=== PATIENT | male | born 1960 | race Caucasian/White ===

== ENCOUNTER → 2016-09-01 | Outpatient (REF) | payer MEDICARE, MEDICAID ==
[~2016-09-01] MED LIST: /DIVA50TA PO; /HALO5TAB OR; ALLE25CA OR; AMBIEN PO; ANAPROX PO; ASPI325T PO; BENZ1TA PO; BUSP10TA PO; CLON0.5T PO; COGE1INJ PO; COGENTIN PO; COLA100C2 OR; DEPA500T2 PO; DOCU100T PO; FLEEENE4 PR; FURO20TA2 PO; HALD100I2 IM; HALDOL PO; HALO10TA PO; IPRA2IN INH; KLON0.5T OR; KLON1TAB OR; LATU80TA PO; MOBI7.5T10 PO; PROP10TA56 PO; SAPHRIS PO; SAPHRIS SL; SENO8.6T9 OR; SERO400T3 PO; TRAZ100T OR; TRAZ150T OR; TRAZ300T2 OR; TRAZ50TA4 PO; TYLE325T5 PO; VENTOLIN NEB INH; VIST25CA PO; [UNRECOGNIZED DRUG - CODE] PO; saphris
[2016-09-01 13:20] LABS: ALBUMIN 3.6 GM/DL (3.2-5.2); ANION GAP 5 MEQ/L (8-16); BLOOD UREA NITROGEN 16 MG/DL (7-18); CALCIUM LEVEL 8.8 MG/DL (8.5-10.1); CARBON DIOXIDE LEVEL 29 MEQ/L (21-32); CHLORIDE LEVEL 99 MEQ/L (98-107); CREATININE FOR GFR 0.82 MG/DL (0.70-1.30); GLOMERULAR FILTRATION RATE > 60.0 (>56); GLUCOSE, FASTING 94 MG/DL (70-105); PHOSPHORUS LEVEL 2.5 MG/DL (2.5-4.9); POTASSIUM SERUM 4.4 MEQ/L (3.5-5.1); SODIUM LEVEL 133 MEQ/L (136-145)
== END ==
LOC: M LABDRAWC 11:44
PROVIDERS: ATTEND Internal Medicine Nephrology
DX: N18.2 Chronic kidney disease, stage 2 (mild) (principal)

== ENCOUNTER → 2016-09-01 | Outpatient (REF) | payer MEDICARE, MEDICAID ==
[2016-09-01 13:25] LABS: ALBUMIN 3.5 GM/DL (3.2-5.2); ALBUMIN/GLOBULIN RATIO 1.21 (1.00-1.93); ALKALINE PHOSPHATASE 66 U/L (45-117); ALT/SGPT 22 U/L (12-78); ANION GAP 5 MEQ/L (8-16); AST/SGOT 19 U/L (15-37); BILIRUBIN,TOTAL 0.3 MG/DL (0.2-1.0); BLOOD UREA NITROGEN 15 MG/DL (7-18); CALCIUM LEVEL 8.9 MG/DL (8.5-10.1); CARBON DIOXIDE LEVEL 30 MEQ/L (21-32); CHLORIDE LEVEL 101 MEQ/L (98-107); CREATININE FOR GFR 0.85 MG/DL (0.70-1.30); GLOMERULAR FILTRATION RATE > 60.0 (>56); GLUCOSE, FASTING 93 MG/DL (70-105); POTASSIUM SERUM 4.5 MEQ/L (3.5-5.1); SODIUM LEVEL 136 MEQ/L (136-145); TOTAL PROTEIN 6.4 GM/DL (6.4-8.2)
== END ==
LOC: M LABDRAWC 11:42
PROVIDERS: ATTEND Registered Nurse Community Health
DX: Z00.00 Encounter for general adult medical examination without abnormal findings (principal); F17.200 Nicotine dependence, unspecified, uncomplicated; I12.9 Hypertensive chronic kidney disease with stage 1 through stage 4 chronic kidney disease, or unspecified chronic kidney disease; N18.2 Chronic kidney disease, stage 2 (mild)

== ENCOUNTER → 2016-10-26 | Outpatient (REF) | payer MEDICARE, MEDICAID ==
[~2016-10-26] MED LIST changes: +MOBI4TAB PO; -MOBI7.5T10 PO; +TRAZ50TA11 PO; -TRAZ50TA4 PO
== END ==
LOC: M LABDRAWC 11:26
PROVIDERS: ATTEND Registered Nurse Community Health
DX: Z00.00 Encounter for general adult medical examination without abnormal findings (principal); E78.00 Pure hypercholesterolemia, unspecified; I12.9 Hypertensive chronic kidney disease with stage 1 through stage 4 chronic kidney disease, or unspecified chronic kidney disease; N18.2 Chronic kidney disease, stage 2 (mild); F20.5 Residual schizophrenia
CPT/HCPCS: 36415; 80061; 80069; 81001; 83735; 84550; 85025; G0103

== ENCOUNTER → 2016-10-26 | Outpatient (REF) | payer MEDICARE, MEDICAID ==
[2016-10-26 12:23] LABS: BASO % 0.7 % (0.0-1.0); EOS # 0.1 K/mm3 (0.0-0.50); EOS % 1.4 % (0.0-3.0); LARGE UNSTAINED CELL # 0.2 K/mm3 (0.0-0.4); LARGE UNSTAINED CELL % 2.7 % (0.0-4.0); LYMPH # 1.8 K/mm3 (1.5-4.5); LYMPH % 33.2 % (24.0-44.0); MEAN CORPUSCULAR HGB CONC 33.8 g/dl (32.0-36.5); MEAN CORPUSCULAR VOLUME 91.5 fl (80.0-96.0); MONO # 0.6 K/mm3 (0.0-0.8); MONO % 10.2 % (0.0-5.0); NEUTROPHILS # 2.8 K/mm3 (1.8-7.7); NEUTROPHILS % 51.7 % (36.0-66.0); PLATELET COUNT, AUTOMATED 316 k/mm3 (150-450); RED CELL DISTRIBUTION WIDTH 12.8 % (11.5-14.5); WHITE BLOOD COUNT 5.4 K/mm3 (4.0-10.0)
[2016-10-26 12:26] LABS: ALBUMIN 3.4 GM/DL (3.2-5.2); ANION GAP 8 MEQ/L (8-16); BLOOD UREA NITROGEN 12 MG/DL (7-18); CALCIUM LEVEL 8.8 MG/DL (8.5-10.1); CARBON DIOXIDE LEVEL 26 MEQ/L (21-32); CHLORIDE LEVEL 98 MEQ/L (98-107); CREATININE FOR GFR 0.82 MG/DL (0.70-1.30); GLOMERULAR FILTRATION RATE > 60.0 (>56); GLUCOSE, FASTING 91 MG/DL (70-105); MAGNESIUM LEVEL 2.1 MG/DL (1.8-2.4); PHOSPHORUS LEVEL 2.6 MG/DL (2.5-4.9); POTASSIUM SERUM 4.2 MEQ/L (3.5-5.1); SODIUM LEVEL 132 MEQ/L (136-145); URIC ACID 4.5 MG/DL (3.5-7.2)
== END ==
LOC: M LABDRAWC 11:25
PROVIDERS: ATTEND Internal Medicine Nephrology
DX: E78.00 Pure hypercholesterolemia, unspecified (principal); I12.9 Hypertensive chronic kidney disease with stage 1 through stage 4 chronic kidney disease, or unspecified chronic kidney disease; N18.2 Chronic kidney disease, stage 2 (mild); F20.5 Residual schizophrenia

== ENCOUNTER → 2016-11-17 | Outpatient (REF) | payer MEDICARE, MEDICAID ==
[2016-11-17 14:00] LABS: BASO % 0.9 % (0.0-1.0); EOS # 0.1 K/mm3 (0.0-0.50); EOS % 2.1 % (0.0-3.0); LARGE UNSTAINED CELL # 0.2 K/mm3 (0.0-0.4); LYMPH # 2.5 K/mm3 (1.5-4.5); LYMPH % 36.3 % (24.0-44.0); MEAN CORPUSCULAR HEMOGLOBIN 30.5 pg (27.0-33.0); MEAN CORPUSCULAR HGB CONC 33.7 g/dl (32.0-36.5); MEAN CORPUSCULAR VOLUME 90.5 fl (80.0-96.0); MONO # 0.7 K/mm3 (0.0-0.8); MONO % 10.5 % (0.0-5.0); NEUTROPHILS % 47.2 % (36.0-66.0); PLATELET COUNT, AUTOMATED 326 k/mm3 (150-450); RED CELL DISTRIBUTION WIDTH 13.5 % (11.5-14.5); WHITE BLOOD COUNT 6.3 K/mm3 (4.0-10.0)
[2016-11-17 14:22] LABS: ALBUMIN 3.8 GM/DL (3.2-5.2); ANION GAP 6 MEQ/L (8-16); BLOOD UREA NITROGEN 20 MG/DL (7-18); CALCIUM LEVEL 9.3 MG/DL (8.5-10.1); CARBON DIOXIDE LEVEL 30 MEQ/L (21-32); CHLORIDE LEVEL 99 MEQ/L (98-107); CREATININE FOR GFR 0.82 MG/DL (0.70-1.30); GLOMERULAR FILTRATION RATE > 60.0 (>56); GLUCOSE, FASTING 89 MG/DL (70-105); MAGNESIUM LEVEL 2.2 MG/DL (1.8-2.4); POTASSIUM SERUM 4.5 MEQ/L (3.5-5.1); SODIUM LEVEL 135 MEQ/L (136-145); URIC ACID 4.7 MG/DL (3.5-7.2)
== END ==
LOC: M LAB REF 07:11
PROVIDERS: ATTEND Internal Medicine Nephrology
DX: N18.2 Chronic kidney disease, stage 2 (mild) (principal)

== ENCOUNTER 2018-07-25 12:39 | Inpatient (IN) | payer MEDICARE, MEDICAID ==
[~2018-07-25] VITALS: Ht 172.7 cm; Wt 85.2 kg
[~2018-07-25 12:39] MED LIST changes: -/DIVA50TA PO; -/HALO5TAB OR; -BENZ1TA PO; +BENZ1TAB42 PO; +DEPA1TAB3 PO; -HALO10TA PO; +HALO1TAB21 OR; +HALO1TAB29 PO; -SERO400T3 PO; +SERO400T4 PO; +TRAZ-252 PO; -TRAZ50TA11 PO
[2018-07-25] MEDS ORDERED: DIAZ2TAB PO (14:02)
[2018-07-25] MEDS ORDERED: POTA10TA16 PO (14:02)
[2018-07-25] MEDS ORDERED: diazePAM 2 MG TAB PO ONE (14:15)
[2018-07-25 14:48] LABS: HEMATOCRIT 43.2 % (42.0-52.0); HEMOGLOBIN 14.3 g/dl (13.5-17.5); MEAN CORPUSCULAR HEMOGLOBIN 28.4 pg (27.0-33.0); MEAN CORPUSCULAR HGB CONC 33.1 g/dl (32.0-36.5); MEAN CORPUSCULAR VOLUME 85.7 fl (80.0-96.0); PLATELET COUNT, AUTOMATED 417 10^3/uL (150-450); RED BLOOD COUNT 5.04 10^6/uL (4.30-6.10); WHITE BLOOD COUNT 6.3 10^3/uL (4.0-10.0)
[2018-07-25 15:18] LABS: AMPHETAMINES LEVEL URINE NEGATIVE (NEGATIVE); BARBITURATES URINE NEGATIVE (NEGATIVE); BENZODIAZEPINES URINE POSITIVE (NEGATIVE); CANNABINOIDS URINE NEGATIVE (NEGATIVE); COCAINE METABOLITE URINE NEGATIVE (NEGATIVE); METHADONE URINE NEGATIVE (NEGATIVE); OPIATES URINE NEGATIVE (NEGATIVE); PHENCYCLIDINE URINE NEGATIVE (NEGATIVE)
[2018-07-25 15:18] LABS: ACETAMINOPHEN LEVEL < 2.0 UG/ML (10.0-30.0); ALBUMIN 3.9 GM/DL (3.2-5.2); ALT/SGPT 22 U/L (12-78); BILIRUBIN,DIRECT 0.1 MG/DL (0.0-0.2); BILIRUBIN,TOTAL 0.3 MG/DL (0.2-1.0); BLOOD UREA NITROGEN 19 MG/DL (7-18); CALCIUM LEVEL 8.7 MG/DL (8.5-10.1); CARBON DIOXIDE LEVEL 28 MEQ/L (21-32); CHLORIDE LEVEL 94 MEQ/L (98-107); CREATININE FOR GFR 0.76 MG/DL (0.70-1.30); ETHYL ALCOHOL (ETHANOL) < 0.003 % (0.000-0.010); GLOMERULAR FILTRATION RATE > 60.0 (>56); GLUCOSE, FASTING 104 MG/DL (70-100); SALICYLATE LEVEL < 1.7 MG/DL (5.0-30.0); SODIUM LEVEL 128 MEQ/L (136-145); TOTAL PROTEIN 7.3 GM/DL (6.4-8.2); VALPROIC ACID (DEPAKOTE) 57.8 UG/ML (50.0-100.0)
[2018-07-25] MEDS ORDERED: hydrOXYzine 25 MG TAB PO ONE (18:00)
[2018-07-25] MEDS ORDERED: BENZ-52 PO (19:05)
[2018-07-25] MEDS ORDERED: VENTAER INH (19:05)
[2018-07-25] MEDS ORDERED: AMBI10TA PO (19:05)
[2018-07-25] MEDS ORDERED: MELO15TA28 PO (19:05)
[2018-07-25] MEDS ORDERED: METO1TAB87 PO (19:05)
[2018-07-25] MEDS ORDERED: ACET-897 PO (19:05)
[2018-07-25] MEDS ORDERED: DOCU100C17 PO (19:05)
[2018-07-25] MEDS ORDERED: ASEN5TA SL (19:05)
[2018-07-25] MEDS ORDERED: ACETAMINOPHEN TAB 650MG DOSE (2X325MG) PO PRN (19:30)
[2018-07-25] MEDS ORDERED: MAALOX 30 ML SUSP *UDC PO PRN (19:30)
[2018-07-25] MEDS ORDERED: traZODone 50 MG TAB PO PRN (19:30)
[2018-07-25 20:57] VITALS: BP 137/78
[2018-07-25] MEDS ORDERED: POTASSIUM CHLORIDE 10 MEQ SR TABLET PO SCH (21:00)
[2018-07-25] MEDS: BENZTROPINE 1 MG TAB PO SCH (22:14)
[2018-07-25] MEDS: DIVALPROEX 500MG *ER* TAB PO SCH (22:14)
[2018-07-25] MEDS: METOPROLOL TART 25 MG TABLET PO SCH (22:14)
[2018-07-25] MEDS: DOCUSATE SODIUM 100 MG CAP PO SCH (22:15)
[2018-07-25] MEDS: QUEtiapine FUMARATE **XR** 200MG TABLET PO SCH (22:15)
[2018-07-25] MEDS: diazePAM 2 MG TAB PO SCH (22:15)
[2018-07-25] MEDS: ACETAMINOPHEN 500 MG TAB PO PRN (22:16)
[2018-07-25] MEDS: zolPIDEM TARTRATE 5 MG TAB PO PRN (22:18)
[2018-07-26] MEDS ORDERED: ASENAPINE 5 MG SUBLINGUAL TAB (SAPHRIS) SL SCH (06:00)
[2018-07-26 06:46] VITALS: BP 133/74
[2018-07-26 07:13] LABS: BLOOD UREA NITROGEN 16 MG/DL (7-18); CALCIUM LEVEL 9.3 MG/DL (8.5-10.1); CARBON DIOXIDE LEVEL 27 MEQ/L (21-32); CHLORIDE LEVEL 98 MEQ/L (98-107); CREATININE FOR GFR 0.67 MG/DL (0.70-1.30); GLOMERULAR FILTRATION RATE > 60.0 (>56); GLUCOSE, FASTING 95 MG/DL (70-100); POTASSIUM SERUM 4.7 MEQ/L (3.5-5.1); SODIUM LEVEL 129 MEQ/L (136-145)
[2018-07-26] MEDS: FUROSEMIDE 20 MG TAB PO SCH ×2 (07:55→17:49)
[2018-07-26] MEDS: diazePAM 2 MG TAB PO SCH ×3 (07:55→20:18)
[2018-07-26] MEDS: DOCUSATE SODIUM 100 MG CAP PO SCH ×2 (07:55→20:20)
[2018-07-26] MEDS: MELOXICAM (MOBIC) 7.5 MG TAB PO SCH (07:55)
[2018-07-26] MEDS: METOPROLOL TART 25 MG TABLET PO SCH ×2 (07:56→20:20)
[2018-07-26] MEDS ORDERED: NICOTINE 21MG/24HR 1 EA TRANSDERMAL TD SCH (09:00)
[2018-07-26] MEDS ORDERED: OLANZapine ORAL DISINTEGRATING TAB 5MG PO ONE (10:45)
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
[2018-07-26 12:20] LABS: ALBUMIN 3.2 GM/DL (3.2-5.2); ALT/SGPT 20 U/L (12-78); BILIRUBIN,TOTAL 0.4 MG/DL (0.2-1.0); URIC ACID 4.6 MG/DL (3.5-7.2)
--- NOTE | 2018-07-26 15:03 | HPE ---
DATE OF ADMISSION: 07/25/2018 HISTORY OF PRESENT ILLNESS: 57-year-old male with a history of schizoaffective disorder that resides at [facility] ([facility]). He was sent by the police department under 9.41 from [facility] due to threatening staff and residents, decompensated and showing manic behaviors. Hospitalist was consulted for medical management. PAST MEDICAL HISTORY: Significant for hypertension, hyperlipidemia, bilateral lower extremity peripheral vascular disease, paranoid schizophrenia. CURRENT MEDICATIONS: - Tylenol 1000 mg by mouth every 8 hours as needed for pain - albuterol HFA two puffs every 4 hours as needed for shortness of breath - Mylanta as needed for heartburn and indigestion - Cogentin 1 mg by mouth at night - Valium 2 mg by mouth three times a day - Depakote ER 1500 mg by mouth daily - Colace 200 mg by mouth twice a day - furosemide 20 mg by mouth twice a day - meloxicam 15 mg by mouth daily - metoprolol tartrate 25 mg by mouth twice a day - milk of magnesia 30 mL by mouth daily as needed for constipation - Zyprexa 5 mg by mouth every 6 hours as needed for anxiety - Zyprexa 5 mg by mouth twice a day - Seroquel XR 400 mg by mouth daily - Ambien 10 mg by mouth at night PAST SURGICAL HISTORY: Unknown, the patient is a poor historian. SOCIAL HISTORY: The patient smokes what he states is anywhere from one to three packs per day. He lives at [facility] ([facility]). His primary care provider is at [facility] in [place]. The patient is a poor historian and is quite agitated. REVIEW OF SYSTEMS: He does complain of left lower extremity swelling with knee pain. It appears that he has some form of a knee surgery on that left knee. He complains of bilateral hand and wrist pain with swelling. He denies chest pain, headache, blurred vision, dizziness or shortness of breath. He denies any excessive weight gain and is quite agitated that he has had to have blood work done. LABORATORIES: CBC, which proves no abnormalities or anemia. CMP was completed and does show a sodium level of 128 on admission, repeat is 129. Kidney function is stable. The rest of his electrolytes are uneventful. Toxicology was completed and he is positive for benzodiazepine, which is consistent with his medication history. PHYSICAL EXAMINATION: GENERWAL: The patient is mildly agitated. He is cooperative with the examination. HEENT: Oropharynx is pink and moist. Neck is supple without lymphadenopathy or jugular venous distention (JVD). CARDIOVASCULAR: Heart rate and rhythm are regular. PULMONARY: Lungs are clear to auscultation bilaterally. ABDOMEN: Soft and nontender. Positive bowel sounds in all four quadrants. EXTREMITIES: The patient's left lower extremity is swollen and edematous with erythema. It is mildly tender on palpation. He does have a good pedal pulse on bilateral lower extremities. NEUROLOGIC: The patient is alert and oriented times three. ASSESSMENT: 1. Schizoaffective disorder with agitation. 2. Hypertension. 3. Left lower extremity swelling. 4. Hyponatremia. 5. Hyperlipidemia. 6. Presumed asthma versus chronic obstructive pulmonary disease (COPD) given his use of inhalers as needed. 7. Peripheral vascular disease. PLAN: The patient will have a left lower extremity duplex to rule out a deep vein thrombosis (DVT). We will also get a left knee x-ray due to his left knee swelling with erythema. Uric acid was ordered, as well as a CBC and repeat CMP due to his hyponatremia. The patient's furosemide 20 mg by mouth twice a day should be continued. Meloxicam 15 mg by mouth daily should be continued, as well as his other routine home medications. Case was discussed with mental health nurse.
--- NOTE | 2018-07-26 15:31 | REP ---
Left lower extremity Duplex Doppler venous ultrasound: Real time compression and duplex Doppler interrogation of the left lower extremity deep venous system is performed. The left common femoral, superficial femoral and popliteal veins are fully compressible with transducer pressure and demonstrate normal spontaneous and phasic flow, without evidence of deep venous thrombosis. Impression: No evidence of deep venous thrombosis of the left lower extremity femoral popliteal venous system. Electronically Signed by Kt Mendoza MD 07/26/2018 03:22 P
--- NOTE | 2018-07-26 17:00 | REP ---
Left knee: Three views. History: Pain and swelling. Findings: There is advanced diffuse osteopenia. There is old post-traumatic deformity of the proximal fibula. An old patellar fracture is seen with patella melany consistent with old disruption of the patellar tendon mechanism. The position of the patella is unchanged from comparison study of October 22, 2013. No acute bony abnormality is seen. Impression: Old patellar tendon disruption patellar fracture and proximal fibular fracture. Patella melany. Unchanged from 2014 prior radiographs. No acute bony abnormality. Electronically Signed by Benigno Brown MD 07/26/2018 04:51 P
[2018-07-26] MEDS: QUEtiapine FUMARATE **XR** 200MG TABLET PO SCH (17:49)
[2018-07-26] MEDS: DIVALPROEX 500MG *ER* TAB PO SCH (17:49)
[2018-07-26] MEDS: OLANZapine ORAL DISINTEGRATING TAB 5MG PO PRN (17:51)
[2018-07-26 18:00] VITALS: BP 124/57
[2018-07-26] MEDS: zolPIDEM TARTRATE 5 MG TAB PO PRN (20:18)
[2018-07-26] MEDS: OLANZapine ORAL DISINTEGRATING TAB 5MG PO SCH (20:18)
[2018-07-26] MEDS: ACETAMINOPHEN 500 MG TAB PO PRN (20:19)
[2018-07-26] MEDS: BENZTROPINE 1 MG TAB PO SCH (20:20)
[2018-07-26] MEDS ORDERED: HALOPERIDOL 5 MG TAB PO SCH (21:00)
[2018-07-26] MEDS: LORazepam 2 MG TAB PO PRN (23:50)
[2018-07-27] MEDS: OLANZapine ORAL DISINTEGRATING TAB 5MG PO PRN (02:18)
[2018-07-27] MEDS: diazePAM 2 MG TAB PO SCH ×3 (06:00→19:09)
[2018-07-27 06:40] VITALS: BP 114/83
[2018-07-27] MEDS: METOPROLOL TART 25 MG TABLET PO SCH ×2 (08:28→20:03)
[2018-07-27] MEDS: MELOXICAM (MOBIC) 7.5 MG TAB PO SCH (08:28)
[2018-07-27] MEDS: FUROSEMIDE 20 MG TAB PO SCH ×2 (08:28→16:27)
[2018-07-27] MEDS: DOCUSATE SODIUM 100 MG CAP PO SCH ×2 (08:28→20:03)
[2018-07-27] MEDS: OLANZapine ORAL DISINTEGRATING TAB 5MG PO SCH ×2 (08:28→20:03)
[2018-07-27] MEDS: ALBUTEROL 90 MCG/ACT 8GM HFA INHALER INH PRN (08:31)
[2018-07-27 09:32] LABS: BASO # 0.1 10^3/uL (0.0-0.2); BASO % 1.4 % (0.0-1.0); EOS # 0.1 10^3/uL (0.0-0.50); HEMATOCRIT 41.7 % (42.0-52.0); HEMOGLOBIN 13.8 g/dl (13.5-17.5); LYMPH # 1.7 10^3/uL (1.5-4.5); LYMPH % 32.8 % (24.0-44.0); MEAN CORPUSCULAR HEMOGLOBIN 27.5 pg (27.0-33.0); MEAN CORPUSCULAR HGB CONC 33.1 g/dl (32.0-36.5); MEAN CORPUSCULAR VOLUME 83.2 fl (80.0-96.0); MONO # 0.7 10^3/uL (0.0-0.8); MONO % 13.6 % (0.0-5.0); NEUTROPHILS # 2.6 10^3/uL (1.8-7.7); NEUTROPHILS % 50.4 % (36.0-66.0); PLATELET COUNT, AUTOMATED 414 10^3/uL (150-450); RED BLOOD COUNT 5.01 10^6/uL (4.30-6.10); WHITE BLOOD COUNT 5.2 10^3/uL (4.0-10.0)
--- NOTE | 2018-07-27 09:34 | MHIPNPDOC ---
[facility] Progress Note Progress Note DATE OF SERVICE: 07/27/18 HISTORY: Patient is a 57 -year-old , male, with a history of schizoaffective d/o and residing at [facility] several years who was sent with PD under 9.41 from [facility] due to pt threatening staff and other residents, decompensating, manic, paranoid people talk about him, talking to self, AH (stated in ED "they're not too bad"), and agitation. Pt according to [facility] scaring the other residents there due to him threatening and cussing at them. Per ED, when pt asked why he was sent to the ED he stated "I was evicted from my house for arguing with 2 other people. Per ED, pt was manic and agitated. Pt is a poor historian due to current nelda/psychosis/agitation so history gathered from previous chart records. VITAL SIGNS: See below. NEW TEST RESULTS: See below. CURRENT MEDICATIONS: See below. MENTAL STATUS EXAMINATION: General Appearance: unkempt, ds/not appear stated age (older), hospital scrubs/clothing, walking in milieu with his cane Build: average Demeanor: cooperative Eye Contact: fair Activity: pleasant, less anxious Behavior: cooperative, restless Speech: less rapid/pressured, spontaneous, other (he sounds loud and cranky (best example is the voice of a high pitched angry cranky old man)) Mood: less anxious, elevated, hypomanic Mood "better" Affect: appropriate, less labile, congruent, anxious, less disorganized Thought Process: less tangential, loose, associative, flight of ideas, racing, derailment Thought Content (Delusions): less grandiose, paranoia, delusions, other ("I've been threatening people b/c I don't like them" Denies SI, HI intent) Thought Content (Other): less preoccupied, obsessional, guarded, ideas of reference, internal-stimuli, appears paranoid Thought Content (Aggressive): none reported Perception (Hallucinations): less auditory Perception (Other): none reported Cognition (Impairment of): improving attention/concentration, ability to abstract Cognition(Intelligence Est.): borderline Oriented: Awake, Alert, Oriented times three Insight: poor Judgment: Poor Psychosis: improving Associations, Abstract Thinking, Psychotic Perceptions DIAGNOSES: Schizoaffective d/o - bipolar type ASSESSMENT:Pt seen and states that he's feeling better and really likes the zyprexa zydis he started yesterday, is tolerating it well. He is much more pleasant and cooperative, no longer irritable and agitated. Wants to just socialize with me in the office as he appears to like talking to me. States he slept well last night. Feels he is tolerating his medications and they're beneficial. He is attending some groups and finding them helpful, behaving appropriately. He is appropriate with staff and peers. Psychosis, paranoia, hallucinations appear to be improving with the addition of zyprexa zydis. He denies SI/HI. Pt feels safe here. MANAGEMENT PLAN:continue plan medications: zyprexa zydis 5mg bid Cogentin 1 mg QHS Valium 2 mg TID@0600,1200,2000 Depakote Er 1,500 mg DAILY@1800 Ativan 2 mg Q6HP PRN PO ANXIETY/AGITATION ZyPREXA ZYDIS 5 mg Q6HP PRN PO ANXIETY/AGITATION SEROquel XR 400 mg DAILY@1800 Ambien 10 mg QHS PRN PO SLEEP TIME SPENT: 30 minutes. Vital Signs Vital Signs Date Time Temp Pulse Resp B/P (MAP) Pulse Ox O2 Delivery O2 Flow Rate FiO2 07/27/18 08:28 68 120/83 07/27/18 06:40 97.3 20 07/25/18 20:57 98 07/25/18 20:39 Room Air Current Medications Current Medications Acetaminophen (Tylenol Tab) 650 mg Q6HP PRN PO HEADACHE or DISCOMFORT; Start 07/25/18 at 19:30; Status Cancel Acetaminophen (Tylenol Tab) 1,000 mg Q8H PRN PO PAIN Last administered on 07/26/18at 20:19; Start 07/25/18 at 20:00 Al Hydrox/Mg Hydrox/Simethicone (Mylanta) 30 ml Q4HP PRN PO HEARTBURN/INDIGESTION; Start 07/25/18 at 19:30 Albuterol Sulfate (Proventil, Ventolin Hfa) 2 puff Q4H PRN INH SHORTNESS OF BREATH Last administered on 07/27/18at 08:31; Start 07/25/18 at 20:00 Asenapine (Saphris) 5 mg BID@0600,1500 SL Last administered on 07/26/18 05:16; Start 07/26/18 at 06:00; Stop 07/26/18 at 10:37; Status DC Benztropine Mesylate (Cogentin) 1 mg QHS PO Last administered on 07/26/18at 20:20; Start 07/25/18 at 21:00 Diazepam (Valium) 2 mg TID PO Last administered on 07/26/18 07:55; Start 07/25/18 at 21:00; Stop 07/26/18 at 11:05; Status DC Diazepam (Valium) 2 mg TID@0600,1200,2000 PO Last administered on 07/27/18 06:00; Start 07/26/18 at 12:00 Divalproex Sodium (Depakote Er) 1,500 mg DAILY@1800 PO Last administered on 07/26/18 17:49; Start 07/25/18 at 18:00 Docusate Sodium (Colace) 200 mg BID PO Last administered on 07/27/18 08:28; Start 07/25/18 at 21:00 Furosemide (Lasix) 20 mg BID@0900,1700 PO Last administered on 07/27/18 08:28; Start 07/26/18 at 09:00 Haloperidol (Haldol) 5 mg BID PO ; Start 07/26/18 at 21:00; Status Cancel Home Med (Med Rec Complete!) ASDIRECTED XX ; Start 07/25/18 at 19:15; Stop 07/25/18 at 19:15; Status DC Lorazepam (Ativan) 2 mg Q6HP PRN PO ANXIETY/AGITATION Last administered on 07/26/18at 23:50; Start 07/26/18 at 10:45 Magnesium Hydroxide (Milk Of Magnesia) 30 ml DAILYPRN PRN PO CONSTIPATION; Start 07/25/18 at 19:30 Meloxicam (Mobic) 15 mg DAILY PO Last administered on 07/27/18at 08:28; Start 07/26/18 at 09:00 Metoprolol Tartrate (Lopressor) 25 mg BID PO Last administered on 07/27/18at 08:28; Start 07/25/18 at 21:00 Nicotine (Nicoderm Cq 21mg) 1 patch DAILY TD ; Start 07/26/18 at 09:00; Stop 07/26/18 at 09:00; Status DC Olanzapine (ZyPREXA ZYDIS) 5 mg BID PO Last administered on 07/27/18at 08:28; Start 07/26/18 at 21:00 Olanzapine (ZyPREXA ZYDIS) 5 mg Q6HP PRN PO ANXIETY/AGITATION Last administered on 07/27/18at 02:18; Start 07/26/18 at 10:45 Potassium Chloride (Micro-K Extencaps) 10 meq BID PO ; Start 07/25/18 at 21:00; Status UNV Quetiapine Fumarate (SEROquel XR) 400 mg DAILY@1800 PO Last administered on 07/26/18at 17:49; Start 07/25/18 at 18:00 Trazodone HCl (Desyrel) 50 mg QHSP PRN PO INSOMNIA; Start 07/25/18 at 19:30; Status Cancel Zolpidem Tartrate (Ambien) 10 mg QHS PRN PO SLEEP Last administered on 07/26/18at 20:18; Start 07/25/18 at 20:00 Allergies Coded Allergies: No Known Allergies (Verified , 06/27/10) A-FIB/CHADSVASC A-FIB History Current/History of A-Fib/PAF?: No Current Oral Anticoagulant The: No Age/Risk Factor Scoring CHADSVASC: CHADSVASC Response (Comments) Value Hx of HTN Yes 1 Total 1 Treatment Treatment ordered: NONE Reason Anticoagulant not given: Not indicated/[id number] MARY ANDERSON DO July 27, 2018 9:34 am
[2018-07-27] MEDS: LORazepam 2 MG TAB PO PRN ×2 (14:26→20:38)
--- NOTE | 2018-07-27 16:20 | IPNPDOC ---
Date Seen The patient was seen on 07/27/18. Progress Note SUBJECTIVE: Patient wanted to know if he could go home today. Will defert to [facility] team. He still has some discomfort on his left knee and it is swollen. Imaging with xray showed old patella fracture unchanged. Continue pain treatment and have PCP and specialist follow up as outpatient. Continue to monitor clinically. OBJECTIVE PHYSICAL EXAMINATION: VITAL SIGNS: Please see below. GENERWAL: The patient is mildly agitated. He is cooperative with the examination. HEENT: Atraumatic, PERRLA, mucous is moist, trachea without any deviation CARDIOVASCULAR: Heart rate and rhythm are regular. PULMONARY: Lungs are clear to auscultation bilaterally. ABDOMEN: Soft and nontender. Positive bowel sounds in all four quadrants. EXTREMITIES: The patient's left lower extremity is swollen and edematous with erythema. It is mildly tender on palpation. He does have a good pedal pulse on bilateral lower extremities as per previously note. Patient didn't let me examination his knee today, will try to evaluate again tomorrow. NEUROLOGIC: The patient is alert and oriented times three. LABORATORY DATA, IMAGING STUDIES, MICROBIOLOGY: Please see below. ASSESSMENT AND PLAN: 57-year-old male with a history of schizoaffective disorder that resides at [facility] ([facility]). He was sent by the police department under 9.41 from [facility] due to threatening staff and residents, decompensated and showing manic behaviors. Hospitalist was consulted for medical management. Schizoaffective disorder with agitation. Left lower extremity swelling, Peripheral vascular disease, old patella fracture as mentioned below -Left knee xray:Old patellar tendon disruption patellar fracture and proximal fibular fracture. Patella melany. Unchanged from 2014 prior radiographs. No acute bony abnormality. -Left LE US: neg for DVT -Outpatient follow up with PCP, vascular surgery, and orthopedic services -Monitor first any signs of cellulitis -As needed pain management Hyponatremia, asymptomatic -Patient on furosemide -Patient on psychiatric medication -Continue to monitor clinically Hypertension. Resume home regimen furosemide and metoprolol plus potassium supplement Hyperlipidemia. Follow up with PCP as outpatient Asthma / chronic obstructive pulmonary disease (COPD) resume home respiratory therapy VS, I&O, 24H, Fishbone Vital Signs/I&O Vital Signs Date Time Temp Pulse Resp B/P (MAP) Pulse Ox O2 Delivery O2 Flow Rate FiO2 07/27/18 08:28 68 120/83 07/27/18 06:40 97.3 20 07/25/18 20:57 98 07/25/18 20:39 Room Air Laboratory Data 24H LABS Laboratory Tests 2 07/27/18 08:53: Immature Granulocyte % (Auto) 0.8, White Blood Count 5.2, Red Blood Count 5.01, Hemoglobin 13.8, Hematocrit 41.7L, Mean Corpuscular Volume 83.2, Mean Corpuscular Hemoglobin 27.5, Mean Corpuscular Hemoglobin Concent 33.1, Red Cell Distribution Width 14.4, Platelet Count 414, Neutrophils (%) (Auto) 50.4, Lymphocytes (%) (Auto) 32.8, Monocytes (%) (Auto) 13.6H, Eosinophils (%) (Auto) 1.0, Basophils (%) (Auto) 1.4H, Neutrophils # (Auto) 2.6, Lymphocytes # (Auto) 1.7, Monocytes # (Auto) 0.7, Eosinophils # (Auto) 0.1, Basophils # (Auto) 0.1, Nucleated Red Blood Cells % (auto) 0.0 CBC/BMP Laboratory Tests 07/27/18 08:53 Red Blood Count 5.01, Mean Corpuscular Volume 83.2, Mean Corpuscular Hemoglobin 27.5, Mean Corpuscular Hemoglobin Concent 33.1, Red Cell Distribution Width 14.4, Neutrophils (%) (Auto) 50.4, Lymphocytes (%) (Auto) 32.8, Monocytes (%) (Auto) 13.6 H, Eosinophils (%) (Auto) 1.0, Basophils (%) (Auto) 1.4 H, Neutrophils # (Auto) 2.6, Lymphocytes # (Auto) 1.7, Monocytes # (Auto) 0.7, Eos inophils # (Auto) 0.1, Basophils # (Auto) 0.1 ROMELIA LEIGH MD July 27, 2018 16:20
[2018-07-27] MEDS: QUEtiapine FUMARATE **XR** 200MG TABLET PO SCH (17:51)
[2018-07-27] MEDS: DIVALPROEX 500MG *ER* TAB PO SCH (17:52)
[2018-07-27 18:15] VITALS: BP 131/63
[2018-07-27] MEDS: BENZTROPINE 1 MG TAB PO SCH (20:03)
[2018-07-27] MEDS: zolPIDEM TARTRATE 5 MG TAB PO PRN (21:06)
[2018-07-28] MEDS: ACETAMINOPHEN 500 MG TAB PO PRN ×2 (00:37→19:45)
[2018-07-28] MEDS: OLANZapine ORAL DISINTEGRATING TAB 5MG PO PRN ×2 (00:51→23:57)
[2018-07-28 04:50] VITALS: BP 109/68
[2018-07-28] MEDS: diazePAM 2 MG TAB PO SCH ×3 (05:58→19:37)
[2018-07-28] MEDS ORDERED: OLANZapine ORAL DISINTEGRATING TAB 5MG PO ONE (06:00)
[2018-07-28 06:33] VITALS: BP 121/73
--- NOTE | 2018-07-28 08:55 | MHIPNPDOC ---
[facility] Progress Note Progress Note DATE OF SERVICE: 07/28/18 HISTORY: Patient is a 57 -year-old , male, with a history of schizoaffective d/o and residing at [facility] several years who was sent with PD under 9.41 from [facility] due to pt threatening staff and other residents, decompensating, manic, paranoid people talk about him, talking to s elf, AH (stated in ED "they're not too bad"), and agitation. Pt according to TLS scaring the other residents there due to him threatening and cussing at them. Per ED, when pt asked why he was sent to the ED he stated "I was evicted from my house for arguing with 2 other people. Per ED, pt was manic and agitated. Pt is a poor historian due to current nelda/psychosis/agitation so history gathered from previous chart records. VITAL SIGNS: See below. NEW TEST RESULTS: See below. CURRENT MEDICATIONS: See below. MENTAL STATUS EXAMINATION: Pt asleep and unable to assess. MSE per yesterday's note: "General Appearance: unkempt, ds/not appear stated age (older), hospital scrubs/clothing, walking in milieu with his cane Build: average Demeanor: cooperative Eye Contact: fair Activity: pleasant, less anxious Behavior: cooperative, restless Speech: less rapid/pressured, spontaneous, other (he sounds loud and cranky (best example is the voice of a high pitched angry cranky old man)) Mood: less anxious, elevated, hypomanic Mood "better" Affect: appropriate, less labile, congruent, anxious, less disorganized Thought Process: less tangential, loose, associative, flight of ideas, racing, derailment Thought Content (Delusions): less grandiose, paranoia, delusions, other ("I've been threatening people b/c I don't like them" Denies SI, HI intent) Thought Content (Other): less preoccupied, obsessional, guarded, ideas of reference, internal-stimuli, appears paranoid Thought Content (Aggressive): none reported Perception (Hallucinations): less auditory Perception (Other): none reported Cognition (Impairment of): improving attention/concentration, ability to abstract Cognition(Intelligence Est.): borderline Oriented: Awake, Alert, Oriented times three Insight: poor Judgment: Poor Psychosis: improving Associations, Abstract Thinking, Psychotic Perceptions" DIAGNOSES: Schizoaffective d/o - bipolar type ASSESSMENT:Pt sleeping currently after receiving zyprexa zydis 10mg once due to falling twice b/c he wasn't willing to remain sitting and walking all over unit, no injury per nursed, early this am. He is no on fall precautions. Unable to assess fully due to him being alseep. MANAGEMENT PLAN:continue plan medications: zyprexa zydis 5mg bid Cogentin 1 mg QHS Valium 2 mg TID@0600,1200,2000 Depakote Er 1,500 mg DAILY@1800 Ativan 2 mg Q6HP PRN PO ANXIETY/AGITATION ZyPREXA ZYDIS 5 mg Q6HP PRN PO ANXIETY/AGITATION SEROquel XR 400 mg DAILY@1800 Ambien 10 mg QHS PRN PO SLEEP TIME SPENT: 30 minutes. Vital Signs Vital Signs Date Time Temp Pulse Resp B/P (MAP) Pulse Ox O2 Delivery O2 Flow Rate FiO2 07/28/18 06:33 97.3 86 20 121/73 (89) 07/25/18 20:57 98 07/25/18 20:39 Room Air Laboratory Data 24H Labs Laboratory Tests 2 07/27/18 08:53: Immature Granulocyte % (Auto) 0.8, White Blood Count 5.2, Red Blood Count 5.01, Hemoglobin 13.8, Hematocrit 41.7L, Mean Corpuscular Volume 83.2, Mean Corpuscular Hemoglobin 27.5, Mean Corpuscular Hemoglobin Concent 33.1, Red Cell Distribution Width 14.4, Platelet Count 414, Neutrophils (%) (Auto) 50.4, Lymphocytes (%) (Auto) 32.8, Monocytes (%) (Auto) 13.6H, Eosinophils (%) (Auto) 1.0, Basophils (%) (Auto) 1.4H, Neutrophils # (Auto) 2.6, Lymphocytes # (Auto) 1.7, Monocytes # (Auto) 0.7, Eosinophils # (Auto) 0.1, Basophils # (Auto) 0.1, Nucleated Red Blood Cells % (auto) 0.0 CBC/BMP Laboratory Tests 07/27/18 08:53 Red Blood Count 5.01, Mean Corpuscular Volume 83.2, Mean Corpuscular Hemoglobin 27.5, Mean Corpuscular Hemoglobin Concent 33.1, Red Cell Distribution Width 14.4, Neutrophils (%) (Auto) 50.4, Lymphocytes (%) (Auto) 32.8, Monocytes (%) (Auto) 13.6 H, Eosinophils (%) (Auto) 1.0, Basophils (%) (Auto) 1.4 H, Neutrophils # (Auto) 2.6, Lymphocytes # (Auto) 1.7, Monocytes # (Auto) 0.7, Eosinophils # (Auto) 0.1, Basophils # (Auto) 0.1 Current Medications Current Medications Acetaminophen (Tylenol Tab) 650 mg Q6HP PRN PO HEADACHE or DISCOMFORT; Start at 19:30; Status Cancel Acetaminophen (Tylenol Tab) 1,000 mg Q8H PRN PO PAIN Last administered on 07/28/18at 00:37; Start 07/25/18 at 20:00 Al Hydrox/Mg Hydrox/Simethicone (Mylanta) 30 ml Q4HP PRN PO HEARTBURN/INDIGESTION; Start 07/25/18 at 19:30 Albuterol Sulfate (Proventil, Ventolin Hfa) 2 puff Q4H PRN INH SHORTNESS OF BREATH Last administered on 07/27/18at 08:31; Start 07/25/18 at 20:00 Asenapine (Saphris) 5 mg BID@0600,1500 SL Last administered on 07/26/18 05:16; Start 07/26/18 at 06:00; Stop 07/26/18 at 10:37; Status DC Benztropine Mesylate (Cogentin) 1 mg QHS PO Last administered on 07/27/18at 20:03; Start 07/25/18 at 21:00 Diazepam (Valium) 2 mg TID PO Last administered on 07/26/18 07:55; Start 07/25/18 at 21:00; Stop 07/26/18 at 11:05; Status DC Diazepam (Valium) 2 mg TID@0600,1200,2000 PO Last administered on 07/28/18at 05:58; Start 07/26/18 at 12:00 Divalproex Sodium (Depakote Er) 1,500 mg DAILY@1800 PO Last administered on 07/27/18at 17:52; Start 07/25/18 at 18:00 Docusate Sodium (Colace) 200 mg BID PO Last administered on 07/27/18 20:03; Start 07/25/18 at 21:00 Furosemide (Lasix) 20 mg BID@0900,1700 PO Last administered on 07/27/18at 16:27; Start 07/26/18 at 09:00 Haloperidol (Haldol) 5 mg BID PO ; Start 07/26/18 at 21:00; Status Cancel Home Med (Med Rec Complete!) ASDIRECTED XX ; Start 07/25/18 at 19:15; Stop 07/25/18 at 19:15; Status DC Lorazepam (Ativan) 2 mg Q6HP PRN PO ANXIETY/AGITATION Last administered on 07/27/18at 20:38; Start 07/26/18 at 10:45 Magnesium Hydroxide (Milk Of Magnesia) 30 ml DAILYPRN PRN PO CONSTIPATION; Start 07/25/18 at 19:30 Meloxicam (Mobic) 15 mg DAILY PO Last administered on 07/27/18at 08:28; Start 07/26/18 at 09:00 Metoprolol Tartrate (Lopressor) 25 mg BID PO Last administered on 07/27/18 20:03; Start 07/25/18 at 21:00 Nicotine (Nicoderm Cq 21mg) 1 patch DAILY TD ; Start 07/26/18 at 09:00; Stop 07/26/18 at 09:00; Status DC Olanzapine (ZyPREXA ZYDIS) 5 mg BID PO Last administered on 07/27/18 20:03; Start 07/26/18 at 21:00 Olanzapine (ZyPREXA ZYDIS) 5 mg Q6HP PRN PO ANXIETY/AGITATION Last administered on 07/28/18at 00:51; Start 07/26/18 at 10:45 Potassium Chloride (Micro-K Extencaps) 10 meq BID PO ; Start 07/25/18 at 21:00; Status UNV Quetiapine Fumarate (SEROquel XR) 400 mg DAILY@1800 PO Last administered on 07/27/18at 17:51; Start 07/25/18 at 18:00 Trazodone HCl (Desyrel) 50 mg QHSP PRN PO INSOMNIA; Start 07/25/18 at 19:30; Status Cancel Zolpidem Tartrate (Ambien) 10 mg QHS PRN PO SLEEP Last administered on 07/27/18at 21:06; Start 07/25/18 at 20:00 Allergies Coded Allergies: No Known Allergies (Verified , 06/27/10) A-FIB/CHADSVASC A-FIB History Current/History of A-Fib/PAF?: No Current Oral Anticoagulant The: No Age/Risk Factor Scoring CHADSVASC: CHADSVASC Response (Comments) Value Hx of HTN Yes 1 Total 1 Treatment Treatment ordered: NONE Reason Anticoagulant not given: Not indicated/[id number] MARY ANDERSON DO July 28, 2018 08:55
[2018-07-28] MEDS: OLANZapine ORAL DISINTEGRATING TAB 5MG PO SCH ×2 (09:21→20:09)
[2018-07-28] MEDS: DOCUSATE SODIUM 100 MG CAP PO SCH ×2 (09:21→20:09)
[2018-07-28] MEDS: MELOXICAM (MOBIC) 7.5 MG TAB PO SCH (09:21)
[2018-07-28] MEDS: FUROSEMIDE 20 MG TAB PO SCH ×2 (09:21→17:05)
[2018-07-28] MEDS: METOPROLOL TART 25 MG TABLET PO SCH ×2 (09:26→20:08)
--- NOTE | 2018-07-28 15:53 | IPNPDOC ---
Date Seen The patient was seen on 07/28/18. Progress Note SUBJECTIVE: Pt was lowered to the floor by staff when seen leaning last night. He received Zyprexa due to his psychiatric activity. Today his thoughts are tangential but no complain pain sitting on his bed. He did allow me to look at his left knee today. No signs of cellulitis but is swollen as per TAR PROCESSING TECHNICIAN's note. He has old patella fracture seen on xray. He can continue oral pain medication. Cranial nerve intact. He asks when he can return home. OBJECTIVE PHYSICAL EXAMINATION: VITAL SIGNS: Please see below. GENERWAL: The patient is mildly agitated. He is cooperative with the examination. HEENT: Atraumatic, PERRLA, mucous is moist, trachea without any deviation CARDIOVASCULAR: Heart rate and rhythm are regular. PULMONARY: Lungs are clear to auscultation bilaterally. ABDOMEN: Soft and nontender. Positive bowel sounds in all four quadrants. EXTREMITIES: The patient's left lower extremity is swollen but no sign's of cellulitis. Old surgical scar also present. Patient ambulates with cane. NEUROLOGIC: The patient is alert and oriented times three. LABORATORY DATA, IMAGING STUDIES, MICROBIOLOGY: Please see below. ASSESSMENT AND PLAN: 57-year-old male with a history of schizoaffective disorder that resides at [facility] ([facility]). He was sent by the police department under 9.41 from [facility] due to threatening staff and residents, decompensated and showing manic behaviors. Hospitalist was consulted for medical management. Schizoaffective disorder with agitation. Left lower extremity swelling, Peripheral vascular disease, old patella fracture as mentioned below -Left knee xray:Old patellar tendon disruption patellar fracture and proximal fibular fracture. Patella melany. Unchanged from 2014 prior radiographs. No acute bony abnormality. -Left LE US: neg for DVT -Outpatient follow up with PCP, vascular surgery, and orthopedic services -Monitor first any signs of cellulitis -As needed pain management Hyponatremia, asymptomatic -Patient on furosemide -Patient on psychiatric medication -Continue to monitor clinically Hypertension. Resume home regimen furosemide and metoprolol plus potassium supplement Hyperlipidemia. Follow up with PCP as outpatient Asthma / chronic obstructive pulmonary disease (COPD) resume home respiratory therapy Will sign off, please reconsult as needed VS, I&O, 24H, Fishbone Vital Signs/I&O Vital Signs Date Time Temp Pulse Resp B/P (MAP) Pulse Ox O2 Delivery O2 Flow Rate FiO2 07/28/18 09:26 66 127/60 07/28/18 06:33 97.3 20 07/25/18 20:57 98 07/25/18 20:39 Room Air ROMELIA LEIGH MD July 28, 2018 15:53
[2018-07-28] MEDS: ALBUTEROL 90 MCG/ACT 8GM HFA INHALER INH PRN ×2 (16:36→23:13)
[2018-07-28] MEDS: QUEtiapine FUMARATE **XR** 200MG TABLET PO SCH (17:05)
[2018-07-28] MEDS: DIVALPROEX 500MG *ER* TAB PO SCH (17:05)
[2018-07-28 17:30] VITALS: BP 128/73
[2018-07-28] MEDS: BENZTROPINE 1 MG TAB PO SCH (20:08)
[2018-07-28] MEDS: zolPIDEM TARTRATE 5 MG TAB PO PRN (20:19)
[2018-07-28] MEDS: LORazepam 2 MG TAB PO PRN (23:08)
[2018-07-29] MEDS: OLANZapine ORAL DISINTEGRATING TAB 5MG PO PRN ×2 (00:06→23:19)
[2018-07-29] MEDS ORDERED: OLANZapine INTRAMUSCULAR 10 MG VIAL (S0166) IM STA (03:39)
[2018-07-29] MEDS ORDERED: LORazepam 2 MG/ML VIAL (J2060) IM STA (03:39)
[2018-07-29] MEDS ORDERED: diphenhydrAMINE INJ 50MG/ML VIAL (J1200) IM STA (03:39)
[2018-07-29] MEDS ORDERED: LORazepam 2 MG/ML VIAL (J2060) As Ordered ONE (03:45)
[2018-07-29 04:02] VITALS: BP 135/86
[2018-07-29 04:15] VITALS: BP 131/82
[2018-07-29 06:23] VITALS: BP 134/89
[2018-07-29] MEDS: diazePAM 2 MG TAB PO SCH ×3 (06:34→20:27)
[2018-07-29] MEDS: DOCUSATE SODIUM 100 MG CAP PO SCH ×2 (08:06→20:27)
[2018-07-29] MEDS: MELOXICAM (MOBIC) 7.5 MG TAB PO SCH (08:06)
[2018-07-29] MEDS: METOPROLOL TART 25 MG TABLET PO SCH ×2 (08:06→20:28)
[2018-07-29] MEDS: FUROSEMIDE 20 MG TAB PO SCH ×2 (08:06→16:23)
[2018-07-29] MEDS: ACETAMINOPHEN 500 MG TAB PO PRN ×2 (08:12→20:32)
[2018-07-29] MEDS: OLANZapine ORAL DISINTEGRATING TAB 5MG PO SCH ×2 (09:00→20:28)
--- NOTE | 2018-07-29 10:53 | MHIPNPDOC ---
[facility] Progress Note Progress Note DATE OF SERVICE: 07/29/18 HISTORY: Patient is a 57 -year-old , male, with a history of schizoaffective d/o and residing at [facility] several years who was sent with PD under 9.41 from [facility] due to pt threatening staff and other residents, decompensating, manic, paranoid people talk about him, talking to self, AH (stated in ED "they're not too bad"), and agitation. Pt according to TLS scaring the other residents there due to him threatening and cussing at them. Per ED, when pt asked why he was sent to the ED he stated "I was evicted from my house for arguing with 2 other people. Per ED, pt was manic and agitated. Pt is a poor historian due to current nelda/psychosis/agitation so history gathered from previous chart records. VITAL SIGNS: See below. NEW TEST RESULTS: See below. CURRENT MEDICATIONS: See below. MENTAL STATUS EXAMINATION: Pt asleep and unable to assess. MSE per 07-27-18 n ote: "General Appearance: unkempt, ds/not appear stated age (older), hospital scrubs/clothing, walking in milieu with his cane Build: average Demeanor: cooperative Eye Contact: fair Activity: pleasant, less anxious Behavior: cooperative, restless Speech: less rapid/pressured, spontaneous, other (he sounds loud and cranky (best example is the voice of a high pitched angry cranky old man)) Mood: less anxious, elevated, hypomanic Mood "better" Affect: appropriate, less labile, congruent, anxious, less disorganized Thought Process: less tangential, loose, associative, flight of ideas, racing, derailment Thought Content (Delusions): less grandiose, paranoia, delusions, other ("I've been threatening people b/c I don't like them" Denies SI, HI intent) Thought Content (Other): less preoccupied, obsessional, guarded, ideas of reference, internal-stimuli, appears paranoid Thought Content (Aggressive): none reported Perception (Hallucinations): less auditory Perception (Other): none reported Cognition (Impairment of): improving attention/concentration, ability to abstract Cognition(Intelligence Est.): borderline Oriented: Awake, Alert, Oriented times three Insight: poor Judgment: Poor Psychosis: improving Associations, Abstract Thinking, Psychotic Perceptions" DIAGNOSES: Schizoaffective d/o - bipolar type ASSESSMENT:Pt sleeping currently after receiving zyprexa zydis 10mg im, ativan 2mg im, and benadryl 50mg im once due to screaming and yelling, refusing to cooperate with staff, refusing to sit down put him a risk of falling again and possible injuring himself or someone else. He was placed on a sitting for safety around 2-3am this morning. He is on fall precautions. Unable to assess fully due to him being alseep. MANAGEMENT PLAN:increase zyprexa zydis 10mg bid for psychosis/agitation medications: zyprexa zydis 10mg bid Cogentin 1 mg QHS Valium 2 mg TID@0600,1200,2000 Depakote Er 1,500 mg DAILY@1800 Ativan 2 mg Q6HP PRN PO ANXIETY/AGITATION ZyPREXA ZYDIS 5 mg Q6HP PRN PO ANXIETY/AGITATION SEROquel XR 400 mg DAILY@1800 Ambien 10 mg QHS PRN PO SLEEP TIME SPENT: 30 minutes. Vital Signs Vital Signs Date Time Temp Pulse Resp B/P (MAP) Pulse Ox O2 Delivery O2 Flow Rate FiO2 07/29/18 08:06 76 133/75 07/29/18 06:23 97.3 20 07/25/18 20:57 98 07/25/18 20:39 Room Air Current Medications Current Medications Acetaminophen (Tylenol Tab) 650 mg Q6HP PRN PO HEADACHE or DISCOMFORT; Start 07/25/18 at 19:30; Status Cancel Acetaminophen (Tylenol Tab) 1,000 mg Q8H PRN PO PAIN Last administered on 07/29/18at 08:12; Start 07/25/18 at 20:00 Al Hydrox/Mg Hydrox/Simethicone (Mylanta) 30 ml Q4HP PRN PO HEARTBURN/INDIGESTION; Start 07/25/18 at 19:30 Albuterol Sulfate (Proventil, Ventolin Hfa) 2 puff Q4H PRN INH SHORTNESS OF BREATH Last administered on 07/28/18at 23:13; Start 07/25/18 at 20:00 Asenapine (Saphris) 5 mg BID@0600,1500 SL Last administered on 07/26/18 05:16; Start 07/26/18 at 06:00; Stop 07/26/18 at 10:37; Status DC Benztropine Mesylate (Cogentin) 1 mg QHS PO Last administered on 07/28/18at 20:08; Start 07/25/18 at 21:00 Diazepam (Valium) 2 mg TID PO Last administered on 07/26/18at 07:55; Start 07/25/18 at 21:00; Stop 07/26/18 at 11:05; Status DC Diazepam (Valium) 2 mg TID@0600,1200,2000 PO Last administered on 07/29/18at 06:34; Start 07/26/18 at 12:00 Diphenhydramine HCl (Benadryl) 50 mg STAT STAT IM Last administered on 07/29/18 03:57; Start 07/29/18 at 03:39; Stop 07/29/18 at 03:45; Status DC Divalproex Sodium (Depakote Er) 1,500 mg DAILY@1800 PO Last administered on 07/28/18 17:05; Start 07/25/18 at 18:00 Docusate Sodium (Colace) 200 mg BID PO Last administered on 07/29/18 08:06; Start 07/25/18 at 21:00 Furosemide (Lasix) 20 mg BID@0900,1700 PO Last administered on 07/29/18 08:06; Start 07/26/18 at 09:00 Haloperidol (Haldol) 5 mg BID PO ; Start 07/26/18 at 21:00; Status Cancel Home Med (Med Rec Complete!) ASDIRECTED XX ; Start 07/25/18 at 19:15; Stop 07/25/18 at 19:15; Status DC Lorazepam (Ativan) 2 mg Q6HP PRN PO ANXIETY/AGITATION Last administered on 07/28/18 23:08; Start 07/26/18 at 10:45 Lorazepam (Ativan) 2 mg STAT STAT IM Last administered on 07/29/18 03:56; Start 07/29/18 at 03:39; Stop 07/29/18 at 03:45; Status DC Magnesium Hydroxide (Milk Of Magnesia) 30 ml DAILYPRN PRN PO CONSTIPATION; Start 07/25/18 at 19:30 Meloxicam (Mobic) 15 mg DAILY PO Last administered on 07/29/18at 08:06; Start 07/26/18 at 09:00 Metoprolol Tartrate (Lopressor) 25 mg BID PO Last administered on 07/29/18at 08:06; Start 07/25/18 at 21:00 Nicotine (Nicoderm Cq 21mg) 1 patch DAILY TD ; Start 07/26/18 at 09:00; Stop 07/26/18 at 09:00; Status DC Olanzapine (ZyPREXA ZYDIS) 5 mg BID PO Last administered on 07/28/18at 20:09; Start 07/26/18 at 21:00 Olanzapine (ZyPREXA ZYDIS) 5 mg Q6HP PRN PO ANXIETY/AGITATION Last administered on 07/28/18at 00:51; Start 07/26/18 at 10:45; Stop 07/28/18 at 12:00; Status DC Olanzapine (ZyPREXA ZYDIS) 10 mg Q4HP PRN PO ANXIETY/AGITATION Last administered on 07/29/18at 00:06; Start 07/28/18 at 12:00 Olanzapine (Zyprexa Intramuscular) 10 mg STAT STAT IM Last administered on 07/29/18at 03:56; Start 07/29/18 at 03:39; Stop 07/29/18 at 03:45; Status DC Potassium Chloride (Micro-K Extencaps) 10 meq BID PO ; Start 07/25/18 at 21:00; Status UNV Quetiapine Fumarate (SEROquel XR) 400 mg DAILY@1800 PO Last administered on 07/28/18at 17:05; Start 07/25/18 at 18:00 Trazodone HCl (Desyrel) 50 mg QHSP PRN PO INSOMNIA; Start 07/25/18 at 19:30; Status Cancel Zolpidem Tartrate (Ambien) 10 mg QHS PRN PO SLEEP Last administered on 07/28/18at 20:19; Start 07/25/18 at 20:00 Allergies Coded Allergies: No Known Allergies (Verified , 06/27/10) A-FIB/CHADSVASC A-FIB History Current/History of A-Fib/PAF?: No Current Oral Anticoagulant The: No Age/Risk Factor Scoring CHADSVASC: CHADSVASC Response (Comments) Value Hx of HTN Yes 1 Total 1 Treatment Treatment ordered: NONE Reason Anticoagulant not given: Not indicated/[id number] MARY ANDERSON DO July 29, 2018 10:53
--- NOTE | 2018-07-29 10:57 | MHIR ---
General Date: July 29, 2018 Time Initiated: 03:45 Restraint Documentation Order/Evaluation FACE TO FACE: no as not physically restrained PHYSICIAN ASSESSMENT:pt given chemical restraints only due to screaming in milieu in middle of night, refusing to cooperate with staff, refusing to sit down putting himself at risk of falling again and this time injuring himself or others REASON FOR RESTRAINT: Patient poses imminent danger of harming self or others: as described above DE-ESCALATION INTERVENTIONS ATTEMPTED BEFORE USE OF RESTRAINTS: redirection, staff support, prn medication [MECHANICAL AND/OR CHEMICAL] RESTRAINTS USED: chemical only. Zyprexa 10mg im, ativan 2mg im, and benadryl 50mg im x1 LENGTH OF TIME ORDERED IN RESTRAINTS: when no longer a danger to himself or othe rs WHEN TO DISCONTINUE RESTRAINTS: When the patient is no longer a threat to themselves or others. Post evaluation of restraint due in 24 hours. MARY ANDERSON DO July 29, 2018 10:57
--- NOTE | 2018-07-29 10:59 | MHPR ---
General Date: July 29, 2018 Time: 07:45 Post-Restraint Evaluation THE OUTCOME OF THE RESTRAINT:good EFFECTIVENESS OF THE RESTRAINT: chemical: Positive. ANY EVIDENCE THAT THE PATIENT WAS AFFECTED EMOTIONALLY: no ANY NEED FOR COUNSELING/ASSISTANCE: no CHANGES IN TREATMENT PLAN: continue current plan, increase zyprexa zydis to 10mg bid for psychosis/agitation RECOMMENDATIONS FOR FUTURE INCIDENTS: continue current plan MARY ANDERSON DO July 29, 2018 10:59
[2018-07-29] MEDS: LORazepam 2 MG TAB PO PRN ×2 (13:22→23:19)
[2018-07-29] MEDS: QUEtiapine FUMARATE **XR** 200MG TABLET PO SCH (17:12)
[2018-07-29] MEDS: DIVALPROEX 500MG *ER* TAB PO SCH (17:13)
[2018-07-29 18:00] VITALS: BP 133/72
[2018-07-29] MEDS: BENZTROPINE 1 MG TAB PO SCH (20:28)
[2018-07-29] MEDS: zolPIDEM TARTRATE 5 MG TAB PO PRN (23:20)
[2018-07-30] MEDS: diazePAM 2 MG TAB PO SCH ×3 (06:16→20:43)
[2018-07-30 06:38] VITALS: BP 144/86
[2018-07-30] MEDS: DOCUSATE SODIUM 100 MG CAP PO SCH ×2 (08:22→20:43)
[2018-07-30] MEDS: FUROSEMIDE 20 MG TAB PO SCH ×2 (08:22→16:20)
[2018-07-30] MEDS: MELOXICAM (MOBIC) 7.5 MG TAB PO SCH (08:22)
[2018-07-30] MEDS: METOPROLOL TART 25 MG TABLET PO SCH ×2 (08:23→20:42)
[2018-07-30] MEDS: LORazepam 2 MG TAB PO PRN ×2 (08:24→20:43)
[2018-07-30] MEDS: OLANZapine ORAL DISINTEGRATING TAB 5MG PO SCH ×3 (08:28→20:43)
--- NOTE | 2018-07-30 09:13 | MHIPNPDOC ---
[facility] Progress Note Progress Note DATE OF SERVICE: 07/30/18 HISTORY:Patient is a 57 -year-old , male, with a history of schizoaffective d/o and residing at [facility] several years who was sent with PD under 9.41 from [facility] due to pt threatening staff and other residents, decompensating, manic, paranoid people talk about him, talking to self, AH (stated in ED "they're not too bad"), and agitation. Pt according to TLS scaring the other residents there due to him threatening and cussing at them. Per ED, when pt asked why he was sent to the ED he stated "I was evicted from my house for arguing with 2 other people. Per ED, pt was manic and agitated. Pt is a poor historian due to current nelda/psychosis/agitation so history gathered from previous chart records. VITAL SIGNS: See below. NEW TEST RESULTS: See below. CURRENT MEDICATIONS: See below. MENTAL STATUS EXAMINATION: "General Appearance: unkempt, ds/not appear stated age (older), hospital scrubs/clothing, walking in milieu with his cane Build: average Demeanor: cooperative Eye Contact: fair Activity: agitated Behavior: uncooperative, restless Speech: rapid/pressured, spontaneous, other (he sounds loud and cranky (best example is the voice of a high pitched angry cranky old man)) Mood: agitated, elevated, hypomanic Mood "You're on her side!" Affect: inappropriate, labile, congruent, anxious, disorganized, agitated Thought Process: tangential, loose, associative, flight of ideas, racing, derailment Thought Content (Delusions): grandiose, paranoia, delusions, other ("I've been threatening people b/c I don't like them" Denies SI, HI intent) Thought Content (Other): preoccupied, obsessional, guarded, ideas of reference, internal-stimuli, appears paranoid Thought Content (Aggressive): none reported Perception (Hallucinations): auditory Perception (Other): none reported Cognition (Impairment of): attention/concentration, ability to abstract Cognition(Intelligence Est.): borderline Oriented: Awake, Alert, Oriented times three Insight: poor Judgment: Poor Psychosis: Associations, Abstract Thinking, Psychotic Perceptions" DIAGNOSES: Schizoaffective d/o - bipolar type ASSESSMENT:Pt agitated this am, yelling in halls, refusing to follow red irection, throwing coffee onto floor, at first refusing zyprexa zydis but finally took it. He is telling me that a female pt is scum and I'm siding with her. Reassured him that I'm on his side so he gets better and encouraged to calm down. Started falling asleep and calming down after zyprexa zydis given. Depakote level is low therapeutic so will increase by 250mg to see if that causes improvement in agitation and mood stabilization as level can go up. Will monitor depakote levels after started on increased dose. Will checked cmp as he has missed his KCL pill that he takes outpatient since admission. MANAGEMENT PLAN:increase depakote, check cmp medications: zyprexa zydis 10mg bid Cogentin 1 mg QHS Valium 2 mg TID@0600,1200,2000 Depakote Er 1,750 mg DAILY@1800 Ativan 2 mg Q6HP PRN PO ANXIETY/AGITATION ZyPREXA ZYDIS 5 mg Q6HP PRN PO ANXIETY/AGITATION SEROquel XR 400 mg DAILY@1800 Ambien 10 mg QHS PRN PO SLEEP TIME SPENT: 30 minutes. Vital Signs Vital Signs Date Time Temp Pulse Resp B/P (MAP) Pulse Ox O2 Delivery O2 Flow Rate FiO2 07/30/18 08:23 86 125/79 07/30/18 06:38 97.0 16 07/25/18 20:57 98 07/25/18 20:39 Room Air Current Medications Current Medications Acetaminophen (Tylenol Tab) 650 mg Q6HP PRN PO HEADACHE or DISCOMFORT; Start 07/25/18 at 19:30; Status Cancel Acetaminophen (Tylenol Tab) 1,000 mg Q8H PRN PO PAIN Last administered on 07/17 06/04at 20:32; Start 07/25/18 at 20:00 Al Hydrox/Mg Hydrox/Simethicone (Mylanta) 30 ml Q4HP PRN PO HEARTBURN/INDIGESTION; Start 07/25/18 at 19:30 Albuterol Sulfate (Proventil, Ventolin Hfa) 2 puff Q4H PRN INH SHORTNESS OF BREATH Last administered on 07/28/18at 23:13; Start 07/25/18 at 20:00 Asenapine (Saphris) 5 mg BID@0600,1500 SL Last administered on 07/26/18at 05:16; Start 07/26/18 at 06:00; Stop 07/26/18 at 10:37; Status DC Benztropine Mesylate (Cogentin) 1 mg QHS PO Last administered on 07/29/18at 20:28; Start 07/25/18 at 21:00 Diazepam (Valium) 2 mg TID PO Last administered on 07/26/18at 07:55; Start 07/25/18 at 21:00; Stop 07/26/18 at 11:05; Status DC Diazepam (Valium) 2 mg TID@0600,1200,2000 PO Last administered on 07/30/18at 06:16; Start 07/26/18 at 12:00 Diphenhydramine HCl (Benadryl) 50 mg STAT STAT IM Last administered on 07/29/18at 03:57; Start 07/29/18 at 03:39; Stop 07/29/18 at 03:45; Status DC Divalproex Sodium (Depakote Er) 1,500 mg DAILY@1800 PO Last administered on 07/29/18 17:13; Start 07/25/18 at 18:00 Docusate Sodium (Colace) 200 mg BID PO Last administered on 07/30/18at 08:22; Start 07/25/18 at 21:00 Furosemide (Lasix) 20 mg BID@0900,1700 PO Last administered on 07/30/18at 08:22; Start 07/26/18 at 09:00 Haloperidol (Haldol) 5 mg BID PO ; Start 07/26/18 at 21:00; Status Cancel Home Med (Med Rec Complete!) ASDIRECTED XX ; Start 07/25/18 at 19:15; Stop 07/25/18 at 19:15; Status DC Lorazepam (Ativan) 2 mg Q6HP PRN PO ANXIETY/AGITATION Last administered on 07/30/18at 08:24; Start 07/26/18 at 10:45 Lorazepam (Ativan) 2 mg STAT STAT IM Last administered on 07/29/18at 03:56; Start 07/29/18 at 03:39; Stop 07/29/18 at 03:45; Status DC Magnesium Hydroxide (Milk Of Magnesia) 30 ml DAILYPRN PRN PO CONSTIPATION; Start 07/25/18 at 19:30 Meloxicam (Mobic) 15 mg DAILY PO Last administered on 07/30/18at 08:22; Start 07/26/18 at 09:00 Metoprolol Tartrate (Lopressor) 25 mg BID PO Last administered on 07/30/18at 08:23; Start 07/25/18 at 21:00 Nicotine (Nicoderm Cq 21mg) 1 patch DAILY TD ; Start 07/26/18 at 09:00; Stop 07/26/18 at 09:00; Status DC Olanzapine (ZyPREXA ZYDIS) 5 mg BID PO Last administered on 07/28/18at 20:09; Start 07/26/18 at 21:00; Stop 07/29/18 at 10:50; Status DC Olanzapine (ZyPREXA ZYDIS) 5 mg Q6HP PRN PO ANXIETY/AGITATION Last adm inistered on 07/28/18at 00:51; Start 07/26/18 at 10:45; Stop 07/28/18 at 12:00; Status DC Olanzapine (ZyPREXA ZYDIS) 10 mg BID PO Last administered on 07/29/18at 20:28; Start 07/29/18 at 21:00 Olanzapine (ZyPREXA ZYDIS) 10 mg Q4HP PRN PO ANXIETY/AGITATION Last administered on 07/29/18at 23:19; Start 07/28/18 at 12:00 Olanzapine (Zyprexa Intramuscular) 10 mg STAT STAT IM Last administered on 07/29/18at 03:56; Start 07/29/18 at 03:39; Stop 07/29/18 at 03:45; Status DC Potassium Chloride (Micro-K Extencaps) 10 meq BID PO ; Start 07/30/18 at 21:00; Status UNV Potassium Chloride (Micro-K Extencaps) 10 meq BID PO ; Start 07/25/18 at 21:00; Status UNV Quetiapine Fumarate (SEROquel XR) 400 mg DAILY@1800 PO Last administered on 07/29/18at 17:12; Start 07/25/18 at 18:00 Trazodone HCl (Desyrel) 50 mg QHSP PRN PO INSOMNIA; Start 07/25/18 at 19:30; Status Cancel Zolpidem Tartrate (Ambien) 10 mg QHS PRN PO SLEEP Last administered on 07/29/18at 23:20; Start 07/25/18 at 20:00 Allergies Coded Allergies: No Known Allergies (Verified , 06/27/10) A-FIB/CHADSVASC A-FIB History Current/History of A-Fib/PAF?: No Current Oral Anticoagulant The: No Age/Risk Factor Scoring CHADSVASC: CHADSVASC Response (Comments) Value Hx of HTN Yes 1 Total 1 Treatment Treatment ordered: NONE Reason Anticoagulant not given: Not indicated/[id number] MARY ANDERSON DO July 30, 2018 9:13 am
[2018-07-30] MEDS: POTASSIUM CHLORIDE 10 MEQ SR TABLET PO SCH ×2 (09:16→20:43)
[2018-07-30] MEDS ORDERED: OLANZapine INTRAMUSCULAR 10 MG VIAL (S0166) IM ONE (10:00)
[2018-07-30 10:53] LABS: ALT/SGPT 17 U/L (12-78); BILIRUBIN,TOTAL 0.3 MG/DL (0.2-1.0); BLOOD UREA NITROGEN 24 MG/DL (7-18); CALCIUM LEVEL 8.6 MG/DL (8.5-10.1); CARBON DIOXIDE LEVEL 33 MEQ/L (21-32); CHLORIDE LEVEL 95 MEQ/L (98-107); CREATININE FOR GFR 0.86 MG/DL (0.70-1.30); GLOMERULAR FILTRATION RATE > 60.0 (>56); GLUCOSE, FASTING 123 MG/DL (70-100); POTASSIUM SERUM 4.4 MEQ/L (3.5-5.1); SODIUM LEVEL 131 MEQ/L (136-145); TOTAL PROTEIN 6.4 GM/DL (6.4-8.2)
[2018-07-30 13:20] VITALS: BP 154/94
--- NOTE | 2018-07-30 14:01 | REP ---
CT Head without contrast HISTORY: Fall COMPARISON: None There is no intraparenchymal hemorrhage, acute infarct, mass or midline shift. The ventricular system and cortical sulci are dilated consistent with minimal volume loss. There is no extra cerebral collection. There is no fracture. The visualized sinuses are clear. IMPRESSION: Minimal volume loss. Electronically Signed by Fab Dan MD 07/30/2018 01:53 P
[2018-07-30 14:21] LABS: BASO # 0.1 10^3/uL (0.0-0.2); BASO % 1.1 % (0.0-1.0); EOS # 0.1 10^3/uL (0.0-0.50); EOS % 1.1 % (0.0-3.0); HEMATOCRIT 42.7 % (42.0-52.0); HEMOGLOBIN 14.3 g/dl (13.5-17.5); LYMPH # 1.5 10^3/uL (1.5-4.5); LYMPH % 33.4 % (24.0-44.0); MEAN CORPUSCULAR HEMOGLOBIN 28.3 pg (27.0-33.0); MEAN CORPUSCULAR HGB CONC 33.5 g/dl (32.0-36.5); MEAN CORPUSCULAR VOLUME 84.6 fl (80.0-96.0); MONO # 0.6 10^3/uL (0.0-0.8); MONO % 14.4 % (0.0-5.0); NEUTROPHILS # 2.2 10^3/uL (1.8-7.7); NEUTROPHILS % 49.5 % (36.0-66.0); PLATELET COUNT, AUTOMATED 393 10^3/uL (150-450); RED BLOOD COUNT 5.05 10^6/uL (4.30-6.10); WHITE BLOOD COUNT 4.4 10^3/uL (4.0-10.0)
[2018-07-30 14:32] LABS: INR 0.95; PROTHROMBIN TIME 12.8 SECONDS (12.1-14.4)
[2018-07-30] MEDS ORDERED: ACETAMINOPHEN TAB 650MG DOSE (2X325MG) PO PRN (14:45)
[2018-07-30] MEDS: AUGMENTIN 875 MG TAB PO SCH ×2 (14:47→20:43)
[2018-07-30] MEDS: ACETAMINOPHEN 500 MG TAB PO PRN (14:54)
[2018-07-30] MEDS ORDERED: ACETAMINOPHEN 500 MG TAB PO ONE (15:00)
[2018-07-30] MEDS ORDERED: LIDOCAINE 1% MDV 20ML VIAL SC ONE (15:00)
[2018-07-30] MEDS ORDERED: TETANUS/DIPHTHERIA TOX ADSORB ADULT 0.5ML SYR/VIAL (90714) IM ONE (15:00)
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
[2018-07-30 15:21] LABS: ALBUMIN 3.9 GM/DL (3.2-5.2); ALT/SGPT 21 U/L (12-78); BILIRUBIN,TOTAL 0.4 MG/DL (0.2-1.0); BLOOD UREA NITROGEN 24 MG/DL (7-18); CALCIUM LEVEL 9.4 MG/DL (8.5-10.1); CARBON DIOXIDE LEVEL 31 MEQ/L (21-32); CHLORIDE LEVEL 95 MEQ/L (98-107); CPK CREATINE PHOSPHOKINASE 65 U/L (39-308); GLOMERULAR FILTRATION RATE > 60.0 (>56); GLUCOSE, FASTING 95 MG/DL (70-100); POTASSIUM SERUM 4.4 MEQ/L (3.5-5.1); SODIUM LEVEL 132 MEQ/L (136-145); TOTAL PROTEIN 7.1 GM/DL (6.4-8.2)
--- NOTE | 2018-07-30 15:55 | REP ---
LEFT KNEE, FIVE VIEWS: HISTORY: Fall. COMPARISON: 07/26/2018. There are old fractures of the patella and proximal fibula. A high riding patella is present. There is no acute fracture or dislocation. The knee joint space is normal in appearance. Impression: There is no acute fracture or dislocation. Electronically Signed by Fab Dan MD 07/30/2018 03:58 P
[2018-07-30] MEDS: DIVALPROEX 500MG *ER* TAB PO SCH (17:37)
[2018-07-30] MEDS: QUEtiapine FUMARATE **XR** 200MG TABLET PO SCH (17:37)
[2018-07-30 18:00] VITALS: BP 134/80
--- NOTE | 2018-07-30 20:00 | CR.PDOC ---
Plastic Surgery Consultation Date of Consultation 07/30/18 History and Physical CONSULT REPORT FOR: Dr Ibrahim REASON FOR CONSULTATION: Right upper brow laceration HISTORY OF PRESENT ILLNESS: 57 y/o male in mental health unit s/p unwittness fall today. Patient has full thickness laceration above right upper eyebrow. No active bleeding. No change in vision, no neurological deficit. Patient states he is not in pain. PAST MEDICAL HISTORY: 1. Schizophrenia. PAST SURGICAL HISTORY: INCLUDES: 1. unknown. PREVIOUS ANESTHESIA REACTIONS: unknown ALLERGIES: Please see below. FAMILY HISTORY: non contributory. HOME MEDICATIONS: Please see below. REVIEW OF SYSTEMS: GENERAL: Denies chills, reports weight gain, reports feeling febrile yesterday. HEENT: Denies blurred vision and double vision. Denies ear symptoms. Denies hoarseness. NECK: Denies any neck pain]. CARDIOVASCULAR: Denies chest pain and palpitations. MUSCULOSKELETAL: Denies arthralgias, back pain and thrombophlebitis. SKIN: Denies rash. NEUROLOGIC: Denies headache, stroke and transient ischemic attack. PSYCHIATRIC: Denies anxiety and depression. ENDOCRINE: Denies thyroid disease. HEMATOLOGY/ONCOLOGY: Denies bleeding or clotting disorder. HEART: Denies any chest pains, palpitations, paroxysmal dyspnea, orthopnea. PULMONARY: Denies chronic cough, dyspnea and wheezing. GASTROINTESTINAL: Denies rectal bleeding, family history of colon cancer, constipation, diarrhea, dysphagia, heartburn and jaundice. GENITOURINARY: Denies dysuria, frequency, hematuria and nocturia. ENDOCRINE: Denies polydipsia, polyphagia, polyuria, heat or cold intolerance. INFECTIOUS: Denies any recent upper respiratory tract infection, UTI, need for use of antibiotics. NUTRITION: Reports good appetite. PHYSICAL EXAMINATION: VITALS SIGNS: Please see below. GENERAL APPEARANCE:Patient seen, laying in bed, awake, alert, and oriented. Comfortable, in no acute distress. SKIN: Warm and moist. Full thickness laceration to the deep muscle layer horizontally oriented along the right upper brow edge. Middle of the laceration with avulsion part. Viable. No active bleeding. Full motion of the brow, no ptosis. Full motion of the upper eyelid. Laceration 4 cm length. HEENT: Normocephalic, atraumatic. [place] palpebral conjunctiva, anicteric sclerae. Lips and mucosa appear moist. NECK: Supple, no thyromegaly. No obvious jugular venous distention. LUNGS: Clear to auscultation bilaterally. No wheezing appreciated. LABORATORY DATA: Please see below. IMPRESSION AND PLAN: Complex laceration right upper brow. Antibiotics po Informed consent from 2 physicians obtained. Complex laceration repair done. (See report dictated) Tolerated well. Will f/up with patient before discharge. Vital Signs Vital Signs Date Time Temp Pulse Resp B/P (MAP) Pulse Ox O2 Delivery O2 Flow Rate FiO2 07/30/18 18:00 98.4 68 18 134/80 (98) 07/30/18 13:20 95 07/25/18 20:39 Room Air Laboratory Data Labs 24H Laboratory Tests 2 07/30/18 09:34: Anion Gap 3L, Glomerular Filtration Rate > 60.0, Blood Urea Nitrogen 24H, Creatinine 0.86, Sodium Level 131L, Potassium Level 4.4, Chloride Level 95L, Carbon Dioxide Level 33H, Calcium Level 8.6, Aspartate Amino Transf (AST/SGOT) 14, Alanine Aminotransferase (ALT/SGPT) 17, Alkaline Phosphatase 73, Total Bilirubin 0.3, Total Protein 6.4, Albumin 3.0L, Albumin/Globulin Ratio 0.88L 07/30/18 14:05: 07/30/18 14:08: Anion Gap 6L, Glomerular Filtration Rate > 60.0, Blood Urea Nitrogen 24H, Creatinine 1.10, Sodium Level 132L, Potassium Level 4.4, Chloride Level 95L, Carbon Dioxide Level 31, Calcium Level 9.4, Aspartate Amino Transf (AST/SGOT) 18, Alanine Aminotransferase (ALT/SGPT) 21, Alkaline Phosphatase 84, Total Bili meade 0.4, Total Protein 7.1, Albumin 3.9#, Albumin/Globulin Ratio 1.22, Immature Granulocyte % (Auto) 0.5, White Blood Count 4.4, Red Blood Count 5.05, Hemoglobin 14.3, Hematocrit 42.7, Mean Corpuscular Volume 84.6, Mean Corpuscular Hemoglobin 28.3, Mean Corpuscular Hemoglobin Concent 33.5, Red Cell Distribution Width 14.2, Platelet Count 393, Neutrophils (%) (Auto) 49.5, Lymphocytes (%) (Auto) 33.4, Monocytes (%) (Auto) 14.4H, Eosinophils (%) (Auto) 1.1, Basophils (%) (Auto) 1.1H, Neutrophils # (Auto) 2.2, Lymphocytes # (Auto) 1.5, Monocytes # (Auto) 0.6, Eosinophils # (Auto) 0.1, Basophils # (Auto) 0.1, Nucleated Red Blood Cells % (auto) 0.0, Prothrombin Time 12.8, Prothromb Time International Ratio 0.95, Total Creatine Kinase 65, Ammonia 18, Thyroid Stimulating Hormone (TSH) 1.870 CBC/BMP Laboratory Tests 07/30/18 09:34 Calcium Level 8.6, Aspartate Amino Transf (AST/SGOT) 14, Alanine Aminotransferase (ALT/SGPT) 17, Alkaline Phosphatase 73, Total Bilirubin 0.3, Total Protein 6.4, Albumin 3.0 L 07/30/18 14:08 Calcium Level 9.4, Aspartate Amino Transf (AST/SGOT) 18, Alanine Aminotransferase (ALT/SGPT) 21, Alkaline Phosphatase 84, Total Bilirubin 0.4, Total Protein 7.1, Albumin 3.9 #, Red Blood Count 5.05, Mean Corpuscular Volume 84.6, Mean Corpuscular Hemoglobin 28.3, Mean Corpuscular Hemoglobin Concent 33.5, Red Cell Distribution Width 14.2, Neutrophils (%) (Auto) 49.5, Lymphocytes (%) (Auto) 33.4, Monocytes (%) (Auto) 14.4 H, Eosinophils (%) (Auto) 1.1, Basophils (%) (Auto) 1.1 H, Neutrophils # (Auto) 2.2, Lymphocytes # (Auto) 1.5, Monocytes # (Auto) 0.6, Eosinophils # (Auto) 0.1, Basophils # (Auto) 0.1, Total Creatine Kinase 65 Home Medications Scheduled Asenapine (Saphris) 5 Mg Tab.subl, 5 MG SL BID, (Reported) AT 0600 AND 1500 Benztropine Mesylate (Benztropine Mesylate) 1 Mg Tablet, 1 MG PO QHS, (Reported) Diazepam (Diazepam) 2 Mg Tablet, 2 MG PO TID, (Reported) Divalproex Sodium (Depakote ER) 500 Mg Tab, 1,500 MG PO QPM, (Reported) WITH DINNER Docusate Sodium (Docusate Sodium) 100 Mg Capsule, 200 MG PO BID, (Reported) Furosemide (Furosemide) 20 Mg Tab, 20 MG PO BID, (Reported) Haloperidol Decanoate (Haldol Decanoate 100) 100 Mg/Ml Inj, 300 MG IM ASDIRECTED, (Reported) EVERY 28 DAYS Meloxicam (Meloxicam) 15 Mg Tablet, 15 MG PO DAILY, (Reported) Metoprolol Tartrate (Metoprolol Tartrate) 25 Mg Tablet, 25 MG PO BID, (Reported) Potassium Chloride (Potassium Chloride) 10 Meq Tab.er.prt, 10 MEQ PO BID, (Reported) Quetiapine Fumarate (Seroquel Xr) 400 Mg Tab, 400 MG PO QPM, (Reported) WITH DINNER Scheduled PRN Acetaminophen (Tylenol Extra Strength) 500 Mg Tablet, 1,000 MG PO Q8H PRN for PAIN, (Reported) Albuterol Sulfate (Ventolin Hfa) 18 Gm Hfa.aer.ad, 2 PUFF INH Q4H PRN for SHORTNESS OF BREATH, (Reported) Zolpidem Tartrate (Ambien) 10 Mg Tablet, 10 MG PO QHS PRN for SLEEP, (Reported) Allergies Coded Allergies: No Known Allergies (Verified , 06/27/10) LYLA ANTONIO DO July 30, 2018 20:00
[2018-07-30] MEDS: BENZTROPINE 1 MG TAB PO SCH (20:43)
[2018-07-30] MEDS: POLYSPORIN TOPICAL OINTMENT 15GM TOP SCH (21:28)
[2018-07-30] MEDS: zolPIDEM TARTRATE 5 MG TAB PO PRN (22:43)
[2018-07-31] MEDS: ACETAMINOPHEN 500 MG TAB PO PRN (01:57)
[2018-07-31] MEDS: diazePAM 2 MG TAB PO SCH ×3 (05:16→20:30)
[2018-07-31 07:09] VITALS: BP 148/80
--- NOTE | 2018-07-31 07:32 | RO ---
DATE OF PROCEDURE: 07/30/2018 PREOPERATIVE DIAGNOSIS: Full thickness complex laceration right upper eyebrow. POSTOPERATIVE DIAGNOSIS: Full thickness complex laceration right upper eyebrow. PROCEDURE: Complex repair of right upper brow laceration. ATTENDING SURGEON: Carol Carrasquillo DO ANESTHESIA: Local This is a patient who was status post unwitnessed fall today. He is an inpatient in the mental health unit. The patient needs to have this laceration repaired. It is 4 cm in length. Antibiotics were already given. DESCRIPTION OF PROCEDURE: Patient is not capable to sign full consent, however he understands, so the explanations were done with the patient as well as the attending surgeon and attending provider, so two physician consent was obtained. 1% lidocaine was used as a local. We used 4 mL total. The field block was obtained after the numbing effect of lidocaine was ensured. The wound is explored. It is full thickness to the deep muscle layer, however there is no active bleeding. The wound is completely clean with clean cut edges. The middle of the wound has a strip of avulsion which is viable, so I did a multilayer repair with absorbable sutures, Vicryl #4-0 on the deep layer, then #4-0 Monocryl on the superficial layer as well as the dermal sutures. The patient tolerated the procedure well. Steri-Strips were applied. He has good symmetry. Eyebrow is in symmetric position and has full motion of the eyebrow as well as the upper lid. MTDD
[2018-07-31] MEDS: FUROSEMIDE 20 MG TAB PO SCH ×2 (08:26→16:13)
[2018-07-31] MEDS: OLANZapine ORAL DISINTEGRATING TAB 5MG PO SCH ×2 (08:26→20:51)
[2018-07-31] MEDS: METOPROLOL TART 25 MG TABLET PO SCH ×2 (08:26→20:50)
[2018-07-31] MEDS: POTASSIUM CHLORIDE 10 MEQ SR TABLET PO SCH ×2 (08:26→20:50)
[2018-07-31] MEDS: AUGMENTIN 875 MG TAB PO SCH ×2 (08:26→20:19)
[2018-07-31] MEDS: DOCUSATE SODIUM 100 MG CAP PO SCH ×2 (08:26→20:20)
[2018-07-31] MEDS: MELOXICAM (MOBIC) 7.5 MG TAB PO SCH (08:27)
[2018-07-31] MEDS: POLYSPORIN TOPICAL OINTMENT 15GM TOP SCH ×2 (09:24→20:20)
--- NOTE | 2018-07-31 10:18 | MHIPNPDOC ---
[facility] Progress Note Progress Note DATE OF SERVICE: 07/31/18 HISTORY: Patient is a 57 -year-old , male, with a history of schizoaffective d/o and residing at [facility] several years who was sent with PD under 9.41 from [facility] due to pt threatening staff and other residents, decompensating, manic, paranoid people talk about him, talking to s elf, AH (stated in ED "they're not too bad"), and agitation. Pt according to TLS scaring the other residents there due to him threatening and cussing at them. Per ED, when pt asked why he was sent to the ED he stated "I was evicted from my house for arguing with 2 other people. Per ED, pt was manic and agitated. Pt is a poor historian due to current nelda/psychosis/agitation so history gathered from previous chart records. VITAL SIGNS: See below. NEW TEST RESULTS: See below. CURRENT MEDICATIONS: See below. MENTAL STATUS EXAMINATION: pt currently asleep and unable to assess. MSE per 07/30/18 "General Appearance: unkempt, ds/not appear stated age (older), hospital scrubs/clothing, walking in milieu with his cane Build: average Demeanor: cooperative Eye Contact: fair Activity: agitated Behavior: uncooperative, restless Speech: rapid/pressured, spontaneous, other (he sounds loud and cranky (best example is the voice of a high pitched angry cranky old man)) Mood: agitated, elevated, hypomanic Mood "You're on her side!" Affect: inappropriate, labile, congruent, anxious, disorganized, agitated Thought Process: tangential, loose, associative, flight of ideas, racing, derailment Thought Content (Delusions): grandiose, paranoia, delusions, other ("I've been threatening people b/c I don't like them" Denies SI, HI intent) Thought Content (Other): preoccupied, obsessional, guarded, ideas of reference, internal-stimuli, appears paranoid Thought Content (Aggressive): none reported Perception (Hallucinations): auditory Perception (Other): none reported Cognition (Impairment of): attention/concentration, ability to abstract Cognition(Intelligence Est.): borderline Oriented: Awake, Alert, Oriented times three Insight: poor Judgment: Poor Psychosis: Associations, Abstract Thinking, Psychotic Perceptions" DIAGNOSES: Schizoaffective d/o - bipolar type ASSESSMENT: Called by staff as pt feel and hit his head cutting it open. Seen by surgeon yesterday evening and sutures placed, must keep dry now. Surgeon ordered assisted ambulation so 1:1 sitter present to assist pt with ambulation and monitor his safety. Continues to be agitated and labile. Per staff is not sleeping at night and question whether ambien is making him worse possibly and very likely to cause delirium and agitation. Will adjust meds to more control pt's symptoms: depakote er increased yesterday, change valium to 1mg tid, and change seroquel xr to seroquel 600mg qhs, d/c ambien. Will monitor for improvement in sleep after changes made tonight. MANAGEMENT PLAN: see plan above medications: zyprexa zydis 10mg bid Cogentin 1 mg QHS Valium 1 mg TID Depakote Er 1,750 mg DAILY@2100 Ativan 2 mg Q6HP PRN PO ANXIETY/AGITATION ZyPREXA ZYDIS 10 mg Q6HP PRN PO ANXIETY/AGITATION SEROquel 600 mg DAILY@1800 TIME SPENT: 30 minutes. Vital Signs Vital Signs Date Time Temp Pulse Resp B/P (MAP) Pulse Ox O2 Delivery O2 Flow Rate FiO2 07/31/18 08:26 73 123/80 07/31/18 07:09 97.9 18 07/30/18 13:20 95 07/25/18 20:39 Room Air Laboratory Data 24H Labs Laboratory Tests 2 07/30/18 14:05: 07/30/18 14:08: Immature Granulocyte % (Auto) 0.5, White Blood Count 4.4, Red Blood Count 5.05, Hemoglobin 14.3, Hematocrit 42.7, Mean Corpuscular Volume 84.6, Mean Corpuscular Hemoglobin 28.3, Mean Corpuscular Hemoglobin Concent 33.5, Red Cell Distribution Width 14.2, Platelet Count 393, Neutrophils (%) (Auto) 49.5, Lymphocytes (%) (Auto) 33.4, Monocytes (%) (Auto) 14.4H, Eosinophils (%) (Auto) 1.1, Basophils (%) (Auto) 1.1H, Neutrophils # (Auto) 2.2, Lymphocytes # (Auto) 1.5, Monocytes # (Auto) 0.6, Eosinophils # (Auto) 0.1, Basophils # (Auto) 0.1, Nucleated Red Blood Cells % (auto) 0.0, Prothrombin Time 12.8, Prothromb Time International Ratio 0.95, Anion Gap 6L, Glomerular Filtration Rate > 60.0, Blood Urea Nitrogen 24H, Creatinine 1.10, Sodium Level 132L, Potassium Level 4.4, Chloride Level 95L, Carbon Dioxide Level 31, Calcium Level 9.4, Aspartate Amino Transf (AST/SGOT) 18, Alanine Aminotransferase (ALT/SGPT) 21, Total Creatine Kinase 65, Alkaline Phosphatase 84, Total Bilirubin 0.4, Total Protein 7.1, Albumin 3.9#, Ammonia 18, Albumin/Globulin Ratio 1.22, Thyroid Stimulating Hormone (TSH) 1.870 CBC/BMP Laboratory Tests 07/30/18 14:08 Red Blood Count 5.05, Mean Corpuscular Volume 84.6, Mean Corpuscular Hemoglobin 28.3, Mean Corpuscular Hemoglobin Concent 33.5, Red Cell Distribution Width 14.2, Neutrophils (%) (Auto) 49.5, Lymphocytes (%) (Auto) 33.4, Monocytes (%) (Auto) 14.4 H, Eosinophils (%) (Auto) 1.1, Basophils (%) (Auto) 1.1 H, Neutrophils # (Auto) 2.2, Lymphocytes # (Auto) 1.5, Monocytes # (Auto) 0.6, Eosinophils # (Auto) 0.1, Basophils # (Auto) 0.1, Calcium Level 9.4, Aspartate Amino Transf (AST/SGOT) 18, Alanine Aminotransferase (ALT/SGPT) 21, Total Crea vivian Kinase 65, Alkaline Phosphatase 84, Total Bilirubin 0.4, Total Protein 7.1, Albumin 3.9 # Current Medications Current Medications Acetaminophen (Tylenol Tab) 650 mg Q4HP PRN PO PAIN OR FEVER; Start 07/30/18 at 14:45; Stop 07/30/18 at 15:25; Status DC Acetaminophen (Tylenol Tab) 650 mg Q6HP PRN PO HEADACHE or DISCOMFORT; Start 07/25/18 at 19:30; Status Cancel Acetaminophen (Tylenol Tab) 1,000 mg Q8H PRN PO PAIN Last administered on 07/31/18at 01:57; Start 07/25/18 at 20:00 Al Hydrox/Mg Hydrox/Simethicone (Mylanta) 30 ml Q4HP PRN PO HEARTBURN/I NDIGESTION; Start 07/25/18 at 19:30 Albuterol Sulfate (Proventil, Ventolin Hfa) 2 puff Q4H PRN INH SHORTNESS OF BREATH Last administered on 07/28/18at 23:13; Start 07/25/18 at 20:00 Amoxicillin/ Clavulanate Potassium (Augmentin) 875 mg BID PO Last administered on 07/31/18 08:26; Start 07/30/18 at 14:15; Stop 08/05/18 at 21:01 Asenapine (Saphris) 5 mg BID@0600,1500 SL Last administered on 07/26/18at 05:16; Start 07/26/18 at 06:00; Stop 07/26/18 at 10:37; Status DC Bacitracin/ Polymyxin B Sulfate (Polysporin Top Oint) APPLY TO WOUND AREA BID TOP Last administered on 07/31/18at 09:24; Start 07/30/18 at 21:00; Stop 08/06/18 at 09:01 Benztropine Mesylate (Cogentin) 1 mg QHS PO Last administered on 07/30/18at 20:43; Start 07/25/18 at 21:00 Diazepam (Valium) 2 mg TID PO Last administered on 07/26/18at 07:55; Start 07/25/18 at 21:00; Stop 07/26/18 at 11:05; Status DC Diazepam (Valium) 2 mg TID@0600,1200,2000 PO Last administered on 07/31/18at 05:16; Start 07/26/18 at 12:00 Diphenhydramine HCl (Benadryl) 50 mg STAT STAT IM Last administered on 07/29/18at 03:57; Start 07/29/18 at 03:39; Stop 07/29/18 at 03:45; Status DC Divalproex Sodium (Depakote Er) 1,500 mg DAILY@1800 PO Last administered on 07/30/18at 17:37; Start 07/25/18 at 18:00 Docusate Sodium (Colace) 200 mg BID PO Last administered on 07/31/18 08:26; Start 07/25/18 at 21:00 Furosemide (Lasix) 20 mg BID@0900,1700 PO Last administered on 07/31/18at 08:26; Start 07/26/18 at 09:00 Haloperidol (Haldol) 5 mg BID PO ; Start 07/26/18 at 21:00; Status Cancel Home Med (Med Rec Complete!) ASDIRECTED XX ; Start 07/25/18 at 19:15; Stop 07/25/18 at 19:15; Status DC Lorazepam (Ativan) 2 mg Q6HP PRN PO ANXIETY/AGITATION Last administered on 07/30/18 20:43; Start 07/26/18 at 10:45 Lorazepam (Ativan) 2 mg STAT STAT IM Last administered on 07/29/18 03:56; Start 07/29/18 at 03:39; Stop 07/29/18 at 03:45; Status DC Magnesium Hydroxide (Milk Of Magnesia) 30 ml DAILYPRN PRN PO CONSTIPATION; Start 07/25/18 at 19:30 Meloxicam (Mobic) 15 mg DAILY PO Last administered on 07/31/18 08:27; Start 07/26/18 at 09:00 Metoprolol Tartrate (Lopressor) 25 mg BID PO Last administered on 07/31/18 08:26; Start 07/25/18 at 21:00 Nicotine (Nicoderm Cq 21mg) 1 patch DAILY TD ; Start 07/26/18 at 09:00; Stop 07/26/18 at 09:00; Status DC Olanzapine (ZyPREXA ZYDIS) 5 mg BID PO Last administered on 07/28/18at 20:09; Start 07/26/18 at 21:00; Stop 07/29/18 at 10:50; Status DC Olanzapine (ZyPREXA ZYDIS) 5 mg Q6HP PRN PO ANXIETY/AGITATION Last administered on 07/28/18at 00:51; Start 07/26/18 at 10:45; Stop 07/28/18 at 12:00; Status DC Olanzapine (ZyPREXA ZYDIS) 10 mg BID PO Last administered on 07/31/18at 08:26; Start 07/29/18 at 21:00 Olanzapine (ZyPREXA ZYDIS) 10 mg Q4HP PRN PO ANXIETY/AGITATION Last administered on 07/29/18at 23:19; Start 07/28/18 at 12:00 Olanzapine (Zyprexa Intramuscular) 10 mg STAT STAT IM Last administered on 07/29/18at 03:56; Start 07/29/18 at 03:39; Stop 07/29/18 at 03:45; Status DC Potassium Chloride (Micro-K Extencaps) 10 meq BID PO Last administered on 07/31/18at 08:26; Start 07/30/18 at 09:00 Potassium Chloride (Micro-K Extencaps) 10 meq BID PO ; Start 07/25/18 at 21:00; Status UNV Quetiapine Fumarate (SEROquel XR) 400 mg DAILY@1800 PO Last administered on 07/30/18at 17:37; Start 07/25/18 at 18:00 Trazodone HCl (Desyrel) 50 mg QHSP PRN PO INSOMNIA; Start 07/25/18 at 19:30; S tatus Cancel Zolpidem Tartrate (Ambien) 10 mg QHS PRN PO SLEEP Last administered on 07/30/18at 22:43; Start 07/25/18 at 20:00 Allergies Coded Allergies: No Known Allergies (Verified , 06/27/10) A-FIB/CHADSVASC A-FIB History Current/History of A-Fib/PAF?: No Current Oral Anticoagulant The: No Age/Risk Factor Scoring CHADSVASC: CHADSVASC Response (Comments) Value Hx of HTN Yes 1 Total 1 Treatment Treatment ordered: NONE Reason Anticoagulant not given: Not indicated/[id number] MARY ANDERSON DO July 31, 2018 9:34 am
[2018-07-31] MEDS: ALBUTEROL 90 MCG/ACT 8GM HFA INHALER INH PRN (11:48)
[2018-07-31] MEDS ORDERED: OLANZapine ORAL DISINTEGRATING TAB 5MG PO SCH (16:00)
[2018-07-31 18:00] VITALS: BP 138/92
[2018-07-31] MEDS: DIVALPROEX 250MG *ER* TAB PO SCH (20:18)
[2018-07-31] MEDS: DIVALPROEX 500MG *ER* TAB PO SCH (20:18)
[2018-07-31] MEDS: BENZTROPINE 1 MG TAB PO SCH (20:19)
--- NOTE | 2018-07-31 20:25 | IPNPDOC ---
Date Seen The patient was seen on 07/31/18. Progress Note SUBJECTIVE: s/p complex repair of right brow laceration s/p fall by plastic surgery on 07/30/18. pain managed by prn tylenol. no fever or chills. still achy per pt. no visual changes blurred vision, diplopia. PHYSICAL EXAMINATION: VITAL SIGNS: Please see below. HEENT: right eyebrow full thickness 4cm laceration with steristrips. some swelling and tenderness but no erythema. EOMI. RESPIRATORY: CTA b/l, no rales, wheezing, or rhonchi CARDIOVASCULAR: RRR, no murmur, normal S1 and S2 ABDOMEN: soft, bowel sound aus in all 4 quadrant, no guarding or distention EXTREMITIES: no cyanosis, clubbing or edema LABORATORY DATA, IMAGING STUDIES: Please see below. ASSESSMENT/PLAN: Mechanical fall with right full thickness laceration with avulsion on PO augmentin for 7 days. Polysporin topical ointment. Td s/p complex repair of right brow laceration s/p fall by plastic surgery on 07/30/18. pain managed by prn tylenol. no fever or chills. still achy per pt. no visual changes blurred vision, diplopia. Paranoid schizophrenia. Cont psych med Olanzapine, Ativan, Valium, Depakote, and Seroqul. Cont to monitor the pt. mgt PER Psychiatrist. HTN. Cont Lopressor and Lasix. A-FIB/CHADSVASC A-FIB History Current/History of A-Fib/PAF?: No Current Oral Anticoagulant The: No Age/Risk Factor Scoring CHADSVASC: CHADSVASC Response (Comments) Value Hx of HTN Yes 1 Total 1 VS, I&O, 24H, Fishbone Vital Signs/I&O Vital Signs Date Time Temp Pulse Resp B/P (MAP) Pulse Ox O2 Delivery O2 Flow Rate FiO2 07/31/18 18:00 98.0 73 18 138/92 (107) 07/30/18 13:20 95 07/25/18 20:39 Room Air RAMESH GREGORY MD July 31, 2018 20:25
[2018-07-31] MEDS: QUEtiapine FUMARATE 200 MG TAB PO SCH (20:30)
[2018-07-31] MEDS: LORazepam 2 MG TAB PO PRN (20:51)
[2018-08-01] MEDS: LORazepam 2 MG TAB PO PRN ×2 (03:12→20:21)
[2018-08-01 06:30] VITALS: BP 106/65
[2018-08-01] MEDS: POLYSPORIN TOPICAL OINTMENT 15GM TOP SCH ×2 (08:46→20:05)
[2018-08-01] MEDS: MELOXICAM (MOBIC) 7.5 MG TAB PO SCH (08:50)
[2018-08-01] MEDS: METOPROLOL TART 25 MG TABLET PO SCH ×2 (08:50→20:13)
[2018-08-01] MEDS: AUGMENTIN 875 MG TAB PO SCH ×2 (08:50→20:07)
[2018-08-01] MEDS: DOCUSATE SODIUM 100 MG CAP PO SCH ×2 (08:51→20:09)
[2018-08-01] MEDS: OLANZapine ORAL DISINTEGRATING TAB 5MG PO SCH ×2 (08:51→20:10)
[2018-08-01] MEDS: diazePAM 2 MG TAB PO SCH ×3 (08:51→20:15)
[2018-08-01] MEDS: FUROSEMIDE 20 MG TAB PO SCH ×2 (08:51→16:28)
[2018-08-01] MEDS: POTASSIUM CHLORIDE 10 MEQ SR TABLET PO SCH ×2 (08:51→20:14)
--- NOTE | 2018-08-01 11:42 | MHIPNPDOC ---
[facility] Progress Note Progress Note DATE OF SERVICE: 08/01/18 HISTORY: This 57-year-old male was brought in from his transitional living home to a history of violence and psychotic thought. VITAL SIGNS: See below. NEW TEST RESULTS: No new test results. CURRENT MEDICATIONS: See below. MENTAL STATUS EXAMINATION: Patient is a 57-year old male, who is admitted for psychotic thought, aggressiveness and violent behavior. Speech: Is, rapid. Language skills are intact. Thought content: Abstract reasoning, and computation poor. Description of associations: Loose. Description of abnormal or psychotic thoughts:, Rapid thoughts. Judgment:, Poor. Insight: Poor. Orientation:, Fully oriented. Recent and remote memory:, Intact. Attention span and concentration:, Poor. Language: Normal. Fund of knowledge: Normal. Mood: Elevated. Affect: Bright. DIAGNOSES: 1. Bipolar disorder, manic type ASSESSMENT: This 57-year-old male who was transferred from a transitional living home has been admitted for aggressive and behavior polar disorder, manic type. On my initial evaluation, the patient still seems to appear to be manic and it is my understanding after discussion with nursing staff and social work coordinator that the patient is also highly dependent on diazepam medications. MANAGEMENT PLAN: Plan to discuss with staff present medication regimen and have noted a past note that indicates patient was on Haldol Decanoate. Haldol Decanoate will have to be evaluated for follow-up injection and perhaps patient needs to be placed on oral Haldol. TIME SPENT: 60 minutes. Vital Signs Vital Signs Date Time Temp Pulse Resp B/P (MAP) Pulse Ox O2 Delivery O2 Flow Rate FiO2 08/01/18 08:50 81 118/74 08/01/18 06:30 97.3 16 07/30/18 13:20 95 Laboratory Data 24H Labs Item Value Date Time White Blood Count 4.4 10^3/uL 07/30/18 1408 Red Blood Count 5.05 10^6/uL 07/30/18 1408 Hemoglobin 14.3 g/dl 07/30/18 1408 Hematocrit 42.7 % 07/30/18 1408 Mean Corpuscular Volume 84.6 fl 07/30/18 1408 Mean Corpuscular Hemoglobin 28.3 pg 07/30/18 1408 Mean Corpuscular Hemoglobin Concent 33.5 g/dl 07/30/18 1408 Red Cell Distribution Width 14.2 % 07/30/18 1408 Platelet Count 393 10^3/uL 07/30/18 1408 Immature Granulocyte % (Auto) 0.5 % 07/30/18 1408 Neutrophils (%) (Auto) 49.5 % 07/30/18 1408 Lymphocytes (%) (Auto) 33.4 % 07/30/18 1408 Monocytes (%) (Auto) 14.4 % H 07/30/18 1408 Eosinophils (%) (Auto) 1.1 % 07/30/18 1408 Basophils (%) (Auto) 1.1 % H 07/30/18 1408 Neutrophils # (Auto) 2.2 10^3/uL 07/30/18 1408 Lymphocytes # (Auto) 1.5 10^3/uL 07/30/18 1408 Monocytes # (Auto) 0.6 10^3/uL 07/30/18 1408 Eosinophils # (Auto) 0.1 10^3/uL 07/30/18 1408 Basophils # (Auto) 0.1 10^3/uL 07/30/18 1408 Nucleated Red Blood Cells % (auto) 0.0 % 07/30/18 1408 Item Value Date Time Urine Opiates Screen NEGATIVE 07/25/18 1410 Urine Methadone Screen NEGATIVE 07/25/18 141 Urine Barbiturates Screen NEGATIVE 07/25/18 1410 Urine Phencyclidine Screen NEGATIVE 07/25/18 1410 Urine Amphetamines Screen NEGATIVE 07/25/18 1410 Urine Benzodiazepines Screen POSITIVE H 07/25/18 141 Urine Cocaine Metabolite Screen NEGATIVE 07/25/18 141 Urine Cannabinoids Screen NEGATIVE 07/25/18 141 Microbiology Routine culture results indicated no growth Current Medications Current Medications Acetaminophen (Tylenol Tab) 650 mg Q4HP PRN PO PAIN OR FEVER; Start 07/30/18 at 14:45; Stop 07/30/18 at 15:25; Status DC Acetaminophen (Tylenol Tab) 650 mg Q6HP PRN PO HEADACHE or DISCOMFORT; Start 07/25/18 at 19:30; Status Cancel Acetaminophen (Tylenol Tab) 1,000 mg Q8H PRN PO PAIN Last administered on 07/31/18at 01:57; Start 07/25/18 at 20:00 Al Hydrox/Mg Hydrox/Simethicone (Mylanta) 30 ml Q4HP PRN PO HEARTBURN/INDIGESTION; Start 07/25/18 at 19:30 Albuterol Sulfate (Proventil, Ventolin Hfa) 2 puff Q4H PRN INH SHORTNESS OF BREATH Last administered on 07/31/18at 11:48; Start 07/25/18 at 20:00 Amoxicillin/ Clavulanate Potassium (Augmentin) 875 mg BID PO Last administered on 08/01/18 08:50; Start 07/30/18 at 14:15; Stop 08/05/18 at 21:01 Asenapine (Saphris) 5 mg BID@0600,1500 SL Last administered on 07/26/18 05:16; Start 07/26/18 at 06:00; Stop 07/26/18 at 10:37; Status DC Bacitracin/ Polymyxin B Sulfate (Polysporin Top Oint) APPLY TO WOUND AREA BID TOP Last administered on 08/01/18 08:46; Start 07/30/18 at 21:00; Stop 08/06/18 at 09:01 Benztropine Mesylate (Cogentin) 1 mg QHS PO Last administered on 07/31/18 20:19; Start 07/25/18 at 21:00 Diazepam (Valium) 1 mg TID PO Last administered on 08/01/18at 08:51; Start 07/31/18 at 21:00 Diazepam (Valium) 2 mg TID PO Last administered on 07/26/18at 07:55; Start 07/25/18 at 21:00; Stop 07/26/18 at 11:05; Status DC Diazepam (Valium) 2 mg TID@0600,1200,2000 PO Last administered on 07/31/18at 11:45; Start 07/26/18 at 12:00; Stop 07/31/18 at 12:18; Status DC Diphenhydramine HCl (Benadryl) 50 mg STAT STAT IM Last administered on 07/29/18 03:57; Start 07/29/18 at 03:39; Stop 07/29/18 at 03:45; Status DC Divalproex Sodium (Depakote Er) 250 mg QHS PO Last administered on 07/31/18 20:18; Start 07/31/18 at 21:00 Divalproex Sodium (Depakote Er) 1,500 mg DAILY@1800 PO Last administered on 07/30/18at 17:37; Start 07/25/18 at 18:00; Stop 07/31/18 at 09:37; Status DC Divalproex Sodium (Depakote Er) 1,500 mg QHS PO Last administered on 07/31/18at 20:18; Start 07/31/18 at 21:00 Docusate Sodium (Colace) 200 mg BID PO Last administered on 08/01/18at 08:51; Start 07/25/18 at 21:00 Furosemide (Lasix) 20 mg BID@0900,1700 PO Last administered on 08/01/18at 08:51; Start 07/26/18 at 09:00 Haloperidol (Haldol) 5 mg BID PO ; Start 07/26/18 at 21:00; Status Cancel Home Med (Med Rec Complete!) ASDIRECTED XX ; Start 07/25/18 at 19:15; Stop 07/25/18 at 19:15; Status DC Lorazepam (Ativan) 2 mg Q6HP PRN PO ANXIETY/AGITATION Last administered on 08/01/18at 03:12; Start 07/26/18 at 10:45 Lorazepam (Ativan) 2 mg STAT STAT IM Last administered on 07/29/18at 03:56; Start 07/29/18 at 03:39; Stop 07/29/18 at 03:45; Status DC Magnesium Hydroxide (Milk Of Magnesia) 30 ml DAILYPRN PRN PO CONSTIPATION; Start 07/25/18 at 19:30 Meloxicam (Mobic) 15 mg DAILY PO Last administered on 08/01/18at 08:50; Start 07/26/18 at 09:00 Metoprolol Tartrate (Lopressor) 25 mg BID PO Last administered on 08/01/18at 08:50; Start 07/25/18 at 21:00 Miscellaneous (Unresolved Clarification Entry) SEE LABEL COMMENTS DAILY XX ; Start 08/01/18 at 09:00 Nicotine (Nicoderm Cq 21mg) 1 patch DAILY TD ; Start 07/26/18 at 09:00; Stop 07/26/18 at 09:00; Status DC Olanzapine (ZyPREXA ZYDIS) 5 mg BID PO Last administered on 07/28/18at 20:09; Start 07/26/18 at 21:00; Stop 07/29/18 at 10:50; Status DC Olanzapine (ZyPREXA ZYDIS) 5 mg Q6HP PRN PO ANXIETY/AGITATION Last administered on 07/28/18at 00:51; Start 07/26/18 at 10:45; Stop 07/28/18 at 12:00; Status DC Olanzapine (ZyPREXA ZYDIS) 10 mg BID PO Last administered on 07/31/18at 08:26; Start 07/29/18 at 21:00; Stop 07/31/18 at 09:40; Status DC Olanzapine (ZyPREXA ZYDIS) 10 mg BID PO Last administered on 08/01/18at 08:51; Start 07/31/18 at 21:00 Olanzapine (ZyPREXA ZYDIS) 10 mg Q4HP PRN PO ANXIETY/AGITATION Last administered on 07/29/18at 23:19; Start 07/28/18 at 12:00 Olanzapine (ZyPREXA ZYDIS) 10 mg TID PO ; Start 07/31/18 at 16:00; Status Cancel Olanzapine (Zyprexa Intramuscular) 10 mg STAT STAT IM Last administered on 07/29/18at 03:56; Start 07/29/18 at 03:39; Stop 07/29/18 at 03:45; Status DC Potassium Chloride (Micro-K Extencaps) 10 meq BID PO Last administered on 08/01/18at 08:51; Start 07/30/18 at 09:00 Potassium Chloride (Micro-K Extencaps) 10 meq BID PO ; Start 07/25/18 at 21:00; Status UNV Quetiapine Fumarate (SEROquel XR) 400 mg DAILY@1800 PO Last administered on 07/30/18at 17:37; Start 07/25/18 at 18:00; Stop 07/31/18 at 09:37; Status DC Quetiapine Fumarate (SEROquel) 600 mg QHS PO Last administered on 07/31/18at 20:30; Start 07/31/18 at 21:00 Trazodone HCl (Desyrel) 50 mg QHSP PRN PO INSOMNIA; Start 07/25/18 at 19:30; Status Cancel Zolpidem Tartrate (Ambien) 10 mg QHS PRN PO SLEEP Last administered on 07/30/18at 22:43; Start 07/25/18 at 20:00; Stop 07/31/18 at 09:37; Status DC Allergies Coded Allergies: No Known Allergies (Verified , 06/27/10) A-FIB/CHADSVASC A-FIB History Current/History of A-Fib/PAF?: No Current Oral Anticoagulant The: No Age/Risk Factor Scoring CHADSVASC: CHADSVASC Response (Comments) Value Hx of HTN Yes 1 Total 1 Treatment Treatment ordered: NONE JACKSON TIJERINA MD August 01, 2018 11:42
[2018-08-01] MEDS: ACETAMINOPHEN 500 MG TAB PO PRN (12:17)
--- NOTE | 2018-08-01 13:27 | IPNPDOC ---
Subjective Date Seen The patient was seen on 08/01/18. Subjective Chief Complaint/HPI Mr. Parham is examined at bedside. He reported that there's 8/10 "sore" at the site of the suturing on top of the right eye brow. He denies any pain around the orbits; denies any vision changes. During the conversation, pt brings up the topic that he has serrano in his room and is worried that people will try to steal his money. It is noted that patient's mental status have been slowly gradually improving General: Reports: Other Symptoms (ROS limited d/t patient's clinical condition) Eyes: Reports: Pain (at the site of the suturing on nevaeh of the right eye brow), Redness Objective Physical Examination General Exam: Positive: Alert, Cooperative, No Acute Distress (tangential thought process at times; poor insight, ) Eye Exam: Positive: Other Eye Symptoms (Mild erythema on right upper eyelid and in the superior orbital region. Right eyebrow suture covered with steri strips; dried blood noted but no signs of new drainage/bleeding. No pain moving eyes to either left or right direction); Negative: Conjunctiva & lids normal, Sclera icteric ENT Exam: Negative: Atraumatic Neck Exam: Positive: Supple Chest Exam: Positive: Normal air movement Heart Exam: Positive: Rate Normal, Regular Rhythm, Normal S1, Normal S2; Negative: Murmurs Abdomen Exam: Positive: Soft Extremity Exam: Positive: Edema (no to minimal edema in b/l lower extremities), Normal pulses Skin Exam: Positive: Nl turgor and temperature (except for right sided eye brow region and right orbital region) Neuro Exam: Negative: Normal Speech (slurred and rapid speech) Psych Exam: Positive: Other (poor insight and judgement; rapid thought process; occasional circumferential thought process noted); Negative: Mental status NL A-FIB/CHADSVASC A-FIB History Current/History of A-Fib/PAF?: No Age/Risk Factor Scoring CHADSVASC: CHADSVASC Response (Comments) Value Hx of HTN Yes 1 Total 1 Assessment /Plan Problems (1) Schizoaffective disorder, bipolar type Problem Text: Pt's mental status appeared to improve compare to prior. His slurred speech is also easier to understand. However, pt still has poor judgement/insight, and was worried that people will steal his serrano in the room. On Depakote, Valium, Seroquel, and Olanzapine (2) Laceration of eyebrow, complex Problem Text: On right eyebrow s/p complex repair of right upper brow laceration. No active bleeding/discharge noted on the site of laceration; steri strips in place. Patient's right sided orbital region appeared mildly erythematous without swelling. Pt denies vision changes or pain moving eyes. Cont PO augmentin and cont to monitor the pt (3) Hypertension Problem Text: Blood pressure roughly stable. Cont Lasix and Lopressor. Vital signs as scheduled; cont to monitor the pt Plan/VTE VTE Prophylaxis Ordered?: Yes (TEDS and SC heparin) VS, I&O, 24H, Fishbone Vital Signs/I&O Vital Signs Date Time Temp Pulse Resp B/P (MAP) Pulse Ox O2 Delivery O2 Flow Rate FiO2 08/01/18 08:50 81 118/74 08/01/18 06:30 97.3 16 07/30/18 13:20 95 GME ATTESTATION GME ATTESTATION My faculty preceptor for this patient encounter was physically present during the encounter and was fully available. All aspects of the patient interview, examination, medical decision making process, and medical care plan development were reviewed and approved by the faculty preceptor. The faculty preceptor is aware and concurs with the plan as stated in the body of this note and will attest to such by his/her cosignature. LILLIAN WARD DO August 01, 2018 13:27
[2018-08-01] MEDS: PILL CUTTER 1 EACH XX PRN (16:28)
[2018-08-01 18:00] VITALS: BP 132/65
[2018-08-01] MEDS: QUEtiapine FUMARATE 200 MG TAB PO SCH (20:06)
[2018-08-01] MEDS: DIVALPROEX 250MG *ER* TAB PO SCH (20:07)
[2018-08-01] MEDS: DIVALPROEX 500MG *ER* TAB PO SCH (20:08)
[2018-08-01] MEDS: BENZTROPINE 1 MG TAB PO SCH (20:13)
[2018-08-01] MEDS: HEPARIN SOD (PORCINE) 5000 UNITS/ML VIAL SQ SCH (21:19)
[2018-08-02] MEDS: LORazepam 2 MG TAB PO PRN ×3 (04:16→17:40)
[2018-08-02 07:00] VITALS: BP 127/84
[2018-08-02] MEDS: PILL CUTTER 1 EACH XX PRN ×2 (08:09→15:01)
[2018-08-02] MEDS: HEPARIN SOD (PORCINE) 5000 UNITS/ML VIAL SQ SCH ×2 (08:09→21:23)
[2018-08-02] MEDS: diazePAM 2 MG TAB PO SCH ×3 (08:09→21:24)
[2018-08-02] MEDS: MELOXICAM (MOBIC) 7.5 MG TAB PO SCH (08:11)
[2018-08-02] MEDS: OLANZapine ORAL DISINTEGRATING TAB 5MG PO SCH (08:12)
[2018-08-02] MEDS: POTASSIUM CHLORIDE 10 MEQ SR TABLET PO SCH ×2 (08:12→21:22)
[2018-08-02] MEDS: DOCUSATE SODIUM 100 MG CAP PO SCH ×2 (08:12→21:20)
[2018-08-02] MEDS: METOPROLOL TART 25 MG TABLET PO SCH ×2 (08:12→21:23)
[2018-08-02] MEDS: AUGMENTIN 875 MG TAB PO SCH ×2 (08:12→21:19)
[2018-08-02] MEDS: FUROSEMIDE 20 MG TAB PO SCH ×2 (08:14→16:26)
[2018-08-02] MEDS: POLYSPORIN TOPICAL OINTMENT 15GM TOP SCH ×2 (10:11→21:23)
--- NOTE | 2018-08-02 13:04 | MHIPNPDOC ---
[facility] Progress Note Progress Note DATE OF SERVICE: 08/02/18 HISTORY: 57-year-old male with a long history of psychosis, most recently aggressive at his residential home. VITAL SIGNS: See below. NEW TEST RESULTS: Depakote level ordered. CURRENT MEDICATIONS: See below. MENTAL STATUS EXAMINATION: Patient is a 57-year old male, who is, admitted for irritability and aggressiveness. Speech: Is. Rapid. Language skills are intact. Thought processes including:. Rapid speech, loose associations. Thought content:, Rapid loose and repetitive. Abstract reasoning, and computation: Minimal. Description of associations: Loose. Description of abnormal or psychotic thoughts:, Scattered loose and rapid speech. Judgment:, Poor. Insight: Poor. Orientation: Full. Recent and remote memory: Adequate. Attention span and concentration:. Poor. Language: Adequate. Fund of knowledge: Minimal. Mood: Irritable. Affect:, Anxious and labile. DIAGNOSES: 1. Bipolar Disorder Mixed ASSESSMENT: Present treatment seems not effective as patient considered still irritable and explosive MANAGEMENT PLAN:. Depakote level and change of neuroleptic medication. TIME SPENT:, 45 minutes. Vital Signs Vital Signs Date Time Temp Pulse Resp B/P (MAP) Pulse Ox O2 Delivery O2 Flow Rate FiO2 08/02/18 08:12 77 111/62 08/02/18 07:00 96.1 18 07/30/18 13:20 95 Current Medications Current Medications Acetaminophen (Tylenol Tab) 650 mg Q4HP PRN PO PAIN OR FEVER; Start 07/30/18 at 14:45; Stop 07/30/18 at 15:25; Status DC Acetaminophen (Tylenol Tab) 650 mg Q6HP PRN PO HEADACHE or DISCOMFORT; Start 07/25/18 at 19:30; Status Cancel Acetaminophen (Tylenol Tab) 1,000 mg Q8H PRN PO PAIN Last administered on 08/01/18at 12:17; Start 07/25/18 at 20:00 Al Hydrox/Mg Hydrox/Simethicone (Mylanta) 30 ml Q4HP PRN PO HEARTBURN/INDIGESTION; Start 07/25/18 at 19:30 Albuterol Sulfate (Proventil, Ventolin Hfa) 2 puff Q4H PRN INH SHORTNESS OF BREATH Last administered on 07/31/18at 11:48; Start 07/25/18 at 20:00 Amoxicillin/ Clavulanate Potassium (Augmentin) 875 mg BID PO Last administered on 08/02/18 08:12; Start 07/30/18 at 14:15; Stop 08/05/18 at 21:01 Asenapine (Saphris) 5 mg BID@0600,1500 SL Last administered on 07/26/18at 05:16; Start 07/26/18 at 06:00; Stop 07/26/18 at 10:37; Status DC Bacitracin/ Polymyxin B Sulfate (Polysporin Top Oint) APPLY TO WOUND AREA BID TOP Last administered on 08/02/18at 10:11; Start 07/30/18 at 21:00; Stop 08/06/18 at 09:01 Benztropine Mesylate (Cogentin) 1 mg QHS PO Last administered on 08/01/18at 20:13; Start 07/25/18 at 21:00 Diazepam (Valium) 1 mg TID PO Last administered on 08/02/18at 08:09; Start 07/31/18 at 21:00 Diazepam (Valium) 2 mg TID PO Last administered on 07/26/18at 07:55; Start 07/25/18 at 21:00; Stop 07/26/18 at 11:05; Status DC Diazepam (Valium) 2 mg TID@0600,1200,2000 PO Last administered on 07/31/18at 11:45; Start 07/26/18 at 12:00; Stop 07/31/18 at 12:18; Status DC Diphenhydramine HCl (Benadryl) 50 mg STAT STAT IM Last administered on 07/29/18at 03:57; Start 07/29/18 at 03:39; Stop 07/29/18 at 03:45; Status DC Divalproex Sodium (Depakote Er) 250 mg QHS PO Last administered on 08/01/18at 20:07; Start 07/31/18 at 21:00 Divalproex Sodium (Depakote Er) 1,500 mg DAILY@1800 PO Last administered on 07/30/18at 17:37; Start 07/25/18 at 18:00; Stop 07/31/18 at 09:37; Status DC Divalproex Sodium (Depakote Er) 1,500 mg QHS PO Last administered on 5/16/19at 20:08; Start 07/31/18 at 21:00 Docusate Sodium (Colace) 200 mg BID PO Last administered on 08/02/18at 08:12; Start 07/25/18 at 21:00 Furosemide (Lasix) 20 mg BID@0900,1700 PO Last administered on 08/02/18at 08:14; Start 07/26/18 at 09:00 Haloperidol (Haldol) 5 mg BID PO ; Start 07/26/18 at 21:00; Status Cancel Haloperidol (Haldol) 5 mg BID PO ; Start 08/02/18 at 21:00 Heparin Sodium (Porcine) (Heparin) 5,000 units Q12H SQ Last administered on 08/02/18at 08:09; Start 08/01/18 at 21:00 Home Med (Med Rec Complete!) ASDIRECTED XX ; Start 07/25/18 at 19:15; Stop 07/25/18 at 19:15; Status DC Lorazepam (Ativan) 2 mg Q6HP PRN PO ANXIETY/AGITATION Last administered on 08/02/18at 11:02; Start 07/26/18 at 10:45 Lorazepam (Ativan) 2 mg STAT STAT IM Last administered on 07/29/18at 03:56; Start 07/29/18 at 03:39; Stop 07/29/18 at 03:45; Status DC Magnesium Hydroxide (Milk Of Magnesia) 30 ml DAILYPRN PRN PO CONSTIPATION; Start 07/25/18 at 19:30 Meloxicam (Mobic) 15 mg DAILY PO Last administered on 08/02/18at 08:11; Start 07/26/18 at 09:00 Metoprolol Tartrate (Lopressor) 25 mg BID PO Last administered on 08/02/18at 08:12; Start 07/25/18 at 21:00 Miscellaneous (Unresolved Clarification Entry) SEE LABEL COMMENTS DAILY XX ; Start 08/01/18 at 09:00; Stop 08/02/18 at 07:18; Status DC Miscellaneous (Unresolved Clarification Entry) SEE LABEL COMMENTS DAILY XX ; Start 08/02/18 at 09:00; Stop 08/02/18 at 10:47; Status DC Nicotine (Nicoderm Cq 21mg) 1 patch DAILY TD ; Start 07/26/18 at 09:00; Stop 07/26/18 at 09:00; Status DC Olanzapine (ZyPREXA ZYDIS) 5 mg BID PO Last administered on 07/28/18at 20:09; Start 07/26/18 at 21:00; Stop 07/29/18 at 10:50; Status DC Olanzapine (ZyPREXA ZYDIS) 5 mg Q6HP PRN PO ANXIETY/AGITATION Last administered on 07/28/18at 00:51; Start 07/26/18 at 10:45; Stop 07/28/18 at 12:00; Status DC Olanzapine (ZyPREXA ZYDIS) 10 mg BID PO Last administered on 07/31/18at 08:26; Start 07/29/18 at 21:00; Stop 07/31/18 at 09:40; Status DC Olanzapine (ZyPREXA ZYDIS) 10 mg BID PO Last administered on 08/02/18at 08:12; Start 07/31/18 at 21:00; Stop 08/02/18 at 10:46; Status DC Olanzapine (ZyPREXA ZYDIS) 10 mg Q4HP PRN PO ANXIETY/AGITATION Last administered on 07/29/18at 23:19; Start 07/28/18 at 12:00 Olanzapine (ZyPREXA ZYDIS) 10 mg TID PO ; Start 07/31/18 at 16:00; Status Cancel Olanzapine (Zyprexa Intramuscular) 10 mg STAT STAT IM Last administered on 07/29/18at 03:56; Start 07/29/18 at 03:39; Stop 07/29/18 at 03:45; Status DC Potassium Chloride (Micro-K Extencaps) 10 meq BID PO Last administered on 08/02/18at 08:12; Start 07/30/18 at 09:00 Potassium Chloride (Micro-K Extencaps) 10 meq BID PO ; Start 07/25/18 at 21:00; Status UNV Quetiapine Fumarate (SEROquel XR) 400 mg DAILY@1800 PO Last administered on 07/30/18at 17:37; Start 07/25/18 at 18:00; Stop 07/31/18 at 09:37; Status DC Quetiapine Fumarate (SEROquel) 600 mg QHS PO Last administered on 08/01/18at 20:06; Start 07/31/18 at 21:00; Stop 08/02/18 at 10:46; Status DC Trazodone HCl (Desyrel) 50 mg QHSP PRN PO INSOMNIA; Start 07/25/18 at 19:30; Status Cancel Zolpidem Tartrate (Ambien) 10 mg QHS PRN PO SLEEP Last administered on 07/30/18at 22:43; Start 07/25/18 at 20:00; Stop 07/31/18 at 09:37; Status DC Allergies Coded Allergies: No Known Allergies (Verified , 06/27/10) A-FIB/CHADSVASC A-FIB History Current/History of A-Fib/PAF?: No Current Oral Anticoagulant The: No Age/Risk Factor Scoring CHADSVASC: CHADSVASC Response (Comments) Value Hx of HTN Yes 1 Total 1 Treatment Treatment ordered: NONE JACKSON TIJERINA MD August 02, 2018 13:04
[2018-08-02 18:44] VITALS: BP 136/78
[2018-08-02] MEDS: BENZTROPINE 1 MG TAB PO SCH (21:19)
[2018-08-02] MEDS: HALOPERIDOL 5 MG TAB PO SCH (21:20)
[2018-08-02] MEDS: DIVALPROEX 250MG *ER* TAB PO SCH (21:20)
[2018-08-02] MEDS: DIVALPROEX 500MG *ER* TAB PO SCH (21:21)
[2018-08-02] MEDS: ACETAMINOPHEN 500 MG TAB PO PRN (21:22)
[2018-08-03] MEDS: LORazepam 2 MG TAB PO PRN ×3 (04:16→18:45)
[2018-08-03] MEDS: OLANZapine ORAL DISINTEGRATING TAB 5MG PO PRN (04:16)
[2018-08-03 06:24] VITALS: BP 118/77
--- NOTE | 2018-08-03 08:49 | IPNPDOC ---
Date Seen The patient was seen on 08/03/18. Progress Note ADDENDUM TO CONSULTATION NOTE BY RESIDENT PHYSICIAN, DR. LILLIAN WARD: HOSPITALIST ATTENDING NOTE: I have independently interviewed and examined the patient at the bedside with my Resident Physician. I agree with the documented physical findings, and concur with the management plan as discussed with the patient, the patient's , and written by my Resident physician. All patient questions and concerns were satisfactorily answered. A-FIB/CHADSVASC A-FIB History Current/History of A-Fib/PAF?: No Current Oral Anticoagulant The: No Age/Risk Factor Scoring CHADSVASC: CHADSVASC Response (Comments) Value Hx of HTN Yes 1 Total 1 VS, I&O, 24H, Fishbone Vital Signs/I&O Vital Signs Date Time Temp Pulse Resp B/P (MAP) Pulse Ox O2 Delivery O2 Flow Rate FiO2 08/03/18 06:24 97.2 65 18 118/77 (91) 07/30/18 13:20 95 Laboratory Data 24H LABS Laboratory Tests 2 08/03/18 07:11: Valproic Acid (Depakene) Level 95.4 RAMESH GREGORY MD August 03, 2018 08:49
[2018-08-03] MEDS: AUGMENTIN 875 MG TAB PO SCH ×2 (08:50→20:25)
[2018-08-03] MEDS: DOCUSATE SODIUM 100 MG CAP PO SCH ×2 (08:50→20:26)
[2018-08-03] MEDS: FUROSEMIDE 20 MG TAB PO SCH ×2 (08:51→16:21)
[2018-08-03] MEDS: HALOPERIDOL 5 MG TAB PO SCH ×2 (08:51→20:25)
[2018-08-03] MEDS: diazePAM 2 MG TAB PO SCH ×3 (08:51→20:26)
[2018-08-03] MEDS: MELOXICAM (MOBIC) 7.5 MG TAB PO SCH (08:51)
[2018-08-03] MEDS: POTASSIUM CHLORIDE 10 MEQ SR TABLET PO SCH ×2 (08:51→20:26)
[2018-08-03] MEDS: POLYSPORIN TOPICAL OINTMENT 15GM TOP SCH ×2 (08:51→20:28)
[2018-08-03] MEDS: PILL CUTTER 1 EACH XX PRN (08:52)
[2018-08-03] MEDS: HEPARIN SOD (PORCINE) 5000 UNITS/ML VIAL SQ SCH ×2 (09:01→20:28)
[2018-08-03] MEDS: METOPROLOL TART 25 MG TABLET PO SCH ×2 (09:04→20:27)
--- NOTE | 2018-08-03 12:42 | MHIPNPDOC ---
[facility] Progress Note Progress Note DATE OF SERVICE: 08/03/18 HISTORY: 57-year-old male with recent worsening of psychotic condition.Improved today. Less irritable. Poor sleep last night following dc of Seroquel. Will re start seroquel at lower dose VITAL SIGNS: See below. NEW TEST RESULTS:. Awaiting Depakote level. CURRENT MEDICATIONS: See below. MENTAL STATUS EXAMINATION: Patient is a 57-year old male, who is admitted for worsening of psychotic condition. Speech: Is, less garbled. Language skills are, improving. Thought processes including:, Improving.But still rapid Thought content: Rapid speech. Abstract reasoning, and computation: Fair. Description of associations:. Some loose associations. Continue. Description of abnormal or psychotic thoughts: Less abnormal than usual. Judgment:, Fair. Insight: Poor. Orientation:full Recent and remote memory: Intact. Attention span and concentration:. Fair. Language: Garbled. Fund of knowledge:, Moderate. Mood: Euthymic. Affect:, Congruent. DIAGNOSES: 1. Bipolar disorder. 2. Living situation stress.. ASSESSMENT: Bipolar disorder, with attempt to simplify medications with improvement noted today MANAGEMENT PLAN:. Continue to assess medication. TIME SPENT: 30 minutes. Vital Signs Vital Signs Date Time Temp Pulse Resp B/P (MAP) Pulse Ox O2 Delivery O2 Flow Rate FiO2 08/03/18 09:04 62 140/78 08/03/18 06:24 97.2 18 07/30/18 13:20 95 Laboratory Data 24H Labs Laboratory Tests 2 08/03/18 07:11: Valproic Acid (Depakene) Level 95.4 Current Medications Current Medications Acetaminophen (Tylenol Tab) 650 mg Q4HP PRN PO PAIN OR FEVER; Start 07/30/18 at 14:45; Stop 07/30/18 at 15:25; Status DC Acetaminophen (Tylenol Tab) 650 mg Q6HP PRN PO HEADACHE or DISCOMFORT; Start 07/25/18 at 19:30; Status Cancel Acetaminophen (Tylenol Tab) 1,000 mg Q8H PRN PO PAIN Last administered on at 21:22; Start 07/25/18 at 20:00 Al Hydrox/Mg Hydrox/Simethicone (Mylanta) 30 ml Q4HP PRN PO HEARTBURN/INDIGESTION; Start 07/25/18 at 19:30 Albuterol Sulfate (Proventil, Ventolin Hfa) 2 puff Q4H PRN INH SHORTNESS OF BREATH Last administered on 07/31/18 11:48; Start 07/25/18 at 20:00 Amoxicillin/ Clavulanate Potassium (Augmentin) 875 mg BID PO Last administered on 08/03/18 08:50; Start 07/30/18 at 14:15; Stop 08/05/18 at 21:01 Asenapine (Saphris) 5 mg BID@0600,1500 SL Last administered on 07/26/18 05:16; Start 07/26/18 at 06:00; Stop 07/26/18 at 10:37; Status DC Bacitracin/ Polymyxin B Sulfate (Polysporin Top Oint) APPLY TO WOUND AREA BID TOP Last administered on 08/03/18 08:51; Start 07/30/18 at 21:00; Stop 08/06/18 at 09:01 Benztropine Mesylate (Cogentin) 1 mg QHS PO Last administered on 08/02/18 21:19; Start 07/25/18 at 21:00 Diazepam (Valium) 1 mg TID PO Last administered on 08/03/18 08:51; Start 07/31/18 at 21:00 Diazepam (Valium) 2 mg TID PO Last administered on 07/26/18 07:55; Start at 21:00; Stop 07/26/18 at 11:05; Status DC Diazepam (Valium) 2 mg TID@0600,1200,2000 PO Last administered on 07/31/18at 11:45; Start 07/26/18 at 12:00; Stop 07/31/18 at 12:18; Status DC Diphenhydramine HCl (Benadryl) 50 mg STAT STAT IM Last administered on 07/29/18 03:57; Start 07/29/18 at 03:39; Stop 07/29/18 at 03:45; Status DC Divalproex Sodium (Depakote Er) 250 mg QHS PO Last administered on 08/02/18 21:20; Start 07/31/18 at 21:00 Divalproex Sodium (Depakote Er) 1,500 mg DAILY@1800 PO Last administered on 07/30/18at 17:37; Start 07/25/18 at 18:00; Stop 07/31/18 at 09:37; Status DC Divalproex Sodium (Depakote Er) 1,500 mg QHS PO Last administered on 08/02/18at 21:21; Start 07/31/18 at 21:00 Docusate Sodium (Colace) 200 mg BID PO Last administered on 08/03/18at 08:50; Start 07/25/18 at 21:00 Furosemide (Lasix) 20 mg BID@0900,1700 PO Last administered on 08/03/18at 08:51; Start 07/26/18 at 09:00 Haloperidol (Haldol) 5 mg BID PO ; Start 07/26/18 at 21:00; Status Cancel Haloperidol (Haldol) 5 mg BID PO Last administered on 08/03/18at 08:51; Start 08/02/18 at 21:00 Heparin Sodium (Porcine) (Heparin) 5,000 units Q12H SQ Last administered on 08/03/18at 09:01; Start 08/01/18 at 21:00 Home Med (Med Rec Complete!) ASDIRECTED XX ; Start 07/25/18 at 19:15; Stop 07/25/18 at 19:15; Status DC Lorazepam (Ativan) 2 mg Q6HP PRN PO ANXIETY/AGITATION Last administered on 08/03/18at 12:08; Start 07/26/18 at 10:45 Lorazepam (Ativan) 2 mg STAT STAT IM Last administered on 07/29/18at 03:56; Start 07/29/18 at 03:39; Stop 07/29/18 at 03:45; Status DC Magnesium Hydroxide (Milk Of Magnesia) 30 ml DAILYPRN PRN PO CONSTIPATION; Start 07/25/18 at 19:30 Meloxicam (Mobic) 15 mg DAILY PO Last administered on 08/03/18at 08:51; Start 07/26/18 at 09:00 Metoprolol Tartrate (Lopressor) 25 mg BID PO Last administered on 08/03/18at 09:04; Start 07/25/18 at 21:00 Miscellaneous (Unresolved Clarification Entry) SEE LABEL COMMENTS DAILY XX ; Start 08/01/18 at 09:00; Stop 08/02/18 at 07:18; Status DC Miscellaneous (Unresolved Clarification Entry) SEE LABEL COMMENTS DAILY XX ; Start 08/02/18 at 09:00; Stop 08/02/18 at 10:47; Status DC Nicotine (Nicoderm Cq 21mg) 1 patch DAILY TD ; Start 07/26/18 at 09:00; Stop 07/26/18 at 09:00; Status DC Olanzapine (ZyPREXA ZYDIS) 5 mg BID PO Last administered on 07/28/18at 20:09; Start 07/26/18 at 21:00; Stop 07/29/18 at 10:50; Status DC Olanzapine (ZyPREXA ZYDIS) 5 mg Q6HP PRN PO ANXIETY/AGITATION Last administered on 07/28/18at 00:51; Start 07/26/18 at 10:45; Stop 07/28/18 at 12:00; Status DC Olanzapine (ZyPREXA ZYDIS) 10 mg BID PO Last administered on 07/31/18at 08:26; Start 07/29/18 at 21:00; Stop 07/31/18 at 09:40; Status DC Olanzapine (ZyPREXA ZYDIS) 10 mg BID PO Last administered on 08/02/18at 08:12; Start 07/31/18 at 21:00; Stop 08/02/18 at 10:46; Status DC Olanzapine (ZyPREXA ZYDIS) 10 mg Q4HP PRN PO ANXIETY/AGITATION Last administered on 08/03/18at 04:16; Start 07/28/18 at 12:00 Olanzapine (ZyPREXA ZYDIS) 10 mg TID PO ; Start 07/31/18 at 16:00; Status Cancel Olanzapine (Zyprexa Intramuscular) 10 mg STAT STAT IM Last administered on 07/29/18at 03:56; Start 07/29/18 at 03:39; Stop 07/29/18 at 03:45; Status DC Potassium Chloride (Micro-K Extencaps) 10 meq BID PO Last administered on 08/03/18at 08:51; Start 07/30/18 at 09:00 Potassium Chloride (Micro-K Extencaps) 10 meq BID PO ; Start 07/25/18 at 21:00; Status UNV Quetiapine Fumarate (SEROquel XR) 300 mg QHS PO ; Start 08/03/18 at 21:00 Quetiapine Fumarate (SEROquel XR) 400 mg DAILY@1800 PO Last administered on 07/30/18at 17:37; Start 07/25/18 at 18:00; Stop 07/31/18 at 09:37; Status DC Quetiapine Fumarate (SEROquel) 600 mg QHS PO Last administered on 08/01/18at 20:06; Start 07/31/18 at 21:00; Stop 08/02/18 at 10:46; Status DC Trazodone HCl (Desyrel) 50 mg QHSP PRN PO INSOMNIA; Start 07/25/18 at 19:30; Status Cancel Zolpidem Tartrate (Ambien) 10 mg QHS PRN PO SLEEP Last administered on at 22:43; Start 07/25/18 at 20:00; Stop 07/31/18 at 09:37; Status DC Allergies Coded Allergies: No Known Allergies (Verified , 06/27/10) A-FIB/CHADSVASC A-FIB History Current/History of A-Fib/PAF?: No Current Oral Anticoagulant The: No Age/Risk Factor Scoring CHADSVASC: CHADSVASC Response (Comments) Value Hx of HTN Yes 1 Total 1 Treatment Treatment ordered: NONE JACKSON TIJERINA MD August 03, 2018 12:42
--- NOTE | 2018-08-03 15:43 | IPNPDOC ---
Subjective Date Seen The patient was seen on 08/03/18. Subjective Chief Complaint/HPI Pt is examined at bedside and it was noted that his mental status had improved alot although he will still say random things at times. He reported that he has no eye pain or discharge/blood coming out from the suturing site. Pt stated that he is doing good without any eye pain. It was noted that patient did not sleep as well last night w/o Seroquel, and Seroquel was restarted. Limited info could be obtained d/t pt's mental status. It was noted that pt has edema in b/l lower lower extremities without possible etiologies from PMH, and it was reported that patient's lower extremity edema greatly improved after TEDS was started. General: Reports: Other Symptoms (ROS limited d/t patient's mental status) Eyes: Reports: Vision change (Denies discharge/bleeding from suturing site), Other; Denies: Pain (Denies left sided eye pain) Cardiovascular: Reports: Edema (improved) Objective Physical Examination General Exam: Positive: Alert, Cooperative, No Acute Distress, Other Eye Exam: Positive: Other Eye Symptoms (Right eyebrow suture with well healing wound; no signs of drainage/bleeding/infection.\); Negative: Conjunctiva & lids normal, Sclera icteric ENT Exam: Negative: Atraumatic Neck Exam: Positive: Supple Chest Exam: Positive: Clear to auscultation, Normal air movement; Negative: Rales, Rhonchi, Wheezing Heart Exam: Positive: Rate Normal, Regular Rhythm, Normal S1, Normal S2; Negative: Murmurs Abdomen Exam: Positive: Normal bowel sounds, Soft Extremity Exam: Positive: Edema (minimal to mild edema in b/l lower extremities), Normal pulses Skin Exam: Positive: Nl turgor and temperature (except for right sided eye brow region with suture and well healing wound) Neuro Exam: Negative: Normal Speech (slurred and rapid speech) Psych Exam: Positive: Other (poor insight and judgement; thought process no longer rapid improved from prior; occasional tangential thought process noted); Negative: Mental status NL A-FIB/CHADSVASC A-FIB History Current/History of A-Fib/PAF?: No Age/Risk Factor Scoring CHADSVASC: CHADSVASC Response (Comments) Value Hx of HTN Yes 1 Total 1 Assessment /Plan Problems (1) Schizoaffective disorder, bipolar type Status: Chronic Response to Treatment: Improving Problem Text: Pt's mental status continue to improve with greatly improved flight of thoughts/rapid speech. Slurred speech still present however it was noted that pt has slurred speech at baseline. Psych team is following. On Depakote, Valium, Seroquel, and Olanzapine. It was noted that patient is almost back to his baseline (2) Laceration of eyebrow, complex Response to Treatment: Controlled Problem Text: On right eyebrow s/p complex repair of right upper brow laceration. No active bleeding/discharge/signs of infection noted on the site of laceration. Procedure site clean and well healing. Pt denies eye pain. No fever or chills noted. Cont PO augmentin dose 11/30 (3) Hypertension Problem Text: Blood pressure continue to be roughly stable. Cont Lasix and Lopressor. Vital signs as scheduled (4) Bilateral lower extremity edema Response to Treatment: Improving Problem Text: Likely associated with atypical antipsychotic Seroquel and Olanzapine use however pt is doing well on current psych regimen with benefits outweighs adverse effect. No prior medical hx which may cause lower extremity edema. Improved with TEDS on. Consider echo outpt if edema worsens Plan/VTE VTE Prophylaxis Ordered?: Yes (TEDS and SC heparin) VS, I&O, 24H, Fishbone Vital Signs/I&O Vital Signs Date Time Temp Pulse Resp B/P (MAP) Pulse Ox O2 Delivery O2 Flow Rate FiO2 08/03/18 09:04 62 140/78 08/03/18 06:24 97.2 18 07/30/18 13:20 95 Laboratory Data 24H LABS Laboratory Tests 2 08/03/18 07:11: Valproic Acid (Depakene) Level 95.4 GME ATTESTATION GME ATTESTATION My faculty preceptor for this patient encounter was physically present during the encounter and was fully available. All aspects of the patient interview, examination, medical decision making process, and medical care plan development were reviewed and approved by the faculty preceptor. The faculty preceptor is aware and concurs with the plan as stated in the body of this note and will attest to such by his/her cosignature. LILLIAN WARD DO August 03, 2018 15:43
[2018-08-03] MEDS: ACETAMINOPHEN 500 MG TAB PO PRN (16:21)
[2018-08-03 18:33] VITALS: BP 127/79
[2018-08-03] MEDS: BENZTROPINE 1 MG TAB PO SCH (20:25)
[2018-08-03] MEDS: DIVALPROEX 250MG *ER* TAB PO SCH (20:25)
[2018-08-03] MEDS: DIVALPROEX 500MG *ER* TAB PO SCH (20:25)
[2018-08-03] MEDS ORDERED: QUEtiapine 300 MG XR TABLET(SEROQUEL XR) PO SCH (21:00)
[2018-08-04] MEDS: LORazepam 2 MG TAB PO PRN ×2 (01:53→14:31)
[2018-08-04] MEDS: OLANZapine ORAL DISINTEGRATING TAB 5MG PO PRN ×2 (01:54→11:07)
[2018-08-04] MEDS: ACETAMINOPHEN 500 MG TAB PO PRN (01:55)
[2018-08-04 06:49] VITALS: BP 116/75
[2018-08-04] MEDS: PILL CUTTER 1 EACH XX PRN ×2 (10:00→16:43)
[2018-08-04] MEDS: MELOXICAM (MOBIC) 7.5 MG TAB PO SCH (10:00)
[2018-08-04] MEDS: HEPARIN SOD (PORCINE) 5000 UNITS/ML VIAL SQ SCH (10:01)
[2018-08-04] MEDS: diazePAM 2 MG TAB PO SCH ×3 (10:02→20:50)
[2018-08-04] MEDS: METOPROLOL TART 25 MG TABLET PO SCH ×2 (10:02→20:53)
[2018-08-04] MEDS: FUROSEMIDE 20 MG TAB PO SCH ×2 (10:02→16:43)
[2018-08-04] MEDS: AUGMENTIN 875 MG TAB PO SCH ×2 (10:03→20:49)
[2018-08-04] MEDS: HALOPERIDOL 5 MG TAB PO SCH ×2 (10:03→20:50)
[2018-08-04] MEDS: DOCUSATE SODIUM 100 MG CAP PO SCH ×2 (10:03→20:54)
[2018-08-04] MEDS: POTASSIUM CHLORIDE 10 MEQ SR TABLET PO SCH ×2 (10:04→20:55)
[2018-08-04] MEDS: POLYSPORIN TOPICAL OINTMENT 15GM TOP SCH ×2 (10:04→20:49)
--- NOTE | 2018-08-04 10:36 | IPNPDOC ---
Date Seen The patient was seen on 08/04/18. Progress Note SUBJECTIVE: s/p complex repair of right brow laceration s/p fall by plastic surgery on 07/30/18. pain managed by prn tylenol. no fever or chills. still achy per pt. no visual changes blurred vision, diplopia. He is ambulating better, but still requiring a sitter. He walks holding his cane with his right hand, and no ataxia noted as he walked from his room to the exam room. PHYSICAL EXAMINATION: VITAL SIGNS: Please see below. HEENT: right 4cm sutured laceration without swelling, or erythema. echymoses in the lower lid improved. EOMI. RESPIRATORY: CTA b/l, no rales, wheezing, or rhonchi CARDIOVASCULAR: RRR, no murmur, normal S1 and S2 ABDOMEN: soft, bowel sound aus in all 4 quadrant, no guarding or distention EXTREMITIES: no cyanosis, clubbing or edema LABORATORY DATA, IMAGING STUDIES: Please see below. ASSESSMENT/PLAN: Mechanical fall with right full thickness laceration with avulsion on PO augmentin for 7 days. Polysporin topical ointment. Td s/p complex repair of right brow laceration s/p fall by plastic surgery on 07/30/18. pain managed by prn tylenol. no fever or chills. still achy per pt. no visual changes blurred vision, diplopia. Paranoid schizophrenia. Cont psych med Olanzapine, Ativan, Valium, Depakote, and Seroqul. Cont to monitor the pt. mgt PER Psychiatrist. HTN. Cont Lopressor and Lasix. A-FIB/CHADSVASC SCREEN A-FIB/CHADSVASC A-FIB History Current/History of A-Fib/PAF?: No Current Oral Anticoagulant The: No A-FIB/CHADSVASC A-FIB History Current/History of A-Fib/PAF?: No Current Oral Anticoagulant The: No Age/Risk Factor Scoring CHADSVASC: CHADSVASC Response (Comments) Value Hx of HTN Yes 1 Total 1 VS, I&O, 24H, Fishbone Vital Signs/I&O Vital Signs Date Time Temp Pulse Resp B/P (MAP) Pulse Ox O2 Delivery O2 Flow Rate FiO2 08/04/18 10:02 66 118/74 08/04/18 06:49 97.6 18 07/30/18 13:20 95 RAMESH GREGORY MD August 04, 2018 10:36
--- NOTE | 2018-08-04 14:35 | MHIPNPDOC ---
[facility] Progress Note Progress Note DATE OF SERVICE: 08/04/18 HISTORY: 57-year-old male with long history of psychotic disorder and associated nelda. VITAL SIGNS: See below. NEW TEST RESULTS:. Depakote level pending. CURRENT MEDICATIONS: See below. MENTAL STATUS EXAMINATION: Patient is a 57-year old male, who is, admitted for aggressive behavior associated with nelda. Speech: Is, rapid. Language skills are garbled. Thought processes including: Denies hallucinations, obsessions, compulsions and phobias. Thought content: Rapid thoughts. Abstract reasoning, and computation: Poor. Abstract thought. Description of associations: Was association. Description of abnormal or psychotic thoughts:, Rapid thought, with loose association. Judgment:. Poor. Insight: Word. Orientation: Full. Recent and remote memory: Poor. Attention span and concentration:, Poor. Language:, As above. Fund of knowledge:, Poor. Mood: Labile. Affect:, Irritable. DIAGNOSES: 1., Bipolar disorder. ASSESSMENT: Bipolar disorder with some improvement with increased Haldol dosage MANAGEMENT PLAN:, Continue to evaluate Haldol usage, perhaps decreased diazepam usage. Evaluate Depakote usage. TIME SPENT: 30 minutes. Vital Signs Vital Signs Date Time Temp Pulse Resp B/P (MAP) Pulse Ox O2 Delivery O2 Flow Rate FiO2 08/04/18 10:02 66 118/74 08/04/18 06:49 97.6 18 07/30/18 13:20 95 Current Medications Current Medications Acetaminophen (Tylenol Tab) 650 mg Q4HP PRN PO PAIN OR FEVER; Start 07/30/18 at 14:45; Stop 07/30/18 at 15:25; Status DC Acetaminophen (Tylenol Tab) 650 mg Q6HP PRN PO HEADACHE or DISCOMFORT; Start 07/25/18 at 19:30; Status Cancel Acetaminophen (Tylenol Tab) 1,000 mg Q8H PRN PO PAIN Last administered on 08/04/18at 01:55; Start 07/25/18 at 20:00 Al Hydrox/Mg Hydrox/Simethicone (Mylanta) 30 ml Q4HP PRN PO HEARTBURN/INDIGESTION; Start 07/25/18 at 19:30 Albuterol Sulfate (Proventil, Ventolin Hfa) 2 puff Q4H PRN INH SHORTNESS OF BREATH Last administered on 07/31/18at 11:48; Start 07/25/18 at 20:00 Amoxicillin/ Clavulanate Potassium (Augmentin) 875 mg BID PO Last administered on 08/04/18 10:03; Start 07/30/18 at 14:15; Stop 08/05/18 at 21:01 Asenapine (Saphris) 5 mg BID@0600,1500 SL Last administered on 07/26/18at 05:16; Start 07/26/18 at 06:00; Stop 07/26/18 at 10:37; Status DC Bacitracin/ Polymyxin B Sulfate (Polysporin Top Oint) APPLY TO WOUND AREA BID TOP Last administered on 08/04/18at 10:04; Start 07/30/18 at 21:00; Stop 08/06/18 at 09:01 Benztropine Mesylate (Cogentin) 1 mg QHS PO Last administered on 08/03/18at 2 0:25; Start 07/25/18 at 21:00 Diazepam (Valium) 1 mg TID PO Last administered on 08/04/18at 10:02; Start 07/31/18 at 21:00 Diazepam (Valium) 2 mg TID PO Last administered on 07/26/18at 07:55; Start 07/25/18 at 21:00; Stop 07/26/18 at 11:05; Status DC Diazepam (Valium) 2 mg TID@0600,1200,2000 PO Last administered on 07/31/18at 11:45; Start 07/26/18 at 12:00; Stop 07/31/18 at 12:18; Status DC Diphenhydramine HCl (Benadryl) 50 mg STAT STAT IM Last administered on 07/29/18at 03:57; Start 07/29/18 at 03:39; Stop 07/29/18 at 03:45; Status DC Divalproex Sodium (Depakote Er) 250 mg QHS PO Last administered on 08/03/18at 20:25; Start 07/31/18 at 21:00 Divalproex Sodium (Depakote Er) 1,500 mg DAILY@1800 PO Last administered on 07/30/18at 17:37; Start 07/25/18 at 18:00; Stop 07/31/18 at 09:37; Status DC Divalproex Sodium (Depakote Er) 1,500 mg QHS PO Last administered on 08/03/18 20:25; Start 07/31/18 at 21:00 Docusate Sodium (Colace) 200 mg BID PO Last administered on 08/04/18at 10:03; Start 07/25/18 at 21:00 Furosemide (Lasix) 20 mg BID@0900,1700 PO Last administered on 08/04/18at 10:02; Start 07/26/18 at 09:00 Haloperidol (Haldol) 5 mg BID PO ; Start 07/26/18 at 21:00; Status Cancel Haloperidol (Haldol) 5 mg BID PO Last administered on 08/04/18 10:03; Start 08/02/18 at 21:00; Stop 08/04/18 at 13:20; Status DC Haloperidol (Haldol) 7.5 mg BID PO ; Start 08/04/18 at 21:00 Heparin Sodium (Porcine) (Heparin) 5,000 units Q12H SQ Last administered on 08/04/18at 10:01; Start 08/01/18 at 21:00; Stop 08/04/18 at 10:37; Status DC Home Med (Med Rec Complete!) ASDIRECTED XX ; Start 07/25/18 at 19:15; Stop 07/25/18 at 19:15; Status DC Lorazepam (Ativan) 2 mg Q6HP PRN PO ANXIETY/AGITATION Last administered on 08/04/18at 01:53; Start 07/26/18 at 10:45 Lorazepam (Ativan) 2 mg STAT STAT IM Last administered on 07/29/18at 03:56; Start 07/29/18 at 03:39; Stop 07/29/18 at 03:45; Status DC Magnesium Hydroxide (Milk Of Magnesia) 30 ml DAILYPRN PRN PO CONSTIPATION; Start 07/25/18 at 19:30 Meloxicam (Mobic) 15 mg DAILY PO Last administered on 08/04/18at 10:00; Start 07/26/18 at 09:00 Metoprolol Tartrate (Lopressor) 25 mg BID PO Last administered on 08/04/18at 1 0:02; Start 07/25/18 at 21:00 Miscellaneous (Unresolved Clarification Entry) SEE LABEL COMMENTS DAILY XX ; Start 08/01/18 at 09:00; Stop 08/02/18 at 07:18; Status DC Miscellaneous (Unresolved Clarification Entry) SEE LABEL COMMENTS DAILY XX ; Start 08/02/18 at 09:00; Stop 08/02/18 at 10:47; Status DC Nicotine (Nicoderm Cq 21mg) 1 patch DAILY TD ; Start 07/26/18 at 09:00; Stop 07/26/18 at 09:00; Status DC Olanzapine (ZyPREXA ZYDIS) 5 mg BID PO Last administered on 07/28/18at 20:09; Start 07/26/18 at 21:00; Stop 07/29/18 at 10:50; Status DC Olanzapine (ZyPREXA ZYDIS) 5 mg Q6HP PRN PO ANXIETY/AGITATION Last administered on 07/28/18at 00:51; Start 07/26/18 at 10:45; Stop 07/28/18 at 12:00; Status DC Olanzapine (ZyPREXA ZYDIS) 10 mg BID PO Last administered on 07/31/18at 08:26; Start 07/29/18 at 21:00; Stop 07/31/18 at 09:40; Status DC Olanzapine (ZyPREXA ZYDIS) 10 mg BID PO Last administered on 08/02/18at 08:12; Start 07/31/18 at 21:00; Stop 08/02/18 at 10:46; Status DC Olanzapine (ZyPREXA ZYDIS) 10 mg Q4HP PRN PO ANXIETY/AGITATION Last administered on 08/04/18at 11:07; Start 07/28/18 at 12:00 Olanzapine (ZyPREXA ZYDIS) 10 mg TID PO ; Start 07/31/18 at 16:00; Status Cancel Olanzapine (Zyprexa Intramuscular) 10 mg STAT STAT IM Last administered on 07/29/18at 03:56; Start 07/29/18 at 03:39; Stop 07/29/18 at 03:45; Status DC Potassium Chloride (Micro-K Extencaps) 10 meq BID PO Last administered on 08/04/18at 10:04; Start 07/30/18 at 09:00 Potassium Chloride (Micro-K Extencaps) 10 meq BID PO ; Start 07/25/18 at 21:00; Status UNV Quetiapine Fumarate (SEROquel XR) 300 mg QHS PO Last administered on 08/03/18at 20:24; Start 08/03/18 at 21:00; Stop 08/04/18 at 13:20; Status DC Quetiapine Fumarate (SEROquel XR) 400 mg DAILY@1800 PO Last administered on 07/30/18at 17:37; Start 07/25/18 at 18:00; Stop 07/31/18 at 09:37; Status DC Quetiapine Fumarate (SEROquel XR) 400 mg QHS PO ; Start 08/04/18 at 21:00 Quetiapine Fumarate (SEROquel) 600 mg QHS PO Last administered on 08/01/18at 20:06; Start 07/31/18 at 21:00; Stop 08/02/18 at 10:46; Status DC Trazodone HCl (Desyrel) 50 mg QHSP PRN PO INSOMNIA; Start 07/25/18 at 19:30; Status Cancel Zolpidem Tartrate (Ambien) 10 mg QHS PRN PO SLEEP Last administered on 07/30/18at 22:43; Start 07/25/18 at 20:00; Stop 07/31/18 at 09:37; Status DC Allergies Coded Allergies: No Known Allergies (Verified , 06/27/10) A-FIB/CHADSVASC A-FIB History Current/History of A-Fib/PAF?: No Current Oral Anticoagulant The: No Age/Risk Factor Scoring CHADSVASC: CHADSVASC Response (Comments) Value Hx of HTN Yes 1 Total 1 Treatment Treatment ordered: NONE JACKSON TIJERINA MD August 04, 2018 14:35
[2018-08-04 18:00] VITALS: BP 110/68
[2018-08-04] MEDS: MOM 30ML SUSPENSION UDC PO PRN (18:54)
[2018-08-04] MEDS ORDERED: ENOXAPARIN 40 MG/0.4 ML SYRINGE (J1650) SC ONE (19:30)
[2018-08-04] MEDS: QUEtiapine FUMARATE **XR** 200MG TABLET PO SCH (20:50)
[2018-08-04] MEDS: DIVALPROEX 500MG *ER* TAB PO SCH (20:54)
[2018-08-04] MEDS: DIVALPROEX 250MG *ER* TAB PO SCH (20:54)
[2018-08-04] MEDS: BENZTROPINE 1 MG TAB PO SCH (21:17)
[2018-08-05] MEDS: LORazepam 2 MG TAB PO PRN ×2 (00:24→20:22)
[2018-08-05] MEDS: OLANZapine ORAL DISINTEGRATING TAB 5MG PO PRN (00:24)
[2018-08-05 06:49] VITALS: BP 123/69
--- NOTE | 2018-08-05 08:07 | MHIPNPDOC ---
[facility] Progress Note Progress Note DATE OF SERVICE: 08/05/18 HISTORY: 57-year-old male with a long history of bipolar disorder. VITAL SIGNS: See below. NEW TEST RESULTS:. Valproic acid level reported. CURRENT MEDICATIONS: See below. MENTAL STATUS EXAMINATION: Patient is a 57-year old male, who is admitted here for disruptive behavior and for treatment of bipolar disorder. Speech: Is, rapid and garbled. Language skills are garbled and repetitive. Thought processes including: Rapid with loose association. Thought content:, Focused on going home. Abstract reasoning, and computation:, Poor. Description of associations: Loose. Description of abnormal or psychotic thoughts: Abnormal rapid speech and ye lling. Talking on phone to no one. Judgment:, Poor. Insight:, Limited. Orientation: Full. Recent and remote memory: Unable to measure. Attention span and concentration: Poor. Language:, Loud erratic rapid. Fund of knowledge: Unable to measure. Mood: Irritable. Affect:, Congruent. DIAGNOSES: 1. Bipolar disorder. ASSESSMENT: MANAGEMENT PLAN: . TIME SPENT: minutes. Vital Signs Vital Signs Date Time Temp Pulse Resp B/P (MAP) Pulse Ox O2 Delivery O2 Flow Rate FiO2 08/05/18 06:49 98.3 80 16 123/69 (87) 07/30/18 13:20 95 Current Medications Current Medications Acetaminophen (Tylenol Tab) 650 mg Q4HP PRN PO PAIN OR FEVER; Start 07/30/18 at 14:45; Stop 07/30/18 at 15:25; Status DC Acetaminophen (Tylenol Tab) 650 mg Q6HP PRN PO HEADACHE or DISCOMFORT; Start 07/25/18 at 19:30; Status Cancel Acetaminophen (Tylenol Tab) 1,000 mg Q8H PRN PO PAIN Last administered on 08/04/18at 01:55; Start 07/25/18 at 20:00 Al Hydrox/Mg Hydrox/Simethicone (Mylanta) 30 ml Q4HP PRN PO HEARTBURN/INDIGESTION; Start 07/25/18 at 19:30 Albuterol Sulfate (Proventil, Ventolin Hfa) 2 puff Q4H PRN INH SHORTNESS OF BREATH Last administered on 07/31/18at 11:48; Start 07/25/18 at 20:00 Amoxicillin/ Clavulanate Potassium (Augmentin) 875 mg BID PO Last administered on 08/04/18 20:49; Start 07/30/18 at 14:15; Stop 08/05/18 at 21:01 Asenapine (Saphris) 5 mg BID@0600,1500 SL Last administered on 07/26/18at 05:16; Start 07/26/18 at 06:00; Stop 07/26/18 at 10:37; Status DC Bacitracin/ Polymyxin B Sulfate (Polysporin Top Oint) APPLY TO WOUND AREA BID TOP Last administered on 08/04/18 20:49; Start 07/30/18 at 21:00; Stop 08/06/18 at 09:01 Benztropine Mesylate (Cogentin) 1 mg QHS PO Last administered on 08/04/18 21:17; Start 07/25/18 at 21:00 Diazepam (Valium) 1 mg TID PO Last administered on 08/04/18at 20:50; Start 07/31/18 at 21:00 Diazepam (Valium) 2 mg TID PO Last administered on 07/26/18at 07:55; Start 07/25/18 at 21:00; Stop 07/26/18 at 11:05; Status DC Diazepam (Valium) 2 mg TID@0600,1200,2000 PO Last administered on 07/31/18at 11:45; Start 07/26/18 at 12:00; Stop 07/31/18 at 12:18; Status DC Diphenhydramine HCl (Benadryl) 50 mg STAT STAT IM Last administered on 07/29/18 03:57; Start 07/29/18 at 03:39; Stop 07/29/18 at 03:45; Status DC Divalproex Sodium (Depakote Er) 250 mg QHS PO Last administered on 08/04/18at 20:54; Start 07/31/18 at 21:00 Divalproex Sodium (Depakote Er) 1,500 mg DAILY@1800 PO Last administered on 07/30/18at 17:37; Start 07/25/18 at 18:00; Stop 07/31/18 at 09:37; Status DC Divalproex Sodium (Depakote Er) 1,500 mg QHS PO Last administered on 08/04/18at 20:54; Start 07/31/18 at 21:00 Docusate Sodium (Colace) 200 mg BID PO Last administered on 08/04/18at 20:54; Start 07/25/18 at 21:00 Enoxaparin Sodium (Lovenox) 40 mg DAILY SC ; Start 08/05/18 at 09:00 Furosemide (Lasix) 20 mg BID@0900,1700 PO Last administered on 08/04/18 16:43; Start 07/26/18 at 09:00 Haloperidol (Haldol) 5 mg BID PO ; Start 07/26/18 at 21:00; Status Cancel Haloperidol (Haldol) 5 mg BID PO Last administered on 08/04/18 10:03; Start 08/02/18 at 21:00; Stop 08/04/18 at 13:20; Status DC Haloperidol (Haldol) 7.5 mg BID PO Last administered on 08/04/18at 20:50; Start 08/04/18 at 21:00 Heparin Sodium (Porcine) (Heparin) 5,000 units Q12H SQ Last administered on 08/04/18 10:01; Start 08/01/18 at 21:00; Stop 08/04/18 at 10:37; Status DC Home Med (Med Rec Complete!) ASDIRECTED XX ; Start 07/25/18 at 19:15; Stop 07/25/18 at 19:15; Status DC Lorazepam (Ativan) 2 mg Q6HP PRN PO ANXIETY/AGITATION Last administered on 08/05/18at 00:24; Start 07/26/18 at 10:45 Lorazepam (Ativan) 2 mg STAT STAT IM Last administered on 07/29/18 03:56; Start 07/29/18 at 03:39; Stop 07/29/18 at 03:45; Status DC Magnesium Hydroxide (Milk Of Magnesia) 30 ml DAILYPRN PRN PO CONSTIPATION Last administered on 08/04/18 18:54; Start 07/25/18 at 19:30 Meloxicam (Mobic) 15 mg DAILY PO Last administered on 08/04/18 10:00; Start 07/26/18 at 09:00 Metoprolol Tartrate (Lopressor) 25 mg BID PO Last administered on 08/04/18at 20:53; Start 07/25/18 at 21:00 Miscellaneous (Unresolved Clarification Entry) SEE LABEL COMMENTS DAILY XX ; Start 08/01/18 at 09:00; Stop 08/02/18 at 07:18; Status DC Miscellaneous (Unresolved Clarification Entry) SEE LABEL COMMENTS DAILY XX ; Start 08/02/18 at 09:00; Stop 08/02/18 at 10:47; Status DC Nicotine (Nicoderm Cq 21mg) 1 patch DAILY TD ; Start 07/26/18 at 09:00; Stop 07/26/18 at 09:00; Status DC Olanzapine (ZyPREXA ZYDIS) 5 mg BID PO Last administered on 07/28/18at 20:09; Start 07/26/18 at 21:00; Stop 07/29/18 at 10:50; Status DC Olanzapine (ZyPREXA ZYDIS) 5 mg Q6HP PRN PO ANXIETY/AGITATION Last administered on 07/28/18at 00:51; Start 07/26/18 at 10:45; Stop 07/28/18 at 12:00; Status DC Olanzapine (ZyPREXA ZYDIS) 10 mg BID PO Last administered on 07/31/18at 08:26; Start 07/29/18 at 21:00; Stop 07/31/18 at 09:40; Status DC Olanzapine (ZyPREXA ZYDIS) 10 mg BID PO Last administered on 08/02/18at 08:12; Start 07/31/18 at 21:00; Stop 08/02/18 at 10:46; Status DC Olanzapine (ZyPREXA ZYDIS) 10 mg Q4HP PRN PO ANXIETY/AGITATION Last administered on 08/05/18at 00:24; Start 07/28/18 at 12:00 Olanzapine (ZyPREXA ZYDIS) 10 mg TID PO ; Start 07/31/18 at 16:00; Status Cancel Olanzapine (Zyprexa Intramuscular) 10 mg STAT STAT IM Last administered on 07/29/18at 03:56; Start 07/29/18 at 03:39; Stop 07/29/18 at 03:45; Status DC Potassium Chloride (Micro-K Extencaps) 10 meq BID PO Last administered on 08/04/18at 20:55; Start 07/30/18 at 09:00 Potassium Chloride (Micro-K Extencaps) 10 meq BID PO ; Start 07/25/18 at 21:00; Status UNV Quetiapine Fumarate (SEROquel XR) 300 mg QHS PO Last administered on 07/17 11/04at 20:24; Start 08/03/18 at 21:00; Stop 08/04/18 at 13:20; Status DC Quetiapine Fumarate (SEROquel XR) 400 mg DAILY@1800 PO Last administered on 07/30/18at 17:37; Start 07/25/18 at 18:00; Stop 07/31/18 at 09:37; Status DC Quetiapine Fumarate (SEROquel XR) 400 mg QHS PO Last administered on 08/04/18at 20:50; Start 08/04/18 at 21:00 Quetiapine Fumarate (SEROquel) 600 mg QHS PO Last administered on 08/01/18at 20:06; Start 07/31/18 at 21:00; Stop 08/02/18 at 10:46; Status DC Trazodone HCl (Desyrel) 50 mg QHSP PRN PO INSOMNIA; Start 07/25/18 at 19:30; Status Cancel Zolpidem Tartrate (Ambien) 10 mg QHS PRN PO SLEEP Last administered on 07/30/18at 22:43; Start 07/25/18 at 20:00; Stop 07/31/18 at 09:37; Status DC Allergies Coded Allergies: No Known Allergies (Verified , 06/27/10) A-FIB/CHADSVASC A-FIB History Current/History of A-Fib/PAF?: No Current Oral Anticoagulant The: No Age/Risk Factor Scoring CHADSVASC: CHADSVASC Response (Comments) Value Hx of HTN Yes 1 Total 1 Treatment Treatment ordered: NONE JACKSON TIJERINA MD August 05, 2018 08:07
[2018-08-05] MEDS: AUGMENTIN 875 MG TAB PO SCH ×2 (08:31→20:23)
[2018-08-05] MEDS: diazePAM 2 MG TAB PO SCH ×3 (08:32→21:07)
[2018-08-05] MEDS: DOCUSATE SODIUM 100 MG CAP PO SCH ×2 (08:33→20:24)
[2018-08-05] MEDS: METOPROLOL TART 25 MG TABLET PO SCH ×2 (08:34→20:23)
[2018-08-05] MEDS: MELOXICAM (MOBIC) 7.5 MG TAB PO SCH (08:34)
[2018-08-05] MEDS: HALOPERIDOL 5 MG TAB PO SCH ×2 (08:35→20:23)
[2018-08-05] MEDS: FUROSEMIDE 20 MG TAB PO SCH ×2 (08:35→16:29)
[2018-08-05] MEDS: PILL CUTTER 1 EACH XX PRN (08:35)
[2018-08-05] MEDS: POTASSIUM CHLORIDE 10 MEQ SR TABLET PO SCH ×2 (08:35→20:23)
[2018-08-05] MEDS: POLYSPORIN TOPICAL OINTMENT 15GM TOP SCH ×2 (08:36→20:25)
[2018-08-05] MEDS: ENOXAPARIN 40 MG/0.4 ML SYRINGE (J1650) SC SCH (08:39)
--- NOTE | 2018-08-05 11:26 | IPNPDOC ---
Date Seen The patient was seen on 08/05/18. Progress Note SUBJECTIVE: pt didn't like twice daily heparin injections. compression stockings are not permitted in [facility]. changed to lovenox once daily. s/p complex repair of right brow laceration s/p fall by plastic surgery on 07/30/18. pain managed by prn tylenol. no fever or chills. still achy per pt. no visual changes blurred vision, diplopia. He is ambulating better, but still requiring a sitter. He walks holding his cane with his right hand, and no ataxia noted as he walked from his room to the exam room. PHYSICAL EXAMINATION: VITAL SIGNS: Please see below. HEENT: right 4cm sutured laceration without swelling, or erythema. echymoses in the lower lid improved. EOMI. RESPIRATORY: CTA b/l, no rales, wheezing, or rhonchi CARDIOVASCULAR: RRR, no murmur, normal S1 and S2 ABDOMEN: soft, bowel sound aus in all 4 quadrant, no guarding or distention EXTREMITIES: no cyanosis, clubbing or edema LABORATORY DATA, IMAGING STUDIES: Please see below. ASSESSMENT/PLAN: Mechanical fall with right full thickness laceration with avulsion on PO augmentin for 7 days. Polysporin topical ointment. Td s/p complex repair of right brow laceration s/p fall by plastic surgery on 07/30/18. pain managed by prn tylenol. no fever or chills. still achy per pt. no visual changes blurred vision, diplopia. Paranoid schizophrenia. Cont psych med Olanzapine, Ativan, Valium, Depakote, and Seroqul. Cont to monitor the pt. mgt PER Psychiatrist. HTN. Cont Lopressor and Lasix. A-FIB/CHADSVASC SCREEN A-FIB/CHADSVASC A-FIB History Current/History of A-Fib/PAF?: No Current Oral Anticoagulant The: No A-FIB/CHADSVASC A-FIB History Current/History of A-Fib/PAF?: No Current Oral Anticoagulant The: No Age/Risk Factor Scoring CHADSVASC: CHADSVASC Response (Comments) Value Hx of HTN Yes 1 Total 1 VS, I&O, 24H, Fishbone Vital Signs/I&O Vital Signs Date Time Temp Pulse Resp B/P (MAP) Pulse Ox O2 Delivery O2 Flow Rate FiO2 08/05/18 08:34 80 123/69 08/05/18 06:49 98.3 16 07/30/18 13:20 95 RAMESH GREGORY MD August 05, 2018 11:26
--- NOTE | 2018-08-05 17:55 | IPNPDOC ---
Subjective Date Seen The patient was seen on 08/05/18. Subjective Chief Complaint/HPI Pt was examined bedside with sitter and nursing. Pt denies any drainage from suture site, vision changes, pain in eyes or moving eyes. No fever and chills were noted, and pt's mental status were noted to continue to improve. It is noted that pt walks by holding his cane and at time pt's cane will not touch the ground. He does not like 2 injections per day thus his heparin SC BID was changed to lovenox once daily. Pt is still noted to have b/l lower extremity swelling General: Reports: Other Symptoms (Difficult to obtain ROS due to pt's mental status and slurred speech; part of info obtained from nursing staff); Denies: Chills Constitutional: Denies: Chills, Fever Eyes: Denies: Pain, Vision change, Redness Neurological: Reports: Change in speech (slurred speech improving) Objective Physical Examination General Exam: Positive: Alert, Cooperative, No Acute Distress, Other Eye Exam: Positive: Other Eye Symptoms (Right eyebrow suture continue to heal well; no signs of drainage/bleeding/infection.); Negative: Conjunctiva & lids normal, Sclera icteric ENT Exam: Negative: Atraumatic Neck Exam: Positive: Supple Chest Exam: Positive: Clear to auscultation, Normal air movement; Negative: Rales, Rhonchi, Wheezing Heart Exam: Positive: Rate Normal, Regular Rhythm, Normal S1, Normal S2; Negative: Murmurs Abdomen Exam: Positive: Normal bowel sounds, Soft Extremity Exam: Positive: Edema (mild edema in b/l lower extremities), Normal pulses Skin Exam: Positive: Nl turgor and temperature (except for right sided eye brow region with suture and well healing wound) Neuro Exam: Negative: Normal Speech (slurred and rapid speech) Psych Exam: Positive: Other (improving insight and judgement); Negative: Mental status NL A-FIB/CHADSVASC A-FIB History Current/History of A-Fib/PAF?: No Age/Risk Factor Scoring CHADSVASC: CHADSVASC Response (Comments) Value Hx of HTN Yes 1 Total 1 Assessment /Plan Problems (1) Schizoaffective disorder, bipolar type Status: Chronic Response to Treatment: Improving Problem Text: Pt's mental status continue to improve; no rapid speech noted. Slurred speech still present however it was noted that pt has slurred speech at baseline. Psych team is following. Continue Depakote, Valium, Seroquel, and Olanzapine. (2) Laceration of eyebrow, complex Status: Acute Response to Treatment: Improving, Controlled Problem Text: On right eyebrow s/p complex repair of right upper brow laceration. No active bleeding/discharge/signs of infection noted on the site of laceration. Procedure site clean and well healing. Pt denies eye pain or pain moving eyes. No fever or chills noted. Cont PO augmentin dose (3) Hypertension Status: Chronic Response to Treatment: Stable, Controlled Problem Text: Blood pressure cont to be stable. Cont Lasix and Lopressor. Vital signs as scheduled (4) Bilateral lower extremity edema Response to Treatment: Improving Problem Text: Likely 2/2 atypical antipsychotic Seroquel and Olanzapine; pt doing well on current psych regimen with benefits outweighs adverse effect. No prior medical hx which may cause lower extremity edema. Improved with TEDS. Consider echo outpt if edema worsens Plan/VTE VTE Prophylaxis Ordered?: Yes (TEDS and lovenox) VS, I&O, 24H, Fishbone Vital Signs/I&O Vital Signs Date Time Temp Pulse Resp B/P (MAP) Pulse Ox O2 Delivery O2 Flow Rate FiO2 08/05/18 08:34 80 123/69 08/05/18 06:49 98.3 16 07/30/18 13:20 95 LILLIAN WARD DO August 05, 2018 17:55
[2018-08-05 18:00] VITALS: BP 138/73
[2018-08-05] MEDS: BENZTROPINE 1 MG TAB PO SCH (20:23)
[2018-08-05] MEDS: QUEtiapine FUMARATE **XR** 200MG TABLET PO SCH (20:23)
[2018-08-05] MEDS: DIVALPROEX 250MG *ER* TAB PO SCH (20:24)
[2018-08-05] MEDS: DIVALPROEX 500MG *ER* TAB PO SCH (20:24)
[2018-08-06] MEDS: LORazepam 2 MG TAB PO PRN ×2 (04:27→20:22)
[2018-08-06 06:39] VITALS: BP 111/58
[2018-08-06] MEDS: PILL CUTTER 1 EACH XX PRN (08:23)
[2018-08-06] MEDS: diazePAM 2 MG TAB PO SCH ×3 (08:23→20:21)
[2018-08-06] MEDS: DOCUSATE SODIUM 100 MG CAP PO SCH ×2 (08:24→20:23)
[2018-08-06] MEDS: FUROSEMIDE 20 MG TAB PO SCH ×2 (08:24→16:59)
[2018-08-06] MEDS: MELOXICAM (MOBIC) 7.5 MG TAB PO SCH (08:24)
[2018-08-06] MEDS: POTASSIUM CHLORIDE 10 MEQ SR TABLET PO SCH ×2 (08:25→20:21)
[2018-08-06] MEDS: HALOPERIDOL 5 MG TAB PO SCH (08:25)
[2018-08-06] MEDS: METOPROLOL TART 25 MG TABLET PO SCH ×2 (08:26→20:20)
[2018-08-06] MEDS: ENOXAPARIN 40 MG/0.4 ML SYRINGE (J1650) SC SCH (08:27)
[2018-08-06] MEDS: POLYSPORIN TOPICAL OINTMENT 15GM TOP SCH (08:27)
[2018-08-06] MEDS: OLANZapine ORAL DISINTEGRATING TAB 5MG PO PRN ×2 (12:10→23:23)
--- NOTE | 2018-08-06 14:15 | MHIPNPDOC ---
[facility] Progress Note Progress Note DATE OF SERVICE: 08/06/18 HISTORY: 57-year-old male who is in a transitional living for 7 years. Efforts to get him to live independently have not succeeded, discussion with staff at [facility] provided the following information: Generally, he is considered a happy go florecita fella who enjoys life.. He is considered a pleasure to be around and very intelligent. Does, however, seek diazepam medications generally over the years. This pattern has been that when he decompensates. It lasts a few months and he "pops out of it." Without any significant medical i ntervention. However, he has been decompensated now for the last 7-8 months. He has been short fused, screaming, calling people names, having outbursts and being banned from places of business. In addition, he has been not read directable. His working diagnosis at [facility], has been schizoaffective disorder. VITAL SIGNS: See below. NEW TEST RESULTS: Valproic acid within therapeutic range. CURRENT MEDICATIONS: See below. MENTAL STATUS EXAMINATION: Patient is a 57-year old male, who is suffering from a decompensation of his condition for the last 8 months. Speech: Is, garbled, rapid. Language skills are, poor. Thought processes including: Racing thoughts. Thought content: Suspicious and explosive. Abstract reasoning, and computation:. Unable to measure. Description of associations: Loose. Description of abnormal or psychotic thoughts: Rapid persecutory thoughts and explosive temper. Judgment:, Poor. Insight:, Poor. Orientation: Full. Recent and remote memory: Unable to measure. Attention span and concentration:, Poor. Language: As above. Fund of knowledge:. Unable to measure. Mood: Irritable. Affect:, Congruent. DIAGNOSES: 1. Bipolar disorder with psychotic features. 2.. Diazepam abuse. . ASSESSMENT: 57-year-old male living in transitional living who has decompensated and not improved as he usually does MANAGEMENT PLAN: Continue evaluating medication. TIME SPENT:, 45 minutes. Vital Signs Vital Signs Date Time Temp Pulse Resp B/P (MAP) Pulse Ox O2 Delivery O2 Flow Rate FiO2 08/06/18 08:26 66 116/60 08/06/18 06:39 98.5 16 Current Medications Current Medications Acetaminophen (Tylenol Tab) 650 mg Q4HP PRN PO PAIN OR FEVER; Start 07/30/18 at 14:45; Stop 07/30/18 at 15:25; Status DC Acetaminophen (Tylenol Tab) 650 mg Q6HP PRN PO HEADACHE or DISCOMFORT; Start 07/25/18 at 19:30; Status Cancel Acetaminophen (Tylenol Tab) 1,000 mg Q8H PRN PO PAIN Last administered on 08/04/18at 01:55; Start 07/25/18 at 20:00 Al Hydrox/Mg Hydrox/Simethicone (Mylanta) 30 ml Q4HP PRN PO HEARTBURN/INDIGESTION; Start 07/25/18 at 19:30 Albuterol Sulfate (Proventil, Ventolin Hfa) 2 puff Q4H PRN INH SHORTNESS OF BREATH Last administered on 07/31/18at 11:48; Start 07/25/18 at 20:00 Amoxicillin/ Clavulanate Potassium (Augmentin) 875 mg BID PO Last administered on 08/05/18at 20:23; Start 07/30/18 at 14:15; Stop 08/05/18 at 21:01; Status DC Asenapine (Saphris) 5 mg BID@0600,1500 SL Last administered on 07/26/18 05:16; Start 07/26/18 at 06:00; Stop 07/26/18 at 10:37; Status DC Bacitracin/ Polymyxin B Sulfate (Polysporin Top Oint) APPLY TO WOUND AREA BID TOP Last administered on 08/06/18at 08:27; Start 07/30/18 at 21:00; Stop 08/06/18 at 09:01; Status DC Benztropine Mesylate (Cogentin) 1 mg QHS PO Last administered on 08/05/18at 20:23; Start 07/25/18 at 21:00 Diazepam (Valium) 1 mg TID PO Last administered on 08/06/18 08:23; Start 07/31/18 at 21:00 Diazepam (Valium) 2 mg TID PO Last administered on 07/26/18at 07:55; Start 07/25/18 at 21:00; Stop 07/26/18 at 11:05; Status DC Diazepam (Valium) 2 mg TID@0600,1200,2000 PO Last administered on 07/31/18at 11:45; Start 07/26/18 at 12:00; Stop 07/31/18 at 12:18; Status DC Diphenhydramine HCl (Benadryl) 50 mg STAT STAT IM Last administered on 07/29/18 03:57; Start 07/29/18 at 03:39; Stop 07/29/18 at 03:45; Status DC Divalproex Sodium (Depakote Er) 250 mg QHS PO Last administered on 08/05/18 20:24; Start 07/31/18 at 21:00 Divalproex Sodium (Depakote Er) 1,500 mg DAILY@1800 PO Last administered on 17:37; Start 07/25/18 at 18:00; Stop 07/31/18 at 09:37; Status DC Divalproex Sodium (Depakote Er) 1,500 mg QHS PO Last administered on 08/05/18at 20:24; Start 07/31/18 at 21:00 Docusate Sodium (Colace) 200 mg BID PO Last administered on 08/06/18 08:24; Start 07/25/18 at 21:00 Enoxaparin Sodium (Lovenox) 40 mg DAILY SC Last administered on 08/06/18 08:27; Start 08/05/18 at 09:00 Furosemide (Lasix) 20 mg BID@0900,1700 PO Last administered on 08/06/18 08:24; Start 07/26/18 at 09:00 Haloperidol (Haldol) 5 mg BID PO ; Start 07/26/18 at 21:00; Status Cancel Haloperidol (Haldol) 5 mg BID PO Last administered on 08/04/18 10:03; Start 08/02/18 at 21:00; Stop 08/04/18 at 13:20; Status DC Haloperidol (Haldol) 7.5 mg BID PO Last administered on 08/06/18 08:25; Start 08/04/18 at 21:00 Heparin Sodium (Porcine) (Heparin) 5,000 units Q12H SQ Last administered on 08/04/18 10:01; Start 08/01/18 at 21:00; Stop 08/04/18 at 10:37; Status DC Home Med (Med Rec Complete!) ASDIRECTED XX ; Start 07/25/18 at 19:15; Stop 07/25/18 at 19:15; Status DC Lorazepam (Ativan) 2 mg Q6HP PRN PO ANXIETY/AGITATION Last administered on 08/06/18at 04:27; Start 07/26/18 at 10:45 Lorazepam (Ativan) 2 mg STAT STAT IM Last administered on 07/29/18at 03:56; Start 07/29/18 at 03:39; Stop 07/29/18 at 03:45; Status DC Magnesium Hydroxide (Milk Of Magnesia) 30 ml DAILYPRN PRN PO CONSTIPATION Last administered on 08/04/18at 18:54; Start 07/25/18 at 19:30 Meloxicam (Mobic) 15 mg DAILY PO Last administered on 08/06/18at 08:24; Start 07/26/18 at 09:00 Metoprolol Tartrate (Lopressor) 25 mg BID PO Last administered on 08/06/18at 08:26; Start 07/25/18 at 21:00 Miscellaneous (Unresolved Clarification Entry) SEE LABEL COMMENTS DAILY XX ; Start 08/01/18 at 09:00; Stop 08/02/18 at 07:18; Status DC Miscellaneous (Unresolved Clarification Entry) SEE LABEL COMMENTS DAILY XX ; Start 08/02/18 at 09:00; Stop 08/02/18 at 10:47; Status DC Nicotine (Nicoderm Cq 21mg) 1 patch DAILY TD ; Start 07/26/18 at 09:00; Stop 07/26/18 at 09:00; Status DC Olanzapine (ZyPREXA ZYDIS) 5 mg BID PO Last administered on 07/28/18at 20:09; Start 07/26/18 at 21:00; Stop 07/29/18 at 10:50; Status DC Olanzapine (ZyPREXA ZYDIS) 5 mg Q6HP PRN PO ANXIETY/AGITATION Last administered on 07/28/18at 00:51; Start 07/26/18 at 10:45; Stop 07/28/18 at 12:00; Status DC Olanzapine (ZyPREXA ZYDIS) 10 mg BID PO Last administered on 07/31/18at 08:26; Start 07/29/18 at 21:00; Stop 07/31/18 at 09:40; Status DC Olanzapine (ZyPREXA ZYDIS) 10 mg BID PO Last administered on 08/02/18at 08:12; Start 07/31/18 at 21:00; Stop 08/02/18 at 10:46; Status DC Olanzapine (ZyPREXA ZYDIS) 10 mg Q4HP PRN PO ANXIETY/AGITATION Last administered on 08/06/18at 12:10; Start 07/28/18 at 12:00 Olanzapine (ZyPREXA ZYDIS) 10 mg TID PO ; Start 07/31/18 at 16:00; Status Cancel Olanzapine (Zyprexa Intramuscular) 10 mg STAT STAT IM Last administered on 07/29/18at 03:56; Start 07/29/18 at 03:39; Stop 07/29/18 at 03:45; Status DC Potassium Chloride (Micro-K Extencaps) 10 meq BID PO Last administered on 08/06/18at 08:25; Start 07/30/18 at 09:00 Potassium Chloride (Micro-K Extencaps) 10 meq BID PO ; Start 07/25/18 at 21:00; Status UNV Quetiapine Fumarate (SEROquel XR) 300 mg QHS PO Last administered on 08/03/18at 20:24; Start 08/03/18 at 21:00; Stop 08/04/18 at 13:20; Status DC Quetiapine Fumarate (SEROquel XR) 400 mg DAILY@1800 PO Last administered on 07/30/18at 17:37; Start 07/25/18 at 18:00; Stop 07/31/18 at 09:37; Status DC Quetiapine Fumarate (SEROquel XR) 400 mg QHS PO Last administered on 08/05/18at 20:23; Start 08/04/18 at 21:00 Quetiapine Fumarate (SEROquel) 600 mg QHS PO Last administered on 08/01/18at 20:06; Start 07/31/18 at 21:00; Stop 08/02/18 at 10:46; Status DC Trazodone HCl (Desyrel) 50 mg QHSP PRN PO INSOMNIA; Start 07/25/18 at 19:30; Status Cancel Zolpidem Tartrate (Ambien) 10 mg QHS PRN PO SLEEP Last administered on 07/30/18at 22:43; Start 07/25/18 at 20:00; Stop 07/31/18 at 09:37; Status DC Allergies Coded Allergies: No Known Allergies (Verified , 06/27/10) A-FIB/CHADSVASC A-FIB History Current/History of A-Fib/PAF?: No Current Oral Anticoagulant The: No Age/Risk Factor Scoring CHADSVASC: CHADSVASC Response (Comments) Value Hx of HTN Yes 1 Total 1 Treatment Treatment ordered: NONE JACKSON TIJERINA MD August 06, 2018 14:15
[2018-08-06] MEDS: QUEtiapine FUMARATE **XR** 200MG TABLET PO SCH (20:22)
[2018-08-06] MEDS: DIVALPROEX 250MG *ER* TAB PO SCH (20:22)
[2018-08-06] MEDS: HALOPERIDOL 10 MG TAB PO SCH (20:22)
[2018-08-06] MEDS: DIVALPROEX 500MG *ER* TAB PO SCH (20:22)
[2018-08-06] MEDS: BENZTROPINE 1 MG TAB PO SCH (20:29)
[2018-08-07] MEDS: LORazepam 2 MG TAB PO PRN ×4 (04:25→23:00)
[2018-08-07 06:52] VITALS: BP 110/73
[2018-08-07] MEDS: diazePAM 2 MG TAB PO SCH ×3 (08:06→22:51)
[2018-08-07] MEDS: DOCUSATE SODIUM 100 MG CAP PO SCH ×2 (08:06→22:56)
[2018-08-07] MEDS: HALOPERIDOL 10 MG TAB PO SCH ×2 (08:07→22:53)
[2018-08-07] MEDS: FUROSEMIDE 20 MG TAB PO SCH ×2 (08:07→16:55)
[2018-08-07] MEDS: MELOXICAM (MOBIC) 7.5 MG TAB PO SCH (08:07)
[2018-08-07] MEDS: POTASSIUM CHLORIDE 10 MEQ SR TABLET PO SCH ×2 (08:07→22:55)
[2018-08-07] MEDS: ENOXAPARIN 40 MG/0.4 ML SYRINGE (J1650) SC SCH (08:12)
[2018-08-07] MEDS: METOPROLOL TART 25 MG TABLET PO SCH ×2 (09:00→22:57)
--- NOTE | 2018-08-07 14:48 | MHIPNPDOC ---
[facility] Progress Note Progress Note DATE OF SERVICE: 08/07/18 HISTORY: 57-year-old male with bipolar disorder that did not resolve, as it use to. This episode of nelda apparently has lasted over 8 months. VITAL SIGNS: See below. NEW TEST RESULTS: None. CURRENT MEDICATIONS: See below. MENTAL STATUS EXAMINATION: Patient is a 57-year old male, who is, improving with less yelling less outbursts and more understandable speech. Speech: Is improving. Language skills are proving. Thought processes including: Speech is less rapid. Thought content: Discussing placement. Abstract reasoning, and computation: Not measured. Description of associations: Loose association. Description of abnormal or psychotic thoughts:. Psychotic thoughts and rapid speech or decreasing. Judgment: Poor. Insight:. Fair. Orientation: Intact. Recent and remote memory: Intact. Attention span and concentration: Intact. Language: Intact. Fund of knowledge: Improved. Mood:, Euthymic. Affect:, Congruent. DIAGNOSES: 1. Bipolar disorder. . ASSESSMENT: 57-year-old male who has been living at transitional living and has had an eight-month episode of manic, disruptive behavior MANAGEMENT PLAN:, Continue on Haldol dosage and use of Depakote which seems to be causing improvement infection. TIME SPENT:, 30 minutes. Vital Signs Vital Signs Date Time Temp Pulse Resp B/P (MAP) Pulse Ox O2 Delivery O2 Flow Rate FiO2 08/07/18 09:00 68 99/66 08/07/18 06:52 97.5 22 Current Medications Current Medications Acetaminophen (Tylenol Tab) 650 mg Q4HP PRN PO PAIN OR FEVER; Start 07/30/18 at 14:45; Stop 07/30/18 at 15:25; Status DC Acetaminophen (Tylenol Tab) 650 mg Q6HP PRN PO HEADACHE or DISCOMFORT; Start 07/25/18 at 19:30; Status Cancel Acetaminophen (Tylenol Tab) 1,000 mg Q8H PRN PO PAIN Last administered on 08/04/18at 01:55; Start 07/25/18 at 20:00 Al Hydrox/Mg Hydrox/Simethicone (Mylanta) 30 ml Q4HP PRN PO HEARTBURN/INDIGE STION; Start 07/25/18 at 19:30 Albuterol Sulfate (Proventil, Ventolin Hfa) 2 puff Q4H PRN INH SHORTNESS OF BREATH Last administered on 07/31/18 11:48; Start 07/25/18 at 20:00 Amoxicillin/ Clavulanate Potassium (Augmentin) 875 mg BID PO Last administered on 08/05/18at 20:23; Start 07/30/18 at 14:15; Stop 08/05/18 at 21:01; Status DC Asenapine (Saphris) 5 mg BID@0600,1500 SL Last administered on 07/26/18at 05:16; Start 07/26/18 at 06:00; Stop 07/26/18 at 10:37; Status DC Bacitracin/ Polymyxin B Sulfate (Polysporin Top Oint) APPLY TO WOUND AREA BID TOP Last administered on 08/06/18at 08:27; Start 07/30/18 at 21:00; Stop 08/06/18 at 09:01; Status DC Benztropine Mesylate (Cogentin) 1 mg QHS PO Last administered on 08/06/18at 20:29; Start 07/25/18 at 21:00 Diazepam (Valium) 1 mg TID PO Last administered on 08/07/18at 08:06; Start 07/31/18 at 21:00 Diazepam (Valium) 2 mg TID PO Last administered on 07/26/18at 07:55; Start 07/25/18 at 21:00; Stop 07/26/18 at 11:05; Status DC Diazepam (Valium) 2 mg TID@0600,1200,2000 PO Last administered on 07/31/18at 11:45; Start 07/26/18 at 12:00; Stop 07/31/18 at 12:18; Status DC Diphenhydramine HCl (Benadryl) 50 mg STAT STAT IM Last administered on 07/29/18at 03:57; Start 07/29/18 at 03:39; Stop 07/29/18 at 03:45; Status DC Divalproex Sodium (Depakote Er) 250 mg QHS PO Last administered on 08/06/18at 20:22; Start 07/31/18 at 21:00 Divalproex Sodium (Depakote Er) 1,500 mg DAILY@1800 PO Last administered on 07/30/18at 17:37; Start 07/25/18 at 18:00; Stop 07/31/18 at 09:37; Status DC Divalproex Sodium (Depakote Er) 1,500 mg QHS PO Last administered on 08/06/18 20:22; Start 07/31/18 at 21:00 Docusate Sodium (Colace) 200 mg BID PO Last administered on 08/07/18 08:06; Start 07/25/18 at 21:00 Enoxaparin Sodium (Lovenox) 40 mg DAILY SC Last administered on 08/07/18 08:12; Start 08/05/18 at 09:00 Furosemide (Lasix) 20 mg BID@0900,1700 PO Last administered on 08/07/18 08:07; Start 07/26/18 at 09:00 Haloperidol (Haldol) 5 mg BID PO ; Start 07/26/18 at 21:00; Status Cancel Haloperidol (Haldol) 5 mg BID PO Last administered on 08/04/18 10:03; Start 08/02/18 at 21:00; Stop 08/04/18 at 13:20; Status DC Haloperidol (Haldol) 7.5 mg BID PO Last administered on 08/06/18 08:25; Start 08/04/18 at 21:00; Stop 08/06/18 at 14:18; Status DC Haloperidol (Haldol) 10 mg BID PO Last administered on 08/07/18 08:07; Start 08/06/18 at 21:00 Heparin Sodium (Porcine) (Heparin) 5,000 units Q12H SQ Last administered on 08/04/18 10:01; Start 08/01/18 at 21:00; Stop 08/04/18 at 10:37; Status DC Home Med (Med Rec Complete!) ASDIRECTED XX ; Start 07/25/18 at 19:15; Stop 07/25/18 at 19:15; Status DC Lorazepam (Ativan) 2 mg Q6HP PRN PO ANXIETY/AGITATION Last administered on 08/07/18 10:28; Start 07/26/18 at 10:45 Lorazepam (Ativan) 2 mg STAT STAT IM Last administered on 07/29/18 03:56; Start 07/29/18 at 03:39; Stop 07/29/18 at 03:45; Status DC Magnesium Hydroxide (Milk Of Magnesia) 30 ml DAILYPRN PRN PO CONSTIPATION Last administered on 08/04/18at 18:54; Start 07/25/18 at 19:30 Meloxicam (Mobic) 15 mg DAILY PO Last administered on 08/07/18at 08:07; Start 07/26/18 at 09:00 Metoprolol Tartrate (Lopressor) 25 mg BID PO Last administered on 08/06/18at 20:20; Start 07/25/18 at 21:00 Miscellaneous (Unresolved Clarification Entry) SEE LABEL COMMENTS DAILY XX ; Start 08/01/18 at 09:00; Stop 08/02/18 at 07:18; Status DC Miscellaneous (Unresolved Clarification Entry) SEE LABEL COMMENTS DAILY XX ; Start 08/02/18 at 09:00; Stop 08/02/18 at 10:47; Status DC Miscellaneous (Unresolved Clarification Entry) SEE LABEL COMMENTS DAILY XX ; Start 08/07/18 at 09:00 Nicotine (Nicoderm Cq 21mg) 1 patch DAILY TD ; Start 07/26/18 at 09:00; Stop 07/26/18 at 09:00; Status DC Olanzapine (ZyPREXA ZYDIS) 5 mg BID PO Last administered on 07/28/18at 20:09; Start 07/26/18 at 21:00; Stop 07/29/18 at 10:50; Status DC Olanzapine (ZyPREXA ZYDIS) 5 mg Q6HP PRN PO ANXIETY/AGITATION Last administered on 07/28/18at 00:51; Start 07/26/18 at 10:45; Stop 07/28/18 at 12:00; Status DC Olanzapine (ZyPREXA ZYDIS) 10 mg BID PO Last administered on 07/31/18at 08:26; Start 07/29/18 at 21:00; Stop 07/31/18 at 09:40; Status DC Olanzapine (ZyPREXA ZYDIS) 10 mg BID PO Last administered on 08/02/18at 08:12; Start 07/31/18 at 21:00; Stop 08/02/18 at 10:46; Status DC Olanzapine (ZyPREXA ZYDIS) 10 mg Q4HP PRN PO ANXIETY/AGITATION Last administered on 08/06/18at 23:23; Start 07/28/18 at 12:00 Olanzapine (ZyPREXA ZYDIS) 10 mg TID PO ; Start 07/31/18 at 16:00; Status Cancel Olanzapine (Zyprexa Intramuscular) 10 mg STAT STAT IM Last administered on 07/29/18at 03:56; Start 07/29/18 at 03:39; Stop 07/29/18 at 03:45; Status DC Potassium Chloride (Micro-K Extencaps) 10 meq BID PO Last administered on 08/07/18at 08:07; Start 07/30/18 at 09:00 Potassium Chloride (Micro-K Extencaps) 10 meq BID PO ; Start 07/25/18 at 21:00; Status UNV Quetiapine Fumarate (SEROquel XR) 300 mg QHS PO Last administered on 08/03/18at 20:24; Start 08/03/18 at 21:00; Stop 08/04/18 at 13:20; Status DC Quetiapine Fumarate (SEROquel XR) 400 mg DAILY@1800 PO Last administered on 07/30/18at 17:37; Start 07/25/18 at 18:00; Stop 07/31/18 at 09:37; Status DC Quetiapine Fumarate (SEROquel XR) 400 mg QHS PO Last administered on 08/06/18at 20:22; Start 08/04/18 at 21:00 Quetiapine Fumarate (SEROquel) 600 mg QHS PO Last administered on 08/01/18at 20:06; Start 07/31/18 at 21:00; Stop 08/02/18 at 10:46; Status DC Trazodone HCl (Desyrel) 50 mg QHSP PRN PO INSOMNIA; Start 07/25/18 at 19:30; Status Cancel Zolpidem Tartrate (Ambien) 10 mg QHS PRN PO SLEEP Last administered on 07/30/18at 22:43; Start 07/25/18 at 20:00; Stop 07/31/18 at 09:37; Status DC Allergies Coded Allergies: No Known Allergies (Verified , 06/27/10) A-FIB/CHADSVASC A-FIB History Current/History of A-Fib/PAF?: No Age/Risk Factor Scoring CHADSVASC: CHADSVASC Response (Comments) Value Hx of HTN Yes 1 Total 1 Treatment Treatment ordered: NONE JACKSON TIJERINA MD August 07, 2018 14:48
[2018-08-07 18:39] VITALS: BP 115/58
[2018-08-07] MEDS: QUEtiapine FUMARATE **XR** 200MG TABLET PO SCH (22:53)
[2018-08-07] MEDS: BENZTROPINE 1 MG TAB PO SCH (22:54)
[2018-08-07] MEDS: DIVALPROEX 250MG *ER* TAB PO SCH (22:54)
[2018-08-07] MEDS: DIVALPROEX 500MG *ER* TAB PO SCH (22:58)
[2018-08-08] MEDS: LORazepam 2 MG TAB PO PRN ×2 (05:28→12:16)
[2018-08-08 06:26] VITALS: BP 100/51
[2018-08-08] MEDS: METOPROLOL TART 25 MG TABLET PO SCH ×3 (09:00→20:00)
[2018-08-08] MEDS: DOCUSATE SODIUM 100 MG CAP PO SCH ×2 (09:22→20:00)
[2018-08-08] MEDS: MELOXICAM (MOBIC) 7.5 MG TAB PO SCH (09:23)
[2018-08-08] MEDS: diazePAM 2 MG TAB PO SCH ×3 (09:23→19:58)
[2018-08-08] MEDS: HALOPERIDOL 10 MG TAB PO SCH ×2 (09:23→19:59)
[2018-08-08] MEDS: POTASSIUM CHLORIDE 10 MEQ SR TABLET PO SCH ×2 (09:23→19:59)
[2018-08-08] MEDS: FUROSEMIDE 20 MG TAB PO SCH ×2 (09:23→16:04)
[2018-08-08] MEDS: ENOXAPARIN 40 MG/0.4 ML SYRINGE (J1650) SC SCH (09:25)
--- NOTE | 2018-08-08 15:06 | MHIPNPDOC ---
[facility] Progress Note Progress Note DATE OF SERVICE: 08/08/18 HISTORY: Patient with long history of psychiatric difficulties. This most recent one being characterized by manic episode of numerous months VITAL SIGNS: See below. NEW TEST RESULTS: None. CURRENT MEDICATIONS: See below. MENTAL STATUS EXAMINATION: Patient is a 57-year old male, who is improving significantly on present medications. Speech: Is. Quieter. Language skills are improving in content and started. Thought processes including: No apparent hallucinations or paranoia. Thought content: Focused on discharge. Abstract reasoning, and computation: Able to abstract. Description of associations:. Associations no loose. Description of abnormal or psychotic thoughts: Psychotic thought decreasing. Judgment: Poor. Insight:. Very limited. Orientation: Contact. Recent and remote memory: Hard to measure. Attention span and concentration: Hard to determine. Language: As above. Fund of knowledge:. Intact. Mood: Euthymic. Affect:, Congruent. DIAGNOSES: 1. Bipolar disorder. 2., Stressors of residence . ASSESSMENT: Bipolar disorder in this 57-year-old male improving MANAGEMENT PLAN:. Continue Depakote and Haldol. TIME SPENT: 30 minutes. Vital Signs Vital Signs Date Time Temp Pulse Resp B/P (MAP) Pulse Ox O2 Delivery O2 Flow Rate FiO2 08/08/18 09:00 58 105/61 08/08/18 06:26 97.9 18 Current Medications Current Medications Acetaminophen (Tylenol Tab) 650 mg Q4HP PRN PO PAIN OR FEVER; Start 07/30/18 at 14:45; Stop 07/30/18 at 15:25; Status DC Acetaminophen (Tylenol Tab) 650 mg Q6HP PRN PO HEADACHE or DISCOMFORT; Start 07/25/18 at 19:30; Status Cancel Acetaminophen (Tylenol Tab) 1,000 mg Q8H PRN PO PAIN Last administered on 08/04/18at 01:55; Start 07/25/18 at 20:00 Al Hydrox/Mg Hydrox/Simethicone (Mylanta) 30 ml Q4HP PRN PO HEARTBURN/INDIGESTION; Start 07/25/18 at 19:30 Albuterol Sulfate (Proventil, Ventolin Hfa) 2 puff Q4H PRN INH SHORTNESS OF BREATH Last administered on 07/31/18at 11:48; Start 07/25/18 at 20:00 Amoxicillin/ Clavulanate Potassium (Augmentin) 875 mg BID PO Last administered on 08/05/18 20:23; Start 07/30/18 at 14:15; Stop 08/05/18 at 21:01; Status DC Asenapine (Saphris) 5 mg BID@0600,1500 SL Last administered on 07/26/18at 05:16; Start 07/26/18 at 06:00; Stop 07/26/18 at 10:37; Status DC Bacitracin/ Polymyxin B Sulfate (Polysporin Top Oint) APPLY TO WOUND AREA BID TOP Last administered on 08/06/18at 08:27; Start 07/30/18 at 21:00; Stop 08/06/18 at 09:01; Status DC Benztropine Mesylate (Cogentin) 1 mg QHS PO Last administered on 08/07/18at 22:54; Start 07/25/18 at 21:00 Diazepam (Valium) 1 mg TID PO Last administered on 08/08/18 09:23; Start 07/31/18 at 21:00 Diazepam (Valium) 2 mg TID PO Last administered on 07/26/18at 07:55; Start 07/25/18 at 21:00; Stop 07/26/18 at 11:05; Status DC Diazepam (Valium) 2 mg TID@0600,1200,2000 PO Last administered on 07/31/18at 11:45; Start 07/26/18 at 12:00; Stop 07/31/18 at 12:18; Status DC Diphenhydramine HCl (Benadryl) 50 mg STAT STAT IM Last administered on 07/29/18at 03:57; Start 07/29/18 at 03:39; Stop 07/29/18 at 03:45; Status DC Divalproex Sodium (Depakote Er) 250 mg QHS PO Last administered on 08/07/18at 22:54; Start 07/31/18 at 21:00 Divalproex Sodium (Depakote Er) 1,500 mg DAILY@1800 PO Last administered on 07/30/18at 17:37; Start 07/25/18 at 18:00; Stop 07/31/18 at 09:37; Status DC Divalproex Sodium (Depakote Er) 1,500 mg QHS PO Last administered on 08/07/18 22:58; Start 07/31/18 at 21:00 Docusate Sodium (Colace) 200 mg BID PO Last administered on 08/08/18 09:22; Start 07/25/18 at 21:00 Enoxaparin Sodium (Lovenox) 40 mg DAILY SC Last administered on 08/08/18 09:25; Start 08/05/18 at 09:00 Furosemide (Lasix) 20 mg BID@0900,1700 PO Last administered on 08/08/18 09:23; Start 07/26/18 at 09:00 Haloperidol (Haldol) 5 mg BID PO ; Start 07/26/18 at 21:00; Status Cancel Haloperidol (Haldol) 5 mg BID PO Last administered on 08/04/18 10:03; Start 08/02/18 at 21:00; Stop 08/04/18 at 13:20; Status DC Haloperidol (Haldol) 7.5 mg BID PO Last administered on 08/06/18 08:25; Start 08/04/18 at 21:00; Stop 08/06/18 at 14:18; Status DC Haloperidol (Haldol) 10 mg BID PO Last administered on 08/08/18 09:23; Start 08/06/18 at 21:00 Heparin Sodium (Porcine) (Heparin) 5,000 units Q12H SQ Last administered on 08/04/18 10:01; Start 08/01/18 at 21:00; Stop 08/04/18 at 10:37; Status DC Home Med (Med Rec Complete!) ASDIRECTED XX ; Start 07/25/18 at 19:15; Stop 07/25/18 at 19:15; Status DC Lorazepam (Ativan) 2 mg Q6HP PRN PO ANXIETY/AGITATION Last administered on 08/08/18 12:16; Start 07/26/18 at 10:45 Lorazepam (Ativan) 2 mg STAT STAT IM Last administered on 07/29/18 03:56; Start 07/29/18 at 03:39; Stop 07/29/18 at 03:45; Status DC Magnesium Hydroxide (Milk Of Magnesia) 30 ml DAILYPRN PRN PO CONSTIPATION Last administered on 08/04/18 18:54; Start 07/25/18 at 19:30 Meloxicam (Mobic) 15 mg DAILY PO Last administered on 08/08/18at 09:23; Start 07/26/18 at 09:00 Metoprolol Tartrate (Lopressor) 25 mg BID PO Last administered on 08/07/18at 22:57; Start 07/25/18 at 21:00 Miscellaneous (Unresolved Clarification Entry) SEE LABEL COMMENTS DAILY XX ; Start 08/01/18 at 09:00; Stop 08/02/18 at 07:18; Status DC Miscellaneous (Unresolved Clarification Entry) SEE LABEL COMMENTS DAILY XX ; Start 08/02/18 at 09:00; Stop 08/02/18 at 10:47; Status DC Miscellaneous (Unresolved Clarification Entry) SEE LABEL COMMENTS DAILY XX ; Start 08/07/18 at 09:00; Stop 08/08/18 at 06:57; Status DC Miscellaneous (Unresolved Clarification Entry) SEE LABEL COMMENTS DAILY XX ; Start 08/08/18 at 09:00; Stop 08/08/18 at 11:41; Status DC Nicotine (Nicoderm Cq 21mg) 1 patch DAILY TD ; Start 07/26/18 at 09:00; Stop 07/26/18 at 09:00; Status DC Olanzapine (ZyPREXA ZYDIS) 5 mg BID PO Last administered on 07/28/18at 20:09; Start 07/26/18 at 21:00; Stop 07/29/18 at 10:50; Status DC Olanzapine (ZyPREXA ZYDIS) 5 mg Q6HP PRN PO ANXIETY/AGITATION Last administered on 07/28/18at 00:51; Start 07/26/18 at 10:45; Stop 07/28/18 at 12:00; Status DC Olanzapine (ZyPREXA ZYDIS) 10 mg BID PO Last administered on 07/31/18at 08:26; Start 07/29/18 at 21:00; Stop 07/31/18 at 09:40; Status DC Olanzapine (ZyPREXA ZYDIS) 10 mg BID PO Last administered on 08/02/18at 0 8:12; Start 07/31/18 at 21:00; Stop 08/02/18 at 10:46; Status DC Olanzapine (ZyPREXA ZYDIS) 10 mg Q4HP PRN PO ANXIETY/AGITATION Last administered on 08/06/18at 23:23; Start 07/28/18 at 12:00 Olanzapine (ZyPREXA ZYDIS) 10 mg TID PO ; Start 07/31/18 at 16:00; Status Cancel Olanzapine (Zyprexa Intramuscular) 10 mg STAT STAT IM Last administered on 07/29/18at 03:56; Start 07/29/18 at 03:39; Stop 07/29/18 at 03:45; Status DC Potassium Chloride (Micro-K Extencaps) 10 meq BID PO Last administered on at 09:23; Start 07/30/18 at 09:00 Potassium Chloride (Micro-K Extencaps) 10 meq BID PO ; Start 07/25/18 at 21:00; Status UNV Quetiapine Fumarate (SEROquel XR) 300 mg QHS PO Last administered on 08/03/18at 20:24; Start 08/03/18 at 21:00; Stop 08/04/18 at 13:20; Status DC Quetiapine Fumarate (SEROquel XR) 400 mg DAILY@1800 PO Last administered on 07/30/18at 17:37; Start 07/25/18 at 18:00; Stop 07/31/18 at 09:37; Status DC Quetiapine Fumarate (SEROquel XR) 400 mg QHS PO Last administered on 08/07/18at 22:53; Start 08/04/18 at 21:00 Quetiapine Fumarate (SEROquel) 600 mg QHS PO Last administered on 08/01/18at 20:06; Start 07/31/18 at 21:00; Stop 08/02/18 at 10:46; Status DC Trazodone HCl (Desyrel) 50 mg QHSP PRN PO INSOMNIA; Start 07/25/18 at 19:30; Status Cancel Zolpidem Tartrate (Ambien) 10 mg QHS PRN PO SLEEP Last administered on 07/30/18at 22:43; Start 07/25/18 at 20:00; Stop 07/31/18 at 09:37; Status DC Allergies Coded Allergies: No Known Allergies (Verified , 06/27/10) A-FIB/CHADSVASC A-FIB History Current/History of A-Fib/PAF?: No Current PO Anticoag Therapy: No Age/Risk Factor Scoring CHADSVASC: CHADSVASC Response (Comments) Value Hx of HTN Yes 1 Total 1 Treatment Treatment ordered: NONE Reason Anticoagulant not given: Other Other reason anticoagulant not: not required JACKSON TIJERINA MD August 08, 2018 15:06
[2018-08-08 18:10] VITALS: BP 123/70
[2018-08-08] MEDS: DIVALPROEX 250MG *ER* TAB PO SCH (20:00)
[2018-08-08] MEDS: BENZTROPINE 1 MG TAB PO SCH (20:00)
[2018-08-08] MEDS: QUEtiapine FUMARATE **XR** 200MG TABLET PO SCH (20:01)
[2018-08-08] MEDS: DIVALPROEX 500MG *ER* TAB PO SCH (20:01)
[2018-08-09] MEDS: LORazepam 2 MG TAB PO PRN ×3 (02:40→19:08)
[2018-08-09 06:47] VITALS: BP 107/53
[2018-08-09] MEDS: FUROSEMIDE 20 MG TAB PO SCH ×2 (08:32→16:07)
[2018-08-09] MEDS: HALOPERIDOL 10 MG TAB PO SCH ×3 (08:32→21:39)
[2018-08-09] MEDS: DOCUSATE SODIUM 100 MG CAP PO SCH ×2 (08:33→21:39)
[2018-08-09] MEDS: diazePAM 2 MG TAB PO SCH ×3 (08:34→21:33)
[2018-08-09] MEDS: ENOXAPARIN 40 MG/0.4 ML SYRINGE (J1650) SC SCH (08:34)
[2018-08-09] MEDS: POTASSIUM CHLORIDE 10 MEQ SR TABLET PO SCH ×2 (08:34→21:39)
[2018-08-09] MEDS: MELOXICAM (MOBIC) 7.5 MG TAB PO SCH (08:34)
[2018-08-09] MEDS: METOPROLOL TART 25 MG TABLET PO SCH ×2 (08:39→21:40)
[2018-08-09] MEDS: OLANZapine ORAL DISINTEGRATING TAB 5MG PO PRN ×2 (11:50→22:47)
[2018-08-09] MEDS: MOM 30ML SUSPENSION UDC PO PRN (13:05)
--- NOTE | 2018-08-09 13:05 | MHIPNPDOC ---
[facility] Progress Note Progress Note DATE OF SERVICE: 08/09/18 HISTORY: 57-year-old male with chronic bipolar disorder, recently having manic episode for over 8 months. VITAL SIGNS: See below. NEW TEST RESULTS: None. CURRENT MEDICATIONS: See below. MENTAL STATUS EXAMINATION: Patient is a 57-year old male, who is, still having occasional outbursts. Speech: Is garbled but improving. Language skills are more coherent. Thought processes including:, Able to make conversation but focused on going home. Thought content:. Focused on going home. Abstract reasoning, and computation:. Poor reasoning. Description of associations:, Some looseness of associations. Description of abnormal or psychotic thoughts:, Abnormal thoughts continue. Judgment: Poor. Insight:, Poor. Orientation: Intact 3. Recent and remote memory:. Difficult to measure. Attention span and concentration: Poor. Language: Intact, but repetitive. Fund of knowledge:. Low fund of information. Mood:, Labile. Affect:, Congruent. DIAGNOSES: 1. Bipolar disorder. ASSESSMENT: Bipolar disorder in this 57-year-old male whose mood swings usually resolves spontaneously, but who has been disordered and aggressive for over 8 months MANAGEMENT PLAN:. Continue on present, Haldol and Depakote dosage and have residential home staff assessment how close. Patient is to baseline. TIME SPENT:, 30 minutes. Vital Signs Vital Signs Date Time Temp Pulse Resp B/P (MAP) Pulse Ox O2 Delivery O2 Flow Rate FiO2 08/09/18 08:39 66 104/67 08/09/18 06:47 97.4 18 Current Medications Current Medications Acetaminophen (Tylenol Tab) 650 mg Q4HP PRN PO PAIN OR FEVER; Start 07/30/18 at 14:45; Stop 07/30/18 at 15:25; Status DC Acetaminophen (Tylenol Tab) 650 mg Q6HP PRN PO HEADACHE or DISCOMFORT; Start 07/25/18 at 19:30; Status Cancel Acetaminophen (Tylenol Tab) 1,000 mg Q8H PRN PO PAIN Last administered on 08/04/18at 01:55; Start 07/25/18 at 20:00 Al Hydrox/Mg Hydrox/Simethicone (Mylanta) 30 ml Q4HP PRN PO HEARTBURN/INDIGESTION; Start 07/25/18 at 19:30 Albuterol Sulfate (Proventil, Ventolin Hfa) 2 puff Q4H PRN INH SHORTNESS OF BREATH Last administered on 07/31/18 11:48; Start 07/25/18 at 20:00 Amoxicillin/ Clavulanate Potassium (Augmentin) 875 mg BID PO Last administered on 08/05/18 20:23; Start 07/30/18 at 14:15; Stop 08/05/18 at 21:01; Status DC Asenapine (Saphris) 5 mg BID@0600,1500 SL Last administered on 07/26/18 05:16; Start 07/26/18 at 06:00; Stop 07/26/18 at 10:37; Status DC Bacitracin/ Polymyxin B Sulfate (Polysporin Top Oint) APPLY TO WOUND AREA BID TOP Last administered on 08/06/18 08:27; Start 07/30/18 at 21:00; Stop 08/06/18 at 09:01; Status DC Benztropine Mesylate (Cogentin) 1 mg QHS PO Last administered on 08/08/18 20:00; Start 07/25/18 at 21:00 Diazepam (Valium) 1 mg TID PO Last administered on 08/09/18 08:34; Start 07/31/18 at 21:00 Diazepam (Valium) 2 mg TID PO Last administered on 07/26/18at 07:55; Start 07/25/18 at 21:00; Stop 07/26/18 at 11:05; Status DC Diazepam (Valium) 2 mg TID@0600,1200,2000 PO Last administered on 07/31/18 11:45; Start 07/26/18 at 12:00; Stop 07/31/18 at 12:18; Status DC Diphenhydramine HCl (Benadryl) 50 mg STAT STAT IM Last administered on 03:57; Start 07/29/18 at 03:39; Stop 07/29/18 at 03:45; Status DC Divalproex Sodium (Depakote Er) 250 mg QHS PO Last administered on 08/08/18 20:00; Start 07/31/18 at 21:00 Divalproex Sodium (Depakote Er) 1,500 mg DAILY@1800 PO Last administered on 07/30/18at 17:37; Start 07/25/18 at 18:00; Stop 07/31/18 at 09:37; Status DC Divalproex Sodium (Depakote Er) 1,500 mg QHS PO Last administered on 08/08/18 20:01; Start 07/31/18 at 21:00 Docusate Sodium (Colace) 200 mg BID PO Last administered on 08/09/18 08:33; Start 07/25/18 at 21:00 Enoxaparin Sodium (Lovenox) 40 mg DAILY SC Last administered on 08/09/18 08:34; Start 08/05/18 at 09:00 Furosemide (Lasix) 20 mg BID@0900,1700 PO Last administered on 08/09/18 08:32; Start 07/26/18 at 09:00 Haloperidol (Haldol) 5 mg BID PO ; Start 07/26/18 at 21:00; Status Cancel Haloperidol (Haldol) 5 mg BID PO Last administered on 08/04/18 10:03; Start 08/02/18 at 21:00; Stop 08/04/18 at 13:20; Status DC Haloperidol (Haldol) 7.5 mg BID PO Last administered on 08/06/18 08:25; Start 08/04/18 at 21:00; Stop 08/06/18 at 14:18; Status DC Haloperidol (Haldol) 10 mg BID PO Last administered on 08/09/18 08:32; Start 08/06/18 at 21:00 Heparin Sodium (Porcine) (Heparin) 5,000 units Q12H SQ Last administered on 08/04/18 10:01; Start 08/01/18 at 21:00; Stop 08/04/18 at 10:37; Status DC Home Med (Med Rec Complete!) ASDIRECTED XX ; Start 07/25/18 at 19:15; Stop 07/25/18 at 19:15; Status DC Lorazepam (Ativan) 2 mg Q6HP PRN PO ANXIETY/AGITATION Last administered on 08/09/18 09:39; Start 07/26/18 at 10:45 Lorazepam (Ativan) 2 mg STAT STAT IM Last administered on 07/29/18 03:56; Start 07/29/18 at 03:39; Stop 07/29/18 at 03:45; Status DC Magnesium Hydroxide (Milk Of Magnesia) 30 ml DAILYPRN PRN PO CONSTIPATION Last administered on 08/04/18at 18:54; Start 07/25/18 at 19:30 Meloxicam (Mobic) 15 mg DAILY PO Last administered on 08/09/18at 08:34; Start 07/26/18 at 09:00 Metoprolol Tartrate (Lopressor) 25 mg BID PO Last administered on 08/08/18at 20:00; Start 07/25/18 at 21:00 Miscellaneous (Unresolved Clarification Entry) SEE LABEL COMMENTS DAILY XX ; Start 08/01/18 at 09:00; Stop 08/02/18 at 07:18; Status DC Miscellaneous (Unresolved Clarification Entry) SEE LABEL COMMENTS DAILY XX ; Start 08/02/18 at 09:00; Stop 08/02/18 at 10:47; Status DC Miscellaneous (Unresolved Clarification Entry) SEE LABEL COMMENTS DAILY XX ; Start 08/07/18 at 09:00; Stop 08/08/18 at 06:57; Status DC Miscellaneous (Unresolved Clarification Entry) SEE LABEL COMMENTS DAILY XX ; Start 08/08/18 at 09:00; Stop 08/08/18 at 11:41; Status DC Nicotine (Nicoderm Cq 21mg) 1 patch DAILY TD ; Start 07/26/18 at 09:00; Stop 07/26/18 at 09:00; Status DC Olanzapine (ZyPREXA ZYDIS) 5 mg BID PO Last administered on 07/28/18at 20:09; Start 07/26/18 at 21:00; Stop 07/29/18 at 10:50; Status DC Olanzapine (ZyPREXA ZYDIS) 5 mg Q6HP PRN PO ANXIETY/AGITATION Last administered on 07/28/18at 00:51; Start 07/26/18 at 10:45; Stop 07/28/18 at 12:00; Status DC Olanzapine (ZyPREXA ZYDIS) 10 mg BID PO Last administered on 07/31/18at 08:26; Start 07/29/18 at 21:00; Stop 07/31/18 at 09:40; Status DC Olanzapine (ZyPREXA ZYDIS) 10 mg BID PO Last administered on 08/02/18at 08:12; Start 07/31/18 at 21:00; Stop 08/02/18 at 10:46; Status DC Olanzapine (ZyPREXA ZYDIS) 10 mg Q4HP PRN PO ANXIETY/AGITATION Last administered on 08/09/18at 11:50; Start 07/28/18 at 12:00 Olanzapine (ZyPREXA ZYDIS) 10 mg TID PO ; Start 07/31/18 at 16:00; Status Cancel Olanzapine (Zyprexa Intramuscular) 10 mg STAT STAT IM Last administered on 07/29/18at 03:56; Start 07/29/18 at 03:39; Stop 07/29/18 at 03:45; Status DC Potassium Chloride (Micro-K Extencaps) 10 meq BID PO Last administered on 08/09/18at 08:34; Start 07/30/18 at 09:00 Potassium Chloride (Micro-K Extencaps) 10 meq BID PO ; Start 07/25/18 at 21:00; Status UNV Quetiapine Fumarate (SEROquel XR) 300 mg QHS PO Last administered on 08/03/18at 20:24; Start 08/03/18 at 21:00; Stop 08/04/18 at 13:20; Status DC Quetiapine Fumarate (SEROquel XR) 400 mg DAILY@1800 PO Last administered on 07/30/18at 17:37; Start 07/25/18 at 18:00; Stop 07/31/18 at 09:37; Status DC Quetiapine Fumarate (SEROquel XR) 400 mg QHS PO Last administered on 08/08/18at 20:01; Start 08/04/18 at 21:00 Quetiapine Fumarate (SEROquel) 600 mg QHS PO Last administered on 08/01/18at 20:06; Start 07/31/18 at 21:00; Stop 08/02/18 at 10:46; Status DC Trazodone HCl (Desyrel) 50 mg QHSP PRN PO INSOMNIA; Start 07/25/18 at 19:30; Status Cancel Zolpidem Tartrate (Ambien) 10 mg QHS PRN PO SLEEP Last administered on 9at 22:43; Start 07/25/18 at 20:00; Stop 07/31/18 at 09:37; Status DC Allergies Coded Allergies: No Known Allergies (Verified , 06/27/10) JACKSON TIJERINA MD August 09, 2018 13:05
[2018-08-09 18:20] VITALS: BP 120/66
[2018-08-09] MEDS: QUEtiapine FUMARATE **XR** 200MG TABLET PO SCH (21:38)
[2018-08-09] MEDS: DIVALPROEX 250MG *ER* TAB PO SCH (21:39)
[2018-08-09] MEDS: DIVALPROEX 500MG *ER* TAB PO SCH (21:39)
[2018-08-09] MEDS: BENZTROPINE 1 MG TAB PO SCH (21:40)
[2018-08-10] MEDS: LORazepam 2 MG TAB PO PRN (03:59)
[2018-08-10 06:26] VITALS: BP 103/61
[2018-08-10] MEDS: PILL CUTTER 1 EACH XX PRN (08:27)
[2018-08-10] MEDS: diazePAM 2 MG TAB PO SCH ×3 (08:27→21:59)
[2018-08-10] MEDS: FUROSEMIDE 20 MG TAB PO SCH ×2 (08:28→17:03)
[2018-08-10] MEDS: HALOPERIDOL 10 MG TAB PO SCH ×2 (08:28→16:12)
[2018-08-10] MEDS: POTASSIUM CHLORIDE 10 MEQ SR TABLET PO SCH ×2 (08:28→21:53)
[2018-08-10] MEDS: DOCUSATE SODIUM 100 MG CAP PO SCH ×2 (08:28→21:51)
[2018-08-10] MEDS: MELOXICAM (MOBIC) 7.5 MG TAB PO SCH (08:28)
[2018-08-10] MEDS: ENOXAPARIN 40 MG/0.4 ML SYRINGE (J1650) SC SCH (08:29)
[2018-08-10] MEDS: METOPROLOL TART 25 MG TABLET PO SCH ×2 (09:00→21:52)
[2018-08-10] MEDS ORDERED: LORazepam 2 MG TAB PO SCH (09:00)
--- NOTE | 2018-08-10 09:57 | MHIPNPDOC ---
[facility] Progress Note Progress Note DATE OF SERVICE: 08/10/18 HISTORY: Severe bipolar disorder and diazepam abuse. VITAL SIGNS: See below. NEW TEST RESULTS: None. CURRENT MEDICATIONS: See below. MENTAL STATUS EXAMINATION: Patient is a 57-year old male, who is, erratically agitated. Speech: Is erratic and sometimes difficult to understand. Language skills are intact. Thought processes including: Preoccupation with discharge and diazepam. Thought content: As above. Abstract reasoning, and computation:, Poor. Description of associations: None. Description of abnormal or psychotic thoughts:. Rapid thinking and persecutory feelings. Judgment:, Poor. Insight:, Poor. Orientation: Intact 3. Recent and remote memory:. Difficult to measure. Attention span and concentration: Erratic. Language: As above. Fund of knowledge:. Intact Mood: Labile. Affect:, Congruent. DIAGNOSES: 1. Bipolar disorder. 2. Diazepam abuse. . ASSESSMENT: Seems to be improving with increased use of Haldol and generally staff sees improvement, but there are some erratic explosiveness episode. Still noticed MANAGEMENT PLAN: Have workers from transitional living. Evaluate patient in regards to his baseline. TIME SPENT: 30 minutes. Vital Signs Vital Signs Date Time Temp Pulse Resp B/P (MAP) Pulse Ox O2 Delivery O2 Flow Rate FiO2 08/10/18 06:26 97.2 59 14 103/61 (75) Laboratory Data 24H Labs Laboratory Tests 2 08/10/18 08:49: Valproic Acid (Depakene) Level 100.9H Current Medications Current Medications Acetaminophen (Tylenol Tab) 650 mg Q4HP PRN PO PAIN OR FEVER; Start 07/30/18 at 14:45; Stop 07/30/18 at 15:25; Status DC Acetaminophen (Tylenol Tab) 650 mg Q6HP PRN PO HEADACHE or DISCOMFORT; Start 07/25/18 at 19:30; Status Cancel Acetaminophen (Tylenol Tab) 1,000 mg Q8H PRN PO PAIN Last administered on 08/04/18at 01:55; Start 07/25/18 at 20:00 Al Hydrox/Mg Hydrox/Simethicone (Mylanta) 30 ml Q4HP PRN PO HEARTBURN/INDIGESTION; Start 07/25/18 at 19:30 Albuterol Sulfate (Proventil, Ventolin Hfa) 2 puff Q4H PRN INH SHORTNESS OF BREATH Last administered on 07/31/18 11:48; Start 07/25/18 at 20:00 Amoxicillin/ Clavulanate Potassium (Augmentin) 875 mg BID PO Last administered on 08/05/18at 20:23; Start 07/30/18 at 14:15; Stop 08/05/18 at 21:01; Status DC Asenapine (Saphris) 5 mg BID@0600,1500 SL Last administered on 07/26/18at 05:16; Start 07/26/18 at 06:00; Stop 07/26/18 at 10:37; Status DC Bacitracin/ Polymyxin B Sulfate (Polysporin Top Oint) APPLY TO WOUND AREA BID TOP Last administered on 08/06/18 08:27; Start 07/30/18 at 21:00; Stop 08/06/18 at 09:01; Status DC Benztropine Mesylate (Cogentin) 1 mg QHS PO Last administered on 08/09/18 21:40; Start 07/25/18 at 21:00 Diazepam (Valium) 1 mg TID PO Last administered on 08/10/18 08:27; Start at 21:00 Diazepam (Valium) 2 mg TID PO Last administered on 07/26/18at 07:55; Start 07/25/18 at 21:00; Stop 07/26/18 at 11:05; Status DC Diazepam (Valium) 2 mg TID@0600,1200,2000 PO Last administered on 07/31/18at 11:45; Start 07/26/18 at 12:00; Stop 07/31/18 at 12:18; Status DC Diphenhydramine HCl (Benadryl) 50 mg STAT STAT IM Last administered on 07/29/18 03:57; Start 07/29/18 at 03:39; Stop 07/29/18 at 03:45; Status DC Divalproex Sodium (Depakote Er) 250 mg QHS PO Last administered on 08/09/18at 21:39; Start 07/31/18 at 21:00 Divalproex Sodium (Depakote Er) 1,500 mg DAILY@1800 PO Last administered on 07/30/18 17:37; Start 07/25/18 at 18:00; Stop 07/31/18 at 09:37; Status DC Divalproex Sodium (Depakote Er) 1,500 mg QHS PO Last administered on 08/09/18 21:39; Start 07/31/18 at 21:00 Docusate Sodium (Colace) 200 mg BID PO Last administered on 08/10/18 08:28; Start 07/25/18 at 21:00 Enoxaparin Sodium (Lovenox) 40 mg DAILY SC Last administered on 08/10/18 08:29; Start 08/05/18 at 09:00 Furosemide (Lasix) 20 mg BID@0900,1700 PO Last administered on 08/10/18 08:28; Start 07/26/18 at 09:00 Haloperidol (Haldol) 5 mg BID PO ; Start 07/26/18 at 21:00; Status Cancel Haloperidol (Haldol) 5 mg BID PO Last administered on 08/04/18at 10:03; Start 08/02/18 at 21:00; Stop 08/04/18 at 13:20; Status DC Haloperidol (Haldol) 7.5 mg BID PO Last administered on 08/06/18 08:25; Start 08/04/18 at 21:00; Stop 08/06/18 at 14:18; Status DC Haloperidol (Haldol) 10 mg BID PO Last administered on 08/09/18 08:32; Start 08/06/18 at 21:00; Stop 08/09/18 at 13:09; Status DC Haloperidol (Haldol) 10 mg TID PO Last administered on 08/10/18 08:28; Start 08/09/18 at 16:00 Heparin Sodium (Porcine) (Heparin) 5,000 units Q12H SQ Last administered on 08/04/18 10:01; Start 08/01/18 at 21:00; Stop 08/04/18 at 10:37; Status DC Home Med (Med Rec Complete!) ASDIRECTED XX ; Start 07/25/18 at 19:15; Stop 07/25/18 at 19:15; Status DC Lorazepam (Ativan) 2 mg Q6HP PRN PO ANXIETY/AGITATION Last administered on 08/10/18 03:59; Start 07/26/18 at 10:45; Stop 08/10/18 at 06:55; Status DC Lorazepam (Ativan) 2 mg STAT STAT IM Last administered on 07/29/18at 03:56; Start 07/29/18 at 03:39; Stop 07/29/18 at 03:45; Status DC Lorazepam (Ativan) 2 mg TID PO ; Start 08/10/18 at 09:00 Magnesium Hydroxide (Milk Of Magnesia) 30 ml DAILYPRN PRN PO CONSTIPATION Last administered on 08/09/18at 13:05; Start 07/25/18 at 19:30 Meloxicam (Mobic) 15 mg DAILY PO Last administered on 08/10/18at 08:28; Start 07/26/18 at 09:00 Metoprolol Tartrate (Lopressor) 25 mg BID PO Last administered on 08/09/18at 21:40; Start 07/25/18 at 21:00 Miscellaneous (Unresolved Clarification Entry) SEE LABEL COMMENTS DAILY XX ; Start 08/01/18 at 09:00; Stop 08/02/18 at 07:18; Status DC Miscellaneous (Unresolved Clarification Entry) SEE LABEL COMMENTS DAILY XX ; Start 08/02/18 at 09:00; Stop 08/02/18 at 10:47; Status DC Miscellaneous (Unresolved Clarification Entry) SEE LABEL COMMENTS DAILY XX ; Start 08/07/18 at 09:00; Stop 08/08/18 at 06:57; Status DC Miscellaneous (Unresolved Clarification Entry) SEE LABEL COMMENTS DAILY XX ; Start 08/08/18 at 09:00; Stop 08/08/18 at 11:41; Status DC Nicotine (Nicoderm Cq 21mg) 1 patch DAILY TD ; Start 07/26/18 at 09:00; Stop 07/26/18 at 09:00; Status DC Olanzapine (ZyPREXA ZYDIS) 5 mg BID PO Last administered on 07/28/18at 20:09; Start 07/26/18 at 21:00; Stop 07/29/18 at 10:50; Status DC Olanzapine (ZyPREXA ZYDIS) 5 mg Q6HP PRN PO ANXIETY/AGITATION Last administered on 07/28/18at 00:51; Start 07/26/18 at 10:45; Stop 07/28/18 at 12: 00; Status DC Olanzapine (ZyPREXA ZYDIS) 10 mg BID PO Last administered on 07/31/18at 08:26; Start 07/29/18 at 21:00; Stop 07/31/18 at 09:40; Status DC Olanzapine (ZyPREXA ZYDIS) 10 mg BID PO Last administered on 08/02/18at 08:12; Start 07/31/18 at 21:00; Stop 08/02/18 at 10:46; Status DC Olanzapine (ZyPREXA ZYDIS) 10 mg Q4HP PRN PO ANXIETY/AGITATION Last administered on 08/09/18at 22:47; Start 07/28/18 at 12:00 Olanzapine (ZyPREXA ZYDIS) 10 mg TID PO ; Start 07/31/18 at 16:00; Status Cancel Olanzapine (Zyprexa Intramuscular) 10 mg STAT STAT IM Last administered on 07/29/18at 03:56; Start 07/29/18 at 03:39; Stop 07/29/18 at 03:45; Status DC Potassium Chloride (Micro-K Extencaps) 10 meq BID PO Last administered on 08/10/18at 08:28; Start 07/30/18 at 09:00 Potassium Chloride (Micro-K Extencaps) 10 meq BID PO ; Start 07/25/18 at 21:00; Status UNV Quetiapine Fumarate (SEROquel XR) 300 mg QHS PO Last administered on 08/03/18at 20:24; Start 08/03/18 at 21:00; Stop 08/04/18 at 13:20; Status DC Quetiapine Fumarate (SEROquel XR) 400 mg DAILY@1800 PO Last administered on 07/30/18at 17:37; Start 07/25/18 at 18:00; Stop 07/31/18 at 09:37; Status DC Quetiapine Fumarate (SEROquel XR) 400 mg QHS PO Last administered on 08/09/18at 21:38; Start 08/04/18 at 21:00 Quetiapine Fumarate (SEROquel) 600 mg QHS PO Last administered on 08/01/18at 20:06; Start 07/31/18 at 21:00; Stop 08/02/18 at 10:46; Status DC Trazodone HCl (Desyrel) 50 mg QHSP PRN PO INSOMNIA; Start 07/25/18 at 19:30; Status Cancel Zolpidem Tartrate (Ambien) 10 mg QHS PRN PO SLEEP Last administered on 07/30/18at 22:43; Start 07/25/18 at 20:00; Stop 07/31/18 at 09:37; Status DC Allergies Coded Allergies: No Known Allergies (Verified , 06/27/10) JACKSON TIJERINA MD August 10, 2018 09:57
[2018-08-10] MEDS: LORazepam 2 MG TAB PO SCH ×2 (11:31→17:21)
[2018-08-10 18:19] VITALS: BP 107/71
[2018-08-10] MEDS: QUEtiapine FUMARATE **XR** 200MG TABLET PO SCH (21:51)
[2018-08-10] MEDS: BENZTROPINE 1 MG TAB PO SCH (21:52)
[2018-08-10] MEDS: DIVALPROEX 250MG *ER* TAB PO SCH (21:52)
[2018-08-10] MEDS: DIVALPROEX 500MG *ER* TAB PO SCH (21:53)
[2018-08-11] MEDS: LORazepam 2 MG TAB PO SCH ×3 (05:51→18:05)
[2018-08-11 06:50] VITALS: BP 113/64
--- NOTE | 2018-08-11 06:50 | MHIPNPDOC ---
[facility] Progress Note Progress Note DATE OF SERVICE: 08/11/18 HISTORY: Bipolar disorder with reported eight-month decompensation. The patient has improved somewhat but continued observation is demonstrating outbursts as well as seeking his diazepam medications throughout the night. Decision yesterday was to change his Haldol oral medication to Prolixin to see if any improvement in superior to the use of Haldol and and time his diazepine medications to be given, the latest at 9:00 at night. VITAL SIGNS: See below. NEW TEST RESULTS: None. CURRENT MEDICATIONS: See below. MENTAL STATUS EXAMINATION: Patient is a 57-year old male, who is suffering from a decompensation in his bipolar illness which has made his residential placement required that he be hospitalized. Speech: Is garbled Language skills are unremarkable. Thought processes including: Characterized by rapid speech and frequent hostile outbursts. Thought content: . Abstract reasoning, and computation:, Not easily able to abstract. Description of associations:. No loose association. Description of abnormal or psychotic thoughts: Thinking is somewhat abnormal, resulting in outbursts and garbled speech. Judgment:, Poor. Insight: Poor. Orientation: Intact 3. Recent and remote memory: Essentially intact but hard to measure. Attention span and concentration: Poor. Language: As above. Fund of knowledge:. Intact. Mood: Irritable. Affect:, Congruent. DIAGNOSES: 1. Bipolar 1. ASSESSMENT: As above MANAGEMENT PLAN:, Trial of oral Prolixin rather than Haldol and changing of times of diazepam medications. TIME SPENT: 30 minutes. Vital Signs Vital Signs Date Time Temp Pulse Resp B/P (MAP) Pulse Ox O2 Delivery O2 Flow Rate FiO2 08/10/18 21:52 70 114/68 08/10/18 18:19 98.3 15 Laboratory Data 24H Labs Laboratory Tests 2 08/10/18 08:49: Valproic Acid (Depakene) Level 100.9H Current Medications Current Medications Acetaminophen (Tylenol Tab) 650 mg Q4HP PRN PO PAIN OR FEVER; Start 07/30/18 at 14:45; Stop 07/30/18 at 15:25; Status DC Acetaminophen (Tylenol Tab) 650 mg Q6HP PRN PO HEADACHE or DISCOMFORT; Start 07/25/18 at 19:30; Status Cancel Acetaminophen (Tylenol Tab) 1,000 mg Q8H PRN PO PAIN Last administered on 08/04/18 01:55; Start 07/25/18 at 20:00 Al Hydrox/Mg Hydrox/Simethicone (Mylanta) 30 ml Q4HP PRN PO HEARTBURN/INDIGESTION; Start 07/25/18 at 19:30 Albuterol Sulfate (Proventil, Ventolin Hfa) 2 puff Q4H PRN INH SHORTNESS OF BREATH Last administered on 07/31/18 11:48; Start 07/25/18 at 20:00 Amoxicillin/ Clavulanate Potassium (Augmentin) 875 mg BID PO Last administered on 08/05/18 20:23; Start 07/30/18 at 14:15; Stop 08/05/18 at 21:01; Status DC Asenapine (Saphris) 5 mg BID@0600,1500 SL Last administered on 07/26/18 05:16; Start 07/26/18 at 06:00; Stop 07/26/18 at 10:37; Status DC Bacitracin/ Polymyxin B Sulfate (Polysporin Top Oint) APPLY TO WOUND AREA BID TOP Last administered on 08/06/18 08:27; Start 07/30/18 at 21:00; Stop 08/06/18 at 09:01; Status DC Benztropine Mesylate (Cogentin) 1 mg QHS PO Last administered on 08/10/18 21:52; Start 07/25/18 at 21:00 Diazepam (Valium) 1 mg TID PO Last administered on 08/10/18 08:27; Start 07/31/18 at 21:00; Stop 08/10/18 at 10:05; Status DC Diazepam (Valium) 1 mg TID@0900,1500,2100 PO Last administered on 08/10/18 21:59; Start 08/10/18 at 15:00 Diazepam (Valium) 2 mg TID PO Last administered on 07/26/18 07:55; Start 07/25/18 at 21:00; Stop 07/26/18 at 11:05; Status DC Diazepam (Valium) 2 mg TID@0600,1200,2000 PO Last administered on 07/31/18 11:45; Start 07/26/18 at 12:00; Stop 07/31/18 at 12:18; Status DC Diphenhydramine HCl (Benadryl) 50 mg STAT STAT IM Last administered on 07/29/18 03:57; Start 07/29/18 at 03:39; Stop 07/29/18 at 03:45; Status DC Divalproex Sodium (Depakote Er) 250 mg QHS PO Last administered on 08/10/18 21:52; Start 07/31/18 at 21:00 Divalproex Sodium (Depakote Er) 1,500 mg DAILY@1800 PO Last administered on 07/30/18 17:37; Start 07/25/18 at 18:00; Stop 07/31/18 at 09:37; Status DC Divalproex Sodium (Depakote Er) 1,500 mg QHS PO Last administered on 08/10/18 21:53; Start 07/31/18 at 21:00 Docusate Sodium (Colace) 200 mg BID PO Last administered on 08/10/18 21:51; Start 07/25/18 at 21:00 Enoxaparin Sodium (Lovenox) 40 mg DAILY SC Last administered on 08/10/18 08:29; Start 08/05/18 at 09:00 Fluphenazine HCl (Prolixin) 10 mg TID PO Last administered on 08/10/18 21:52; Start 08/10/18 at 21:00 Furosemide (Lasix) 20 mg BID@0900,1700 PO Last administered on 08/10/18 17:03; Start 07/26/18 at 09:00 Haloperidol (Haldol) 5 mg BID PO ; Start 07/26/18 at 21:00; Status Cancel Haloperidol (Haldol) 5 mg BID PO Last administered on 08/04/18 10:03; Start 08/02/18 at 21:00; Stop 08/04/18 at 13:20; Status DC Haloperidol (Haldol) 7.5 mg BID PO Last administered on 08/06/18 08:25; Start 08/04/18 at 21:00; Stop 08/06/18 at 14:18; Status DC Haloperidol (Haldol) 10 mg BID PO Last administered on 08/09/18 08:32; Start 08/06/18 at 21:00; Stop 08/09/18 at 13:09; Status DC Haloperidol (Haldol) 10 mg TID PO Last administered on 08/10/18at 16:12; Start 08/09/18 at 16:00; Stop 08/10/18 at 18:06; Status DC Heparin Sodium (Porcine) (Heparin) 5,000 units Q12H SQ Last administered on 08/04/18at 10:01; Start 08/01/18 at 21:00; Stop 08/04/18 at 10:37; Status DC Home Med (Med Rec Complete!) ASDIRECTED XX ; Start 07/25/18 at 19:15; Stop 07/25/18 at 19:15; Status DC Lorazepam (Ativan) 2 mg Q6HP PRN PO ANXIETY/AGITATION Last administered on 08/10/18at 03:59; Start 07/26/18 at 10:45; Stop 08/10/18 at 06:55; Status DC Lorazepam (Ativan) 2 mg STAT STAT IM Last administered on 07/29/18at 03:56; Start 07/29/18 at 03:39; Stop 07/29/18 at 03:45; Status DC Lorazepam (Ativan) 2 mg TID PO ; Start 08/10/18 at 09:00; Stop 08/10/18 at 10:05; Status DC Lorazepam (Ativan) 2 mg TID@0600,1200,1800 PO Last administered on 08/11/18at 05:51; Start 08/10/18 at 12:00 Magnesium Hydroxide (Milk Of Magnesia) 30 ml DAILYPRN PRN PO CONSTIPATION Last administered on 08/09/18at 13:05; Start 07/25/18 at 19:30 Meloxicam (Mobic) 15 mg DAILY PO Last administered on 08/10/18at 08:28; Start 07/26/18 at 09:00 Metoprolol Tartrate (Lopressor) 25 mg BID PO Last administered on 08/10/18at 21:52; Start 07/25/18 at 21:00 Miscellaneous (Unresolved Clarification Entry) SEE LABEL COMMENTS DAILY XX ; Start 08/01/18 at 09:00; Stop 08/02/18 at 07:18; Status DC Miscellaneous (Unresolved Clarification Entry) SEE LABEL COMMENTS DAILY XX ; Start 08/02/18 at 09:00; Stop 08/02/18 at 10:47; Status DC Miscellaneous (Unresolved Clarification Entry) SEE LABEL COMMENTS DAILY XX ; Start 08/07/18 at 09:00; Stop 08/08/18 at 06:57; Status DC Miscellaneous (Unresolved Clarification Entry) SEE LABEL COMMENTS DAILY XX ; Start 08/08/18 at 09:00; Stop 08/08/18 at 11:41; Status DC Nicotine (Nicoderm Cq 21mg) 1 patch DAILY TD ; Start 07/26/18 at 09:00; Stop 07/26/18 at 09:00; Status DC Olanzapine (ZyPREXA ZYDIS) 5 mg BID PO Last administered on 07/28/18at 20:09; Start 07/26/18 at 21:00; Stop 07/29/18 at 10:50; Status DC Olanzapine (ZyPREXA ZYDIS) 5 mg Q6HP PRN PO ANXIETY/AGITATION Last administered on 07/28/18at 00:51; Start 07/26/18 at 10:45; Stop 07/28/18 at 12:00; Status DC Olanzapine (ZyPREXA ZYDIS) 10 mg BID PO Last administered on 07/31/18at 08:26; Start 07/29/18 at 21:00; Stop 07/31/18 at 09:40; Status DC Olanzapine (ZyPREXA ZYDIS) 10 mg BID PO Last administered on 08/02/18at 08:12; Start 07/31/18 at 21:00; Stop 08/02/18 at 10:46; Status DC Olanzapine (ZyPREXA ZYDIS) 10 mg Q4HP PRN PO ANXIETY/AGITATION Last administered on 08/09/18at 22:47; Start 07/28/18 at 12:00 Olanzapine (ZyPREXA ZYDIS) 10 mg TID PO ; Start 07/31/18 at 16:00; Status Cancel Olanzapine (Zyprexa Intramuscular) 10 mg STAT STAT IM Last administered on 07/29/18at 03:56; Start 07/29/18 at 03:39; Stop 07/29/18 at 03:45; Status DC Potassium Chloride (Micro-K Extencaps) 10 meq BID PO Last administered on 08/10/18at 21:53; Start 07/30/18 at 09:00 Potassium Chloride (Micro-K Extencaps) 10 meq BID PO ; Start 07/25/18 at 21:00; Status UNV Quetiapine Fumarate (SEROquel XR) 300 mg QHS PO Last administered on at 20:24; Start 08/03/18 at 21:00; Stop 08/04/18 at 13:20; Status DC Quetiapine Fumarate (SEROquel XR) 400 mg DAILY@1800 PO Last administered on 07/30/18at 17:37; Start 07/25/18 at 18:00; Stop 07/31/18 at 09:37; Status DC Quetiapine Fumarate (SEROquel XR) 400 mg QHS PO Last administered on 08/10/18at 21:51; Start 08/04/18 at 21:00 Quetiapine Fumarate (SEROquel) 600 mg QHS PO Last administered on 08/01/18at 20:06; Start 07/31/18 at 21:00; Stop 08/02/18 at 10:46; Status DC Trazodone HCl (Desyrel) 50 mg QHSP PRN PO INSOMNIA; Start 07/25/18 at 19:30; Status Cancel Zolpidem Tartrate (Ambien) 10 mg QHS PRN PO SLEEP Last administered on 07/30/18at 22:43; Start 07/25/18 at 20:00; Stop 07/31/18 at 09:37; Status DC Allergies Coded Allergies: No Known Allergies (Verified , 06/27/10) JACKSON TIJERINA MD August 11, 2018 06:50
[2018-08-11] MEDS: diazePAM 2 MG TAB PO SCH ×3 (08:47→20:09)
[2018-08-11] MEDS: PILL CUTTER 1 EACH XX PRN (08:48)
[2018-08-11] MEDS: MELOXICAM (MOBIC) 7.5 MG TAB PO SCH (08:48)
[2018-08-11] MEDS: DOCUSATE SODIUM 100 MG CAP PO SCH ×2 (08:48→20:11)
[2018-08-11] MEDS: POTASSIUM CHLORIDE 10 MEQ SR TABLET PO SCH ×2 (08:48→20:11)
[2018-08-11] MEDS: METOPROLOL TART 25 MG TABLET PO SCH ×2 (08:49→20:13)
[2018-08-11] MEDS: FUROSEMIDE 20 MG TAB PO SCH ×2 (08:49→16:50)
[2018-08-11] MEDS: ENOXAPARIN 40 MG/0.4 ML SYRINGE (J1650) SC SCH (08:50)
[2018-08-11 19:30] VITALS: BP 118/60
[2018-08-11] MEDS: DIVALPROEX 250MG *ER* TAB PO SCH (20:10)
[2018-08-11] MEDS: QUEtiapine FUMARATE **XR** 200MG TABLET PO SCH (20:10)
[2018-08-11] MEDS: DIVALPROEX 500MG *ER* TAB PO SCH (20:11)
[2018-08-11] MEDS: BENZTROPINE 1 MG TAB PO SCH (20:11)
[2018-08-11] MEDS: OLANZapine ORAL DISINTEGRATING TAB 5MG PO PRN (22:51)
[2018-08-12] MEDS: LORazepam 2 MG TAB PO SCH ×3 (05:54→18:23)
[2018-08-12 06:29] VITALS: BP 107/63
--- NOTE | 2018-08-12 08:45 | MHIPNPDOC ---
[facility] Progress Note Progress Note DATE OF SERVICE: 08/12/18 HISTORY: 57-year-old male with history of episodic outbursts at transitional living, which in the past of resolved on their own, but have not resolved in the last 8 months. Motivating the admission, his improvement on Haldol was minimal and changed to Prolixin. His last Depakote level was elevated and his Depakote dose was reduced today. VITAL SIGNS: See below. NEW TEST RESULTS:. Depakote level elevated. CURRENT MEDICATIONS: See below. MENTAL STATUS EXAMINATION: Patient is a 57-year old male, who is being treated for what has presented as bipolar disorder. Haldol treatment, as well as Depakote seemed ineffective. He was changed to Prolixin, and his Depakote level was elevated and dosage reduced. Speech: Is rapid stuttered. Language skills are intact. Thought processes including:. Explosive and persecuted. Thought content: As above. Abstract reasoning, and computation:. Poor abstract. Description of associations: No loose associations. Description of abnormal or psychotic thoughts:. Thoughts do appear to be abnorm al. Explosive and loud. Judgment:. Poor. Insight: Poor. Orientation: Intact 3. Recent and remote memory:. Not able to measure. Attention span and concentration: Poor. Language:. No obvious abnormality. Fund of knowledge:. Unable to measure. Mood: Irritable. Affect:, Congruent. DIAGNOSES: 1. Bipolar disorder with psychotic features. . ASSESSMENT: Minimal improvement in symptoms MANAGEMENT PLAN: Reduce Depakote dosage, which was elevated. Change to Prolixin antipsychotic medication. Times changed on benzodiazepine medication and dosages of that medication may need to be reevaluated as patient seems psychologically dependent TIME SPENT: 30 minutes. Vital Signs Vital Signs Date Time Temp Pulse Resp B/P (MAP) Pulse Ox O2 Delivery O2 Flow Rate FiO2 08/12/18 06:29 97.3 58 20 107/63 (78) Current Medications Current Medications Acetaminophen (Tylenol Tab) 650 mg Q4HP PRN PO PAIN OR FEVER; Start 07/30/18 at 14:45; Stop 07/30/18 at 15:25; Status DC Acetaminophen (Tylenol Tab) 650 mg Q6HP PRN PO HEADACHE or DISCOMFORT; Start 07/25/18 at 19:30; Status Cancel Acetaminophen (Tylenol Tab) 1,000 mg Q8H PRN PO PAIN Last administered on 08/04/18 01:55; Start 07/25/18 at 20:00 Al Hydrox/Mg Hydrox/Simethicone (Mylanta) 30 ml Q4HP PRN PO HEARTBURN/INDIGESTION; Start 07/25/18 at 19:30 Albuterol Sulfate (Proventil, Ventolin Hfa) 2 puff Q4H PRN INH SHORTNESS OF BREATH Last administered on 07/31/18at 11:48; Start 07/25/18 at 20:00 Amoxicillin/ Clavulanate Potassium (Augmentin) 875 mg BID PO Last administered on 08/05/18 20:23; Start 07/30/18 at 14:15; Stop 08/05/18 at 21:01; Status DC Asenapine (Saphris) 5 mg BID@0600,1500 SL Last administered on 07/26/18 05:16; Start 07/26/18 at 06:00; Stop 07/26/18 at 10:37; Status DC Bacitracin/ Polymyxin B Sulfate (Polysporin Top Oint) APPLY TO WOUND AREA BID TOP Last administered on 08/06/18 08:27; Start 07/30/18 at 21:00; Stop 08/06/18 at 09:01; Status DC Benztropine Mesylate (Cogentin) 1 mg QHS PO Last administered on 08/11/18at 20:11; Start 07/25/18 at 21:00 Diazepam (Valium) 1 mg TID PO Last administered on 08/10/18 08:27; Start at 21:00; Stop 08/10/18 at 10:05; Status DC Diazepam (Valium) 1 mg TID@0900,1500,2100 PO Last administered on 08/11/18 20:09; Start 08/10/18 at 15:00 Diazepam (Valium) 2 mg TID PO Last administered on 07/26/18 07:55; Start 07/25/18 at 21:00; Stop 07/26/18 at 11:05; Status DC Diazepam (Valium) 2 mg TID@0600,1200,2000 PO Last administered on 07/31/18 11:45; Start 07/26/18 at 12:00; Stop 07/31/18 at 12:18; Status DC Diphenhydramine HCl (Benadryl) 50 mg STAT STAT IM Last administered on 07/29/18 at 03:57; Start 07/29/18 at 03:39; Stop 07/29/18 at 03:45; Status DC Divalproex Sodium (Depakote Er) 250 mg QHS PO Last administered on 08/11/18at 20:10; Start 07/31/18 at 21:00; Stop 08/12/18 at 08:38; Status DC Divalproex Sodium (Depakote Er) 1,500 mg DAILY@1800 PO Last administered on 07/30/18at 17:37; Start 07/25/18 at 18:00; Stop 07/31/18 at 09:37; Status DC Divalproex Sodium (Depakote Er) 1,500 mg QHS PO Last administered on 08/11/18at 20:11; Start 07/31/18 at 21:00 Docusate Sodium (Colace) 200 mg BID PO Last administered on 08/11/18at 20:11; Start 07/25/18 at 21:00 Enoxaparin Sodium (Lovenox) 40 mg DAILY SC Last administered on 08/11/18at 08:50; Start 08/05/18 at 09:00 Fluphenazine HCl (Prolixin) 10 mg QID PO ; Start 08/12/18 at 09:00; Status UNV Fluphenazine HCl (Prolixin) 10 mg TID PO Last administered on 08/11/18at 20:11; Start 08/10/18 at 21:00; Stop 08/12/18 at 08:37; Status DC Furosemide (Lasix) 20 mg BID@0900,1700 PO Last administered on 08/11/18at 16:50; Start 07/26/18 at 09:00 Haloperidol (Haldol) 5 mg BID PO ; Start 07/26/18 at 21:00; Status Cancel Haloperidol (Haldol) 5 mg BID PO Last administered on 08/04/18at 10:03; Start 08/02/18 at 21:00; Stop 08/04/18 at 13:20; Status DC Haloperidol (Haldol) 7.5 mg BID PO Last administered on 08/06/18at 08:25; Start 08/04/18 at 21:00; Stop 08/06/18 at 14:18; Status DC Haloperidol (Haldol) 10 mg BID PO Last administered on 08/09/18at 08:32; Start 08/06/18 at 21:00; Stop 08/09/18 at 13:09; Status DC Haloperidol (Haldol) 10 mg TID PO Last administered on 08/10/18 16:12; Start 08/09/18 at 16:00; Stop 08/10/18 at 18:06; Status DC Heparin Sodium (Porcine) (Heparin) 5,000 units Q12H SQ Last administered on 08/04/18at 10:01; Start 08/01/18 at 21:00; Stop 08/04/18 at 10:37; Status DC Home Med (Med Rec Complete!) ASDIRECTED XX ; Start 07/25/18 at 19:15; Stop 07/25/18 at 19:15; Status DC Lorazepam (Ativan) 2 mg Q6HP PRN PO ANXIETY/AGITATION Last administered on 08/10/18at 03:59; Start 07/26/18 at 10:45; Stop 08/10/18 at 06:55; Status DC Lorazepam (Ativan) 2 mg STAT STAT IM Last administered on 07/29/18at 03:56; Start 07/29/18 at 03:39; Stop 07/29/18 at 03:45; Status DC Lorazepam (Ativan) 2 mg TID PO ; Start 08/10/18 at 09:00; Stop 08/10/18 at 10:05; Status DC Lorazepam (Ativan) 2 mg TID@0600,1200,1800 PO Last administered on 08/12/18at 05:54; Start 08/10/18 at 12:00 Magnesium Hydroxide (Milk Of Magnesia) 30 ml DAILYPRN PRN PO CONSTIPATION Last administered on 08/09/18 13:05; Start 07/25/18 at 19:30 Meloxicam (Mobic) 15 mg DAILY PO Last administered on 08/11/18at 08:48; Start 07/26/18 at 09:00 Metoprolol Tartrate (Lopressor) 25 mg BID PO Last administered on 08/11/18at 20:13; Start 07/25/18 at 21:00 Miscellaneous (Unresolved Clarification Entry) SEE LABEL COMMENTS DAILY XX ; Start 08/01/18 at 09:00; Stop 08/02/18 at 07:18; Status DC Miscellaneous (Unresolved Clarification Entry) SEE LABEL COMMENTS DAILY XX ; Start 08/02/18 at 09:00; Stop 08/02/18 at 10:47; Status DC Miscellaneous (Unresolved Clarification Entry) SEE LABEL COMMENTS DAILY XX ; Start 08/07/18 at 09:00; Stop 08/08/18 at 06:57; Status DC Miscellaneous (Unresolved Clarification Entry) SEE LABEL COMMENTS DAILY XX ; Start 08/08/18 at 09:00; Stop 08/08/18 at 11:41; Status DC Miscellaneous (Unresolved Clarification Entry) SEE LABEL COMMENTS DAILY XX ; Start 08/11/18 at 09:00; Stop 08/11/18 at 11:58; Status DC Nicotine (Nicoderm Cq 21mg) 1 patch DAILY TD ; Start 07/26/18 at 09:00; Stop 07/26/18 at 09:00; Status DC Olanzapine (ZyPREXA ZYDIS) 5 mg BID PO Last administered on 07/28/18at 20:09; Start 07/26/18 at 21:00; Stop 07/29/18 at 10:50; Status DC Olanzapine (ZyPREXA ZYDIS) 5 mg Q6HP PRN PO ANXIETY/AGITATION Last administered on 07/28/18at 00:51; Start 07/26/18 at 10:45; Stop 07/28/18 at 12:00; Status DC Olanzapine (ZyPREXA ZYDIS) 10 mg BID PO Last administered on 07/31/18at 08:26; Start 07/29/18 at 21:00; Stop 07/31/18 at 09:40; Status DC Olanzapine (ZyPREXA ZYDIS) 10 mg BID PO Last administered on 08/02/18at 08:12; Start 07/31/18 at 21:00; Stop 08/02/18 at 10:46; Status DC Olanzapine (ZyPREXA ZYDIS) 10 mg Q4HP PRN PO ANXIETY/AGITATION Last administered on 08/11/18at 22:51; Start 07/28/18 at 12:00 Olanzapine (ZyPREXA ZYDIS) 10 mg TID PO ; Start 07/31/18 at 16:00; Status Cancel Olanzapine (Zyprexa Intramuscular) 10 mg STAT STAT IM Last administered on 07/29/18 03:56; Start 07/29/18 at 03:39; Stop 07/29/18 at 03:45; Status DC Potassium Chloride (Micro-K Extencaps) 10 meq BID PO Last administered on 08/11/18at 20:11; Start 07/30/18 at 09:00 Potassium Chloride (Micro-K Extencaps) 10 meq BID PO ; Start 07/25/18 at 21:00; Status UNV Quetiapine Fumarate (SEROquel XR) 300 mg QHS PO Last administered on 08/03/18at 20:24; Start 08/03/18 at 21:00; Stop 08/04/18 at 13:20; Status DC Quetiapine Fumarate (SEROquel XR) 400 mg DAILY@1800 PO Last administered on 07/30/18at 17:37; Start 07/25/18 at 18:00; Stop 07/31/18 at 09:37; Status DC Quetiapine Fumarate (SEROquel XR) 400 mg QHS PO Last administered on 08/11/18at 20:10; Start 08/04/18 at 21:00 Quetiapine Fumarate (SEROquel) 600 mg QHS PO Last administered on 08/01/18at 20:06; Start 07/31/18 at 21:00; Stop 08/02/18 at 10:46; Status DC Trazodone HCl (Desyrel) 50 mg QHSP PRN PO INSOMNIA; Start 07/25/18 at 19:30; Status Cancel Zolpidem Tartrate (Ambien) 10 mg QHS PRN PO SLEEP Last administered on 07/30/18at 22:43; Start 07/25/18 at 20:00; Stop 07/31/18 at 09:37; Status DC Allergies Coded Allergies: No Known Allergies (Verified , 06/27/10) JACKSON TIJERINA MD August 12, 2018 08:45
[2018-08-12] MEDS: diazePAM 2 MG TAB PO SCH ×3 (08:52→20:37)
[2018-08-12] MEDS: MELOXICAM (MOBIC) 7.5 MG TAB PO SCH (08:53)
[2018-08-12] MEDS: FUROSEMIDE 20 MG TAB PO SCH ×2 (08:53→16:10)
[2018-08-12] MEDS: DOCUSATE SODIUM 100 MG CAP PO SCH ×2 (08:53→20:35)
[2018-08-12] MEDS: METOPROLOL TART 25 MG TABLET PO SCH ×2 (08:53→20:35)
[2018-08-12] MEDS: POTASSIUM CHLORIDE 10 MEQ SR TABLET PO SCH ×2 (08:53→20:33)
[2018-08-12] MEDS: ENOXAPARIN 40 MG/0.4 ML SYRINGE (J1650) SC SCH (08:54)
--- NOTE | 2018-08-12 12:02 | IPNPDOC ---
Subjective Date Seen The patient was seen on 08/12/18. Subjective Chief Complaint/HPI Patient is a 57 -year-old male, with a history of schizoaffective d/o and residing at [facility] several years admitted due to pt threatening staff and other residents, decompensating, manic, paranoid people talk about him, talking to self, AH (stated in ED "they're not too bad"), and agitation." Events since last encounter -currently sedated and speech unclear. recycling attendant at bedside Objective Physical Examination General Exam: Positive: Alert, Cooperative, No Acute Distress, Other Eye Exam: Positive: PERRLA, EOMI, Other Eye Symptoms (right eyebrow laceration almost completely healed); Negative: Conjunctiva & lids normal, Sclera icteric, Ptosis ENT Exam: Negative: Atraumatic Neck Exam: Positive: Supple Chest Exam: Positive: Clear to auscultation, Normal air movement; Negative: Rales, Rhonchi, Wheezing Heart Exam: Positive: Rate Normal, Regular Rhythm, Normal S1, Normal S2, Other (BLE 1+ edema, non pitting); Negative: Murmurs Telemetry: Positive: No significant arrhythmia, Sinus Abdomen Exam: Positive: Normal bowel sounds, Soft Extremity Exam: Positive: Edema (mild edema in b/l lower extremities), Normal pulses Skin Exam: Positive: Nl turgor and temperature (except for right sided eye brow region with suture and well healing wound) Neuro Exam: Negative: Normal Speech (slurred and rapid speech) Psych Exam: Positive: Other (improving insight and judgement); Negative: Mental status NL Assessment /Plan Problems (1) Laceration of eyebrow, complex Status: Acute Response to Treatment: Improving, Controlled Problem Text: -S/P complex repair of right upper brow laceration. -completed antibiotic therapy with augmentin (2) Hypertension Status: Chronic Response to Treatment: Stable, Controlled Problem Text: -controlled on current regimen -Cont Lasix and Lopressor (3) Bilateral lower extremity edema Response to Treatment: Improving Problem Text: -possibly due to sideeffects of atypical antipsychotics Seroquel and Olanzapine -no pain or discomfort reported -continue TEDs while ambulatory (4) Schizoaffective disorder, bipolar type Status: Chronic Response to Treatment: Improving Problem Text: -management by psych team. (5) DVT prophylaxis Problem Text: -continue lovenox 40 daily with TEDs Plan/VTE VTE Prophylaxis Ordered?: Yes (TEDS and lovenox) VS, I&O, 24H, Fishbone Vital Signs/I&O Vital Signs Date Time Temp Pulse Resp B/P (MAP) Pulse Ox O2 Delivery O2 Flow Rate FiO2 08/12/18 08:53 58 107/63 08/12/18 06:29 97.3 20 NORMA KENNEDY August 12, 2018 12:02
[2018-08-12 19:10] VITALS: BP 107/61
[2018-08-12] MEDS: BENZTROPINE 1 MG TAB PO SCH (20:33)
[2018-08-12] MEDS: QUEtiapine FUMARATE **XR** 200MG TABLET PO SCH (20:35)
[2018-08-12] MEDS: DIVALPROEX 500MG *ER* TAB PO SCH (20:36)
[2018-08-12] MEDS: ACETAMINOPHEN 500 MG TAB PO PRN (20:36)
[2018-08-12] MEDS ORDERED: LORazepam 2 MG TAB PO ONE (21:45)
[2018-08-13] MEDS: LORazepam 2 MG TAB PO SCH ×3 (06:07→17:44)
[2018-08-13 06:57] VITALS: BP 110/63
[2018-08-13] MEDS: METOPROLOL TART 25 MG TABLET PO SCH ×2 (09:00→20:38)
[2018-08-13] MEDS: diazePAM 2 MG TAB PO SCH ×3 (09:24→20:38)
[2018-08-13] MEDS: DOCUSATE SODIUM 100 MG CAP PO SCH ×2 (09:24→20:38)
[2018-08-13] MEDS: POTASSIUM CHLORIDE 10 MEQ SR TABLET PO SCH ×2 (09:24→20:39)
[2018-08-13] MEDS: MELOXICAM (MOBIC) 7.5 MG TAB PO SCH (09:24)
[2018-08-13] MEDS: FUROSEMIDE 20 MG TAB PO SCH ×2 (09:24→16:42)
[2018-08-13] MEDS: ENOXAPARIN 40 MG/0.4 ML SYRINGE (J1650) SC SCH (09:32)
--- NOTE | 2018-08-13 12:33 | MHIPNPDOC ---
[facility] Progress Note Progress Note DATE OF SERVICE: 08/13/18 HISTORY: Patient is a 57 -year-old , male, with a history of schizoaffective d/o and residing at [facility] several years who was sent with PD under 9.41 from [facility] due to pt threatening staff and other residents, decompensating, manic, paranoid people talk about him, talking to self, AH (stated in ED "they're not too bad"), and agitation. Pt according to TLS scaring the other residents there due to him threatening and cussing at them. Per ED, when pt asked why he was sent to the ED he stated "I was evicted from my house for arguing with 2 other people. Per ED, pt was manic and agitated. Pt is a poor historian due to current nelda/psychosis/agitation so history gathered from previous chart records. VITAL SIGNS: See below. NEW TEST RESULTS:. Depakote level elevated. CURRENT MEDICATIONS: See below. MENTAL STATUS EXAMINATION: Patient is a 57-year old male, who is being treated for what has presented as bipolar disorder. Haldol treatment, as well as Depakote seemed ineffective. He was changed to Prolixin, and his Depakote level was elevated and dosage reduced. Speech: Is rapid stuttered. Language skills are intact. Thought processes including:. Explosive and persecuted. Thought content: slightly more logical at times. Abstract reasoning, and computation:. Poor abstract. Description of associations: No loose associations. Description of abnormal or psychotic thoughts:. Thoughts do appear to be abnormal. Explosive and loud. Judgment:. Poor. Insight: Poor. Orientation: Intact 3. Recent and remote memory:. Not able to measure. Attention span and concentration: Poor. Language:. No obvious abnormality. Fund of knowledge:. Unable to measure. Mood: Irritable. Affect:, Congruent. DIAGNOSES: 1. Bipolar disorder with psychotic features. ASSESSMENT: Minimal improvement in symptom as still has episodes of yelling with agitation and spilling coffee in milieu. Still on 1:1 assist for ambulation and safety. Difficult to understand due to rapid mumbling although did state he feels better and likes the way the medication makes him feel. MANAGEMENT PLAN: Medications: Cogentin 1 mg QHS Valium 1 mg TID@0900,1500,2100 Depakote Er 1,500 mg QHS Docusate Sodium (Colace) 200 mg BID PO Last administered on 08/13/18at 09:24; Start 07/25/18 at 21:00 Prolixin 10 mg QID Ativan 2 mg TID@0600,1200,1800 ZyPREXA ZYDIS 10 mg Q4HP PRN PO ANXIETY/AGITATION SEROquel XR 400 mg QHS TIME SPENT: 30 minutes. Vital Signs Vital Signs Date Time Temp Pulse Resp B/P (MAP) Pulse Ox O2 Delivery O2 Flow Rate FiO2 08/13/18 09:00 53 106/61 08/13/18 06:57 97.5 16 Current Medications Current Medications Acetaminophen (Tylenol Tab) 650 mg Q4HP PRN PO PAIN OR FEVER; Start 07/30/18 at 14:45; Stop 07/30/18 at 15:25; Status DC Acetaminophen (Tylenol Tab) 650 mg Q6HP PRN PO HEADACHE or DISCOMFORT; Start 07/25/18 at 19:30; Status Cancel Acetaminophen (Tylenol Tab) 1,000 mg Q8H PRN PO PAIN Last administered on 08/12/18at 20:36; Start 07/25/18 at 20:00 Al Hydrox/Mg Hydrox/Simethicone (Mylanta) 30 ml Q4HP PRN PO HEARTBURN/INDIGESTION; Start 07/25/18 at 19:30 Albuterol Sulfate (Proventil, Ventolin Hfa) 2 puff Q4H PRN INH SHORTNESS OF BREATH Last administered on 07/31/18at 11:48; Start 07/25/18 at 20:00 Amoxicillin/ Clavulanate Potassium (Augmentin) 875 mg BID PO Last administered on 08/05/18at 20:23; Start 07/30/18 at 14:15; Stop 08/05/18 at 21:01; Status DC Asenapine (Saphris) 5 mg BID@0600,1500 SL Last administered on 07/26/18at 05:16; Start 07/26/18 at 06:00; Stop 07/26/18 at 10:37; Status DC Bacitracin/ Polymyxin B Sulfate (Polysporin Top Oint) APPLY TO WOUND AREA BID TOP Last administered on 08/06/18at 08:27; Start 07/30/18 at 21:00; Stop 08/06/18 at 09:01; Status DC Benztropine Mesylate (Cogentin) 1 mg QHS PO Last administered on 08/12/18 20:33; Start 07/25/18 at 21:00 Diazepam (Valium) 1 mg TID PO Last administered on 08/10/18 08:27; Start 07/31/18 at 21:00; Stop 08/10/18 at 10:05; Status DC Diazepam (Valium) 1 mg TID@0900,1500,2100 PO Last administered on 08/13/18 09:24; Start 08/10/18 at 15:00 Diazepam (Valium) 2 mg TID PO Last administered on 07/26/18 07:55; Start 07/25/18 at 21:00; Stop 07/26/18 at 11:05; Status DC Diazepam (Valium) 2 mg TID@0600,1200,2000 PO Last administered on 07/31/18 11:45; Start 07/26/18 at 12:00; Stop 07/31/18 at 12:18; Status DC Diphenhydramine HCl (Benadryl) 50 mg STAT STAT IM Last administered on 07/29/18 03:57; Start 07/29/18 at 03:39; Stop 07/29/18 at 03:45; Status DC Divalproex Sodium (Depakote Er) 250 mg QHS PO Last administered on 08/11/18 20:10; Start 07/31/18 at 21:00; Stop 08/12/18 at 08:38; Status DC Divalproex Sodium (Depakote Er) 1,500 mg DAILY@1800 PO Last administered on 07/30/18 17:37; Start 07/25/18 at 18:00; Stop 07/31/18 at 09:37; Status DC Divalproex Sodium (Depakote Er) 1,500 mg QHS PO Last administered on 08/12/18 20:36; Start 07/31/18 at 21:00 Docusate Sodium (Colace) 200 mg BID PO Last administered on 08/13/18 09:24; Start 07/25/18 at 21:00 Enoxaparin Sodium (Lovenox) 40 mg DAILY SC Last administered on 08/13/18 09:32; Start 08/05/18 at 09:00 Fluphenazine HCl (Prolixin) 10 mg QID PO Last administered on 08/13/18 09:24; Start 08/12/18 at 09:00 Fluphenazine HCl (Prolixin) 10 mg TID PO Last administered on 08/11/18 20:11; Start 08/10/18 at 21:00; Stop 08/12/18 at 08:37; Status DC Furosemide (Lasix) 20 mg BID@0900,1700 PO Last administered on 08/13/18 09:24; Start 07/26/18 at 09:00 Haloperidol (Haldol) 5 mg BID PO ; Start 07/26/18 at 21:00; Status Cancel Haloperidol (Haldol) 5 mg BID PO Last administered on 08/04/18 10:03; Start 08/02/18 at 21:00; Stop 08/04/18 at 13:20; Status DC Haloperidol (Haldol) 7.5 mg BID PO Last administered on 08/06/18 08:25; Start 08/04/18 at 21:00; Stop 08/06/18 at 14:18; Status DC Haloperidol (Haldol) 10 mg BID PO Last administered on 08/09/18 08:32; Start 08/06/18 at 21:00; Stop 08/09/18 at 13:09; Status DC Haloperidol (Haldol) 10 mg TID PO Last administered on 08/10/18 16:12; Start 08/09/18 at 16:00; Stop 08/10/18 at 18:06; Status DC Heparin Sodium (Porcine) (Heparin) 5,000 units Q12H SQ Last administered on 08/04/18 10:01; Start 08/01/18 at 21:00; Stop 08/04/18 at 10:37; Status DC Home Med (Med Rec Complete!) ASDIRECTED XX ; Start 07/25/18 at 19:15; Stop 07/25/18 at 19:15; Status DC Lorazepam (Ativan) 2 mg Q6HP PRN PO ANXIETY/AGITATION Last administered on 08/10/18 03:59; Start 07/26/18 at 10:45; Stop 08/10/18 at 06:55; Status DC Lorazepam (Ativan) 2 mg STAT STAT IM Last administered on 07/29/18at 03:56; Start 07/29/18 at 03:39; Stop 07/29/18 at 03:45; Status DC Lorazepam (Ativan) 2 mg TID PO ; Start 08/10/18 at 09:00; Stop 08/10/18 at 10:05; Status DC Lorazepam (Ativan) 2 mg TID@0600,1200,1800 PO Last administered on 08/13/18at 11:29; Start 08/10/18 at 12:00 Magnesium Hydroxide (Milk Of Magnesia) 30 ml DAILYPRN PRN PO CONSTIPATION Last administered on 08/09/18at 13:05; Start 07/25/18 at 19:30 Meloxicam (Mobic) 15 mg DAILY PO Last administered on 08/13/18at 09:24; Start 07/26/18 at 09:00 Metoprolol Tartrate (Lopressor) 25 mg BID PO Last administered on 08/12/18at 20:35; Start 07/25/18 at 21:00 Miscellaneous (Unresolved Clarification Entry) SEE LABEL COMMENTS DAILY XX ; Start 08/01/18 at 09:00; Stop 08/02/18 at 07:18; Status DC Miscellaneous (Unresolved Clarification Entry) SEE LABEL COMMENTS DAILY XX ; Start 08/02/18 at 09:00; Stop 08/02/18 at 10:47; Status DC Miscellaneous (Unresolved Clarification Entry) SEE LABEL COMMENTS DAILY XX ; Start 08/07/18 at 09:00; Stop 08/08/18 at 06:57; Status DC Miscellaneous (Unresolved Clarification Entry) SEE LABEL COMMENTS DAILY XX ; Start 08/08/18 at 09:00; Stop 08/08/18 at 11:41; Status DC Miscellaneous (Unresolved Clarification Entry) SEE LABEL COMMENTS DAILY XX ; Start 08/11/18 at 09:00; Stop 08/11/18 at 11:58; Status DC Nicotine (Nicoderm Cq 21mg) 1 patch DAILY TD ; Start 07/26/18 at 09:00; Stop 07/26/18 at 09:00; Status DC Olanzapine (ZyPREXA ZYDIS) 5 mg BID PO Last administered on 07/28/18at 20:09; Start 07/26/18 at 21:00; Stop 07/29/18 at 10:50; Status DC Olanzapine (ZyPREXA ZYDIS) 5 mg Q6HP PRN PO ANXIETY/AGITATION Last administered on 07/28/18at 00:51; Start 07/26/18 at 10:45; Stop 07/28/18 at 12:00; Status DC Olanzapine (ZyPREXA ZYDIS) 10 mg BID PO Last administered on 07/31/18at 08:26; Start 07/29/18 at 21:00; Stop 07/31/18 at 09:40; Status DC Olanzapine (ZyPREXA ZYDIS) 10 mg BID PO Last administered on 08/02/18at 08:12; Start 07/31/18 at 21:00; Stop 08/02/18 at 10:46; Status DC Olanzapine (ZyPREXA ZYDIS) 10 mg Q4HP PRN PO ANXIETY/AGITATION Last administered on 08/11/18at 22:51; Start 07/28/18 at 12:00 Olanzapine (ZyPREXA ZYDIS) 10 mg TID PO ; Start 07/31/18 at 16:00; Status Cancel Olanzapine (Zyprexa Intramuscular) 10 mg STAT STAT IM Last administered on 07/29/18at 03:56; Start 07/29/18 at 03:39; Stop 07/29/18 at 03:45; Status DC Potassium Chloride (Micro-K Extencaps) 10 meq BID PO Last administered on 08/13/18at 09:24; Start 07/30/18 at 09:00 Potassium Chloride (Micro-K Extencaps) 10 meq BID PO ; Start 07/25/18 at 21:00; Status UNV Quetiapine Fumarate (SEROquel XR) 300 mg QHS PO Last administered on 08/03/18at 20:24; Start 08/03/18 at 21:00; Stop 08/04/18 at 13:20; Status DC Quetiapine Fumarate (SEROquel XR) 400 mg DAILY@1800 PO Last administered on 07/30/18at 17:37; Start 07/25/18 at 18:00; Stop 07/31/18 at 09:37; Status DC Quetiapine Fumarate (SEROquel XR) 400 mg QHS PO Last administered on 08/12/18at 20:35; Start 08/04/18 at 21:00 Quetiapine Fumarate (SEROquel) 600 mg QHS PO Last administered on 08/01/18at 20:06; Start 07/31/18 at 21:00; Stop 08/02/18 at 10:46; Status DC Trazodone HCl (Desyrel) 50 mg QHSP PRN PO INSOMNIA; Start 07/25/18 at 19:30; Status Cancel Zolpidem Tartrate (Ambien) 10 mg QHS PRN PO SLEEP Last administered on 07/30/18at 22:43; Start 07/25/18 at 20:00; Stop 07/31/18 at 09:37; Status DC Allergies Coded Allergies: No Known Allergies (Verified , 06/27/10) MARY ANDERSON DO August 13, 2018 12:33 pm
[2018-08-13 18:06] VITALS: BP 109/62
[2018-08-13] MEDS: BENZTROPINE 1 MG TAB PO SCH (20:38)
[2018-08-13] MEDS: DIVALPROEX 500MG *ER* TAB PO SCH (20:38)
[2018-08-13] MEDS: QUEtiapine FUMARATE **XR** 200MG TABLET PO SCH (20:38)
[2018-08-13] MEDS: OLANZapine ORAL DISINTEGRATING TAB 5MG PO PRN (22:08)
[2018-08-14] MEDS: LORazepam 2 MG TAB PO SCH (05:40)
[2018-08-14 06:34] VITALS: BP 116/75
[2018-08-14] MEDS: diazePAM 2 MG TAB PO SCH ×3 (08:23→20:55)
[2018-08-14] MEDS: MELOXICAM (MOBIC) 7.5 MG TAB PO SCH (08:23)
[2018-08-14] MEDS: FUROSEMIDE 20 MG TAB PO SCH ×2 (08:25→16:12)
[2018-08-14] MEDS: DOCUSATE SODIUM 100 MG CAP PO SCH ×2 (08:26→20:53)
[2018-08-14] MEDS: POTASSIUM CHLORIDE 10 MEQ SR TABLET PO SCH ×2 (08:26→20:54)
[2018-08-14] MEDS: ENOXAPARIN 40 MG/0.4 ML SYRINGE (J1650) SC SCH (08:26)
[2018-08-14] MEDS: METOPROLOL TART 25 MG TABLET PO SCH ×2 (09:00→20:54)
[2018-08-14] MEDS ORDERED: **PENDING PPD ENTRY XX SCH (09:00)
[2018-08-14] MEDS ORDERED: TUBERCULIN PPD 5 UNITS/0.1 ML ID ONE ×2 (09:30→11:00)
--- NOTE | 2018-08-14 10:40 | MHIPNPDOC ---
[facility] Progress Note Progress Note DATE OF SERVICE: 08/14/18 HISTORY: Patient is a 57 -year-old , male, with a history of schizoaffective d/o and residing at [facility] several years who was sent with PD under 9.41 from [facility] due to pt threatening staff and other residents, decompensating, manic, paranoid people talk about him, talking to self, AH (stated in ED "they're not too bad"), and agitation. Pt according to TLS scaring the other residents there due to him threatening and cussing at them. Per ED, when pt asked why he was sent to the ED he stated "I was evicted from my house for arguing with 2 other people. Per ED, pt was manic and agitated. Pt is a poor historian due to current nelda/psychosis/agitation so history gathered from previous chart records. VITAL SIGNS: See below. NEW TEST RESULTS:. Depakote level elevated. CURRENT MEDICATIONS: See below. MENTAL STATUS EXAMINATION: Unable to assess as pt sleeping. Per yesterday's MSE: "Patient is a 57-year old male, who is being treated for what has presented as bipolar disorder. Haldol treatment, as well as Depakote seemed ineffective. He was changed to Prolixin, and his Depakote level was elevated and dosage reduced. Speech: Is rapid stuttered. Language skills are intact. Thought processes including:. Explosive and persecuted. Thought content: slightly more logical at times. Abstract reasoning, and computation:. Poor abstract. Description of associations: No loose associations. Description of abnormal or psychotic thoughts:. Thoughts do appear to be abnormal. Explosive and loud. Judgment:. Poor. Insight: Poor. Orientation: Intact 3. Recent and remote memory:. Not able to measure. Attention span and concentration: Poor. Language:. No obvious abnormality. Fund of knowledge:. Unable to measure. Mood: Irritable. Affect: Congruent." DIAGNOSES: 1. Bipolar disorder with psychotic features. ASSESSMENT: Unable to assess as pt sleeping. Per yesterday's note "Minimal improvement in symptom as still has episodes of yelling with agitation and spilling coffee in milieu. Still on 1:1 assist for ambulation and safety. Difficult to understand due to rapid mumbling although did state he feels better and likes the way the medication makes him feel." MANAGEMENT PLAN: titrate off valium and ativan by decreasing to valium to 0.5mg tid and ativan to 1.5mg tid today as making pt agitated and confused with unsteady gait after taking Medications: Cogentin 1 mg QHS Valium 0.5 mg TID@0900,1500,2100 Depakote Er 1,500 mg QHS Docusate Sodium (Colace) 200 mg BID PO Last administered on 08/13/18at 09:24; Start 07/25/18 at 21:00 Prolixin 10 mg QID Ativan 1.5 mg TID@0600,1200,1800 ZyPREXA ZYDIS 10 mg Q4HP PRN PO ANXIETY/AGITATION SEROquel XR 400 mg QHS TIME SPENT: 30 minutes. Vital Signs Vital Signs Date Time Temp Pulse Resp B/P (MAP) Pulse Ox O2 Delivery O2 Flow Rate FiO2 08/14/18 09:00 69 94/54 08/14/18 06:34 97.0 18 Laboratory Data 24H Labs Laboratory Tests 2 08/14/18 08:31: Valproic Acid (Depakene) Level 94.9 Current Medications Current Medications Acetaminophen (Tylenol Tab) 650 mg Q4HP PRN PO PAIN OR FEVER; Start 07/30/18 at 14:45; Stop 07/30/18 at 15:25; Status DC Acetaminophen (Tylenol Tab) 650 mg Q6HP PRN PO HEADACHE or DISCOMFORT; Start 07/25/18 at 19:30; Status Cancel Acetaminophen (Tylenol Tab) 1,000 mg Q8H PRN PO PAIN Last administered on 08/12/18at 20:36; Start 07/25/18 at 20:00 Al Hydrox/Mg Hydrox/Simethicone (Mylanta) 30 ml Q4HP PRN PO HEARTBURN/INDIGESTION; Start 07/25/18 at 19:30 Albuterol Sulfate (Proventil, Ventolin Hfa) 2 puff Q4H PRN INH SHORTNESS OF B REATH Last administered on 07/31/18at 11:48; Start 07/25/18 at 20:00 Amoxicillin/ Clavulanate Potassium (Augmentin) 875 mg BID PO Last administered on 08/05/18at 20:23; Start 07/30/18 at 14:15; Stop 08/05/18 at 21:01; Status DC Asenapine (Saphris) 5 mg BID@0600,1500 SL Last administered on 07/26/18at 05:16; Start 07/26/18 at 06:00; Stop 07/26/18 at 10:37; Status DC Bacitracin/ Polymyxin B Sulfate (Polysporin Top Oint) APPLY TO WOUND AREA BID TOP Last administered on 08/06/18 08:27; Start 07/30/18 at 21:00; Stop 08/06/18 at 09:01; Status DC Benztropine Mesylate (Cogentin) 1 mg QHS PO Last administered on 08/13/18 20:38; Start 07/25/18 at 21:00 Diazepam (Valium) 1 mg TID PO Last administered on 08/10/18 08:27; Start 07/31/18 at 21:00; Stop 08/10/18 at 10:05; Status DC Diazepam (Valium) 1 mg TID@0900,1500,2100 PO Last administered on 08/14/18at 08:23; Start 08/10/18 at 15:00 Diazepam (Valium) 2 mg TID PO Last administered on 07/26/18at 07:55; Start 07/25/18 at 21:00; Stop 07/26/18 at 11:05; Status DC Diazepam (Valium) 2 mg TID@0600,1200,2000 PO Last administered on 07/31/18at 11:45; Start 07/26/18 at 12:00; Stop 07/31/18 at 12:18; Status DC Diphenhydramine HCl (Benadryl) 50 mg STAT STAT IM Last administered on 07/29/18at 03:57; Start 07/29/18 at 03:39; Stop 07/29/18 at 03:45; Status DC Divalproex Sodium (Depakote Er) 250 mg QHS PO Last administered on 08/11/18at 20:10; Start 07/31/18 at 21:00; Stop 08/12/18 at 08:38; Status DC Divalproex Sodium (Depakote Er) 1,500 mg DAILY@1800 PO Last administered on 07/30/18at 17:37; Start 07/25/18 at 18:00; Stop 07/31/18 at 09:37; Status DC Divalproex Sodium (Depakote Er) 1,500 mg QHS PO Last administered on 08/13/18 20:38; Start 07/31/18 at 21:00 Docusate Sodium (Colace) 200 mg BID PO Last administered on 08/14/18 08:26; Start 07/25/18 at 21:00 Enoxaparin Sodium (Lovenox) 40 mg DAILY SC Last administered on 08/14/18 08:26; Start 08/05/18 at 09:00 Fluphenazine HCl (Prolixin) 10 mg QID PO Last administered on 08/14/18 08:23; Start 08/12/18 at 09:00 Fluphenazine HCl (Prolixin) 10 mg TID PO Last administered on 08/11/18 20:11; Start 08/10/18 at 21:00; Stop 08/12/18 at 08:37; Status DC Furosemide (Lasix) 20 mg BID@0900,1700 PO Last administered on 08/14/18 08:25; Start 07/26/18 at 09:00 Haloperidol (Haldol) 5 mg BID PO ; Start 07/26/18 at 21:00; Status Cancel Haloperidol (Haldol) 5 mg BID PO Last administered on 08/04/18 10:03; Start 08/02/18 at 21:00; Stop 08/04/18 at 13:20; Status DC Haloperidol (Haldol) 7.5 mg BID PO Last administered on 08/06/18 08:25; Start 08/04/18 at 21:00; Stop 08/06/18 at 14:18; Status DC Haloperidol (Haldol) 10 mg BID PO Last administered on 08/09/18 08:32; Start 08/06/18 at 21:00; Stop 08/09/18 at 13:09; Status DC Haloperidol (Haldol) 10 mg TID PO Last administered on 08/10/18 16:12; Start 08/09/18 at 16:00; Stop 08/10/18 at 18:06; Status DC Heparin Sodium (Porcine) (Heparin) 5,000 units Q12H SQ Last administered on 08/04/18 10:01; Start 08/01/18 at 21:00; Stop 08/04/18 at 10:37; Status DC Home Med (Med Rec Complete!) ASDIRECTED XX ; Start 07/25/18 at 19:15; Stop 07/25/18 at 19:15; Status DC Lorazepam (Ativan) 2 mg Q6HP PRN PO ANXIETY/AGITATION Last administered on 08/10/18at 03:59; Start 07/26/18 at 10:45; Stop 08/10/18 at 06:55; Status DC Lorazepam (Ativan) 2 mg STAT STAT IM Last administered on 07/29/18at 03:56; Start 07/29/18 at 03:39; Stop 07/29/18 at 03:45; Status DC Lorazepam (Ativan) 2 mg TID PO ; Start 08/10/18 at 09:00; Stop 08/10/18 at 10:05; Status DC Lorazepam (Ativan) 2 mg TID@0600,1200,1800 PO Last administered on 08/14/18at 05:40; Start 08/10/18 at 12:00 Magnesium Hydroxide (Milk Of Magnesia) 30 ml DAILYPRN PRN PO CONSTIPATION Last administered on 08/09/18at 13:05; Start 07/25/18 at 19:30 Meloxicam (Mobic) 15 mg DAILY PO Last administered on 08/14/18at 08:23; Start 07/26/18 at 09:00 Metoprolol Tartrate (Lopressor) 25 mg BID PO Last administered on 08/13/18at 20:38; Start 07/25/18 at 21:00 Miscellaneous (Unresolved Clarification Entry) SEE LABEL COMMENTS DAILY XX ; Start 08/01/18 at 09:00; Stop 08/02/18 at 07:18; Status DC Miscellaneous (Unresolved Clarification Entry) SEE LABEL COMMENTS DAILY XX ; Start 08/02/18 at 09:00; Stop 08/02/18 at 10:47; Status DC Miscellaneous (Unresolved Clarification Entry) SEE LABEL COMMENTS DAILY XX ; Start 08/07/18 at 09:00; Stop 08/08/18 at 06:57; Status DC Miscellaneous (Unresolved Clarification Entry) SEE LABEL COMMENTS DAILY XX ; Start 08/08/18 at 09:00; Stop 08/08/18 at 11:41; Status DC Miscellaneous (Unresolved Clarification Entry) SEE LABEL COMMENTS DAILY XX ; Start 08/11/18 at 09:00; Stop 08/11/18 at 11:58; Status DC Nicotine (Nicoderm Cq 21mg) 1 patch DAILY TD ; Start 07/26/18 at 09:00; Stop 07/26/18 at 09:00; Status DC Non-Formulary Medication ( See Comment Field Below ) SEE COMMENTS SECTION 1T@10 XX ; Start 08/16/18 at 10:00; Stop 08/16/18 at 10:00; Status DC Non-Formulary Medication ( See Comment Field Below ) SEE LABEL COMMENTS DAILY XX ; Start 08/14/18 at 09:00; Stop 08/14/18 at 10:35; Status DC Olanzapine (ZyPREXA ZYDIS) 5 mg BID PO Last administered on 07/28/18at 20:09; Start 07/26/18 at 21:00; Stop 07/29/18 at 10:50; Status DC Olanzapine (ZyPREXA ZYDIS) 5 mg Q6HP PRN PO ANXIETY/AGITATION Last administered on 07/28/18at 00:51; Start 07/26/18 at 10:45; Stop 07/28/18 at 12:00; Status DC Olanzapine (ZyPREXA ZYDIS) 10 mg BID PO Last administered on 07/31/18at 08:26; Start 07/29/18 at 21:00; Stop 07/31/18 at 09:40; Status DC Olanzapine (ZyPREXA ZYDIS) 10 mg BID PO Last administered on 08/02/18at 08:12; Start 07/31/18 at 21:00; Stop 08/02/18 at 10:46; Status DC Olanzapine (ZyPREXA ZYDIS) 10 mg Q4HP PRN PO ANXIETY/AGITATION Last administered on 08/13/18at 22:08; Start 07/28/18 at 12:00 Olanzapine (ZyPREXA ZYDIS) 10 mg TID PO ; Start 07/31/18 at 16:00; Status Cancel Olanzapine (Zyprexa Intramuscular) 10 mg STAT STAT IM Last administered on 07/29/18at 03:56; Start 07/29/18 at 03:39; Stop 07/29/18 at 03:45; Status DC Potassium Chloride (Micro-K Extencaps) 10 meq BID PO Last administered on 08/14/18at 08:26; Start 07/30/18 at 09:00 Potassium Chloride (Micro-K Extencaps) 10 meq BID PO ; Start 07/25/18 at 21:00; Status UNV Quetiapine Fumarate (SEROquel XR) 300 mg QHS PO Last administered on 08/03/18at 20:24; Start 08/03/18 at 21:00; Stop 08/04/18 at 13:20; Status DC Quetiapine Fumarate (SEROquel XR) 400 mg DAILY@1800 PO Last administered on 07/30/18at 17:37; Start 07/25/18 at 18:00; Stop 07/31/18 at 09:37; Status DC Quetiapine Fumarate (SEROquel XR) 400 mg QHS PO Last administered on 08/13/18at 20:38; Start 08/04/18 at 21:00 Quetiapine Fumarate (SEROquel) 600 mg QHS PO Last administered on 08/01/18at 20:06; Start 07/31/18 at 21:00; Stop 08/02/18 at 10:46; Status DC Trazodone HCl (Desyrel) 50 mg QHSP PRN PO INSOMNIA; Start 07/25/18 at 19:30; Status Cancel Zolpidem Tartrate (Ambien) 10 mg QHS PRN PO SLEEP Last administered on 07/30/18at 22:43; Start 07/25/18 at 20:00; Stop 07/31/18 at 09:37; Status DC Allergies Coded Allergies: No Known Allergies (Verified , 06/27/10) MARY ANDERSON DO August 14, 2018 10:40
[2018-08-14] MEDS: LORazepam 1 MG TAB PO SCH ×2 (16:11→20:55)
[2018-08-14 18:05] VITALS: BP 112/74
[2018-08-14] MEDS: DIVALPROEX 500MG *ER* TAB PO SCH (20:53)
[2018-08-14] MEDS: QUEtiapine FUMARATE **XR** 200MG TABLET PO SCH (20:53)
[2018-08-14] MEDS: BENZTROPINE 1 MG TAB PO SCH (20:54)
[2018-08-15] MEDS: OLANZapine ORAL DISINTEGRATING TAB 5MG PO PRN (02:13)
[2018-08-15 06:52] VITALS: BP 132/65
[2018-08-15] MEDS: LORazepam 1 MG TAB PO SCH ×3 (08:55→20:23)
[2018-08-15] MEDS: DOCUSATE SODIUM 100 MG CAP PO SCH ×2 (08:55→20:22)
[2018-08-15] MEDS: POTASSIUM CHLORIDE 10 MEQ SR TABLET PO SCH ×2 (08:56→20:21)
[2018-08-15] MEDS: FUROSEMIDE 20 MG TAB PO SCH ×2 (08:56→16:37)
[2018-08-15] MEDS: diazePAM 2 MG TAB PO SCH ×3 (08:56→20:24)
[2018-08-15] MEDS: MELOXICAM (MOBIC) 7.5 MG TAB PO SCH (08:56)
[2018-08-15] MEDS: METOPROLOL TART 25 MG TABLET PO SCH ×2 (08:57→20:22)
[2018-08-15] MEDS: ENOXAPARIN 40 MG/0.4 ML SYRINGE (J1650) SC SCH (09:00)
--- NOTE | 2018-08-15 11:43 | MHIPNPDOC ---
[facility] Progress Note Progress Note DATE OF SERVICE: 08/15/18 HISTORY: Patient is a 57 -year-old , male, with a history of schizoaffective d/o and residing at [facility] several years who was sent with PD under 9.41 from [facility] due to pt threatening staff and other residents, decompensating, manic, paranoid people talk about him, talking to self, AH (stated in ED "they're not too bad"), and agitation. Pt according to TLS scaring the other residents there due to him threatening and cussing at them. Per ED, when pt asked why he was sent to the ED he stated "I was evicted from my house for arguing with 2 other people. Per ED, pt was manic and agitated. Pt is a poor historian due to current nelda/psychosis/agitation so history gathered from previous chart records. VITAL SIGNS: See below. NEW TEST RESULTS:. Depakote level elevated. CURRENT MEDICATIONS: See below. MENTAL STATUS EXAMINATION: Patient is a 57-year old male, who is being treated for what has presented as bipolar disorder. Haldol treatment, as well as Depakote seemed ineffective. He was changed to Prolixin, and his Depakote level was elevated and dosage reduced. Speech: Is rapid stuttered. Language skills are intact. Thought processes including:. tangential, concrete, and persecuted. Thought content: rambling and at times confused (confused sitter later in day of stealing something from his). Abstract reasoning, and computation:. Poor abstract. Description of associations: loose associations. Description of abnormal or psychotic thoughts:. Thoughts do appear to be abnor mal. Explosive and loud. reactive Judgment:. Poor. Insight: Poor. Orientation: Intact 3. Recent and remote memory:. Not able to measure. Attention span and concentration: Poor. Language:. No obvious abnormality. Fund of knowledge:. Unable to measure. Mood: Irritable. Affect:, Congruent. Reactive DIAGNOSES: 1. Bipolar disorder with psychotic features. ASSESSMENT: Minimal improvement in symptom as still has episodes of yelling with agitation that occurred this am then subsided. Still on 1:1 assist for ambulation and safety. Difficult to understand due to rapid mumbling although did state he feels better and likes the way the medication (prolixin) makes him feel. States he's feeling better overall. Continue titration of of valium and ativan MANAGEMENT PLAN: Medications: Cogentin 1 mg QHS Valium 0.5 mg TID@0900,1500,2100 Depakote Er 1,500 mg QHS Colace 200 mg BID Prolixin 10 mg QID Ativan 1 mg TID@0600,1200,1800 ZyPREXA ZYDIS 10 mg Q4HP PRN PO ANXIETY/AGITATION SEROquel XR 400 mg QHS TIME SPENT: 30 minutes. Vital Signs Vital Signs Date Time Temp Pulse Resp B/P (MAP) Pulse Ox O2 Delivery O2 Flow Rate FiO2 08/14/18 06:34 97.0 56 18 116/75 (89) Laboratory Data 24H Labs Laboratory Tests 2 08/14/18 08:31: Valproic Acid (Depakene) Level 94.9 Current Medications Current Medications Acetaminophen (Tylenol Tab) 650 mg Q4HP PRN PO PAIN OR FEVER; Start 07/30/18 at 14:45; Stop 07/30/18 at 15:25; Status DC Acetaminophen (Tylenol Tab) 650 mg Q6HP PRN PO HEADACHE or DISCOMFORT; Start 07/25/18 at 19:30; Status Cancel Acetaminophen (Tylenol Tab) 1,000 mg Q8H PRN PO PAIN Last administered on 08/12/18at 20:36; Start 07/25/18 at 20:00 Al Hydrox/Mg Hydrox/Simethicone (Mylanta) 30 ml Q4HP PRN PO HEARTBURN/INDIGESTION; Start 07/25/18 at 19:30 Albuterol Sulfate (Proventil, Ventolin Hfa) 2 puff Q4H PRN INH SHORTNESS OF BREATH Last administered on 07/31/18at 11:48; Start 07/25/18 at 20:00 Amoxicillin/ Clavulanate Potassium (Augmentin) 875 mg BID PO Last administered on 08/05/18at 20:23; Start 07/30/18 at 14:15; Stop 08/05/18 at 21:01; Status DC Asenapine (Saphris) 5 mg BID@0600,1500 SL Last administered on 07/26/18at 05:16; Start 07/26/18 at 06:00; Stop 07/26/18 at 10:37; Status DC Bacitracin/ Polymyxin B Sulfate (Polysporin Top Oint) APPLY TO WOUND AREA BID TOP Last administered on 08/06/18 08:27; Start 07/30/18 at 21:00; Stop 08/06/18 at 09:01; Status DC Benztropine Mesylate (Cogentin) 1 mg QHS PO Last administered on 08/13/18 20:38; Start 07/25/18 at 21:00 Diazepam (Valium) 1 mg TID PO Last administered on 08/10/18 08:27; Start 07/31/18 at 21:00; Stop 08/10/18 at 10:05; Status DC Diazepam (Valium) 1 mg TID@0900,1500,2100 PO Last administered on 08/14/18 08:23; Start 08/10/18 at 15:00 Diazepam (Valium) 2 mg TID PO Last administered on 07/26/18 07:55; Start 07/25/18 at 21:00; Stop 07/26/18 at 11:05; Status DC Diazepam (Valium) 2 mg TID@0600,1200,2000 PO Last administered on 07/31/18 11:45; Start 07/26/18 at 12:00; Stop 07/31/18 at 12:18; Status DC Diphenhydramine HCl (Benadryl) 50 mg STAT STAT IM Last administered on 07/29/18 03:57; Start 07/29/18 at 03:39; Stop 07/29/18 at 03:45; Status DC Divalproex Sodium (Depakote Er) 250 mg QHS PO Last administered on 08/11/18 20:10; Start 07/31/18 at 21:00; Stop 08/12/18 at 08:38; Status DC Divalproex Sodium (Depakote Er) 1,500 mg DAILY@1800 PO Last administered on 07/30/18 17:37; Start 07/25/18 at 18:00; Stop 07/31/18 at 09:37; Status DC Divalproex Sodium (Depakote Er) 1,500 mg QHS PO Last administered on 08/13/18 20:38; Start 07/31/18 at 21:00 Docusate Sodium (Colace) 200 mg BID PO Last administered on 08/14/18 08:26; Start 07/25/18 at 21:00 Enoxaparin Sodium (Lovenox) 40 mg DAILY SC Last administered on 08/14/18 08:26; Start 08/05/18 at 09:00 Fluphenazine HCl (Prolixin) 10 mg QID PO Last administered on 08/14/18 08:23; Start 08/12/18 at 09:00 Fluphenazine HCl (Prolixin) 10 mg TID PO Last administered on 08/11/18 20:11; Start 08/10/18 at 21:00; Stop 08/12/18 at 08:37; Status DC Furosemide (Lasix) 20 mg BID@0900,1700 PO Last administered on 08/14/18 08:25; Start 07/26/18 at 09:00 Haloperidol (Haldol) 5 mg BID PO ; Start 07/26/18 at 21:00; Status Cancel Haloperidol (Haldol) 5 mg BID PO Last administered on 08/04/18 10:03; Start 08/02/18 at 21:00; Stop 08/04/18 at 13:20; Status DC Haloperidol (Haldol) 7.5 mg BID PO Last administered on 08/06/18 08:25; Start 08/04/18 at 21:00; Stop 08/06/18 at 14:18; Status DC Haloperidol (Haldol) 10 mg BID PO Last administered on 08/09/18 08:32; Start 08/06/18 at 21:00; Stop 08/09/18 at 13:09; Status DC Haloperidol (Haldol) 10 mg TID PO Last administered on 08/10/18 16:12; Start 08/09/18 at 16:00; Stop 08/10/18 at 18:06; Status DC Heparin Sodium (Porcine) (Heparin) 5,000 units Q12H SQ Last administered on 08/04/18 10:01; Start 08/01/18 at 21:00; Stop 08/04/18 at 10:37; Status DC Home Med (Med Rec Complete!) ASDIRECTED XX ; Start 07/25/18 at 19:15; Stop 07/25/18 at 19:15; Status DC Lorazepam (Ativan) 2 mg Q6HP PRN PO ANXIETY/AGITATION Last administered on 08/10/18at 03:59; Start 07/26/18 at 10:45; Stop 08/10/18 at 06:55; Status DC Lorazepam (Ativan) 2 mg STAT STAT IM Last administered on 07/29/18at 03:56; Start 07/29/18 at 03:39; Stop 07/29/18 at 03:45; Status DC Lorazepam (Ativan) 2 mg TID PO ; Start 08/10/18 at 09:00; Stop 08/10/18 at 10:05; Status DC Lorazepam (Ativan) 2 mg TID@0600,1200,1800 PO Last administered on 08/14/18at 05:40; Start 08/10/18 at 12:00 Magnesium Hydroxide (Milk Of Magnesia) 30 ml DAILYPRN PRN PO CONSTIPATION Last administered on 08/09/18at 13:05; Start 07/25/18 at 19:30 Meloxicam (Mobic) 15 mg DAILY PO Last administered on 08/14/18at 08:23; Start 07/26/18 at 09:00 Metoprolol Tartrate (Lopressor) 25 mg BID PO Last administered on 08/13/18at 20:38; Start 07/25/18 at 21:00 Miscellaneous (Unresolved Clarification Entry) SEE LABEL COMMENTS DAILY XX ; Start 08/01/18 at 09:00; Stop 08/02/18 at 07:18; Status DC Miscellaneous (Unresolved Clarification Entry) SEE LABEL COMMENTS DAILY XX ; Start 08/02/18 at 09:00; Stop 08/02/18 at 10:47; Status DC Miscellaneous (Unresolved Clarification Entry) SEE LABEL COMMENTS DAILY XX ; Start 08/07/18 at 09:00; Stop 08/08/18 at 06:57; Status DC Miscellaneous (Unresolved Clarification Entry) SEE LABEL COMMENTS DAILY XX ; Start 08/08/18 at 09:00; Stop 08/08/18 at 11:41; Status DC Miscellaneous (Unresolved Clarification Entry) SEE LABEL COMMENTS DAILY XX ; Start 08/11/18 at 09:00; Stop 08/11/18 at 11:58; Status DC Nicotine (Nicoderm Cq 21mg) 1 patch DAILY TD ; Start 07/26/18 at 09:00; Stop 07/26/18 at 09:00; Status DC Olanzapine (ZyPREXA ZYDIS) 5 mg BID PO Last administered on 07/28/18at 20:09; Start 07/26/18 at 21:00; Stop 07/29/18 at 10:50; Status DC Olanzapine (ZyPREXA ZYDIS) 5 mg Q6HP PRN PO ANXIETY/AGITATION Last administered on 07/28/18at 00:51; Start 07/26/18 at 10:45; Stop 07/28/18 at 12:00; Status DC Olanzapine (ZyPREXA ZYDIS) 10 mg BID PO Last administered on 07/31/18at 08:26; Start 07/29/18 at 21:00; Stop 07/31/18 at 09:40; Status DC Olanzapine (ZyPREXA ZYDIS) 10 mg BID PO Last administered on 08/02/18at 08:12; Start 07/31/18 at 21:00; Stop 08/02/18 at 10:46; Status DC Olanzapine (ZyPREXA ZYDIS) 10 mg Q4HP PRN PO ANXIETY/AGITATION Last admin istered on 08/13/18at 22:08; Start 07/28/18 at 12:00 Olanzapine (ZyPREXA ZYDIS) 10 mg TID PO ; Start 07/31/18 at 16:00; Status Cancel Olanzapine (Zyprexa Intramuscular) 10 mg STAT STAT IM Last administered on 07/29/18at 03:56; Start 07/29/18 at 03:39; Stop 07/29/18 at 03:45; Status DC Potassium Chloride (Micro-K Extencaps) 10 meq BID PO Last administered on 08/14/18at 08:26; Start 07/30/18 at 09:00 Potassium Chloride (Micro-K Extencaps) 10 meq BID PO ; Start 07/25/18 at 21:00; Status UNV Quetiapine Fumarate (SEROquel XR) 300 mg QHS PO Last administered on 08/03/18at 20:24; Start 08/03/18 at 21:00; Stop 08/04/18 at 13:20; Status DC Quetiapine Fumarate (SEROquel XR) 400 mg DAILY@1800 PO Last administered on 07/30/18at 17:37; Start 07/25/18 at 18:00; Stop 07/31/18 at 09:37; Status DC Quetiapine Fumarate (SEROquel XR) 400 mg QHS PO Last administered on 08/13/18at 20:38; Start 08/04/18 at 21:00 Quetiapine Fumarate (SEROquel) 600 mg QHS PO Last administered on 08/01/18at 20:06; Start 07/31/18 at 21:00; Stop 08/02/18 at 10:46; Status DC Trazodone HCl (Desyrel) 50 mg QHSP PRN PO INSOMNIA; Start 07/25/18 at 19:30; Status Cancel Zolpidem Tartrate (Ambien) 10 mg QHS PRN PO SLEEP Last administered on 07/30/18at 22:43; Start 07/25/18 at 20:00; Stop 07/31/18 at 09:37; Status DC Allergies Coded Allergies: No Known Allergies (Verified , 06/27/10) MARY ANDERSON DO August 14, 2018 09:21
[2018-08-15 18:09] VITALS: BP 115/59
[2018-08-15] MEDS: BENZTROPINE 1 MG TAB PO SCH (20:21)
[2018-08-15] MEDS: DIVALPROEX 500MG *ER* TAB PO SCH (20:23)
[2018-08-15] MEDS: QUEtiapine FUMARATE **XR** 200MG TABLET PO SCH (20:23)
[2018-08-15] MEDS ORDERED: MIRTAZAPINE 15 MG TAB PO ONE (23:30)
[2018-08-16] MEDS: OLANZapine ORAL DISINTEGRATING TAB 5MG PO PRN (03:59)
[2018-08-16 06:22] VITALS: BP 120/63
[2018-08-16] MEDS: MELOXICAM (MOBIC) 7.5 MG TAB PO SCH (08:51)
[2018-08-16] MEDS: ENOXAPARIN 40 MG/0.4 ML SYRINGE (J1650) SC SCH (08:51)
[2018-08-16] MEDS: FUROSEMIDE 20 MG TAB PO SCH ×2 (08:51→16:34)
[2018-08-16] MEDS: LORazepam 1 MG TAB PO SCH ×3 (08:51→20:04)
[2018-08-16] MEDS: POTASSIUM CHLORIDE 10 MEQ SR TABLET PO SCH ×2 (08:51→20:08)
[2018-08-16] MEDS: DOCUSATE SODIUM 100 MG CAP PO SCH ×2 (08:52→20:07)
[2018-08-16] MEDS: diazePAM 2 MG TAB PO SCH ×2 (08:52→21:00)
[2018-08-16] MEDS: METOPROLOL TART 25 MG TABLET PO SCH ×2 (09:00→20:06)
--- NOTE | 2018-08-16 09:42 | MHIPNPDOC ---
[facility] Progress Note Progress Note DATE OF SERVICE: 08/16/18 HISTORY: Patient is a 57 -year-old , male, with a history of schizoaffective d/o and residing at [facility] several years who was sent with PD under 9.41 from [facility] due to pt threatening staff and other residents, decompensating, manic, paranoid people talk about him, talking to self, AH (stated in ED "they're not too bad"), and agitation. Pt according to TLS scaring the other residents there due to him threatening and cussing at them. Per ED, when pt asked why he was sent to the ED he stated "I was evicted from my house for arguing with 2 other people. Per ED, pt was manic and agitated. Pt is a poor historian due to current nelda/psychosis/agitation so history gathered from previous chart records. VITAL SIGNS: See below. NEW TEST RESULTS:. Depakote level elevated. CURRENT MEDICATIONS: See below. MENTAL STATUS EXAMINATION: No change from yesterday. Patient is a 57-year old male, who is being treated for what has presented as bipolar disorder. Haldol treatment, as well as Depakote seemed ineffective. He was changed to Prolixin, and his Depakote level was elevated and dosage reduced. Speech: Is rapid stuttered. Language skills are intact. Thought processes including:. tangential, concrete, and persecuted. Thought content: rambling and at times confused (confused sitter later in day of stealing something from his). Abstract reasoning, and computation:. Poor abstract. Description of associations: loose associations. Description of abnormal or psychotic thoughts:. Thoughts do appear to be abnormal. Explosive and loud. reactive Judgment:. Poor. Insight: Poor. Orientation: Intact 3. Recent and remote memory:. Not able to measure. Attention span and concentration: Poor. Language:. No obvious abnormality. Fund of knowledge:. Unable to measure. Mood: Irritable. Affect:, Congruent. Reactive DIAGNOSES: 1. Bipolar disorder with psychotic features. ASSESSMENT: No change from yesterday. Minimal improvement in symptom as still has episodes of yelling with agitation that occurs randomly thru out the day e ach day. Still on 1:1 assist for ambulation and safety. Difficult to understand due to rapid mumbling although did state he feels better and likes the way the medication (prolixin) makes him feel. States he's feeling better overall. Continue titration of of valium and ativan MANAGEMENT PLAN: Continue titration of of valium and ativan Medications: Cogentin 1 mg QHS Valium 0.5 mg bid@0900, 2100 Depakote Er 1,500 mg QHS Colace 200 mg BID Prolixin 10 mg QID Ativan 1 mg TID@0600,1200,1800 ZyPREXA ZYDIS 10 mg Q4HP PRN PO ANXIETY/AGITATION SEROquel XR 400 mg QHS TIME SPENT: 30 minutes. Vital Signs Vital Signs Date Time Temp Pulse Resp B/P (MAP) Pulse Ox O2 Delivery O2 Flow Rate FiO2 08/16/18 06:22 97.0 62 18 120/63 (82) Current Medications Current Medications Acetaminophen (Tylenol Tab) 650 mg Q4HP PRN PO PAIN OR FEVER; Start 07/30/18 at 14:45; Stop 07/30/18 at 15:25; Status DC Acetaminophen (Tylenol Tab) 650 mg Q6HP PRN PO HEADACHE or DISCOMFORT; Start 07/25/18 at 19:30; Status Cancel Acetaminophen (Tylenol Tab) 1,000 mg Q8H PRN PO PAIN Last administered on 08/12/18at 20:36; Start 07/25/18 at 20:00 Al Hydrox/Mg Hydrox/Simethicone (Mylanta) 30 ml Q4HP PRN PO HEARTBURN/INDIGESTION; Start 07/25/18 at 19:30 Albuterol Sulfate (Proventil, Ventolin Hfa) 2 puff Q4H PRN INH SHORTNESS OF BREATH Last administered on 07/31/18at 11:48; Start 07/25/18 at 20:00 Amoxicillin/ Clavulanate Potassium (Augmentin) 875 mg BID PO Last administered on 08/05/18at 20:23; Start 07/30/18 at 14:15; Stop 08/05/18 at 21:01; Status DC Asenapine (Saphris) 5 mg BID@0600,1500 SL Last administered on 07/26/18at 05:16; Start 07/26/18 at 06:00; Stop 07/26/18 at 10:37; Status DC Bacitracin/ Polymyxin B Sulfate (Polysporin Top Oint) APPLY TO WOUND AREA BID TOP Last administered on 08/06/18 08:27; Start 07/30/18 at 21:00; Stop 08/06/18 at 09:01; Status DC Benztropine Mesylate (Cogentin) 1 mg QHS PO Last administered on 08/15/18 20:21; Start 07/25/18 at 21:00 Diazepam (Valium) 0.5 mg TID PO Last administered on 08/15/18 20:24; Start 08/14/18 at 16:00 Diazepam (Valium) 1 mg TID PO Last administered on 08/10/18 08:27; Start 07/31/18 at 21:00; Stop 08/10/18 at 10:05; Status DC Diazepam (Valium) 1 mg TID@0900,1500,2100 PO Last administered on 08/14/18at 08:23; Start 08/10/18 at 15:00; Stop 08/14/18 at 10:43; Status DC Diazepam (Valium) 2 mg TID PO Last administered on 07/26/18at 07:55; Start 07/25/18 at 21:00; Stop 07/26/18 at 11:05; Status DC Diazepam (Valium) 2 mg TID@0600,1200,2000 PO Last administered on 07/31/18at 11:45; Start 07/26/18 at 12:00; Stop 07/31/18 at 12:18; Status DC Diphenhydramine HCl (Benadryl) 50 mg STAT STAT IM Last administered on 07/29/18at 03:57; Start 07/29/18 at 03:39; Stop 07/29/18 at 03:45; Status DC Divalproex Sodium (Depakote Er) 250 mg QHS PO Last administered on 08/11/18at 20:10; Start 07/31/18 at 21:00; Stop 08/12/18 at 08:38; Status DC Divalproex Sodium (Depakote Er) 1,500 mg DAILY@1800 PO Last administered on 07/30/18at 17:37; Start 07/25/18 at 18:00; Stop 07/31/18 at 09:37; Status DC Divalproex Sodium (Depakote Er) 1,500 mg QHS PO Last administered on 08/15/18 20:23; Start 07/31/18 at 21:00 Docusate Sodium (Colace) 200 mg BID PO Last administered on 08/15/18 20:22; Start 07/25/18 at 21:00 Enoxaparin Sodium (Lovenox) 40 mg DAILY SC Last administered on 08/15/18 09:00; Start 08/05/18 at 09:00 Fluphenazine HCl (Prolixin) 10 mg QID PO Last administered on 08/15/18 20:21; Start 08/12/18 at 09:00 Fluphenazine HCl (Prolixin) 10 mg TID PO Last administered on 08/11/18 20:11; Start 08/10/18 at 21:00; Stop 08/12/18 at 08:37; Status DC Furosemide (Lasix) 20 mg BID@0900,1700 PO Last administered on 08/15/18 16:37; Start 07/26/18 at 09:00 Haloperidol (Haldol) 5 mg BID PO ; Start 07/26/18 at 21:00; Status Cancel Haloperidol (Haldol) 5 mg BID PO Last administered on 08/04/18 10:03; Start 08/02/18 at 21:00; Stop 08/04/18 at 13:20; Status DC Haloperidol (Haldol) 7.5 mg BID PO Last administered on 08/06/18 08:25; Start 08/04/18 at 21:00; Stop 08/06/18 at 14:18; Status DC Haloperidol (Haldol) 10 mg BID PO Last administered on 08/09/18 08:32; Start 08/06/18 at 21:00; Stop 08/09/18 at 13:09; Status DC Haloperidol (Haldol) 10 mg TID PO Last administered on 08/10/18 16:12; Start 08/09/18 at 16:00; Stop 08/10/18 at 18:06; Status DC Heparin Sodium (Porcine) (Heparin) 5,000 units Q12H SQ Last administered on 08/04/18 10:01; Start 08/01/18 at 21:00; Stop 08/04/18 at 10:37; Status DC Home Med (Med Rec Complete!) ASDIRECTED XX ; Start 07/25/18 at 19:15; Stop 07/25/18 at 19:15; Status DC Lorazepam (Ativan) 1 mg TID PO Last administered on 08/15/18at 20:23; Start 08/15/18 at 16:00 Lorazepam (Ativan) 1.5 mg TID PO Last administered on 08/15/18at 08:55; Start 08/14/18 at 16:00; Stop 08/15/18 at 11:42; Status DC Lorazepam (Ativan) 2 mg Q6HP PRN PO ANXIETY/AGITATION Last administered on 08/10/18at 03:59; Start 07/26/18 at 10:45; Stop 08/10/18 at 06:55; Status DC Lorazepam (Ativan) 2 mg STAT STAT IM Last administered on 07/29/18at 03:56; Start 07/29/18 at 03:39; Stop 07/29/18 at 03:45; Status DC Lorazepam (Ativan) 2 mg TID PO ; Start 08/10/18 at 09:00; Stop 08/10/18 at 10:05; Status DC Lorazepam (Ativan) 2 mg TID@0600,1200,1800 PO Last administered on 08/14/18at 05:40; Start 08/10/18 at 12:00; Stop 08/14/18 at 10:43; Status DC Magnesium Hydroxide (Milk Of Magnesia) 30 ml DAILYPRN PRN PO CONSTIPATION Last administered on 08/09/18at 13:05; Start 07/25/18 at 19:30 Meloxicam (Mobic) 15 mg DAILY PO Last administered on 08/15/18at 08:56; Start 07/26/18 at 09:00 Metoprolol Tartrate (Lopressor) 25 mg BID PO Last administered on 08/15/18at 20:22; Start 07/25/18 at 21:00 Miscellaneous (Unresolved Clarification Entry) SEE LABEL COMMENTS DAILY XX ; Start 08/01/18 at 09:00; Stop 08/02/18 at 07:18; Status DC Miscellaneous (Unresolved Clarification Entry) SEE LABEL COMMENTS DAILY XX ; Start 08/02/18 at 09:00; Stop 08/02/18 at 10:47; Status DC Miscellaneous (Unresolved Clarification Entry) SEE LABEL COMMENTS DAILY XX ; Start 08/07/18 at 09:00; Stop 08/08/18 at 06:57; Status DC Miscellaneous (Unresolved Clarification Entry) SEE LABEL COMMENTS DAILY XX ; Start 08/08/18 at 09:00; Stop 08/08/18 at 11:41; Status DC Miscellaneous (Unresolved Clarification Entry) SEE LABEL COMMENTS DAILY XX ; Start 08/11/18 at 09:00; Stop 08/11/18 at 11:58; Status DC Nicotine (Nicoderm Cq 21mg) 1 patch DAILY TD ; Start 07/26/18 at 09:00; Stop 07/26/18 at 09:00; Status DC Non-Formulary Medication ( See Comment Field Below ) SEE COMMENTS SECTION 1T@10 XX ; Start 08/16/18 at 10:00; Stop 08/16/18 at 10:00; Status DC Non-Formulary Medication ( See Comment Field Below ) SEE LABEL COMMENTS DAILY XX ; Start 08/14/18 at 09:00; Stop 08/14/18 at 10:35; Status DC Olanzapine (ZyPREXA ZYDIS) 5 mg BID PO Last administered on 07/28/18at 20:09; Start 07/26/18 at 21:00; Stop 07/29/18 at 10:50; Status DC Olanzapine (ZyPREXA ZYDIS) 5 mg Q6HP PRN PO ANXIETY/AGITATION Last administered on 07/28/18at 00:51; Start 07/26/18 at 10:45; Stop 07/28/18 at 12:00; Status DC Olanzapine (ZyPREXA ZYDIS) 10 mg BID PO Last administered on 07/31/18at 08:26; Start 07/29/18 at 21:00; Stop 07/31/18 at 09:40; Status DC Olanzapine (ZyPREXA ZYDIS) 10 mg BID PO Last administered on 08/02/18at 08:12; Start 07/31/18 at 21:00; Stop 08/02/18 at 10:46; Status DC Olanzapine (ZyPREXA ZYDIS) 10 mg Q4HP PRN PO ANXIETY/AGITATION Last a dministered on 08/16/18at 03:59; Start 07/28/18 at 12:00 Olanzapine (ZyPREXA ZYDIS) 10 mg TID PO ; Start 07/31/18 at 16:00; Status Cancel Olanzapine (Zyprexa Intramuscular) 10 mg STAT STAT IM Last administered on 07/29/18 03:56; Start 07/29/18 at 03:39; Stop 07/29/18 at 03:45; Status DC Potassium Chloride (Micro-K Extencaps) 10 meq BID PO Last administered on 08/15/18 20:21; Start 07/30/18 at 09:00 Potassium Chloride (Micro-K Extencaps) 10 meq BID PO ; Start 07/25/18 at 21:00; Status UNV Quetiapine Fumarate (SEROquel XR) 300 mg QHS PO Last administered on 08/03/18 20:24; Start 08/03/18 at 21:00; Stop 08/04/18 at 13:20; Status DC Quetiapine Fumarate (SEROquel XR) 400 mg DAILY@1800 PO Last administered on 07/30/18 17:37; Start 07/25/18 at 18:00; Stop 07/31/18 at 09:37; Status DC Quetiapine Fumarate (SEROquel XR) 400 mg QHS PO Last administered on 08/15/18 20:23; Start 08/04/18 at 21:00 Quetiapine Fumarate (SEROquel) 600 mg QHS PO Last administered on 08/01/18 20:06; Start 07/31/18 at 21:00; Stop 08/02/18 at 10:46; Status DC Trazodone HCl (Desyrel) 50 mg QHSP PRN PO INSOMNIA; Start 07/25/18 at 19:30; Status Cancel Zolpidem Tartrate (Ambien) 10 mg QHS PRN PO SLEEP Last administered on 07/30/18at 22:43; Start 07/25/18 at 20:00; Stop 07/31/18 at 09:37; Status DC Allergies Coded Allergies: No Known Allergies (Verified , 06/27/10) MARY ANDERSON DO August 16, 2018 09:08
[2018-08-16] MEDS ORDERED: PPD DOCUMENTATION ENTRY MISC XX SCH (10:00)
[2018-08-16] MEDS ORDERED: PPD DOCUMENTATION ENTRY MISC XX ONE (11:00)
[2018-08-16 18:01] VITALS: BP 129/83
[2018-08-16] MEDS: QUEtiapine FUMARATE **XR** 200MG TABLET PO SCH (20:06)
[2018-08-16] MEDS: DIVALPROEX 500MG *ER* TAB PO SCH (20:07)
[2018-08-16] MEDS: BENZTROPINE 1 MG TAB PO SCH (20:08)
[2018-08-16] MEDS ORDERED: diazePAM 2 MG TAB PO ONE (21:00)
[2018-08-17] MEDS: PILL CUTTER 1 EACH XX PRN (00:21)
[2018-08-17] MEDS: OLANZapine ORAL DISINTEGRATING TAB 5MG PO PRN ×2 (01:57→23:12)
[2018-08-17 07:01] VITALS: BP 118/72
[2018-08-17] MEDS: DOCUSATE SODIUM 100 MG CAP PO SCH ×2 (08:25→20:17)
[2018-08-17] MEDS: MELOXICAM (MOBIC) 7.5 MG TAB PO SCH (08:25)
[2018-08-17] MEDS: LORazepam 1 MG TAB PO SCH ×3 (08:25→20:17)
[2018-08-17] MEDS: FUROSEMIDE 20 MG TAB PO SCH ×2 (08:26→16:21)
[2018-08-17] MEDS: METOPROLOL TART 25 MG TABLET PO SCH ×2 (08:26→20:18)
[2018-08-17] MEDS: POTASSIUM CHLORIDE 10 MEQ SR TABLET PO SCH ×2 (08:27→20:17)
[2018-08-17] MEDS: ENOXAPARIN 40 MG/0.4 ML SYRINGE (J1650) SC SCH (10:03)
[2018-08-17] MEDS: diazePAM 2 MG TAB PO SCH ×2 (10:19→23:13)
[2018-08-17] MEDS: MOM 30ML SUSPENSION UDC PO PRN (13:47)
--- NOTE | 2018-08-17 16:23 | MHIPN ---
DATE: 08/17/2018 CHIEF COMPLAINT: Says feels better. SUBJECTIVE: Seen for followup in the presence of staff. Says feels better and that his sleep is improved. Says feels good, that he has been eating okay. He requests a pass for early next week. Says wishes to leave for a couple of days. MENTAL STATUS EXAMINATION: He is neat. He is cooperative. He uses a cane. No agitation. Speech is somewhat quick and rapid. Coherent for the most part, possibly tangential at times. Relatively restricted affect. Denies any suicidal thoughts or intents. No homicidal ideas or intents. I could not elicit any psychotic features at present. No fluctuation of consciousness. He is alert and oriented. Judgment and insight remain compromised. ASSESSMENT: Bipolar disorder with psychotic features. PLAN: Continue current care, observation, including one-one-one observation. Further recommendations will be made depending on the clinical picture. It should be noted, the benzodiazepines are being adjusted. He is on two of them. Not sure of the need for two. He is to continue with quetiapine, fluphenazine, and Depakote for now. VITAL SIGNS: Blood pressure 118/72, pulse 53, temperature 96.1.
[2018-08-17 18:24] VITALS: BP 143/67
[2018-08-17] MEDS: BENZTROPINE 1 MG TAB PO SCH (20:18)
[2018-08-17] MEDS: DIVALPROEX 500MG *ER* TAB PO SCH (20:18)
[2018-08-17] MEDS: QUEtiapine FUMARATE **XR** 200MG TABLET PO SCH (21:52)
[2018-08-18 06:46] VITALS: BP 110/58
[2018-08-18] MEDS: OLANZapine ORAL DISINTEGRATING TAB 5MG PO PRN ×3 (07:42→22:13)
[2018-08-18] MEDS: MELOXICAM (MOBIC) 7.5 MG TAB PO SCH (08:05)
[2018-08-18] MEDS: DOCUSATE SODIUM 100 MG CAP PO SCH ×2 (08:05→20:09)
[2018-08-18] MEDS: diazePAM 2 MG TAB PO SCH ×2 (08:06→20:08)
[2018-08-18] MEDS: LORazepam 1 MG TAB PO SCH ×3 (08:06→20:08)
[2018-08-18] MEDS: METOPROLOL TART 25 MG TABLET PO SCH ×2 (08:06→20:07)
[2018-08-18] MEDS: POTASSIUM CHLORIDE 10 MEQ SR TABLET PO SCH ×2 (08:06→20:09)
[2018-08-18] MEDS: FUROSEMIDE 20 MG TAB PO SCH ×2 (08:07→16:33)
[2018-08-18] MEDS: ENOXAPARIN 40 MG/0.4 ML SYRINGE (J1650) SC SCH (08:10)
[2018-08-18] MEDS ORDERED: OLANZapine ORAL DISINTEGRATING TAB 5MG PO STA (10:23)
[2018-08-18 18:11] VITALS: BP 112/63
[2018-08-18] MEDS: ACETAMINOPHEN 500 MG TAB PO PRN (20:08)
[2018-08-18] MEDS: BENZTROPINE 1 MG TAB PO SCH (20:09)
[2018-08-18] MEDS: DIVALPROEX 500MG *ER* TAB PO SCH (20:09)
[2018-08-18] MEDS: QUEtiapine FUMARATE **XR** 200MG TABLET PO SCH (20:10)
[2018-08-18] MEDS ORDERED: hydrOXYzine 50 MG TAB PO ONE (23:30)
[2018-08-19 07:00] VITALS: BP 118/71
[2018-08-19] MEDS: FUROSEMIDE 20 MG TAB PO SCH ×2 (08:10→16:10)
[2018-08-19] MEDS: ACETAMINOPHEN 500 MG TAB PO PRN (08:10)
[2018-08-19] MEDS: DOCUSATE SODIUM 100 MG CAP PO SCH ×2 (08:10→21:57)
[2018-08-19] MEDS: diazePAM 2 MG TAB PO SCH ×2 (08:11→21:58)
[2018-08-19] MEDS: LORazepam 1 MG TAB PO SCH (08:11)
[2018-08-19] MEDS: MELOXICAM (MOBIC) 7.5 MG TAB PO SCH (08:11)
[2018-08-19] MEDS: POTASSIUM CHLORIDE 10 MEQ SR TABLET PO SCH ×2 (08:11→21:57)
[2018-08-19] MEDS: METOPROLOL TART 25 MG TABLET PO SCH ×2 (08:11→21:58)
[2018-08-19] MEDS: ENOXAPARIN 40 MG/0.4 ML SYRINGE (J1650) SC SCH (08:23)
--- NOTE | 2018-08-19 09:48 | MHIPN ---
DATE OF SERVICE: 08/18/2018 CHIEF COMPLAINT: Feels irritated. SUBJECTIVE: Seen for followup in the presence of staff. Says feels good but displays irritability and gets angry easily and tends to have somewhat rapid speech. Says did not have a good night. Appetite has been fair. Says wishes to leave for a 2-day pass from Sunday at 9 o'clock in the morning to 2 p.m. on Sunday afternoon. Wants to go to his mother's place. MENTAL STATUS EXAMINATION: He is fairly neat. He is irritated. Displays verbal agitation. No psychomotor retardation. Walks slowly with a walker and then is sitting on the bed. Is easily angered. His speech becomes more rapid and then slower, when he is better understood and more coherent. Affect is labile. He is calmer towards the end of the visit and pleasant and has questions regarding medicines and the fluctuation of his moods. Currently denies suicidal thoughts or intents. No overt evidence of any thoughts of harming anyone else. He is alert. Oriented to place and person. Judgment and insight remain compromised. ASSESSMENT: Bipolar disorder with psychotic features. Moods tend to fluctuate. He is irritable, easily angered. PLAN: I would suggest continuing current care, including one-one-one observations. He is to continue his fluphenazine at the current dose for now, as well as quetiapine and Depakote. Adjustments may need to be made to the benzodiazepines. He is getting both lorazepam and diazepam, and synchronizing the benzodiazepine effect is preferable so that he is not reliant on both. He is to be encouraged to participate in his care. He is to see his treatment team tomorrow. VITAL SIGNS: Blood pressure 129/91, pulse 79, temperature 99.2. It should be noted he has required anti-agitation medications today earlier in the day. ANDREINA
--- NOTE | 2018-08-19 10:38 | MHIPNPDOC ---
[facility] Progress Note Progress Note DATE OF SERVICE: 08/19/18 HISTORY: Patient is a 57 -year-old , male, with a history of schizoaffective d/o and residing at [facility] several years who was sent with PD under 9.41 from [facility] due to pt threatening staff and other residents, decompensating, manic, paranoid people talk about him, talking to self, AH (stated in ED "they're not too bad"), and agitation. Pt according to TLS scaring the other residents there due to him threatening and cussing at them. Per ED, when pt asked why he was sent to the ED he stated "I was evicted from my house for arguing with 2 other people. Per ED, pt was manic and agitated. Pt is a poor historian due to current nelda/psychosis/agitation so history gathered from previous chart records. VITAL SIGNS: See below. NEW TEST RESULTS:. Depakote level in am CURRENT MEDICATIONS: See below. MENTAL STATUS EXAMINATION: Patient is a 57-year old male, who is being treated for what has presented as bipolar disorder. Haldol treatment, as well as Depakote seemed ineffective. He was changed to Prolixin, and his Depakote level was elevated and dosage reduced. Speech: Is rapid stuttered. Language skills are intact. Thought processes including:. tangential, concrete, and persecuted. Thought content: rambling and at times confused (confused sitter later in day of stealing something from his). Abstract reasoning, and computation:. Poor abstract. Description of associations: loose associations possibly improving but difficult to access due to muttered/rapid speech. Description of abnormal or psychotic thoughts:. Thoughts do appear to be abnormal. Explosive and loud. reactive. Appears mildly improved this morning Judgment:. Poor. Insight: Poor. Orientation: Intact 3. Recent and remote memory:. Not able to measure. Attention span and concentration: Poor. Language:. No obvious abnormality. Fund of knowledge:. Unable to measure. Mood: Irritable. Affect:, Congruent. Reactive DIAGNOSES: 1. Bipolar disorder with psychotic features. ASSESSMENT: Minimal improvement in symptoms as still has episodes of yelling with agitation that occurs randomly thru out the day each day although appear less this morning but usually increase in afternoon. Still on 1:1 assist for ambulation and safety. Difficult to understand due to rapid mumbling although did state he feels better and likes the way the medication (prolixin) makes him feel. States he's feeling better overall. Continue titration off of valium and ativan MANAGEMENT PLAN: Continue titration off of valium and ativan. Depakote level in am Medications: Cogentin 1 mg QHS Valium 0.5 mg qhs@ 2100 Depakote Er 1,500 mg QHS Colace 200 mg BID Prolixin 10 mg QID Ativan 0.5 mg TID@0600,1200,1800 ZyPREXA ZYDIS 10 mg Q4HP PRN PO ANXIETY/AGITATION SEROquel XR 400 mg QHS TIME SPENT: 30 minutes. Vital Signs Vital Signs Date Time Temp Pulse Resp B/P (MAP) Pulse Ox O2 Delivery O2 Flow Rate FiO2 08/19/18 08:11 69 114/72 08/19/18 07:00 97.6 14 Current Medications Current Medications Acetaminophen (Tylenol Tab) 650 mg Q4HP PRN PO PAIN OR FEVER; Start 07/30/18 at 14:45; Stop 07/30/18 at 15:25; Status DC Acetaminophen (Tylenol Tab) 650 mg Q6HP PRN PO HEADACHE or DISCOMFORT; Start 07/25/18 at 19:30; Status Cancel Acetaminophen (Tylenol Tab) 1,000 mg Q8H PRN PO PAIN Last administered on 08/19/18at 08:10; Start 07/25/18 at 20:00 Al Hydrox/Mg Hydrox/Simethicone (Mylanta) 30 ml Q4HP PRN PO HEARTBURN/INDIGESTION; Start 07/25/18 at 19:30 Albuterol Sulfate (Proventil, Ventolin Hfa) 2 puff Q4H PRN INH SHORTNESS OF BREATH Last administered on 07/31/18at 11:48; Start 07/25/18 at 20:00 Amoxicillin/ Clavulanate Potassium (Augmentin) 875 mg BID PO Last administered on 08/05/18at 20:23; Start 07/30/18 at 14:15; Stop 08/05/18 at 21:01; Status DC Asenapine (Saphris) 5 mg BID@0600,1500 SL Last administered on 07/26/18at 05:16; Start 07/26/18 at 06:00; Stop 07/26/18 at 10:37; Status DC Bacitracin/ Polymyxin B Sulfate (Polysporin Top Oint) APPLY TO WOUND AREA BID TOP Last administered on 08/06/18 08:27; Start 07/30/18 at 21:00; Stop 08/06/18 at 09:01; Status DC Benztropine Mesylate (Cogentin) 1 mg QHS PO Last administered on 08/18/18at 20:09; Start 07/25/18 at 21:00 Diazepam (Valium) 0.5 mg BID PO Last administered on 08/19/18 08:11; Start 08/16/18 at 21:00 Diazepam (Valium) 0.5 mg TID PO Last administered on 08/16/18at 08:52; Start 08/14/18 at 16:00; Stop 08/16/18 at 09:42; Status DC Diazepam (Valium) 1 mg TID PO Last administered on 08/10/18at 08:27; Start 07/31/18 at 21:00; Stop 08/10/18 at 10:05; Status DC Diazepam (Valium) 1 mg TID@0900,1500,2100 PO Last administered on 08/14/18at 08:23; Start 08/10/18 at 15:00; Stop 08/14/18 at 10:43; Status DC Diazepam (Valium) 2 mg TID PO Last administered on 07/26/18at 07:55; Start 07/25/18 at 21:00; Stop 07/26/18 at 11:05; Status DC Diazepam (Valium) 2 mg TID@0600,1200,2000 PO Last administered on 07/31/18at 11:45; Start 07/26/18 at 12:00; Stop 07/31/18 at 12:18; Status DC Diphenhydramine HCl (Benadryl) 50 mg STAT STAT IM Last administered on 07/29/18at 03:57; Start 07/29/18 at 03:39; Stop 07/29/18 at 03:45; Status DC Divalproex Sodium (Depakote Er) 250 mg QHS PO Last administered on 08/11/18at 20:10; Start 07/31/18 at 21:00; Stop 08/12/18 at 08:38; Status DC Divalproex Sodium (Depakote Er) 1,500 mg DAILY@1800 PO Last administered on 07/30/18 17:37; Start 07/25/18 at 18:00; Stop 07/31/18 at 09:37; Status DC Divalproex Sodium (Depakote Er) 1,500 mg QHS PO Last administered on 08/18/18 20:09; Start 07/31/18 at 21:00 Docusate Sodium (Colace) 200 mg BID PO Last administered on 08/19/18 08:10; Start 07/25/18 at 21:00 Enoxaparin Sodium (Lovenox) 40 mg DAILY SC Last administered on 08/19/18 08:23; Start 08/05/18 at 09:00 Fluphenazine HCl (Prolixin) 10 mg QID PO Last administered on 08/19/18 08:10; Start 08/12/18 at 09:00 Fluphenazine HCl (Prolixin) 10 mg TID PO Last administered on 08/11/18 20:11; Start 08/10/18 at 21:00; Stop 08/12/18 at 08:37; Status DC Furosemide (Lasix) 20 mg BID@0900,1700 PO Last administered on 08/19/18 08:10; Start 07/26/18 at 09:00 Haloperidol (Haldol) 5 mg BID PO ; Start 07/26/18 at 21:00; Status Cancel Haloperidol (Haldol) 5 mg BID PO Last administered on 08/04/18 10:03; Start 08/02/18 at 21:00; Stop 08/04/18 at 13:20; Status DC Haloperidol (Haldol) 7.5 mg BID PO Last administered on 08/06/18 08:25; Start 08/04/18 at 21:00; Stop 08/06/18 at 14:18; Status DC Haloperidol (Haldol) 10 mg BID PO Last administered on 08/09/18 08:32; Start 08/06/18 at 21:00; Stop 08/09/18 at 13:09; Status DC Haloperidol (Haldol) 10 mg TID PO Last administered on 08/10/18 16:12; Start 08/09/18 at 16:00; Stop 08/10/18 at 18:06; Status DC Heparin Sodium (Porcine) (Heparin) 5,000 units Q12H SQ Last administered on 08/04/18at 10:01; Start 08/01/18 at 21:00; Stop 08/04/18 at 10:37; Status DC Home Med (Med Rec Complete!) ASDIRECTED XX ; Start 07/25/18 at 19:15; Stop 07/25/18 at 19:15; Status DC Lorazepam (Ativan) 1 mg TID PO Last administered on 08/19/18at 08:11; Start 08/15/18 at 16:00 Lorazepam (Ativan) 1.5 mg TID PO Last administered on 08/15/18at 08:55; Start 08/14/18 at 16:00; Stop 08/15/18 at 11:42; Status DC Lorazepam (Ativan) 2 mg Q6HP PRN PO ANXIETY/AGITATION Last administered on 08/10/18at 03:59; Start 07/26/18 at 10:45; Stop 08/10/18 at 06:55; Status DC Lorazepam (Ativan) 2 mg STAT STAT IM Last administered on 07/29/18at 03:56; Start 07/29/18 at 03:39; Stop 07/29/18 at 03:45; Status DC Lorazepam (Ativan) 2 mg TID PO ; Start 08/10/18 at 09:00; Stop 08/10/18 at 10:05; Status DC Lorazepam (Ativan) 2 mg TID@0600,1200,1800 PO Last administered on 08/14/18at 05:40; Start 08/10/18 at 12:00; Stop 08/14/18 at 10:43; Status DC Magnesium Hydroxide (Milk Of Magnesia) 30 ml DAILYPRN PRN PO CONSTIPATION Last administered on 08/17/18at 13:47; Start 07/25/18 at 19:30 Meloxicam (Mobic) 15 mg DAILY PO Last administered on 08/19/18at 08:11; Start 07/26/18 at 09:00 Metoprolol Tartrate (Lopressor) 25 mg BID PO Last administered on 08/19/18 08:11; Start 07/25/18 at 21:00 Miscellaneous (Unresolved Clarification Entry) SEE LABEL COMMENTS DAILY XX ; Start 08/01/18 at 09:00; Stop 08/02/18 at 07:18; Status DC Miscellaneous (Unresolved Clarification Entry) SEE LABEL COMMENTS DAILY XX ; Start 08/02/18 at 09:00; Stop 08/02/18 at 10:47; Status DC Miscellaneous (Unresolved Clarification Entry) SEE LABEL COMMENTS DAILY XX ; Start 08/07/18 at 09:00; Stop 08/08/18 at 06:57; Status DC Miscellaneous (Unresolved Clarification Entry) SEE LABEL COMMENTS DAILY XX ; Start 08/08/18 at 09:00; Stop 08/08/18 at 11:41; Status DC Miscellaneous (Unresolved Clarification Entry) SEE LABEL COMMENTS DAILY XX ; Start 08/11/18 at 09:00; Stop 08/11/18 at 11:58; Status DC Miscellaneous (Unresolved Clarification Entry) SEE LABEL COMMENTS DAILY XX ; Start 08/17/18 at 09:00; Stop 08/17/18 at 14:47; Status DC Nicotine (Nicoderm Cq 21mg) 1 patch DAILY TD ; Start 07/26/18 at 09:00; Stop 07/26/18 at 09:00; Status DC Non-Formulary Medication ( See Comment Field Below ) SEE COMMENTS SECTION 1T@10 XX ; Start 08/16/18 at 10:00; Stop 08/16/18 at 10:00; Status DC Non-Formulary Medication ( See Comment Field Below ) SEE LABEL COMMENTS DAILY XX ; Start 08/14/18 at 09:00; Stop 08/14/18 at 10:35; Status DC Olanzapine (ZyPREXA ZYDIS) 5 mg BID PO Last administered on 07/28/18at 20:09; Start 07/26/18 at 21:00; Stop 07/29/18 at 10:50; Status DC Olanzapine (ZyPREXA ZYDIS) 5 mg Q6HP PRN PO ANXIETY/AGITATION Last administered on 07/28/18at 00:51; Start 07/26/18 at 10:45; Stop 07/28/18 at 12:00; Status DC Olanzapine (ZyPREXA ZYDIS) 5 mg STAT STAT PO Last administered on 08/18/18at 10:27; Start 08/18/18 at 10:23; Stop 08/18/18 at 10:24; Status DC Olanzapine (ZyPREXA ZYDIS) 10 mg BID PO Last administered on 07/31/18at 08:26; Start 07/29/18 at 21:00; Stop 07/31/18 at 09:40; Status DC Olanzapine (ZyPREXA ZYDIS) 10 mg BID PO Last administered on 08/02/18at 08:12; Start 07/31/18 at 21:00; Stop 08/02/18 at 10:46; Status DC Olanzapine (ZyPREXA ZYDIS) 10 mg Q4HP PRN PO ANXIETY/AGITATION Last administered on 08/18/18at 22:13; Start 07/28/18 at 12:00 Olanzapine (ZyPREXA ZYDIS) 10 mg TID PO ; Start 07/31/18 at 16:00; Status Cancel Olanzapine (Zyprexa Intramuscular) 10 mg STAT STAT IM Last administered on 07/29/18at 03:56; Start 07/29/18 at 03:39; Stop 07/29/18 at 03:45; Status DC Potassium Chloride (Micro-K Extencaps) 10 meq BID PO Last administered on 08/19/18at 08:11; Start 07/30/18 at 09:00 Potassium Chloride (Micro-K Extencaps) 10 meq BID PO ; Start 07/25/18 at 21:00; Status UNV Quetiapine Fumarate (SEROquel XR) 300 mg QHS PO Last administered on 08/03/18at 20:24; Start 08/03/18 at 21:00; Stop 08/04/18 at 13:20; Status DC Quetiapine Fumarate (SEROquel XR) 400 mg DAILY@1800 PO Last administered on 07/30/18at 17:37; Start 07/25/18 at 18:00; Stop 07/31/18 at 09:37; Status DC Quetiapine Fumarate (SEROquel XR) 400 mg QHS PO Last administered on 08/18/18at 20:10; Start 08/04/18 at 21:00 Quetiapine Fumarate (SEROquel) 600 mg QHS PO Last administered on 08/01/18at 20:06; Start 07/31/18 at 21:00; Stop 08/02/18 at 10:46; Status DC Trazodone HCl (Desyrel) 50 mg QHSP PRN PO INSOMNIA; Start 07/25/18 at 19:30; Status Cancel Zolpidem Tartrate (Ambien) 10 mg QHS PRN PO SLEEP Last administered on 07/30/18at 22:43; Start 07/25/18 at 20:00; Stop 07/31/18 at 09:37; Status DC Allergies Coded Allergies: No Known Allergies (Verified , 06/27/10) MARY ANDERSON DO Aug 19, 2018 10:38
[2018-08-19] MEDS: LORazepam 0.5 MG TAB PO SCH ×2 (16:09→21:56)
[2018-08-19 18:42] VITALS: BP 142/88
[2018-08-19] MEDS: DIVALPROEX 500MG *ER* TAB PO SCH (21:56)
[2018-08-19] MEDS: QUEtiapine FUMARATE **XR** 200MG TABLET PO SCH (21:56)
[2018-08-19] MEDS: BENZTROPINE 1 MG TAB PO SCH (21:57)
[2018-08-20 06:41] VITALS: BP 112/59
[2018-08-20] MEDS: MELOXICAM (MOBIC) 7.5 MG TAB PO SCH (08:06)
[2018-08-20] MEDS: METOPROLOL TART 25 MG TABLET PO SCH ×2 (08:07→20:00)
[2018-08-20] MEDS: FUROSEMIDE 20 MG TAB PO SCH ×2 (08:07→16:42)
[2018-08-20] MEDS: DOCUSATE SODIUM 100 MG CAP PO SCH ×2 (08:07→20:00)
[2018-08-20] MEDS: LORazepam 0.5 MG TAB PO SCH ×2 (08:07→19:59)
[2018-08-20] MEDS: POTASSIUM CHLORIDE 10 MEQ SR TABLET PO SCH ×2 (08:07→20:00)
[2018-08-20] MEDS: ENOXAPARIN 40 MG/0.4 ML SYRINGE (J1650) SC SCH (08:08)
--- NOTE | 2018-08-20 08:58 | MHIPNPDOC ---
[facility] Progress Note Progress Note DATE OF SERVICE: 08/20/18 HISTORY: Patient is a 57 -year-old , male, with a history of schizoaffective d/o and residing at [facility] several years who was sent with PD under 9.41 from [facility] due to pt threatening staff and other residents, decompensating, manic, paranoid people talk about him, talking to self, AH (stated in ED "they're not too bad"), and agitation. Pt according to TLS scaring the other residents there due to him threatening and cussing at them. Per ED, when pt asked why he was sent to the ED he stated "I was evicted from my house for arguing with 2 other people. Per ED, pt was manic and agitated. Pt is a poor historian due to current nelda/psychosis/agitation so history gathered from previous chart records. VITAL SIGNS: See below. NEW TEST RESULTS:. Depakote level 69.9 CURRENT MEDICATIONS: See below. MENTAL STATUS EXAMINATION: Patient is a 57-year old male, who is being treated for what has presented as bipolar disorder. Haldol treatment, as well as Depakote seemed ineffective. He was changed to Prolixin, and his Depakote level was elevated and dosage reduced. Speech: Is rapid stuttered. Language skills are intact. Thought processes including:. tangential, concrete, and persecuted. Thought content: rambling and at times confused (confused sitter later in day of stealing something from his). Abstract reasoning, and computation:. Poor abstract. Description of associations: loose associations possibly improving but difficult to access due to muttered/rapid speech. Description of abnormal or psychotic thoughts:. Thoughts do appear to be abnormal. Explosive and loud. reactive. Appears mildly improved this morning Judgment:. Poor. Insight: Poor. Orientation: Intact 3. Recent and remote memory:. Not able to measure. Attention span and concentration: Poor. Language:. No obvious abnormality. Fund of knowledge:. Unable to measure. Mood: Irritable. Affect:, Congruent. Reactive DIAGNOSES: 1. Bipolar disorder with psychotic features. ASSESSMENT: No change from yesterday. Minimal improvement in symptoms as still has episodes of yelling with agitation that occurs randomly thru out the day each day although appear less this morning but usually increase in afternoon. Mumbling and refusing to listen to 1:1 sitter to sit in room as can't walk in milieu at this time. I asked him to sit and continued to talk rapidly refuse too b/c "why... I don't want to." Still on 1:1 assist for ambulation and safety. Difficult to understand due to rapid mumbling although did state he feels better and likes the way the medication (prolixin) makes him feel. States he's feeling better overall. Continue titration off of valium and ativan MANAGEMENT PLAN: Continue titration off of valium and ativan. Medications: Cogentin 1 mg QHS Valium 0.5 mg qhs@ 2100 Depakote Er 1,500 mg QHS Colace 200 mg BID Prolixin 10 mg QID Ativan 0.5 mg TID@0600,1800 ZyPREXA ZYDIS 10 mg Q4HP PRN PO ANXIETY/AGITATION SEROquel XR 400 mg QHS TIME SPENT: 30 minutes. Vital Signs Vital Signs Date Time Temp Pulse Resp B/P (MAP) Pulse Ox O2 Delivery O2 Flow Rate FiO2 08/20/18 08:07 65 124/73 08/20/18 06:41 97.3 18 Laboratory Data 24H Labs Laboratory Tests 2 08/19/18 13:30: Valproic Acid (Depakene) Level 69.9 Current Medications Current Medications Acetaminophen (Tylenol Tab) 650 mg Q4HP PRN PO PAIN OR FEVER; Start 07/30/18 at 14:45; Stop 07/30/18 at 15:25; Status DC Acetaminophen (Tylenol Tab) 650 mg Q6HP PRN PO HEADACHE or DISCOMFORT; Start 07/25/18 at 19:30; Status Cancel Acetaminophen (Tylenol Tab) 1,000 mg Q8H PRN PO PAIN Last administered on 08/19/18at 08:10; Start 07/25/18 at 20:00 Al Hydrox/Mg Hydrox/Simethicone (Mylanta) 30 ml Q4HP PRN PO HEARTBURN/INDIGESTION; Start 07/25/18 at 19:30 Albuterol Sulfate (Proventil, Ventolin Hfa) 2 puff Q4H PRN INH SHORTNESS OF BREATH Last administered on 07/31/18at 11:48; Start 07/25/18 at 20:00 Amoxicillin/ Clavulanate Potassium (Augmentin) 875 mg BID PO Last administered on 08/05/18 20:23; Start 07/30/18 at 14:15; Stop 08/05/18 at 21:01; Status DC Asenapine (Saphris) 5 mg BID@0600,1500 SL Last administered on 07/26/18 05:16; Start 07/26/18 at 06:00; Stop 07/26/18 at 10:37; Status DC Bacitracin/ Polymyxin B Sulfate (Polysporin Top Oint) APPLY TO WOUND AREA BID TOP Last administered on 08/06/18at 08:27; Start 07/30/18 at 21:00; Stop 08/06/18 at 09:01; Status DC Benztropine Mesylate (Cogentin) 1 mg QHS PO Last administered on 08/19/18 21:57; Start 07/25/18 at 21:00 Diazepam (Valium) 0.5 mg BID PO Last administered on 08/19/18 08:11; Start 08/16/18 at 21:00; Stop 08/19/18 at 10:37; Status DC Diazepam (Valium) 0.5 mg QHS PO Last administered on 08/19/18 21:58; Start 08/19/18 at 21:00 Diazepam (Valium) 0.5 mg TID PO Last administered on 08/16/18 08:52; Start 08/14/18 at 16:00; Stop 08/16/18 at 09:42; Status DC Diazepam (Valium) 1 mg TID PO Last administered on 08/10/18 08:27; Start 07/31/18 at 21:00; Stop 08/10/18 at 10:05; Status DC Diazepam (Valium) 1 mg TID@0900,1500,2100 PO Last administered on 08/14/18 08:23; Start 08/10/18 at 15:00; Stop 08/14/18 at 10:43; Status DC Diazepam (Valium) 2 mg TID PO Last administered on 07/26/18at 07:55; Start 07/25/18 at 21:00; Stop 07/26/18 at 11:05; Status DC Diazepam (Valium) 2 mg TID@0600,1200,2000 PO Last administered on 07/31/18at 11:45; Start 07/26/18 at 12:00; Stop 07/31/18 at 12:18; Status DC Diphenhydramine HCl (Benadryl) 50 mg STAT STAT IM Last administered on 07/29/18 03:57; Start 07/29/18 at 03:39; Stop 07/29/18 at 03:45; Status DC Divalproex Sodium (Depakote Er) 250 mg QHS PO Last administered on 08/11/18 20:10; Start 07/31/18 at 21:00; Stop 08/12/18 at 08:38; Status DC Divalproex Sodium (Depakote Er) 1,500 mg DAILY@1800 PO Last administered on 07/30/18 17:37; Start 07/25/18 at 18:00; Stop 07/31/18 at 09:37; Status DC Divalproex Sodium (Depakote Er) 1,500 mg QHS PO Last administered on 08/19/18 21:56; Start 07/31/18 at 21:00 Docusate Sodium (Colace) 200 mg BID PO Last administered on 08/20/18 08:07; Start 07/25/18 at 21:00 Enoxaparin Sodium (Lovenox) 40 mg DAILY SC Last administered on 08/20/18 08:08; Start 08/05/18 at 09:00 Fluphenazine HCl (Prolixin) 10 mg QID PO Last administered on 08/20/18 08:07; Start 08/12/18 at 09:00 Fluphenazine HCl (Prolixin) 10 mg TID PO Last administered on 08/11/18 20:11; Start 08/10/18 at 21:00; Stop 08/12/18 at 08:37; Status DC Furosemide (Lasix) 20 mg BID@0900,1700 PO Last administered on 08/20/18 08:07; Start 07/26/18 at 09:00 Haloperidol (Haldol) 5 mg BID PO ; Start 07/26/18 at 21:00; Status Cancel Haloperidol (Haldol) 5 mg BID PO Last administered on 08/04/18 10:03; Start 08/02/18 at 21:00; Stop 08/04/18 at 13:20; Status DC Haloperidol (Haldol) 7.5 mg BID PO Last administered on 08/06/18 08:25; Start 08/04/18 at 21:00; Stop 08/06/18 at 14:18; Status DC Haloperidol (Haldol) 10 mg BID PO Last administered on 08/09/18at 08:32; Start 08/06/18 at 21:00; Stop 08/09/18 at 13:09; Status DC Haloperidol (Haldol) 10 mg TID PO Last administered on 08/10/18at 16:12; Start 08/09/18 at 16:00; Stop 08/10/18 at 18:06; Status DC Heparin Sodium (Porcine) (Heparin) 5,000 units Q12H SQ Last administered on 08/04/18 10:01; Start 08/01/18 at 21:00; Stop 08/04/18 at 10:37; Status DC Home Med (Med Rec Complete!) ASDIRECTED XX ; Start 07/25/18 at 19:15; Stop 07/25/18 at 19:15; Status DC Lorazepam (Ativan) 0.5 mg TID PO Last administered on 08/20/18 08:07; Start 08/19/18 at 16:00 Lorazepam (Ativan) 1 mg TID PO Last administered on 08/19/18 08:11; Start 08/15/18 at 16:00; Stop 08/19/18 at 10:37; Status DC Lorazepam (Ativan) 1.5 mg TID PO Last administered on 08/15/18 08:55; Start 08/14/18 at 16:00; Stop 08/15/18 at 11:42; Status DC Lorazepam (Ativan) 2 mg Q6HP PRN PO ANXIETY/AGITATION Last administered on 08/10/18at 03:59; Start 07/26/18 at 10:45; Stop 08/10/18 at 06:55; Status DC Lorazepam (Ativan) 2 mg STAT STAT IM Last administered on 07/29/18at 03:56; Start 07/29/18 at 03:39; Stop 07/29/18 at 03:45; Status DC Lorazepam (Ativan) 2 mg TID PO ; Start 08/10/18 at 09:00; Stop 08/10/18 at 10:05; Status DC Lorazepam (Ativan) 2 mg TID@0600,1200,1800 PO Last administered on 08/14/18at 05:40; Start 08/10/18 at 12:00; Stop 08/14/18 at 10:43; Status DC Magnesium Hydroxide (Milk Of Magnesia) 30 ml DAILYPRN PRN PO CONSTIPATION Last administered on 08/17/18at 13:47; Start 07/25/18 at 19:30 Meloxicam (Mobic) 15 mg DAILY PO Last administered on 08/20/18at 08:06; Start 07/26/18 at 09:00 Metoprolol Tartrate (Lopressor) 25 mg BID PO Last administered on 08/20/18at 08:07; Start 07/25/18 at 21:00 Miscellaneous (Unresolved Clarification Entry) SEE LABEL COMMENTS DAILY XX ; Start 08/01/18 at 09:00; Stop 08/02/18 at 07:18; Status DC Miscellaneous (Unresolved Clarification Entry) SEE LABEL COMMENTS DAILY XX ; St art 08/02/18 at 09:00; Stop 08/02/18 at 10:47; Status DC Miscellaneous (Unresolved Clarification Entry) SEE LABEL COMMENTS DAILY XX ; Start 08/07/18 at 09:00; Stop 08/08/18 at 06:57; Status DC Miscellaneous (Unresolved Clarification Entry) SEE LABEL COMMENTS DAILY XX ; Start 08/08/18 at 09:00; Stop 08/08/18 at 11:41; Status DC Miscellaneous (Unresolved Clarification Entry) SEE LABEL COMMENTS DAILY XX ; Start 08/11/18 at 09:00; Stop 08/11/18 at 11:58; Status DC Miscellaneous (Unresolved Clarification Entry) SEE LABEL COMMENTS DAILY XX ; Start 08/17/18 at 09:00; Stop 08/17/18 at 14:47; Status DC Nicotine (Nicoderm Cq 21mg) 1 patch DAILY TD ; Start 07/26/18 at 09:00; Stop 07/26/18 at 09:00; Status DC Non-Formulary Medication ( See Comment Field Below ) SEE COMMENTS SECTION 1T@10 XX ; Start 08/16/18 at 10:00; Stop 08/16/18 at 10:00; Status DC Non-Formulary Medication ( See Comment Field Below ) SEE LABEL COMMENTS DAILY XX ; Start 08/14/18 at 09:00; Stop 08/14/18 at 10:35; Status DC Olanzapine (ZyPREXA ZYDIS) 5 mg BID PO Last administered on 07/28/18at 20:09; Start 07/26/18 at 21:00; Stop 07/29/18 at 10:50; Status DC Olanzapine (ZyPREXA ZYDIS) 5 mg Q6HP PRN PO ANXIETY/AGITATION Last administered on 07/28/18at 00:51; Start 07/26/18 at 10:45; Stop 07/28/18 at 12:00; Status DC Olanzapine (ZyPREXA ZYDIS) 5 mg STAT STAT PO Last administered on 08/18/18at 10:27; Start 08/18/18 at 10:23; Stop 08/18/18 at 10:24; Status DC Olanzapine (ZyPREXA ZYDIS) 10 mg BID PO Last administered on 07/31/18at 0 8:26; Start 07/29/18 at 21:00; Stop 07/31/18 at 09:40; Status DC Olanzapine (ZyPREXA ZYDIS) 10 mg BID PO Last administered on 08/02/18at 08:12; Start 07/31/18 at 21:00; Stop 08/02/18 at 10:46; Status DC Olanzapine (ZyPREXA ZYDIS) 10 mg Q4HP PRN PO ANXIETY/AGITATION Last administered on 08/18/18at 22:13; Start 07/28/18 at 12:00 Olanzapine (ZyPREXA ZYDIS) 10 mg TID PO ; Start 07/31/18 at 16:00; Status Cancel Olanzapine (Zyprexa Intramuscular) 10 mg STAT STAT IM Last administered on 07/29/18at 03:56; Start 07/29/18 at 03:39; Stop 07/29/18 at 03:45; Status DC Potassium Chloride (Micro-K Extencaps) 10 meq BID PO Last administered on 08/20/18at 08:07; Start 07/30/18 at 09:00 Potassium Chloride (Micro-K Extencaps) 10 meq BID PO ; Start 07/25/18 at 21:00; Status UNV Quetiapine Fumarate (SEROquel XR) 300 mg QHS PO Last administered on 08/03/18at 20:24; Start 08/03/18 at 21:00; Stop 08/04/18 at 13:20; Status DC Quetiapine Fumarate (SEROquel XR) 400 mg DAILY@1800 PO Last administered on 07/30/18at 17:37; Start 07/25/18 at 18:00; Stop 07/31/18 at 09:37; Status DC Quetiapine Fumarate (SEROquel XR) 400 mg QHS PO Last administered on 08/19/18at 21:56; Start 08/04/18 at 21:00 Quetiapine Fumarate (SEROquel) 600 mg QHS PO Last administered on 08/01/18at 20:06; Start 07/31/18 at 21:00; Stop 08/02/18 at 10:46; Status DC Trazodone HCl (Desyrel) 50 mg QHSP PRN PO INSOMNIA; Start 07/25/18 at 19:30; Status Cancel Zolpidem Tartrate (Ambien) 10 mg QHS PRN PO SLEEP Last administered on 07/30/18at 22:43; Start 07/25/18 at 20:00; Stop 07/31/18 at 09:37; Status DC Allergies Coded Allergies: No Known Allergies (Verified , 06/27/10) MARY ANDERSON DO Aug 20, 2018 08:58
[2018-08-20 18:44] VITALS: BP 130/68
[2018-08-20] MEDS: QUEtiapine FUMARATE **XR** 200MG TABLET PO SCH (19:59)
[2018-08-20] MEDS: DIVALPROEX 500MG *ER* TAB PO SCH (20:00)
[2018-08-20] MEDS: BENZTROPINE 1 MG TAB PO SCH (20:00)
[2018-08-20] MEDS: diazePAM 2 MG TAB PO SCH (20:00)
[2018-08-20] MEDS: ACETAMINOPHEN 500 MG TAB PO PRN (20:02)
[2018-08-20] MEDS: OLANZapine ORAL DISINTEGRATING TAB 5MG PO PRN (22:17)
[2018-08-21 06:49] VITALS: BP 121/67
[2018-08-21] MEDS: OLANZapine ORAL DISINTEGRATING TAB 5MG PO PRN (07:58)
[2018-08-21] MEDS: METOPROLOL TART 25 MG TABLET PO SCH ×2 (09:01→20:30)
[2018-08-21] MEDS: FUROSEMIDE 20 MG TAB PO SCH ×2 (09:02→17:28)
[2018-08-21] MEDS: LORazepam 0.5 MG TAB PO SCH ×2 (09:02→20:32)
[2018-08-21] MEDS: POTASSIUM CHLORIDE 10 MEQ SR TABLET PO SCH ×2 (09:02→20:32)
[2018-08-21] MEDS: DOCUSATE SODIUM 100 MG CAP PO SCH ×2 (09:02→20:30)
[2018-08-21] MEDS: ENOXAPARIN 40 MG/0.4 ML SYRINGE (J1650) SC SCH (09:02)
[2018-08-21] MEDS: MELOXICAM (MOBIC) 7.5 MG TAB PO SCH (09:02)
--- NOTE | 2018-08-21 10:03 | MHIPNPDOC ---
[facility] Progress Note Progress Note DATE OF SERVICE: 08/21/18 HISTORY: Patient is a 57 -year-old , male, with a history of schizoaffective d/o and residing at [facility] several years who was sent with PD under 9.41 from [facility] due to pt threatening staff and other residents, decompensating, manic, paranoid people talk about him, talking to self, AH (stated in ED "they're not too bad"), and agitation. Pt according to TLS scaring the other residents there due to him threatening and cussing at them. Per ED, when pt asked why he was sent to the ED he stated "I was evicted from my house for arguing with 2 other people. Per ED, pt was manic and agitated. Pt is a poor historian due to current nelda/psychosis/agitation so history gathered from previous chart records. VITAL SIGNS: See below. NEW TEST RESULTS:. Depakote level 69.9 CURRENT MEDICATIONS: See below. MENTAL STATUS EXAMINATION: Patient is a 57-year old male, who is being treated for what has presented as bipolar disorder w/psychosis. Mildly improving as titrated off benzodiazepines Speech: Is rapid stuttered. Language skills are intact. Thought processes including:. tangential, concrete, and persecuted. Thought content: rambling and at times confused (confused sitter later in day of stealing something from his). Abstract reasoning, and computation:. Poor abstract. Description of associations: loose associations possibly improving but difficult to access due to muttered/rapid speech. Description of abnormal or psychotic thoughts:. Thoughts do appear to be abnormal. Explosive and loud. reactive. Appears mildly improved this morning Judgment:. Poor. Insight: Poor. Orientation: Intact 3. Recent and remote memory:. Not able to measure. Attention span and concentration: Poor. Language:. No obvious abnormality. Fund of knowledge:. Unable to measure. Mood: Irritable. Affect:, Congruent. Reactive DIAGNOSES: 1. Bipolar disorder with psychotic features. ASSESSMENT: No change from yesterday. Minimal improvement in symptoms as still has episodes of yelling with agitation that occurs randomly thru out the day each day although appear less this morning but usually increase in afternoon. Per staff did have a good visit with his mother who believes pt is almost at his baseline. More cooperative w/sitter today. States he feels "ok." Still on 1:1 assist for ambulation and safety. Difficult to understand due to rapid mumbling although did state he feels better and likes the way the medication (prolixin) makes him feel. States he's feeling better overall. Continue titration off of valium and ativan MANAGEMENT PLAN: Continue titration off of ativan. d/c valium Medications: Cogentin 1 mg QHS Depakote Er 1,500 mg QHS Colace 200 mg BID Prolixin 10 mg QID Ativan 0.5 mg TID@0600,1800 ZyPREXA ZYDIS 10 mg Q4HP PRN PO ANXIETY/AGITATION SEROquel XR 400 mg QHS TIME SPENT: 30 minutes. Vital Signs Vital Signs Date Time Temp Pulse Resp B/P (MAP) Pulse Ox O2 Delivery O2 Flow Rate FiO2 08/21/18 09:01 78 148/88 08/21/18 06:49 97.3 16 Current Medications Current Medications Acetaminophen (Tylenol Tab) 650 mg Q4HP PRN PO PAIN OR FEVER; Start 07/30/18 at 14:45; Stop 07/30/18 at 15:25; Status DC Acetaminophen (Tylenol Tab) 650 mg Q6HP PRN PO HEADACHE or DISCOMFORT; Start 07/25/18 at 19:30; Status Cancel Acetaminophen (Tylenol Tab) 1,000 mg Q8H PRN PO PAIN Last administered on 08/20/18at 20:02; Start 07/25/18 at 20:00 Al Hydrox/Mg Hydrox/Simethicone (Mylanta) 30 ml Q4HP PRN PO HEART BURN/INDIGESTION; Start 07/25/18 at 19:30 Albuterol Sulfate (Proventil, Ventolin Hfa) 2 puff Q4H PRN INH SHORTNESS OF BREATH Last administered on 07/31/18at 11:48; Start 07/25/18 at 20:00 Amoxicillin/ Clavulanate Potassium (Augmentin) 875 mg BID PO Last administered on 08/05/18at 20:23; Start 07/30/18 at 14:15; Stop 08/05/18 at 21:01; Status DC Asenapine (Saphris) 5 mg BID@0600,1500 SL Last administered on 07/26/18at 05:16; Start 07/26/18 at 06:00; Stop 07/26/18 at 10:37; Status DC Bacitracin/ Polymyxin B Sulfate (Polysporin Top Oint) APPLY TO WOUND AREA BID TOP Last administered on 08/06/18 08:27; Start 07/30/18 at 21:00; Stop at 09:01; Status DC Benztropine Mesylate (Cogentin) 1 mg QHS PO Last administered on 08/20/18 20:00; Start 07/25/18 at 21:00 Diazepam (Valium) 0.5 mg BID PO Last administered on 08/19/18 08:11; Start 08/16/18 at 21:00; Stop 08/19/18 at 10:37; Status DC Diazepam (Valium) 0.5 mg QHS PO Last administered on 08/20/18 20:00; Start 08/19/18 at 21:00 Diazepam (Valium) 0.5 mg TID PO Last administered on 08/16/18 08:52; Start 08/14/18 at 16:00; Stop 08/16/18 at 09:42; Status DC Diazepam (Valium) 1 mg TID PO Last administered on 08/10/18 08:27; Start 07/31/18 at 21:00; Stop 08/10/18 at 10:05; Status DC Diazepam (Valium) 1 mg TID@0900,1500,2100 PO Last administered on 08/14/18 08:23; Start 08/10/18 at 15:00; Stop 08/14/18 at 10:43; Status DC Diazepam (Valium) 2 mg TID PO Last administered on 07/26/18at 07:55; Start 07/25/18 at 21:00; Stop 07/26/18 at 11:05; Status DC Diazepam (Valium) 2 mg TID@0600,1200,2000 PO Last administered on 07/31/18at 11:45; Start 07/26/18 at 12:00; Stop 07/31/18 at 12:18; Status DC Diphenhydramine HCl (Benadryl) 50 mg STAT STAT IM Last administered on 07/29/18 03:57; Start 07/29/18 at 03:39; Stop 07/29/18 at 03:45; Status DC Divalproex Sodium (Depakote Er) 250 mg QHS PO Last administered on 08/11/18 20:10; Start 07/31/18 at 21:00; Stop 08/12/18 at 08:38; Status DC Divalproex Sodium (Depakote Er) 1,500 mg DAILY@1800 PO Last administered on 07/30/18 17:37; Start 07/25/18 at 18:00; Stop 07/31/18 at 09:37; Status DC Divalproex Sodium (Depakote Er) 1,500 mg QHS PO Last administered on 08/20/18 20:00; Start 07/31/18 at 21:00 Docusate Sodium (Colace) 200 mg BID PO Last administered on 08/21/18 09:02; Start 07/25/18 at 21:00 Enoxaparin Sodium (Lovenox) 40 mg DAILY SC Last administered on 08/21/18 09:02; Start 08/05/18 at 09:00 Fluphenazine HCl (Prolixin) 10 mg QID PO Last administered on 08/21/18 09:01; Start 08/12/18 at 09:00 Fluphenazine HCl (Prolixin) 10 mg TID PO Last administered on 08/11/18 20:11; Start 08/10/18 at 21:00; Stop 08/12/18 at 08:37; Status DC Furosemide (Lasix) 20 mg BID@0900,1700 PO Last administered on 08/21/18 09:02; Start 07/26/18 at 09:00 Haloperidol (Haldol) 5 mg BID PO ; Start 07/26/18 at 21:00; Status Cancel Haloperidol (Haldol) 5 mg BID PO Last administered on 08/04/18 10:03; Start 08/02/18 at 21:00; Stop 08/04/18 at 13:20; Status DC Haloperidol (Haldol) 7.5 mg BID PO Last administered on 08/06/18 08:25; Start 08/04/18 at 21:00; Stop 08/06/18 at 14:18; Status DC Haloperidol (Haldol) 10 mg BID PO Last administered on 08/09/18at 08:32; Start 08/06/18 at 21:00; Stop 08/09/18 at 13:09; Status DC Haloperidol (Haldol) 10 mg TID PO Last administered on 08/10/18 16:12; Start 08/09/18 at 16:00; Stop 08/10/18 at 18:06; Status DC Heparin Sodium (Porcine) (Heparin) 5,000 units Q12H SQ Last administered on 08/04/18 10:01; Start 08/01/18 at 21:00; Stop 08/04/18 at 10:37; Status DC Home Med (Med Rec Complete!) ASDIRECTED XX ; Start 07/25/18 at 19:15; Stop 07/25/18 at 19:15; Status DC Lorazepam (Ativan) 0.5 mg BID PO Last administered on 08/21/18 09:02; Start 08/20/18 at 21:00 Lorazepam (Ativan) 0.5 mg TID PO Last administered on 08/20/18 08:07; Start 08/19/18 at 16:00; Stop 08/20/18 at 08:58; Status DC Lorazepam (Ativan) 1 mg TID PO Last administered on 08/19/18 08:11; Start 08/15/18 at 16:00; Stop 08/19/18 at 10:37; Status DC Lorazepam (Ativan) 1.5 mg TID PO Last administered on 08/15/18 08:55; Start 08/14/18 at 16:00; Stop 08/15/18 at 11:42; Status DC Lorazepam (Ativan) 2 mg Q6HP PRN PO ANXIETY/AGITATION Last administered on 08/10/18at 03:59; Start 07/26/18 at 10:45; Stop 08/10/18 at 06:55; Status DC Lorazepam (Ativan) 2 mg STAT STAT IM Last administered on 07/29/18 03:56; Start 07/29/18 at 03:39; Stop 07/29/18 at 03:45; Status DC Lorazepam (Ativan) 2 mg TID PO ; Start 08/10/18 at 09:00; Stop 08/10/18 at 10:05; Status DC Lorazepam (Ativan) 2 mg TID@0600,1200,1800 PO Last administered on 08/14/18at 05:40; Start 08/10/18 at 12:00; Stop 08/14/18 at 10:43; Status DC Magnesium Hydroxide (Milk Of Magnesia) 30 ml DAILYPRN PRN PO CONSTIPATION Last administered on 08/17/18at 13:47; Start 07/25/18 at 19:30 Meloxicam (Mobic) 15 mg DAILY PO Last administered on 08/21/18at 09:02; Start 07/26/18 at 09:00 Metoprolol Tartrate (Lopressor) 25 mg BID PO Last administered on 08/21/18at 09:01; Start 07/25/18 at 21:00 Miscellaneous (Unresolved Clarification Entry) SEE LABEL COMMENTS DAILY XX ; Start 08/01/18 at 09:00; Stop 08/02/18 at 07:18; Status DC Miscellaneous (Unresolved Clarification Entry) SEE LABEL COMMENTS DAILY XX ; Start 08/02/18 at 09:00; Stop 08/02/18 at 10:47; Status DC Miscellaneous (Unresolved Clarification Entry) SEE LABEL COMMENTS DAILY XX ; Start 08/07/18 at 09:00; Stop 08/08/18 at 06:57; Status DC Miscellaneous (Unresolved Clarification Entry) SEE LABEL COMMENTS DAILY XX ; Start 08/08/18 at 09:00; Stop 08/08/18 at 11:41; Status DC Miscellaneous (Unresolved Clarification Entry) SEE LABEL COMMENTS DAILY XX ; Start 08/11/18 at 09:00; Stop 08/11/18 at 11:58; Status DC Miscellaneous (Unresolved Clarification Entry) SEE LABEL COMMENTS DAILY XX ; Start 08/17/18 at 09:00; Stop 08/17/18 at 14:47; Status DC Nicotine (Nicoderm Cq 21mg) 1 patch DAILY TD ; Start 07/26/18 at 09:00; Stop 07/26/18 at 09:00; Status DC Non-Formulary Medication ( See Comment Field Below ) SEE COMMENTS SECTION 1T@10 XX ; Start 08/16/18 at 10:00; Stop 08/16/18 at 10:00; Status DC Non-Formulary Medication ( See Comment Field Below ) SEE LABEL COMMENTS DAILY XX ; Start 08/14/18 at 09:00; Stop 08/14/18 at 10:35; Status DC Olanzapine (ZyPREXA ZYDIS) 5 mg BID PO Last administered on 07/28/18at 20:09; Start 07/26/18 at 21:00; Stop 07/29/18 at 10:50; Status DC Olanzapine (ZyPREXA ZYDIS) 5 mg Q6HP PRN PO ANXIETY/AGITATION Last administered on 07/28/18at 00:51; Start 07/26/18 at 10:45; Stop 07/28/18 at 12:00; Status DC Olanzapine (ZyPREXA ZYDIS) 5 mg STAT STAT PO Last administered on 08/18/18at 10:27; Start 08/18/18 at 10:23; Stop 08/18/18 at 10:24; Status DC Olanzapine (ZyPREXA ZYDIS) 10 mg BID PO Last administered on 07/31/18at 08:26; Start 07/29/18 at 21:00; Stop 07/31/18 at 09:40; Status DC Olanzapine (ZyPREXA ZYDIS) 10 mg BID PO Last administered on 08/02/18at 08:12; Start 07/31/18 at 21:00; Stop 08/02/18 at 10:46; Status DC Olanzapine (ZyPREXA ZYDIS) 10 mg Q4HP PRN PO ANXIETY/AGITATION Last administered on 08/21/18at 07:58; Start 07/28/18 at 12:00 Olanzapine (ZyPREXA ZYDIS) 10 mg TID PO ; Start 07/31/18 at 16:00; Status Cancel Olanzapine (Zyprexa Intramuscular) 10 mg STAT STAT IM Last administered on 07/29/18at 03:56; Start 07/29/18 at 03:39; Stop 07/29/18 at 03:45; Status DC Potassium Chloride (Micro-K Extencaps) 10 meq BID PO Last administered on 08/21/18at 09:02; Start 07/30/18 at 09:00 Potassium Chloride (Micro-K Extencaps) 10 meq BID PO ; Start 07/25/18 at 21:00; Status UNV Quetiapine Fumarate (SEROquel XR) 300 mg QHS PO Last administered on 08/03/18at 20:24; Start 08/03/18 at 21:00; Stop 08/04/18 at 13:20; Status DC Quetiapine Fumarate (SEROquel XR) 400 mg DAILY@1800 PO Last administered on 07/30/18at 17:37; Start 07/25/18 at 18:00; Stop 07/31/18 at 09:37; Status DC Quetiapine Fumarate (SEROquel XR) 400 mg QHS PO Last administered on 08/20/18at 19:59; Start 08/04/18 at 21:00 Quetiapine Fumarate (SEROquel) 600 mg QHS PO Last administered on 08/01/18at 20:06; Start 07/31/18 at 21:00; Stop 08/02/18 at 10:46; Status DC Trazodone HCl (Desyrel) 50 mg QHSP PRN PO INSOMNIA; Start 07/25/18 at 19:30; Status Cancel Zolpidem Tartrate (Ambien) 10 mg QHS PRN PO SLEEP Last administered on 07/30/18at 22:43; Start 07/25/18 at 20:00; Stop 07/31/18 at 09:37; Status DC Allergies Coded Allergies: No Known Allergies (Verified , 06/27/10) MARY ANDERSON DO Aug 21, 2018 09:06
[2018-08-21 18:00] VITALS: BP 125/75
[2018-08-21] MEDS: DIVALPROEX 500MG *ER* TAB PO SCH (20:30)
[2018-08-21] MEDS: QUEtiapine FUMARATE **XR** 200MG TABLET PO SCH (20:31)
[2018-08-21] MEDS: ACETAMINOPHEN 500 MG TAB PO PRN (20:31)
[2018-08-21] MEDS: BENZTROPINE 1 MG TAB PO SCH (20:32)
[2018-08-22] MEDS: OLANZapine ORAL DISINTEGRATING TAB 5MG PO PRN (00:40)
[2018-08-22 06:52] VITALS: BP 122/81
[2018-08-22] MEDS: ENOXAPARIN 40 MG/0.4 ML SYRINGE (J1650) SC SCH (08:28)
[2018-08-22] MEDS: LORazepam 0.5 MG TAB PO SCH ×2 (08:28→20:04)
[2018-08-22] MEDS: DOCUSATE SODIUM 100 MG CAP PO SCH ×2 (08:28→20:04)
[2018-08-22] MEDS: METOPROLOL TART 25 MG TABLET PO SCH ×2 (08:30→20:04)
[2018-08-22] MEDS: FUROSEMIDE 20 MG TAB PO SCH ×2 (08:31→17:18)
[2018-08-22] MEDS: MELOXICAM (MOBIC) 7.5 MG TAB PO SCH (08:31)
[2018-08-22] MEDS: POTASSIUM CHLORIDE 10 MEQ SR TABLET PO SCH ×2 (08:31→20:04)
[2018-08-22 10:00] VITALS: BP 94/53
--- NOTE | 2018-08-22 10:01 | MHIPNPDOC ---
[facility] Progress Note Progress Note DATE OF SERVICE: 08/22/18 HISTORY: Patient is a 57 -year-old , male, with a history of schizoaffective d/o and residing at [facility] several years who was sent with PD under 9.41 from [facility] due to pt threatening staff and other residents, decompensating, manic, paranoid people talk about him, talking to self, AH (stated in ED "they're not too bad"), and agitation. Pt according to TLS scaring the other residents there due to him threatening and cussing at them. Per ED, when pt asked why he was sent to the ED he stated "I was evicted from my house for arguing with 2 other people. Per ED, pt was manic and agitated. Pt is a poor historian due to current nelda/psychosis/agitation so history gathered from previous chart records. VITAL SIGNS: See below. NEW TEST RESULTS:. Depakote level 69.9 CURRENT MEDICATIONS: See below. MENTAL STATUS EXAMINATION: Per yesterday MSE as unable to assess pt currently b/c he's asleep Patient is a 57-year old male, who is being treated for what has presented as bi polar disorder w/psychosis. Mildly improving as titrated off benzodiazepines Speech: Is rapid stuttered. Language skills are intact. Thought processes including:. tangential, concrete, and persecuted. Thought content: rambling and at times confused (confused sitter later in day of stealing something from his). Abstract reasoning, and computation:. Poor abstract. Description of associations: loose associations possibly improving but difficult to access due to muttered/rapid speech. Description of abnormal or psychotic thoughts:. Thoughts do appear to be abnormal. Explosive and loud. reactive. Appears mildly improved this morning Judgment:. Poor. Insight: Poor. Orientation: Intact 3. Recent and remote memory:. Not able to measure. Attention span and concentration: Poor. Language:. No obvious abnormality. Fund of knowledge:. Unable to measure. Mood: Irritable. Affect:, Congruent. Reactive DIAGNOSES: 1. Bipolar disorder with psychotic features. ASSESSMENT: No change from yesterday and unable to assess fully as currently asleep. some improvement in symptoms with less frequent episodes of yelling with agitation that occurs randomly thru out the day each day although appear less this morning but usually increase in afternoon since titration off benzodiazepines nearly complete. Still on 1:1 assist for ambulation and safety. Difficult to understand due to rapid mumbling although did state he feels better and likes the way the medication (prolixin) makes him feel. States he's feeling better overall. Continue titration off of valium and ativan MANAGEMENT PLAN: Continue titration off of ativan. Medications: Cogentin 1 mg QHS Depakote Er 1,500 mg QHS Colace 200 mg BID Prolixin 10 mg QID Ativan 0.5 mg q1800 ZyPREXA ZYDIS 10 mg Q4HP PRN PO ANXIETY/AGITATION SEROquel XR 400 mg QHS TIME SPENT: 30 minutes. Vital Signs Vital Signs Date Time Temp Pulse Resp B/P (MAP) Pulse Ox O2 Delivery O2 Flow Rate FiO2 08/22/18 08:30 69 94/53 08/22/18 06:52 98.3 16 Current Medications Current Medications Acetaminophen (Tylenol Tab) 650 mg Q4HP PRN PO PAIN OR FEVER; Start 07/30/18 at 14:45; Stop 07/30/18 at 15:25; Status DC Acetaminophen (Tylenol Tab) 650 mg Q6HP PRN PO HEADACHE or DISCOMFORT; Start 07/25/18 at 19:30; Status Cancel Acetaminophen (Tylenol Tab) 1,000 mg Q8H PRN PO PAIN Last administered on 08/21/18at 20:31; Start 07/25/18 at 20:00 Al Hydrox/Mg Hydrox/Simethicone (Mylanta) 30 ml Q4HP PRN PO HEARTB URN/INDIGESTION; Start 07/25/18 at 19:30 Albuterol Sulfate (Proventil, Ventolin Hfa) 2 puff Q4H PRN INH SHORTNESS OF BREATH Last administered on 07/31/18at 11:48; Start 07/25/18 at 20:00 Amoxicillin/ Clavulanate Potassium (Augmentin) 875 mg BID PO Last administered on 08/05/18at 20:23; Start 07/30/18 at 14:15; Stop 08/05/18 at 21:01; Status DC Asenapine (Saphris) 5 mg BID@0600,1500 SL Last administered on 07/26/18at 05:16; Start 07/26/18 at 06:00; Stop 07/26/18 at 10:37; Status DC Bacitracin/ Polymyxin B Sulfate (Polysporin Top Oint) APPLY TO WOUND AREA BID TOP Last administered on 08/06/18 08:27; Start 07/30/18 at 21:00; Stop at 09:01; Status DC Benztropine Mesylate (Cogentin) 1 mg QHS PO Last administered on 08/21/18 20:32; Start 07/25/18 at 21:00 Diazepam (Valium) 0.5 mg BID PO Last administered on 08/19/18 08:11; Start 08/16/18 at 21:00; Stop 08/19/18 at 10:37; Status DC Diazepam (Valium) 0.5 mg QHS PO Last administered on 08/20/18 20:00; Start 08/19/18 at 21:00; Stop 08/21/18 at 10:04; Status DC Diazepam (Valium) 0.5 mg TID PO Last administered on 08/16/18at 08:52; Start 08/14/18 at 16:00; Stop 08/16/18 at 09:42; Status DC Diazepam (Valium) 1 mg TID PO Last administered on 08/10/18at 08:27; Start 07/31/18 at 21:00; Stop 08/10/18 at 10:05; Status DC Diazepam (Valium) 1 mg TID@0900,1500,2100 PO Last administered on 08/14/18 08:23; Start 08/10/18 at 15:00; Stop 08/14/18 at 10:43; Status DC Diazepam (Valium) 2 mg TID PO Last administered on 07/26/18at 07:55; Start 07/25/18 at 21:00; Stop 07/26/18 at 11:05; Status DC Diazepam (Valium) 2 mg TID@0600,1200,2000 PO Last administered on 07/31/18at 11:45; Start 07/26/18 at 12:00; Stop 07/31/18 at 12:18; Status DC Diphenhydramine HCl (Benadryl) 50 mg STAT STAT IM Last administered on 07/29/18at 03:57; Start 07/29/18 at 03:39; Stop 07/29/18 at 03:45; Status DC Divalproex Sodium (Depakote Er) 250 mg QHS PO Last administered on 08/11/18 20:10; Start 07/31/18 at 21:00; Stop 08/12/18 at 08:38; Status DC Divalproex Sodium (Depakote Er) 1,500 mg DAILY@1800 PO Last administered on 07/30/18 17:37; Start 07/25/18 at 18:00; Stop 07/31/18 at 09:37; Status DC Divalproex Sodium (Depakote Er) 1,500 mg QHS PO Last administered on 08/21/18 20:30; Start 07/31/18 at 21:00 Docusate Sodium (Colace) 200 mg BID PO Last administered on 08/22/18 08:28; Start 07/25/18 at 21:00 Enoxaparin Sodium (Lovenox) 40 mg DAILY SC Last administered on 08/22/18 08:28; Start 08/05/18 at 09:00 Fluphenazine HCl (Prolixin) 10 mg QID PO Last administered on 08/22/18 08:31; Start 08/12/18 at 09:00 Fluphenazine HCl (Prolixin) 10 mg TID PO Last administered on 08/11/18 20:11; Start 08/10/18 at 21:00; Stop 08/12/18 at 08:37; Status DC Furosemide (Lasix) 20 mg BID@0900,1700 PO Last administered on 08/22/18 08:31; Start 07/26/18 at 09:00 Haloperidol (Haldol) 5 mg BID PO ; Start 07/26/18 at 21:00; Status Cancel Haloperidol (Haldol) 5 mg BID PO Last administered on 08/04/18 10:03; Start 08/02/18 at 21:00; Stop 08/04/18 at 13:20; Status DC Haloperidol (Haldol) 7.5 mg BID PO Last administered on 08/06/18 08:25; Start 08/04/18 at 21:00; Stop 08/06/18 at 14:18; Status DC Haloperidol (Haldol) 10 mg BID PO Last administered on 08/09/18 08:32; Start 08/06/18 at 21:00; Stop 08/09/18 at 13:09; Status DC Haloperidol (Haldol) 10 mg TID PO Last administered on 08/10/18at 16:12; Start 08/09/18 at 16:00; Stop 08/10/18 at 18:06; Status DC Heparin Sodium (Porcine) (Heparin) 5,000 units Q12H SQ Last administered on 08/04/18at 10:01; Start 08/01/18 at 21:00; Stop 08/04/18 at 10:37; Status DC Home Med (Med Rec Complete!) ASDIRECTED XX ; Start 07/25/18 at 19:15; Stop 07/25/18 at 19:15; Status DC Lorazepam (Ativan) 0.5 mg BID PO Last administered on 08/22/18at 08:28; Start 08/20/18 at 21:00 Lorazepam (Ativan) 0.5 mg TID PO Last administered on 08/20/18at 08:07; Start 08/19/18 at 16:00; Stop 08/20/18 at 08:58; Status DC Lorazepam (Ativan) 1 mg TID PO Last administered on 08/19/18at 08:11; Start 08/15/18 at 16:00; Stop 08/19/18 at 10:37; Status DC Lorazepam (Ativan) 1.5 mg TID PO Last administered on 08/15/18at 08:55; Start 08/14/18 at 16:00; Stop 08/15/18 at 11:42; Status DC Lorazepam (Ativan) 2 mg Q6HP PRN PO ANXIETY/AGITATION Last administered on 08/10/18at 03:59; Start 07/26/18 at 10:45; Stop 08/10/18 at 06:55; Status DC Lorazepam (Ativan) 2 mg STAT STAT IM Last administered on 07/29/18at 03:56; Start 07/29/18 at 03:39; Stop 07/29/18 at 03:45; Status DC Lorazepam (Ativan) 2 mg TID PO ; Start 08/10/18 at 09:00; Stop 08/10/18 at 10:05; Status DC Lorazepam (Ativan) 2 mg TID@0600,1200,1800 PO Last administered on 08/14/18at 05:40; Start 08/10/18 at 12:00; Stop 08/14/18 at 10:43; Status DC Magnesium Hydroxide (Milk Of Magnesia) 30 ml DAILYPRN PRN PO CONSTIPATION Last administered on 08/17/18at 13:47; Start 07/25/18 at 19:30 Meloxicam (Mobic) 15 mg DAILY PO Last administered on 08/22/18at 08:31; Start 07/26/18 at 09:00 Metoprolol Tartrate (Lopressor) 25 mg BID PO Last administered on 08/21/18at 20:30; Start 07/25/18 at 21:00 Miscellaneous (Unresolved Clarification Entry) SEE LABEL COMMENTS DAILY XX ; Start 08/01/18 at 09:00; Stop 08/02/18 at 07:18; Status DC Miscellaneous (Unresolved Clarification Entry) SEE LABEL COMMENTS DAILY XX ; Start 08/02/18 at 09:00; Stop 08/02/18 at 10:47; Status DC Miscellaneous (Unresolved Clarification Entry) SEE LABEL COMMENTS DAILY XX ; Start 08/07/18 at 09:00; Stop 08/08/18 at 06:57; Status DC Miscellaneous (Unresolved Clarification Entry) SEE LABEL COMMENTS DAILY XX ; Start 08/08/18 at 09:00; Stop 08/08/18 at 11:41; Status DC Miscellaneous (Unresolved Clarification Entry) SEE LABEL COMMENTS DAILY XX ; Start 08/11/18 at 09:00; Stop 08/11/18 at 11:58; Status DC Miscellaneous (Unresolved Clarification Entry) SEE LABEL COMMENTS DAILY XX ; Start 08/17/18 at 09:00; Stop 08/17/18 at 14:47; Status DC Nicotine (Nicoderm Cq 21mg) 1 patch DAILY TD ; Start 07/26/18 at 09:00; Stop 07/26/18 at 09:00; Status DC Non-Formulary Medication ( See Comment Field Below ) SEE COMMENTS SECTION 1T@10 XX ; Start 08/16/18 at 10:00; Stop 08/16/18 at 10:00; Status DC Non-Formulary Medication ( See Comment Field Below ) SEE LABEL COMMENTS DAILY XX ; Start 08/14/18 at 09:00; Stop 08/14/18 at 10:35; Status DC Olanzapine (ZyPREXA ZYDIS) 5 mg BID PO Last administered on 07/28/18at 20:09; Start 07/26/18 at 21:00; Stop 07/29/18 at 10:50; Status DC Olanzapine (ZyPREXA ZYDIS) 5 mg Q6HP PRN PO ANXIETY/AGITATION Last administered on 07/28/18at 00:51; Start 07/26/18 at 10:45; Stop 07/28/18 at 12:00; Status DC Olanzapine (ZyPREXA ZYDIS) 5 mg STAT STAT PO Last administered on 08/18/18at 10:27; Start 08/18/18 at 10:23; Stop 08/18/18 at 10:24; Status DC Olanzapine (ZyPREXA ZYDIS) 10 mg BID PO Last administered on 07/31/18at 08:26; Start 07/29/18 at 21:00; Stop 07/31/18 at 09:40; Status DC Olanzapine (ZyPREXA ZYDIS) 10 mg BID PO Last administered on 08/02/18at 08:12; Start 07/31/18 at 21:00; Stop 08/02/18 at 10:46; Status DC Olanzapine (ZyPREXA ZYDIS) 10 mg Q4HP PRN PO ANXIETY/AGITATION Last administered on 08/22/18at 00:40; Start 07/28/18 at 12:00 Olanzapine (ZyPREXA ZYDIS) 10 mg TID PO ; Start 07/31/18 at 16:00; Status Cancel Olanzapine (Zyprexa Intramuscular) 10 mg STAT STAT IM Last administered on 07/29/18at 03:56; Start 07/29/18 at 03:39; Stop 07/29/18 at 03:45; Status DC Potassium Chloride (Micro-K Extencaps) 10 meq BID PO Last administered on 08/22/18at 08:31; Start 07/30/18 at 09:00 Potassium Chloride (Micro-K Extencaps) 10 meq BID PO ; Start 07/25/18 at 21:00; Status UNV Quetiapine Fumarate (SEROquel XR) 300 mg QHS PO Last administered on 08/03/18at 20:24; Start 08/03/18 at 21:00; Stop 08/04/18 at 13:20; Status DC Quetiapine Fumarate (SEROquel XR) 400 mg DAILY@1800 PO Last administered on 07/30/18at 17:37; Start 07/25/18 at 18:00; Stop 07/31/18 at 09:37; Status DC Quetiapine Fumarate (SEROquel XR) 400 mg QHS PO Last administered on 08/21/18at 20:31; Start 08/04/18 at 21:00 Quetiapine Fumarate (SEROquel) 600 mg QHS PO Last administered on 08/01/18at 2 0:06; Start 07/31/18 at 21:00; Stop 08/02/18 at 10:46; Status DC Trazodone HCl (Desyrel) 50 mg QHSP PRN PO INSOMNIA; Start 07/25/18 at 19:30; Status Cancel Zolpidem Tartrate (Ambien) 10 mg QHS PRN PO SLEEP Last administered on 07/30/18at 22:43; Start 07/25/18 at 20:00; Stop 07/31/18 at 09:37; Status DC Allergies Coded Allergies: No Known Allergies (Verified , 06/27/10) MARY ANDERSON DO Aug 22, 2018 10:01
[2018-08-22 18:00] VITALS: BP 125/71
[2018-08-22] MEDS: DIVALPROEX 500MG *ER* TAB PO SCH (20:04)
[2018-08-22] MEDS: BENZTROPINE 1 MG TAB PO SCH (20:05)
[2018-08-22] MEDS: QUEtiapine FUMARATE **XR** 200MG TABLET PO SCH (20:05)
[2018-08-22] MEDS: ACETAMINOPHEN 500 MG TAB PO PRN (20:06)
[2018-08-23 06:41] VITALS: BP 101/57
[2018-08-23] MEDS: POTASSIUM CHLORIDE 10 MEQ SR TABLET PO SCH ×2 (08:12→20:02)
[2018-08-23] MEDS: LORazepam 0.5 MG TAB PO SCH (08:12)
[2018-08-23] MEDS: DOCUSATE SODIUM 100 MG CAP PO SCH ×2 (08:13→20:02)
[2018-08-23] MEDS: MELOXICAM (MOBIC) 7.5 MG TAB PO SCH (08:13)
[2018-08-23] MEDS: FUROSEMIDE 20 MG TAB PO SCH ×2 (08:13→16:20)
[2018-08-23] MEDS: ENOXAPARIN 40 MG/0.4 ML SYRINGE (J1650) SC SCH (08:15)
[2018-08-23] MEDS: METOPROLOL TART 25 MG TABLET PO SCH ×2 (08:16→20:02)
--- NOTE | 2018-08-23 08:43 | MHIPNPDOC ---
[facility] Progress Note Progress Note DATE OF SERVICE: 08/23/18 HISTORY: Patient is a 57 -year-old , male, with a history of schizoaffective d/o and residing at [facility] several years who was sent with PD under 9.41 from [facility] due to pt threatening staff and other residents, decompensating, manic, paranoid people talk about him, talking to self, AH (stated in ED "they're not too bad"), and agitation. Pt according to [facility] scaring the other residents there due to him threatening and cussing at them. Per ED, when pt asked why he was sent to the ED he stated "I was evicted from my house for arguing with 2 other people. Per ED, pt was manic and agitated. Pt is a poor historian due to current nelda/psychosis/agitation so history gathered from previous chart records. VITAL SIGNS: See below. NEW TEST RESULTS:. Depakote level 69.9 CURRENT MEDICATIONS: See below. MENTAL STATUS EXAMINATION: Per yesterday MSE as unable to assess pt currently b/c he's asleep Patient is a 57-year old male, who is being treated for what has presented as b ipolar disorder w/psychosis. Moderately improved as titrated off benzodiazepines Speech: Is rapid stuttered. Language skills are intact. Thought processes including: concrete, more linear and logical Thought content: less rambling Abstract reasoning, and computation:improved ability to abstract. Description of associations: improved loose associations Description of abnormal or psychotic thoughts:. Thoughts do appear to be more normal. Less explosive and loud. reactive. Appears moderately improved Judgment: Poor-fair Insight: Poor-fair Orientation: Intact 3. Recent and remote memory:. Not able to measure. Attention span and concentration: Poor. Language:. No obvious abnormality. Fund of knowledge:. Unable to measure. Mood: Irritable. Affect:, Congruent. Reactive DIAGNOSES: 1. Bipolar disorder with psychotic features. ASSESSMENT: Unable to assess fully as currently asleep. Moderate improvement in symptoms with less frequent episodes of yelling with agitation that occurs randomly thru out the day each day although appear less this morning but usually increase in afternoon since titration off benzodiazepines nearly complete. Still on 1:1 assist for ambulation and safety. Difficult to understand due to rapid mumbling although did state he feels better and likes the way the medication (prolixin) makes him feel. States he's feeling better overall. Had administrative meeting yesterday and pt appeared to be thinking in linear, logical manner with improved speech and good behavior. Decision made that pt does not need shelter treatment and can be d/c back to [facility] next week most likely. MANAGEMENT PLAN: d/c ativan. Medications: Cogentin 1 mg QHS Depakote Er 1,500 mg QHS Colace 200 mg BID Prolixin 10 mg QID ZyPREXA ZYDIS 10 mg Q4HP PRN PO ANXIETY/AGITATION SEROquel XR 400 mg QHS TIME SPENT: 30 minutes. Vital Signs Vital Signs Date Time Temp Pulse Resp B/P (MAP) Pulse Ox O2 Delivery O2 Flow Rate FiO2 08/23/18 08:16 71 107/69 08/23/18 06:41 97.1 16 08/22/18 10:00 95 Current Medications Current Medications Acetaminophen (Tylenol Tab) 650 mg Q4HP PRN PO PAIN OR FEVER; Start 07/30/18 at 14:45; Stop 07/30/18 at 15:25; Status DC Acetaminophen (Tylenol Tab) 650 mg Q6HP PRN PO HEADACHE or DISCOMFORT; Start 07/25/18 at 19:30; Status Cancel Acetaminophen (Tylenol Tab) 1,000 mg Q8H PRN PO PAIN Last administered on 08/22/18at 20:06; Start 07/25/18 at 20:00 Al Hydrox/Mg Hydrox/Simethicone (Mylanta) 30 ml Q4HP PRN PO HEARTBURN/INDIGESTION; Start 07/25/18 at 19:30 Albuterol Sulfate (Proventil, Ventolin Hfa) 2 puff Q4H PRN INH SHORTNESS OF BREATH Last administered on 07/31/18at 11:48; Start 07/25/18 at 20:00 Amoxicillin/ Clavulanate Potassium (Augmentin) 875 mg BID PO Last administered on 08/05/18at 20:23; Start 07/30/18 at 14:15; Stop 08/05/18 at 21:01; Status DC Asenapine (Saphris) 5 mg BID@0600,1500 SL Last administered on 07/26/18at 05:16; Start 07/26/18 at 06:00; Stop 07/26/18 at 10:37; Status DC Bacitracin/ Polymyxin B Sulfate (Polysporin Top Oint) APPLY TO WOUND AREA BID TOP Last administered on 08/06/18 08:27; Start 07/30/18 at 21:00; Stop 08/06/18 at 09:01; Status DC Benztropine Mesylate (Cogentin) 1 mg QHS PO Last administered on 08/22/18 20:05; Start 07/25/18 at 21:00 Diazepam (Valium) 0.5 mg BID PO Last administered on 08/19/18 08:11; Start 08/16/18 at 21:00; Stop 08/19/18 at 10:37; Status DC Diazepam (Valium) 0.5 mg QHS PO Last administered on 08/20/18 20:00; Start 08/19/18 at 21:00; Stop 08/21/18 at 10:04; Status DC Diazepam (Valium) 0.5 mg TID PO Last administered on 08/16/18at 08:52; Start 08/14/18 at 16:00; Stop 08/16/18 at 09:42; Status DC Diazepam (Valium) 1 mg TID PO Last administered on 08/10/18 08:27; Start 07/31/18 at 21:00; Stop 08/10/18 at 10:05; Status DC Diazepam (Valium) 1 mg TID@0900,1500,2100 PO Last administered on 08/14/18 08:23; Start 08/10/18 at 15:00; Stop 08/14/18 at 10:43; Status DC Diazepam (Valium) 2 mg TID PO Last administered on 07/26/18at 07:55; Start 07/25/18 at 21:00; Stop 07/26/18 at 11:05; Status DC Diazepam (Valium) 2 mg TID@0600,1200,2000 PO Last administered on 07/31/18at 11:45; Start 07/26/18 at 12:00; Stop 07/31/18 at 12:18; Status DC Diphenhydramine HCl (Benadryl) 50 mg STAT STAT IM Last administered on 07/29/18 03:57; Start 07/29/18 at 03:39; Stop 07/29/18 at 03:45; Status DC Divalproex Sodium (Depakote Er) 250 mg QHS PO Last administered on 08/11/18 20:10; Start 07/31/18 at 21:00; Stop 08/12/18 at 08:38; Status DC Divalproex Sodium (Depakote Er) 1,500 mg DAILY@1800 PO Last administered on 07/30/18 17:37; Start 07/25/18 at 18:00; Stop 07/31/18 at 09:37; Status DC Divalproex Sodium (Depakote Er) 1,500 mg QHS PO Last administered on 08/22/18 20:04; Start 07/31/18 at 21:00 Docusate Sodium (Colace) 200 mg BID PO Last administered on 08/23/18 08:13; Start 07/25/18 at 21:00 Enoxaparin Sodium (Lovenox) 40 mg DAILY SC Last administered on 08/23/18 08:15; Start 08/05/18 at 09:00 Fluphenazine HCl (Prolixin) 10 mg QID PO Last administered on 08/23/18 08:13; Start 08/12/18 at 09:00 Fluphenazine HCl (Prolixin) 10 mg TID PO Last administered on 08/11/18 20:11; Start 08/10/18 at 21:00; Stop 08/12/18 at 08:37; Status DC Furosemide (Lasix) 20 mg BID@0900,1700 PO Last administered on 08/23/18 08:13; Start 07/26/18 at 09:00 Haloperidol (Haldol) 5 mg BID PO ; Start 07/26/18 at 21:00; Status Cancel Haloperidol (Haldol) 5 mg BID PO Last administered on 08/04/18 10:03; Start 08/02/18 at 21:00; Stop 08/04/18 at 13:20; Status DC Haloperidol (Haldol) 7.5 mg BID PO Last administered on 08/06/18 08:25; Start 08/04/18 at 21:00; Stop 08/06/18 at 14:18; Status DC Haloperidol (Haldol) 10 mg BID PO Last administered on 08/09/18 08:32; Start 08/06/18 at 21:00; Stop 08/09/18 at 13:09; Status DC Haloperidol (Haldol) 10 mg TID PO Last administered on 08/10/18 16:12; Start 08/09/18 at 16:00; Stop 08/10/18 at 18:06; Status DC Heparin Sodium (Porcine) (Heparin) 5,000 units Q12H SQ Last administered on 08/04/18 10:01; Start 08/01/18 at 21:00; Stop 08/04/18 at 10:37; Status DC Home Med (Med Rec Complete!) ASDIRECTED XX ; Start 07/25/18 at 19:15; Stop 07/25/18 at 19:15; Status DC Lorazepam (Ativan) 0.5 mg BID PO Last administered on 08/23/18 08:12; Start 08/20/18 at 21:00 Lorazepam (Ativan) 0.5 mg TID PO Last administered on 08/20/18 08:07; Start 08/19/18 at 16:00; Stop 08/20/18 at 08:58; Status DC Lorazepam (Ativan) 1 mg TID PO Last administered on 08/19/18at 08:11; Start 08/15/18 at 16:00; Stop 08/19/18 at 10:37; Status DC Lorazepam (Ativan) 1.5 mg TID PO Last administered on 08/15/18at 08:55; Start 08/14/18 at 16:00; Stop 08/15/18 at 11:42; Status DC Lorazepam (Ativan) 2 mg Q6HP PRN PO ANXIETY/AGITATION Last administered on 08/10/18at 03:59; Start 07/26/18 at 10:45; Stop 08/10/18 at 06:55; Status DC Lorazepam (Ativan) 2 mg STAT STAT IM Last administered on 07/29/18at 03:56; Start 07/29/18 at 03:39; Stop 07/29/18 at 03:45; Status DC Lorazepam (Ativan) 2 mg TID PO ; Start 08/10/18 at 09:00; Stop 08/10/18 at 10:05; Status DC Lorazepam (Ativan) 2 mg TID@0600,1200,1800 PO Last administered on 5/29/19at 05:40; Start 08/10/18 at 12:00; Stop 08/14/18 at 10:43; Status DC Magnesium Hydroxide (Milk Of Magnesia) 30 ml DAILYPRN PRN PO CONSTIPATION Last administered on 08/17/18at 13:47; Start 07/25/18 at 19:30 Meloxicam (Mobic) 15 mg DAILY PO Last administered on 08/23/18at 08:13; Start 07/26/18 at 09:00 Metoprolol Tartrate (Lopressor) 25 mg BID PO Last administered on 08/22/18at 20:04; Start 07/25/18 at 21:00 Miscellaneous (Unresolved Clarification Entry) SEE LABEL COMMENTS DAILY XX ; Start 08/01/18 at 09:00; Stop 08/02/18 at 07:18; Status DC Miscellaneous (Unresolved Clarification Entry) SEE LABEL COMMENTS DAILY XX ; Start 08/02/18 at 09:00; Stop 08/02/18 at 10:47; Status DC Miscellaneous (Unresolved Clarification Entry) SEE LABEL COMMENTS DAILY XX ; Start 08/07/18 at 09:00; Stop 08/08/18 at 06:57; Status DC Miscellaneous (Unresolved Clarification Entry) SEE LABEL COMMENTS DAILY XX ; Start 08/08/18 at 09:00; Stop 08/08/18 at 11:41; Status DC Miscellaneous (Unresolved Clarification Entry) SEE LABEL COMMENTS DAILY XX ; Start 08/11/18 at 09:00; Stop 08/11/18 at 11:58; Status DC Miscellaneous (Unresolved Clarification Entry) SEE LABEL COMMENTS DAILY XX ; Start 08/17/18 at 09:00; Stop 08/17/18 at 14:47; Status DC Nicotine (Nicoderm Cq 21mg) 1 patch DAILY TD ; Start 07/26/18 at 09:00; Stop 07/26/18 at 09:00; Status DC Non-Formulary Medication ( See Comment Field Below ) SEE COMMENTS SECTION 1T@10 XX ; Start 08/16/18 at 10:00; Stop 08/16/18 at 10:00; Status DC Non-Formulary Medication ( See Comment Field Below ) SEE LABEL COMMENTS DAILY XX ; Start 08/14/18 at 09:00; Stop 08/14/18 at 10:35; Status DC Olanzapine (ZyPREXA ZYDIS) 5 mg BID PO Last administered on 07/28/18at 20:09; Start 07/26/18 at 21:00; Stop 07/29/18 at 10:50; Status DC Olanzapine (ZyPREXA ZYDIS) 5 mg Q6HP PRN PO ANXIETY/AGITATION Last administered on 07/28/18at 00:51; Start 07/26/18 at 10:45; Stop 07/28/18 at 12:00; Status DC Olanzapine (ZyPREXA ZYDIS) 5 mg STAT STAT PO Last administered on 08/18/18at 10:27; Start 08/18/18 at 10:23; Stop 08/18/18 at 10:24; Status DC Olanzapine (ZyPREXA ZYDIS) 10 mg BID PO Last administered on 07/31/18at 08:26; Start 07/29/18 at 21:00; Stop 07/31/18 at 09:40; Status DC Olanzapine (ZyPREXA ZYDIS) 10 mg BID PO Last administered on 08/02/18at 08:12; Start 07/31/18 at 21:00; Stop 08/02/18 at 10:46; Status DC Olanzapine (ZyPREXA ZYDIS) 10 mg Q4HP PRN PO ANXIETY/AGITATION Last administered on 08/22/18at 00:40; Start 07/28/18 at 12:00 Olanzapine (ZyPREXA ZYDIS) 10 mg TID PO ; Start 07/31/18 at 16:00; Status Cancel Olanzapine (Zyprexa Intramuscular) 10 mg STAT STAT IM Last administered on 07/29/18at 03:56; Start 07/29/18 at 03:39; Stop 07/29/18 at 03:45; Status DC Potassium Chloride (Micro-K Extencaps) 10 meq BID PO Last administered on 08/23/18at 08:12; Start 07/30/18 at 09:00 Potassium Chloride (Micro-K Extencaps) 10 meq BID PO ; Start 07/25/18 at 21:00; Status UNV Quetiapine Fumarate (SEROquel XR) 300 mg QHS PO Last administered on 08/03/18at 20:24; Start 08/03/18 at 21:00; Stop 08/04/18 at 13:20; Status DC Quetiapine Fumarate (SEROquel XR) 400 mg DAILY@1800 PO Last administered on 07/30/18at 17:37; Start 07/25/18 at 18:00; Stop 07/31/18 at 09:37; Status DC Quetiapine Fumarate (SEROquel XR) 400 mg QHS PO Last administered on 08/22/18at 20:05; Start 08/04/18 at 21:00 Quetiapine Fumarate (SEROquel) 600 mg QHS PO Last administered on 08/01/18at 20:06; Start 07/31/18 at 21:00; Stop 08/02/18 at 10:46; Status DC Trazodone HCl (Desyrel) 50 mg QHSP PRN PO INSOMNIA; Start 07/25/18 at 19:30; Status Cancel Zolpidem Tartrate (Ambien) 10 mg QHS PRN PO SLEEP Last administered on 07/30/18at 22:43; Start 07/25/18 at 20:00; Stop 07/31/18 at 09:37; Status DC Allergies Coded Allergies: No Known Allergies (Verified , 06/27/10) MARY ANDERSON DO Aug 23, 2018 08:43
[2018-08-23 18:07] VITALS: BP 132/68
[2018-08-23] MEDS: DIVALPROEX 500MG *ER* TAB PO SCH (20:02)
[2018-08-23] MEDS: QUEtiapine FUMARATE **XR** 200MG TABLET PO SCH (20:03)
[2018-08-23] MEDS: BENZTROPINE 1 MG TAB PO SCH (20:03)
[2018-08-23] MEDS: ACETAMINOPHEN 500 MG TAB PO PRN (20:03)
[2018-08-23] MEDS: OLANZapine ORAL DISINTEGRATING TAB 5MG PO PRN (20:25)
[2018-08-23] MEDS ORDERED: MIRTAZAPINE 15 MG TAB PO ONE (21:30)
[2018-08-24] MEDS: OLANZapine ORAL DISINTEGRATING TAB 5MG PO PRN ×2 (03:17→20:07)
[2018-08-24 06:33] VITALS: BP 145/87
[2018-08-24] MEDS: MELOXICAM (MOBIC) 7.5 MG TAB PO SCH (08:01)
[2018-08-24] MEDS: DOCUSATE SODIUM 100 MG CAP PO SCH ×2 (08:02→20:07)
[2018-08-24] MEDS: METOPROLOL TART 25 MG TABLET PO SCH ×2 (08:02→20:10)
[2018-08-24] MEDS: FUROSEMIDE 20 MG TAB PO SCH ×2 (08:02→16:59)
[2018-08-24] MEDS: ENOXAPARIN 40 MG/0.4 ML SYRINGE (J1650) SC SCH (08:02)
[2018-08-24] MEDS: POTASSIUM CHLORIDE 10 MEQ SR TABLET PO SCH ×2 (08:02→20:07)
[2018-08-24 18:09] VITALS: BP 117/80
[2018-08-24] MEDS: DIVALPROEX 500MG *ER* TAB PO SCH (20:06)
[2018-08-24] MEDS: QUEtiapine FUMARATE **XR** 200MG TABLET PO SCH (20:06)
[2018-08-24] MEDS: BENZTROPINE 1 MG TAB PO SCH (20:07)
[2018-08-24] MEDS ORDERED: hydrOXYzine 50 MG TAB PO ONE (21:45)
[2018-08-24] MEDS ORDERED: hydrOXYzine 50 MG TAB PO PRN (21:45)
[2018-08-24] MEDS ORDERED: traZODone 50 MG TAB PO ONE (21:45)
[2018-08-25 06:22] VITALS: BP 134/88
[2018-08-25] MEDS: FUROSEMIDE 20 MG TAB PO SCH ×2 (08:05→17:02)
[2018-08-25] MEDS: ENOXAPARIN 40 MG/0.4 ML SYRINGE (J1650) SC SCH (08:05)
[2018-08-25] MEDS: METOPROLOL TART 25 MG TABLET PO SCH ×2 (08:05→20:48)
[2018-08-25] MEDS: POTASSIUM CHLORIDE 10 MEQ SR TABLET PO SCH ×2 (08:05→20:48)
[2018-08-25] MEDS: MELOXICAM (MOBIC) 7.5 MG TAB PO SCH (08:05)
[2018-08-25] MEDS: DOCUSATE SODIUM 100 MG CAP PO SCH ×2 (08:06→20:48)
[2018-08-25 18:11] VITALS: BP 117/69
[2018-08-25] MEDS: QUEtiapine FUMARATE **XR** 200MG TABLET PO SCH (20:48)
[2018-08-25] MEDS: DIVALPROEX 500MG *ER* TAB PO SCH (20:48)
[2018-08-25] MEDS: BENZTROPINE 1 MG TAB PO SCH (20:48)
[2018-08-26 06:35] VITALS: BP 138/92
[2018-08-26] MEDS: METOPROLOL TART 25 MG TABLET PO SCH ×2 (08:29→20:03)
[2018-08-26] MEDS: MELOXICAM (MOBIC) 7.5 MG TAB PO SCH (08:29)
[2018-08-26] MEDS: DOCUSATE SODIUM 100 MG CAP PO SCH ×2 (08:29→20:04)
[2018-08-26] MEDS: POTASSIUM CHLORIDE 10 MEQ SR TABLET PO SCH ×2 (08:29→20:04)
[2018-08-26] MEDS: ENOXAPARIN 40 MG/0.4 ML SYRINGE (J1650) SC SCH (08:31)
[2018-08-26] MEDS: FUROSEMIDE 20 MG TAB PO SCH ×2 (08:31→16:14)
--- NOTE | 2018-08-26 10:05 | MHIPNPDOC ---
[facility] Progress Note Progress Note DATE OF SERVICE: 08/26/18 HISTORY: Patient is a 57 -year-old , male, with a history of schizoaffective d/o and residing at [facility] several years who was sent with PD under 9.41 from [facility] due to pt threatening staff and other residents, decompensating, manic, paranoid people talk about him, talking to self, AH (stated in ED "they're not too bad"), and agitation. Pt according to [facility] scaring the other residents there due to him threatening and cussing at them. Per ED, when pt asked why he was sent to the ED he stated "I was evicted from my house for arguing with 2 other people. Per ED, pt was manic and agitated. Pt is a poor historian due to current nelda/psychosis/agitation so history gathered from previous chart records. VITAL SIGNS: See below. NEW TEST RESULTS:. Depakote level 69.9 CURRENT MEDICATIONS: See below. MENTAL STATUS EXAMINATION: Per yesterday MSE as unable to assess pt currently b/c he's asleep Patient is a 57-year old male, who is being treated for what has presented as b ipolar disorder w/psychosis. Moderately improved as titrated off benzodiazepines Speech: Is more regular yet still mumbles Language skills are intact. Thought processes including: concrete, more linear and logical Thought content: less rambling Abstract reasoning, and computation:improved ability to abstract. Description of associations: improved loose associations Description of abnormal or psychotic thoughts:. Thoughts do appear to be more normal. No longer explosive and loud. reactive. Appears moderately improved Judgment: Poor-fair Insight: Poor-fair Orientation: Intact 3. Recent and remote memory:. fair Attention span and concentration: fair Language:. No obvious abnormality. Fund of knowledge:. Unable to measure. Mood: euthymic. Affect:, Congruent. pleasant DIAGNOSES: 1. Bipolar disorder with psychotic features. ASSESSMENT: Pt states he feels good today and is looking forward to returning to [facility] this week. Per staff seems to be improved, less agitated, sleeping well at night, more steady gait now that he is off all benzodiazepines. Moderate improvement in symptoms with less frequent episodes of yelling with agitation that occurs randomly thru out the day each day although appear less this morning but usually increase in afternoon since titration off benzodiazepines nearly complete. Still on 1:1 assist for ambulation and safety. Difficult to understand due to rapid mumbling although did state he feels better and likes the way the medication (prolixin) makes him feel. States he's feeling better overall. Had administrative meeting yesterday and pt appeared to be thinking in linear, logical manner with improved speech and good behavior. Decision made that pt does not need fdc treatment and can be d/c back to [facility] next week most likely. MANAGEMENT PLAN: d/c ativan. Medications: Cogentin 1 mg QHS Depakote Er 1,500 mg QHS Colace 200 mg BID Prolixin 10 mg QID ZyPREXA ZYDIS 10 mg Q4HP PRN PO ANXIETY/AGITATION SEROquel XR 400 mg QHS TIME SPENT: 30 minutes. Vital Signs Vital Signs Date Time Temp Pulse Resp B/P (MAP) Pulse Ox O2 Delivery O2 Flow Rate FiO2 08/26/18 08:29 94 101/50 08/26/18 06:35 97.3 20 08/22/18 10:00 Current Medications Current Medications Acetaminophen (Tylenol Tab) 650 mg Q4HP PRN PO PAIN OR FEVER; Start 07/30/18 at 14:45; Stop 07/30/18 at 15:25; Status DC Acetaminophen (Tylenol Tab) 650 mg Q6HP PRN PO HEADACHE or DISCOMFORT; Start 07/25/18 at 19:30; Status Cancel Acetaminophen (Tylenol Tab) 1,000 mg Q8H PRN PO PAIN Last administered on 08/23/18at 20:03; Start 07/25/18 at 20:00 Al Hydrox/Mg Hydrox/Simethicone (Mylanta) 30 ml Q4HP PRN PO HEARTBURN/INDIGESTION; Start 07/25/18 at 19:30 Albuterol Sulfate (Proventil, Ventolin Hfa) 2 puff Q4H PRN INH SHORTNESS OF BREATH Last administered on 07/31/18at 11:48; Start 07/25/18 at 20:00 Amoxicillin/ Clavulanate Potassium (Augmentin) 875 mg BID PO Last administered on 08/05/18at 20:23; Start 07/30/18 at 14:15; Stop 08/05/18 at 21:01; Status DC Asenapine (Saphris) 5 mg BID@0600,1500 SL Last administered on 07/26/18 05:16; Start 07/26/18 at 06:00; Stop 07/26/18 at 10:37; Status DC Bacitracin/ Polymyxin B Sulfate (Polysporin Top Oint) APPLY TO WOUND AREA BID TOP Last administered on 08/06/18at 08:27; Start 07/30/18 at 21:00; Stop 08/06/18 at 09:01; Status DC Benztropine Mesylate (Cogentin) 1 mg QHS PO Last administered on 08/25/18at 20:48; Start 07/25/18 at 21:00 Diazepam (Valium) 0.5 mg BID PO Last administered on 08/19/18 08:11; Start 08/16/18 at 21:00; Stop 08/19/18 at 10:37; Status DC Diazepam (Valium) 0.5 mg QHS PO Last administered on 08/20/18at 20:00; Start 08/19/18 at 21:00; Stop 08/21/18 at 10:04; Status DC Diazepam (Valium) 0.5 mg TID PO Last administered on 08/16/18at 08:52; Start 08/14/18 at 16:00; Stop 08/16/18 at 09:42; Status DC Diazepam (Valium) 1 mg TID PO Last administered on 08/10/18 08:27; Start 07/31/18 at 21:00; Stop 08/10/18 at 10:05; Status DC Diazepam (Valium) 1 mg TID@0900,1500,2100 PO Last administered on 08/14/18at 08:23; Start 08/10/18 at 15:00; Stop 08/14/18 at 10:43; Status DC Diazepam (Valium) 2 mg TID PO Last administered on 07/26/18at 07:55; Start 07/25/18 at 21:00; Stop 07/26/18 at 11:05; Status DC Diazepam (Valium) 2 mg TID@0600,1200,2000 PO Last administered on 07/31/18at 11:45; Start 07/26/18 at 12:00; Stop 07/31/18 at 12:18; Status DC Diphenhydramine HCl (Benadryl) 50 mg STAT STAT IM Last administered on 07/29/18 03:57; Start 07/29/18 at 03:39; Stop 07/29/18 at 03:45; Status DC Divalproex Sodium (Depakote Er) 250 mg QHS PO Last administered on 08/11/18 20:10; Start 07/31/18 at 21:00; Stop 08/12/18 at 08:38; Status DC Divalproex Sodium (Depakote Er) 1,500 mg DAILY@1800 PO Last administered on 07/30/18 17:37; Start 07/25/18 at 18:00; Stop 07/31/18 at 09:37; Status DC Divalproex Sodium (Depakote Er) 1,500 mg QHS PO Last administered on 08/25/18 20:48; Start 07/31/18 at 21:00 Docusate Sodium (Colace) 200 mg BID PO Last administered on 08/26/18 08:29; Start 07/25/18 at 21:00 Enoxaparin Sodium (Lovenox) 40 mg DAILY SC Last administered on 08/26/18 08:31; Start 08/05/18 at 09:00 Fluphenazine HCl (Prolixin) 10 mg QID PO Last administered on 08/26/18 08:29; Start 08/12/18 at 09:00 Fluphenazine HCl (Prolixin) 10 mg TID PO Last administered on 08/11/18 20:11; Start 08/10/18 at 21:00; Stop 08/12/18 at 08:37; Status DC Furosemide (Lasix) 20 mg BID@0900,1700 PO Last administered on 08/26/18 08:31; Start 07/26/18 at 09:00 Haloperidol (Haldol) 5 mg BID PO ; Start 07/26/18 at 21:00; Status Cancel Haloperidol (Haldol) 5 mg BID PO Last administered on 08/04/18 10:03; Start 08/02/18 at 21:00; Stop 08/04/18 at 13:20; Status DC Haloperidol (Haldol) 7.5 mg BID PO Last administered on 08/06/18 08:25; Start 08/04/18 at 21:00; Stop 08/06/18 at 14:18; Status DC Haloperidol (Haldol) 10 mg BID PO Last administered on 08/09/18 08:32; Start 08/06/18 at 21:00; Stop 08/09/18 at 13:09; Status DC Haloperidol (Haldol) 10 mg TID PO Last administered on 08/10/18 16:12; Start 08/09/18 at 16:00; Stop 08/10/18 at 18:06; Status DC Heparin Sodium (Porcine) (Heparin) 5,000 units Q12H SQ Last administered on at 10:01; Start 08/01/18 at 21:00; Stop 08/04/18 at 10:37; Status DC Home Med (Med Rec Complete!) ASDIRECTED XX ; Start 07/25/18 at 19:15; Stop 07/25/18 at 19:15; Status DC Hydroxyzine HCl (Atarax) 50 mg Q6HP PRN PO anxiety/agitation Last administered on 08/25/18 02:05; Start 08/24/18 at 21:45 Lorazepam (Ativan) 0.5 mg BID PO Last administered on 08/23/18 08:12; Start 08/20/18 at 21:00; Stop 08/23/18 at 08:44; Status DC Lorazepam (Ativan) 0.5 mg TID PO Last administered on 08/20/18 08:07; Start 08/19/18 at 16:00; Stop 08/20/18 at 08:58; Status DC Lorazepam (Ativan) 1 mg TID PO Last administered on 08/19/18 08:11; Start 08/15/18 at 16:00; Stop 08/19/18 at 10:37; Status DC Lorazepam (Ativan) 1.5 mg TID PO Last administered on 08/15/18 08:55; Start 08/14/18 at 16:00; Stop 08/15/18 at 11:42; Status DC Lorazepam (Ativan) 2 mg Q6HP PRN PO ANXIETY/AGITATION Last administered on 03:59; Start 07/26/18 at 10:45; Stop 08/10/18 at 06:55; Status DC Lorazepam (Ativan) 2 mg STAT STAT IM Last administered on 5/13/19at 03:56; Start 07/29/18 at 03:39; Stop 07/29/18 at 03:45; Status DC Lorazepam (Ativan) 2 mg TID PO ; Start 08/10/18 at 09:00; Stop 08/10/18 at 10:05; Status DC Lorazepam (Ativan) 2 mg TID@0600,1200,1800 PO Last administered on 08/14/18at 05:40; Start 08/10/18 at 12:00; Stop 08/14/18 at 10:43; Status DC Magnesium Hydroxide (Milk Of Magnesia) 30 ml DAILYPRN PRN PO CONSTIPATION Last administered on 08/17/18at 13:47; Start 07/25/18 at 19:30 Meloxicam (Mobic) 15 mg DAILY PO Last administered on 08/26/18at 08:29; Start 07/26/18 at 09:00 Metoprolol Tartrate (Lopressor) 25 mg BID PO Last administered on 08/25/18at 20:48; Start 07/25/18 at 21:00 Miscellaneous (Unresolved Clarification Entry) SEE LABEL COMMENTS DAILY XX ; Start 08/01/18 at 09:00; Stop 08/02/18 at 07:18; Status DC Miscellaneous (Unresolved Clarification Entry) SEE LABEL COMMENTS DAILY XX ; Start 08/02/18 at 09:00; Stop 08/02/18 at 10:47; Status DC Miscellaneous (Unresolved Clarification Entry) SEE LABEL COMMENTS DAILY XX ; Start 08/07/18 at 09:00; Stop 08/08/18 at 06:57; Status DC Miscellaneous (Unresolved Clarification Entry) SEE LABEL COMMENTS DAILY XX ; Start 08/08/18 at 09:00; Stop 08/08/18 at 11:41; Status DC Miscellaneous (Unresolved Clarification Entry) SEE LABEL COMMENTS DAILY XX ; Start 08/11/18 at 09:00; Stop 08/11/18 at 11:58; Status DC Miscellaneous (Unresolved Clarification Entry) SEE LABEL COMMENTS DAILY XX ; Start 08/17/18 at 09:00; Stop 08/17/18 at 14:47; Status DC Miscellaneous (Unresolved Clarification Entry) SEE LABEL COMMENTS DAILY XX ; Start 08/23/18 at 09:00; Stop 08/24/18 at 08:46; Status DC Miscellaneous (Unresolved Clarification Entry) SEE LABEL COMMENTS DAILY XX ; Start 08/24/18 at 09:00; Stop 08/24/18 at 11:54; Status DC Nicotine (Nicoderm Cq 21mg) 1 patch DAILY TD ; Start 07/26/18 at 09:00; Stop 07/26/18 at 09:00; Status DC Non-Formulary Medication ( See Comment Field Below ) SEE COMMENTS SECTION 1T@10 XX ; Start 08/16/18 at 10:00; Stop 08/16/18 at 10:00; Status DC Non-Formulary Medication ( See Comment Field Below ) SEE LABEL COMMENTS DAILY XX ; Start 08/14/18 at 09:00; Stop 08/14/18 at 10:35; Status DC Olanzapine (ZyPREXA ZYDIS) 5 mg BID PO Last administered on 07/28/18at 20:09; Start 07/26/18 at 21:00; Stop 07/29/18 at 10:50; Status DC Olanzapine (ZyPREXA ZYDIS) 5 mg Q6HP PRN PO ANXIETY/AGITATION Last administered on 07/28/18at 00:51; Start 07/26/18 at 10:45; Stop 07/28/18 at 12:00; Status DC Olanzapine (ZyPREXA ZYDIS) 5 mg STAT STAT PO Last administered on 08/18/18at 10:27; Start 08/18/18 at 10:23; Stop 08/18/18 at 10:24; Status DC Olanzapine (ZyPREXA ZYDIS) 10 mg BID PO Last administered on 07/31/18at 08:26; Start 07/29/18 at 21:00; Stop 07/31/18 at 09:40; Status DC Olanzapine (ZyPREXA ZYDIS) 10 mg BID PO Last administered on 08/02/18at 08:12; Start 07/31/18 at 21:00; Stop 08/02/18 at 10:46; Status DC Olanzapine (ZyPREXA ZYDIS) 10 mg Q4HP PRN PO ANXIETY/AGITATION Last administered on 08/24/18at 20:07; Start 07/28/18 at 12:00 Olanzapine (ZyPREXA ZYDIS) 10 mg TID PO ; Start 07/31/18 at 16:00; Status Cancel Olanzapine (Zyprexa Intramuscular) 10 mg STAT STAT IM Last administered on 07/29/18at 03:56; Start 07/29/18 at 03:39; Stop 07/29/18 at 03:45; Status DC Potassium Chloride (Micro-K Extencaps) 10 meq BID PO Last administered on 08/26/18at 08:29; Start 07/30/18 at 09:00 Potassium Chloride (Micro-K Extencaps) 10 meq BID PO ; Start 07/25/18 at 21:00; Status UNV Quetiapine Fumarate (SEROquel XR) 300 mg QHS PO Last administered on 08/03/18at 20:24; Start 08/03/18 at 21:00; Stop 08/04/18 at 13:20; Status DC Quetiapine Fumarate (SEROquel XR) 400 mg DAILY@1800 PO Last administered on 07/30/18at 17:37; Start 07/25/18 at 18:00; Stop 07/31/18 at 09:37; Status DC Quetiapine Fumarate (SEROquel XR) 400 mg QHS PO Last administered on 08/25/18at 20:48; Start 08/04/18 at 21:00 Quetiapine Fumarate (SEROquel) 600 mg QHS PO Last administered on 08/01/18at 2 0:06; Start 07/31/18 at 21:00; Stop 08/02/18 at 10:46; Status DC Trazodone HCl (Desyrel) 50 mg QHSP PRN PO INSOMNIA; Start 07/25/18 at 19:30; Status Cancel Zolpidem Tartrate (Ambien) 10 mg QHS PRN PO SLEEP Last administered on 07/30/18at 22:43; Start 07/25/18 at 20:00; Stop 07/31/18 at 09:37; Status DC Allergies Coded Allergies: No Known Allergies (Verified , 06/27/10) MARY ANDERSON DO Aug 26, 2018 09:28
[2018-08-26 18:00] VITALS: BP 111/56
[2018-08-26] MEDS: BENZTROPINE 1 MG TAB PO SCH (20:03)
[2018-08-26] MEDS: DIVALPROEX 500MG *ER* TAB PO SCH (20:04)
[2018-08-26] MEDS: QUEtiapine FUMARATE **XR** 200MG TABLET PO SCH (20:04)
[2018-08-27 06:38] VITALS: BP 116/63
[2018-08-27] MEDS: MELOXICAM (MOBIC) 7.5 MG TAB PO SCH (08:11)
[2018-08-27] MEDS: POTASSIUM CHLORIDE 10 MEQ SR TABLET PO SCH ×2 (08:11→20:02)
[2018-08-27] MEDS: FUROSEMIDE 20 MG TAB PO SCH ×2 (08:11→16:27)
[2018-08-27] MEDS: ENOXAPARIN 40 MG/0.4 ML SYRINGE (J1650) SC SCH (08:11)
[2018-08-27] MEDS: DOCUSATE SODIUM 100 MG CAP PO SCH ×2 (08:11→20:02)
[2018-08-27] MEDS: METOPROLOL TART 25 MG TABLET PO SCH ×2 (08:12→20:02)
--- NOTE | 2018-08-27 10:19 | MHIPNPDOC ---
[facility] Progress Note Progress Note DATE OF SERVICE: 08/27/18 HISTORY: Patient is a 57 -year-old , male, with a history of schizoaffective d/o and residing at [facility] several years who was sent with PD under 9.41 from [facility] due to pt threatening staff and other residents, decompensating, manic, paranoid people talk about him, talking to self, AH (stated in ED "they're not too bad"), and agitation. Pt according to [facility] scaring the other residents there due to him threatening and cussing at them. Per ED, when pt asked why he was sent to the ED he stated "I was evicted from my house for arguing with 2 other people. Per ED, pt was manic and agitated. Pt is a poor historian due to current nelda/psychosis/agitation so history gathered from previous chart records. VITAL SIGNS: See below. NEW TEST RESULTS:. Depakote level 69.9 CURRENT MEDICATIONS: See below. MENTAL STATUS EXAMINATION: Per yesterday MSE as unable to assess pt currently b/c he's asleep Patient is a 57-year old male, who is being treated for what has presented as b ipolar disorder w/psychosis. Moderately improved as titrated off benzodiazepines Speech: Is more regular yet still mumbles Language skills are intact. Thought processes including: concrete, more linear and logical Thought content: less rambling Abstract reasoning, and computation:improved ability to abstract. Description of associations: improved loose associations Description of abnormal or psychotic thoughts:. Thoughts do appear to be more normal. No longer explosive and loud. reactive. Appears moderately improved Judgment: Poor-fair Insight: Poor-fair Orientation: Intact 3. Recent and remote memory:. fair Attention span and concentration: fair Language:. No obvious abnormality. Fund of knowledge:. Unable to measure. Mood: euthymic. Affect:, Congruent. pleasant DIAGNOSES: 1. Bipolar d/o with psychosis ASSESSMENT: No change since yesterday. Doing very well and hopeful to return to [facility] tomorrow. See see [facility] staff today. Pt states he feels good today and is looking forward to returning to [facility] this week. Per staff seems to be improved, less agitated, sleeping well at night, more steady gait now that he is off all benzodiazepines. Moderate improvement in symptoms with less frequent episodes of yelling with agitation that occurs randomly thru out the day each day although appear less this morning but usually increase in afternoon since titration off benzodiazepines nearly complete. Still on 1:1 assist for ambulation and safety. Difficult to understand due to rapid mumbling although did state he feels better and likes the way the medication (prolixin) makes him feel. States he's feeling better overall. Had administrative meeting yesterday and pt appeared to be thinking in linear, logical manner with improved speech and good behavior. Decision made that pt does not need senior living treatment and can be d/c back to [facility] Sunday. MANAGEMENT PLAN: d/c ativan. Medications: Cogentin 1 mg QHS Depakote Er 1,500 mg QHS Colace 200 mg BID Prolixin 10 mg QID ZyPREXA ZYDIS 10 mg Q4HP PRN PO ANXIETY/AGITATION SEROquel XR 400 mg QHS TIME SPENT: 30 minutes. Vital Signs Vital Signs Date Time Temp Pulse Resp B/P (MAP) Pulse Ox O2 Delivery O2 Flow Rate FiO2 08/27/18 08:12 90 106/60 08/27/18 06:38 98.1 12 08/22/18 10:00 Current Medications Current Medications Acetaminophen (Tylenol Tab) 650 mg Q4HP PRN PO PAIN OR FEVER; Start 07/30/18 at 14:45; Stop 07/30/18 at 15:25; Status DC Acetaminophen (Tylenol Tab) 650 mg Q6HP PRN PO HEADACHE or DISCOMFORT; Start 07/25/18 at 19:30; Status Cancel Acetaminophen (Tylenol Tab) 1,000 mg Q8H PRN PO PAIN Last administered on 08/23/18at 20:03; Start 07/25/18 at 20:00 Al Hydrox/Mg Hydrox/Simethicone (Mylanta) 30 ml Q4HP PRN PO HEARTBURN/INDIGESTION; Start 07/25/18 at 19:30 Albuterol Sulfate (Proventil, Ventolin Hfa) 2 puff Q4H PRN INH SHORTNESS OF BREATH Last administered on 07/31/18at 11:48; Start 07/25/18 at 20:00 Amoxicillin/ Clavulanate Potassium (Augmentin) 875 mg BID PO Last administered on 08/05/18at 20:23; Start 07/30/18 at 14:15; Stop 08/05/18 at 21:01; Status DC Asenapine (Saphris) 5 mg BID@0600,1500 SL Last administered on 07/26/18at 05:16; Start 07/26/18 at 06:00; Stop 07/26/18 at 10:37; Status DC Bacitracin/ Polymyxin B Sulfate (Polysporin Top Oint) APPLY TO WOUND AREA BID TOP Last administered on 08/06/18at 08:27; Start 07/30/18 at 21:00; Stop 08/06/18 at 09:01; Status DC Benztropine Mesylate (Cogentin) 1 mg QHS PO Last administered on 08/26/18 20:03; Start 07/25/18 at 21:00 Diazepam (Valium) 0.5 mg BID PO Last administered on 08/19/18 08:11; Start 08/16/18 at 21:00; Stop 08/19/18 at 10:37; Status DC Diazepam (Valium) 0.5 mg QHS PO Last administered on 08/20/18at 20:00; Start 08/19/18 at 21:00; Stop 08/21/18 at 10:04; Status DC Diazepam (Valium) 0.5 mg TID PO Last administered on 08/16/18at 08:52; Start 08/14/18 at 16:00; Stop 08/16/18 at 09:42; Status DC Diazepam (Valium) 1 mg TID PO Last administered on 08/10/18at 08:27; Start 07/31/18 at 21:00; Stop 08/10/18 at 10:05; Status DC Diazepam (Valium) 1 mg TID@0900,1500,2100 PO Last administered on 08/14/18at 08:23; Start 08/10/18 at 15:00; Stop 08/14/18 at 10:43; Status DC Diazepam (Valium) 2 mg TID PO Last administered on 07/26/18at 07:55; Start 07/25/18 at 21:00; Stop 07/26/18 at 11:05; Status DC Diazepam (Valium) 2 mg TID@0600,1200,2000 PO Last administered on 07/31/18at 11:45; Start 07/26/18 at 12:00; Stop 07/31/18 at 12:18; Status DC Diphenhydramine HCl (Benadryl) 50 mg STAT STAT IM Last administered on 07/29/18at 03:57; Start 07/29/18 at 03:39; Stop 07/29/18 at 03:45; Status DC Divalproex Sodium (Depakote Er) 250 mg QHS PO Last administered on 08/11/18at 20:10; Start 07/31/18 at 21:00; Stop 08/12/18 at 08:38; Status DC Divalproex Sodium (Depakote Er) 1,500 mg DAILY@1800 PO Last administered on 07/30/18at 17:37; Start 07/25/18 at 18:00; Stop 07/31/18 at 09:37; Status DC Divalproex Sodium (Depakote Er) 1,500 mg QHS PO Last administered on 08/26/18at 20:04; Start 07/31/18 at 21:00 Docusate Sodium (Colace) 200 mg BID PO Last administered on 08/27/18at 08:11; Start 07/25/18 at 21:00 Enoxaparin Sodium (Lovenox) 40 mg DAILY SC Last administered on 08/27/18 08:11; Start 08/05/18 at 09:00 Fluphenazine HCl (Prolixin) 10 mg QID PO Last administered on 08/27/18 08:11; Start 08/12/18 at 09:00 Fluphenazine HCl (Prolixin) 10 mg TID PO Last administered on 08/11/18at 20:11; Start 08/10/18 at 21:00; Stop 08/12/18 at 08:37; Status DC Furosemide (Lasix) 20 mg BID@0900,1700 PO Last administered on 08/27/18 08:11; Start 07/26/18 at 09:00 Haloperidol (Haldol) 5 mg BID PO ; Start 07/26/18 at 21:00; Status Cancel Haloperidol (Haldol) 5 mg BID PO Last administered on 08/04/18at 10:03; Start 08/02/18 at 21:00; Stop 08/04/18 at 13:20; Status DC Haloperidol (Haldol) 7.5 mg BID PO Last administered on 08/06/18 08:25; Start 08/04/18 at 21:00; Stop 08/06/18 at 14:18; Status DC Haloperidol (Haldol) 10 mg BID PO Last administered on 08/09/18 08:32; Start 08/06/18 at 21:00; Stop 08/09/18 at 13:09; Status DC Haloperidol (Haldol) 10 mg TID PO Last administered on 08/10/18 16:12; Start 08/09/18 at 16:00; Stop 08/10/18 at 18:06; Status DC Heparin Sodium (Porcine) (Heparin) 5,000 units Q12H SQ Last administered on 08/04/18 10:01; Start 08/01/18 at 21:00; Stop 08/04/18 at 10:37; Status DC Home Med (Med Rec Complete!) ASDIRECTED XX ; Start 07/25/18 at 19:15; Stop 07/25/18 at 19:15; Status DC Hydroxyzine HCl (Atarax) 50 mg Q6HP PRN PO anxiety/agitation Last administered on 08/25/18 02:05; Start 08/24/18 at 21:45 Lorazepam (Ativan) 0.5 mg BID PO Last administered on 08/23/18 08:12; Start 08/20/18 at 21:00; Stop 08/23/18 at 08:44; Status DC Lorazepam (Ativan) 0.5 mg TID PO Last administered on 08/20/18 08:07; Start 08/19/18 at 16:00; Stop 08/20/18 at 08:58; Status DC Lorazepam (Ativan) 1 mg TID PO Last administered on 08/19/18 08:11; Start 08/15/18 at 16:00; Stop 08/19/18 at 10:37; Status DC Lorazepam (Ativan) 1.5 mg TID PO Last administered on 08/15/18 08:55; Start 08/14/18 at 16:00; Stop 08/15/18 at 11:42; Status DC Lorazepam (Ativan) 2 mg Q6HP PRN PO ANXIETY/AGITATION Last administered on 08/10/18 03:59; Start 07/26/18 at 10:45; Stop 08/10/18 at 06:55; Status DC Lorazepam (Ativan) 2 mg STAT STAT IM Last administered on 07/29/18at 03:56; Start 07/29/18 at 03:39; Stop 07/29/18 at 03:45; Status DC Lorazepam (Ativan) 2 mg TID PO ; Start 08/10/18 at 09:00; Stop 08/10/18 at 10:05; Status DC Lorazepam (Ativan) 2 mg TID@0600,1200,1800 PO Last administered on 08/14/18at 05:40; Start 08/10/18 at 12:00; Stop 08/14/18 at 10:43; Status DC Magnesium Hydroxide (Milk Of Magnesia) 30 ml DAILYPRN PRN PO CONSTIPATION Last administered on 08/17/18at 13:47; Start 07/25/18 at 19:30 Meloxicam (Mobic) 15 mg DAILY PO Last administered on 08/27/18at 08:11; Start 07/26/18 at 09:00 Metoprolol Tartrate (Lopressor) 25 mg BID PO Last administered on 08/26/18at 20:03; Start 07/25/18 at 21:00 Miscellaneous (Unresolved Clarification Entry) SEE LABEL COMMENTS DAILY XX ; Start 08/01/18 at 09:00; Stop 08/02/18 at 07:18; Status DC Miscellaneous (Unresolved Clarification Entry) SEE LABEL COMMENTS DAILY XX ; Start 08/02/18 at 09:00; Stop 08/02/18 at 10:47; Status DC Miscellaneous (Unresolved Clarification Entry) SEE LABEL COMMENTS DAILY XX ; Start 08/07/18 at 09:00; Stop 08/08/18 at 06:57; Status DC Miscellaneous (Unresolved Clarification Entry) SEE LABEL COMMENTS DAILY XX ; Start 08/08/18 at 09:00; Stop 08/08/18 at 11:41; Status DC Miscellaneous (Unresolved Clarification Entry) SEE LABEL COMMENTS DAILY XX ; Start 08/11/18 at 09:00; Stop 08/11/18 at 11:58; Status DC Miscellaneous (Unresolved Clarification Entry) SEE LABEL COMMENTS DAILY XX ; Start 08/17/18 at 09:00; Stop 08/17/18 at 14:47; Status DC Miscellaneous (Unresolved Clarification Entry) SEE LABEL COMMENTS DAILY XX ; Start 08/26/18 at 09:00; Stop 08/27/18 at 09:30; Status DC Miscellaneous (Unresolved Clarification Entry) SEE LABEL COMMENTS DAILY XX ; Start 08/23/18 at 09:00; Stop 08/24/18 at 08:46; Status DC Miscellaneous (Unresolved Clarification Entry) SEE LABEL COMMENTS DAILY XX ; Start 08/24/18 at 09:00; Stop 08/24/18 at 11:54; Status DC Nicotine (Nicoderm Cq 21mg) 1 patch DAILY TD ; Start 07/26/18 at 09:00; Stop 07/26/18 at 09:00; Status DC Non-Formulary Medication ( See Comment Field Below ) SEE COMMENTS SECTION 1T@10 XX ; Start 08/16/18 at 10:00; Stop 08/16/18 at 10:00; Status DC Non-Formulary Medication ( See Comment Field Below ) SEE LABEL COMMENTS DAILY XX ; Start 08/14/18 at 09:00; Stop 08/14/18 at 10:35; Status DC Olanzapine (ZyPREXA ZYDIS) 5 mg BID PO Last administered on 07/28/18at 20:09; Start 07/26/18 at 21:00; Stop 07/29/18 at 10:50; Status DC Olanzapine (ZyPREXA ZYDIS) 5 mg Q6HP PRN PO ANXIETY/AGITATION Last administered on 07/28/18at 00:51; Start 07/26/18 at 10:45; Stop 07/28/18 at 12:00; Status DC Olanzapine (ZyPREXA ZYDIS) 5 mg STAT STAT PO Last administered on 08/18/18at 10:27; Start 08/18/18 at 10:23; Stop 08/18/18 at 10:24; Status DC Olanzapine (ZyPREXA ZYDIS) 10 mg BID PO Last administered on 07/31/18at 08:26; Start 07/29/18 at 21:00; Stop 07/31/18 at 09:40; Status DC Olanzapine (ZyPREXA ZYDIS) 10 mg BID PO Last administered on 08/02/18at 08:12; Start 07/31/18 at 21:00; Stop 08/02/18 at 10:46; Status DC Olanzapine (ZyPREXA ZYDIS) 10 mg Q4HP PRN PO ANXIETY/AGITATION Last administered on 08/24/18at 20:07; Start 07/28/18 at 12:00 Olanzapine (ZyPREXA ZYDIS) 10 mg TID PO ; Start 07/31/18 at 16:00; Status Cancel Olanzapine (Zyprexa Intramuscular) 10 mg STAT STAT IM Last administered on 07/29/18at 03:56; Start 07/29/18 at 03:39; Stop 07/29/18 at 03:45; Status DC Potassium Chloride (Micro-K Extencaps) 10 meq BID PO Last administered on 08/27/18at 08:11; Start 07/30/18 at 09:00 Potassium Chloride (Micro-K Extencaps) 10 meq BID PO ; Start 07/25/18 at 21:00; Status UNV Quetiapine Fumarate (SEROquel XR) 300 mg QHS PO Last administered on 08/03/18at 20:24; Start 08/03/18 at 21:00; Stop 08/04/18 at 13:20; Status DC Quetiapine Fumarate (SEROquel XR) 400 mg DAILY@1800 PO Last administered on 07/30/18at 17:37; Start 07/25/18 at 18:00; Stop 07/31/18 at 09:37; Status DC Quetiapine Fumarate (SEROquel XR) 400 mg QHS PO Last administered on 08/26/18at 20:04; Start 08/04/18 at 21:00 Quetiapine Fumarate (SEROquel) 600 mg QHS PO Last administered on 08/01/18at 20:06; Start 07/31/18 at 21:00; Stop 08/02/18 at 10:46; Status DC Trazodone HCl (Desyrel) 50 mg QHSP PRN PO INSOMNIA; Start 07/25/18 at 19:30; Status Cancel Zolpidem Tartrate (Ambien) 10 mg QHS PRN PO SLEEP Last administered on 07/30/18at 22:43; Start 07/25/18 at 20:00; Stop 07/31/18 at 09:37; Status DC Allergies Coded Allergies: No Known Allergies (Verified , 06/27/10) MARY ANDERSON DO Aug 27, 2018 10:19
[2018-08-27 18:00] VITALS: BP 110/58
[2018-08-27] MEDS: BENZTROPINE 1 MG TAB PO SCH (20:02)
[2018-08-27] MEDS: QUEtiapine FUMARATE **XR** 200MG TABLET PO SCH (20:02)
[2018-08-27] MEDS: DIVALPROEX 500MG *ER* TAB PO SCH (20:02)
[2018-08-28 06:45] VITALS: BP 104/60
[2018-08-28 08:12] VITALS: BP 100/60
[2018-08-28] MEDS: METOPROLOL TART 25 MG TABLET PO SCH (08:12)
[2018-08-28] MEDS: FUROSEMIDE 20 MG TAB PO SCH (08:12)
[2018-08-28] MEDS: POTASSIUM CHLORIDE 10 MEQ SR TABLET PO SCH (08:12)
[2018-08-28] MEDS: ENOXAPARIN 40 MG/0.4 ML SYRINGE (J1650) SC SCH (08:12)
[2018-08-28] MEDS: MELOXICAM (MOBIC) 7.5 MG TAB PO SCH (08:12)
[2018-08-28] MEDS: DOCUSATE SODIUM 100 MG CAP PO SCH (08:12)
[2018-08-28] MEDS ORDERED: HALD100I2 IM (09:18)
[2018-08-28] MEDS ORDERED: FLUP5TA PO (09:18)
[2018-08-28] MEDS ORDERED: QUET200T54 PO (09:18)
[2018-08-28] MEDS ORDERED: DEPA500T2 PO (09:18)
[2018-08-28] MEDS ORDERED: BENZ-52 PO (09:18)
--- NOTE | 2018-08-28 09:18 | MHDSPDOC ---
[facility] Discharge Summary Discharge Summary DATE OF ADMISSION: July 25, 2018 at 19:23 DATE OF DISCHARGE: Aug 28, 2018 DISCHARGE DIAGNOSES: 1. Bipolar d/o with psychosis REASON FOR ADMISSION: Patient is a 57 -year-old , male, with a history of schizoaffective d/o and residing at [facility] several years who was sent with PD under 9.41 from [facility] due to pt threatening staff and other residents, decompensating, manic, paranoid people talk about him, talking to self, AH (stated in ED "they're not too bad"), and agitation. Pt according to [facility] scaring the other residents there due to him threatening and cussing at them. Per ED, when pt asked why he was sent to the ED he stated "I was evicted from my house for arguing with 2 other people. Per ED, pt was manic and agitated. Pt is a poor historian due to current nelda/psychosis/agitation so history gathered from previous chart records. CONSULTANTS INVOLVED: medicine regarding medical comorbidities Plastic Surgery: Pt had a fall on the unit during his admission in which he cut the right side of his forehead just above his eyebrow in which plastic surgery was called a stitches where applied that healed well during his stay to minor scar at day of discharge. No other falls after and pt on 1:1 sitter for assistance with ambulating until his gait was stead and no longer needed assistance. NEW TEST RESULTS: Depakote level 69.9 TREATMENT AND PROGRESS ON THE UNIT : Pt was admitted to [facility], seen for psychiatric assessment and started on his outpatient medications haldol, valium, depakote er, seroquel er, and ambien. His outpatient saphris was discontinued. Due to poor response with these medications they were changed during his stay from haldol to prolixin 10mg qid that pt found very beneficial and stated he liked, seroquel er to seroquel for improved sleep at night, ambien to trazodone to prevent delirium secondary to ambien at night. He was titrated off all benzodiazepines (valium and ativan; ativan was given prn then tid during his stay) slowly to insure tolerability to no withdrawal that caused a great improvement in pt's gait, agitation, sleep, mood, psychosis, thought process during his stay to being stable and at his baseline when completed. His mother visited him and was glad to see how well he was doing off all benzodiazepines. [facility] followed up with pt progress weekly during his stay. His depakote er was not changed as appeared effective and tolerated with his last level drawn being 69.9 which was therapeutic. He was provided zyprexa zydis 10mg q4hr prn anxiety/ agitations. Pt found his medications beneficial and tolerated them well. He attended groups daily during his stay. His symptoms improved with treatment. On day of discharge he denied depression, anxiety, insomnia, SI/HI, hallucinations, delusions. He appeared cooperative, pleasant, had linear/logical thought process, no psychotic or manic, and at his baseline. He was discharged home with [facility] with follow-up there.. He felt safe for discharge. DISCHARGE ASSESSMENT: Doing very well today and states he feels good. States he's looking forward to returning home to [facility] today. He appears cooperative, pleasant, had linear/logical thought process, no psychotic or manic, and at his baseline Great improvement in symptoms with no agitation during the day and not psychotic with treatment. He states his tolerating his medication well and feels they're beneficial. States he likes them. His gait is stead with use of a cane (baseline). He is sleeping thru the night. He denies depression, anxiety, insomnia, SI/HI, hallucinations, delusions. Feels safe to return home to [facility] with [employer] staff today. MENTAL STATUS EXAMINATION ON DISCHARGE: Patient is a 57-year old male, who is being treated for what has presented as bipolar disorder w/psychosis that is improved to baseline status currently Speech: Is more regular yet still mumbles at times. It is intelligible and logical Language skills are intact. Thought processes including: concrete, more linear and logical Thought content: denies SI/HI, hallucinations, delusions Abstract reasoning, and computation:improved ability to abstract. Description of associations: no loose associations Description of abnormal or psychotic thoughts:. denies hallucinations or delusions, paranoia and appears to not be psychotic or manic Judgment: Poor-fair Insight: Poor-fair Orientation: Intact 3. Recent and remote memory:fair Attention span and concentration: good Language:. No obvious abnormality. Fund of knowledge:. Unable to measure. Mood: euthymic. Affect: Congruent. pleasant MEDICATIONS ON DISCHARGE: Cogentin 1 mg QHS Depakote Er 1,500 mg QHS Colace 200 mg BID Prolixin 10 mg QID SEROquel XR 400 mg QHS PLAN/FOLLOWUP ARRANGEMENTS: D/c home with [facility] with follow-up there. The amount of time spent in the coordination of care for this patient was approximately 30 minutes. Vital Signs/I&Os Vital Signs Date Time Temp Pulse Resp B/P (MAP) Pulse Ox O2 Delivery O2 Flow Rate FiO2 08/28/18 08:12 92 100/60 08/28/18 06:45 97.9 16 08/22/18 10:00 Medications Scheduled Benztropine Mesylate (Benztropine Mesylate) 1 Mg Tablet, 1 MG PO QHS for eps, #10 Divalproex Sodium (Depakote ER) 500 Mg Tab, 1,500 MG PO QPM for bipolar d/o, #30 WITH DINNER Docusate Sodium (Docusate Sodium) 100 Mg Capsule, 200 MG PO BID, (Reported) Fluphenazine HCl (Fluphenazine HCl) 5 Mg Tablet, 10 MG PO QID for schizophrenia, #40 Furosemide (Furosemide) 20 Mg Tab, 20 MG PO BID, (Reported) Meloxicam (Meloxicam) 15 Mg Tablet, 15 MG PO DAILY, (Reported) Metoprolol Tartrate (Metoprolol Tartrate) 25 Mg Tablet, 25 MG PO BID, (Reported) Potassium Chloride (Potassium Chloride) 10 Meq Tab.er.prt, 10 MEQ PO BID, (Reported) Quetiapine Fumarate (Quetiapine Fumarate ER) 200 Mg Tab.er.24h, 400 MG PO QHS for bipolar d/o with psychosis, #10 Scheduled PRN Acetaminophen (Tylenol Extra Strength) 500 Mg Tablet, 1,000 MG PO Q8H PRN for PAIN, (Reported) Albuterol Sulfate (Ventolin Hfa) 18 Gm Hfa.aer.ad, 2 PUFF INH Q4H PRN for KASIE RTNESS OF BREATH, (Reported) Allergies Coded Allergies: No Known Allergies (Verified , 06/27/10) MARY ANDERSON DO Aug 28, 2018 09:04
== END 2018-08-28 11:30 | disposition home or self-care (01) | DRG 885 ==
LOC: M ED 12:39 → EDBEDREQSVC 18:20 → M ED INP 19:23 → M PSY 20:47
PROVIDERS: ADMIT Psychiatry & Neurology Psychiatry; ATTEND Psychiatry & Neurology Child & Adolescent Psychiatry
PROC: 08Q Eye, Repair (ICD-10-PCS; principal; 2018-07-30)
DX: F31.2 Bipolar disorder, current episode manic severe with psychotic features (principal); E87.1 Hypo-osmolality and hyponatremia; Z79.899 Other long term (current) drug therapy; I10 Essential (primary) hypertension; J45.909 Unspecified asthma, uncomplicated; E78.5 Hyperlipidemia, unspecified; S01.111A Laceration without foreign body of right eyelid and periocular area, initial encounter; W18.30XA Fall on same level, unspecified, initial encounter; Y92.238 Other place in hospital as the place of occurrence of the external cause

== ENCOUNTER 2019-12-01 21:40 | Inpatient (IN) | payer MEDICARE, MEDICAID ==
[~2019-12-01] VITALS: Ht 180.3 cm; Wt 86.4 kg
[~2019-12-01 21:40] MED LIST changes: +ACET-897 PO; +AMBI10TA PO; +ASEN5TA SL; +BENZ-52 PO; +DIAZ2TAB PO; +DOCU100C17 PO; +FLUP5TA PO; +MELO15TA28 PO; +METO1TAB87 PO; +POTA10TA16 PO; +QUET200T54 PO; +VENTAER INH
[2019-12-01] MEDS ORDERED: NALOXONE 2MG/2ML SYRINGE (J2310 PER 1MG) As Ordered ONE (21:46)
[2019-12-01] MEDS ORDERED: NALOXONE 2MG/2ML SYRINGE (J2310 PER 1MG) IV STA (21:46)
--- NOTE | 2019-12-01 22:14 | REPVR ---
PROCEDURE INFORMATION: Exam: XR Chest, 1 View Exam date and time: 12/01/2019 9:46 PM Age: 59 years old Clinical indication: Other: AMS; Additional info: Altered mental status TECHNIQUE: Imaging protocol: XR of the chest Views: 1 view. COMPARISON: No relevant prior studies available. FINDINGS: Lungs: Suboptimal inspiratory effort. Increased markings demonstrated in the right perihilar region may represent an infiltrate, acute or chronic. Possible calcified left hilar lymph nodes. Pleural space: Unremarkable. No pleural effusion. No pneumothorax. Heart/Mediastinum: Unremarkable. No cardiomegaly. Bones/joints: Osteoporosis. ORIF right humerus. IMPRESSION: Increased markings demonstrated in the right perihilar region may represent an infiltrate, acute or chronic. Electronically signed by: Grant Li On 12/01/2019 22:14:04 PM
[2019-12-01 22:39] LABS: BASO # 0.1 10^3/uL (0.0-0.2); BASO % 0.9 % (0.0-1.0); EOS # 0.1 10^3/uL (0.0-0.5); EOS % 2.6 % (0.0-3.0); HEMATOCRIT 33.2 % (42.0-52.0); HEMOGLOBIN 11.3 g/dl (13.5-17.5); LYMPH # 1.7 10^3/uL (1.5-5.0); LYMPH % 31.5 % (24.0-44.0); MEAN CORPUSCULAR HEMOGLOBIN 30.7 pg (27.0-33.0); MEAN CORPUSCULAR VOLUME 90.2 fl (80.0-96.0); MONO # 0.7 10^3/uL (0.0-0.8); MONO % 13.8 % (0.0-5.0); NEUTROPHILS # 2.7 10^3/uL (1.5-8.5); NEUTROPHILS % 50.6 % (36.0-66.0); PLATELET COUNT, AUTOMATED 245 10^3/uL (150-450); RED BLOOD COUNT 3.68 10^6/uL (4.30-6.10); WHITE BLOOD COUNT 5.4 10^3/uL (4.0-10.0)
--- NOTE | 2019-12-01 22:45 | REPVR ---
PROCEDURE INFORMATION: Exam: CT Head Without Contrast Exam date and time: 12/01/2019 10:32 PM Age: 59 years old Clinical indication: Altered mental status/memory loss TECHNIQUE: Imaging protocol: Computed tomography of the head without contrast. Radiation optimization: All CT scans at this facility use at least one of these dose optimization techniques: automated exposure control; mA and/or kV adjustment per patient size (includes targeted exams where dose is matched to clinical indication); or iterative reconstruction. COMPARISON: CT Head without contrast 07/30/2018 1:42 PM FINDINGS: Brain: Mild parenchymal atrophy, stable. Mild cerebellar atrophy, stable. Ventricles: No ventriculomegaly. Bones/joints: Unremarkable. No acute fracture. Paranasal sinuses: Visualized sinuses are unremarkable. No fluid levels. Mastoid air cells: Visualized mastoid air cells are well aerated. Soft tissues: Unremarkable. IMPRESSION: 1. Mild parenchymal atrophy, stable. 2. Mild cerebellar atrophy, stable. 3. No acute intracranial findings. Electronically signed by: Grant Li On 12/01/2019 22:45:24 PM
[2019-12-01 23:00] LABS: AMPHETAMINES LEVEL URINE NEGATIVE (NEGATIVE); BARBITURATES URINE NEGATIVE (NEGATIVE); BENZODIAZEPINES URINE NEGATIVE (NEGATIVE); CANNABINOIDS URINE NEGATIVE (NEGATIVE); COCAINE METABOLITE URINE NEGATIVE (NEGATIVE); METHADONE URINE NEGATIVE (NEGATIVE); OPIATES URINE NEGATIVE (NEGATIVE); PHENCYCLIDINE URINE NEGATIVE (NEGATIVE)
[2019-12-01 23:10] LABS: ACETAMINOPHEN LEVEL 4.8 UG/ML (10.0-30.0); ALBUMIN 2.9 GM/DL (3.2-5.2); ALT/SGPT 14 U/L (12-78); BILIRUBIN,DIRECT 0.1 MG/DL (0.0-0.2); BILIRUBIN,TOTAL 0.3 MG/DL (0.2-1.0); BLOOD UREA NITROGEN 26 MG/DL (7-18); CALCIUM LEVEL 8.7 MG/DL (8.8-10.2); CARBON DIOXIDE LEVEL 33 MEQ/L (21-32); CHLORIDE LEVEL 97 MEQ/L (98-107); CK-MB VALUE MASS 1.6 NG/ML (<3.6); CPK CREATINE PHOSPHOKINASE 68 U/L (39-308); CREATININE FOR GFR 0.99 MG/DL (0.70-1.30); ETHYL ALCOHOL (ETHANOL) < 0.003 % (0.000-0.010); GLOMERULAR FILTRATION RATE > 60.0 (>49); GLUCOSE, FASTING 96 MG/DL (70-100); MB/CK RELATIVE INDEX 2.35 (< OR =4); SALICYLATE LEVEL < 1.7 MG/DL (5.0-30.0); SODIUM LEVEL 135 MEQ/L (136-145); TOTAL PROTEIN 6.2 GM/DL (6.4-8.2); TROPONIN I < 0.02 NG/ML (< 0.10)
[2019-12-01] MEDS ORDERED: AZITHROMYCIN INJ 500 MG, VIAL MATE ADAPTER 1 EACH in D5W 250 ML IV ONE (23:30)
[2019-12-01] MEDS ORDERED: cefTRIAXone SOD 1 GM in D5W MINI-BAG PLUS 50 ML IV ONE (23:30)
--- NOTE | 2019-12-01 23:34 | HPEPDOC ---
[facility] Medical History & Physical Date of Admission Dec 02, 2019 Date of Service: Dec 02, 2019 Attending Physician: Sherrell Mascorro MD History and Physical CHIEF COMPLAINT: altered mental status HISTORY OF PRESENT ILLNESS: Patient is a 59 y/o M with PMH of paranoid schizophrenia, HTN, HLD, b/l lower ext edema, PVD who presented from [facility] facility for increased lethargy, somnolence and altered mental status (AMS) beginning after dinner tonight. According to the transitional living center, patient had prepared his own dinner, ate. Shortly after dinner he was noted to be very lethargic to the point where he was very hard to arouse. Patient had received all his medications today with no new increases in medications for the past 4 days. Patient is on high dose seroquel (200 QAM and 400 mg QPM) BID, haldol 10 mg PO BID (increased from 5 mg PO BID 5 days ago), zolpidem 10 mg HS, benztropine 1 mg HS-all of which can cause increased somnolence. Other psych meds include valproic acid, fluphenazine QID. Patient had not previously complained of shortness of breath, n/v/d, fevers, chills, chest pain, dysuria, cough, had recent illness in the time prior to his AMS occurring. No documented LOC, tremoring, facial drooping, drooling, loss of bowel or bladder, tongue biting. There was no witnessing of patient ingesting anything more than his regularly given meds. EMS was called, patient was found somnolent but hemodynamically stable, able to protect airway. He was given 4mg narcan without response and transported to ER. In ER, VS were stable but patient was lethargic, would open his eyes and mumble words at times. GCS 10. He was given an additional 4 mg narcan, again without improvement. UDS, UA, ETOH, salicylate, ammonia, acetaminophen, blood sugar, TSH and all other labs unremarkable. CT head neg. MRI brain neg. ABG: pH 7.4/ pCO2 43.4/ pO2 111. CXR: increased markings demonstrated in the right perihilar region may represent an infiltrate, acute or chronic. Patient was admitted for acute toxic-metabolic encephalopathy likely 2/2 to polypharmacy, ? community acq uired PNA vs. aspiration PNA. ROS: Unable to obtain information 2/2 to decreased mental status PAST MEDICAL HISTORY: 1. paranoid schizophrenia 2. hypertension 3. hyperlipidemia 4. bilateral lower extremity edema 5. peripheral vascular disease PAST SURGICAL HISTORY: 1. Tonsillectomy 2. ORIF or left elbow and hemipatellectomy 3. Repair of patellar tendon of the left knee by Dr. Marshall FAMILY HISTORY: Non-contributory, pt is a poor historian SOCIAL HISTORY: Unknown smoking, alcohol or drug use history. 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 Pt lives in [facility] in [place]. PAST SURGICAL HISTORY: Unable to obtain information 2/2 to decreased mental status ALLERGIES: Please see below. HOME MEDICATIONS: Please see below. PHYSICAL EXAMINATION: VITAL SIGNS: 97.1, 77, 12, 144/96, 100% on RA GENERAL APPEARANCE: lethargic, resting in bed, arousable with loud verbal and p hysical stimuli HEENT: AT/NC, PERRLA, moist oral mucosa, NC in place CARDIOVASCULAR: S1S2 +, no M/R/G LUNGS: CTAB, no W/R/R ABDOMEN: soft, nontender, nondistended, BS + in 4 quad MUSCULOSKELETAL: No atrophy EXTREMITIES: +3 pitting edema in the b/l lower ext, mild erythema without warmth bilaterally. No cyanosis or clubbing. Pulses +2 in all extremities NEUROLOGICAL: No obvious focal deficits seen;however, CN cannot be tested due to patient not being able to participate. Reflexes intact in all extremities, normal tone , arousable to painful and loud stimuli PSYCHIATRIC: Unable to assess LABORATORY DATA: See below. IMAGING: CT head: no acute intracranial abnormality MRI brain: CXR: Increased markings demonstrated in the right perihilar region may represent an infiltrate, acute or chronic. MICROBIOLOGY: Please see below. ASSESSMENT: 59 y/o M with PMH of paranoid schizophrenia, HTN, HLD, b/l lower ext edema, PVD admitted for acute toxic-metabolic encephalopathy likely 2/2 to polypharmacy, ? community acquired PNA vs. aspiration PNA. PLAN: 1. Acute toxic-metabolic encephalopathy likely 2/2 to polypharmacy. -According to papers, patient received multiple medications today which could have caused his current lethargy, difficulty arousing and altered mental state. -UDS, UA, TSH, blood sugar, WBC unremarkable -C/w IVFs, monitor mental status closely. 2. Abnormal CXR, possible community acquired PNA vs. aspiration PNA (lower suspicion) -Increased somnolence after dinner, no documented aspiration event or vomiting -F/u sputum cx, daily labs -Starting on levofloxacin only, consider adding flagyl if WBC increases and suspicion of aspiration remains -Keep as aspiration risk, keep HOB elevated 3. Hyponatremia, hyponatremia- mild likely 2/2 to dehydration -IVFs -F/u AM labs 4. Anemia -No signs/symptoms of acute bleeding -Baseline H/H is wnl after trending in comp., no prior history of anemia -F/u AM CBC. If still low, order ferritin, TIBC, iron. 5. Lower extremity edema, chronic -Not suspicious for cellulitis at this time. Cause: CHF vs. lymphedema? -F/u BNP -Holding diuretics at this time, can resume in AM if more awake 6. Paranoid schizophrenia -On multiple medications, some of which have been recently increased in past 5 days. -Suggest consulting psychiatry to do medication reconciliation this admission -Holding all PO meds due to mental status 7. Elevated valproic acid, not believed to be acute toxicity -VA level: 141 -F/u repeat level -Per pharmacy hold today's dose and check levels daily x 2 days. GI px -PPI IV 7. DVT px -Lovenox daily DISPOSITION: Admitted to acute inpatient status. PT/OT when able to communicate. Plan is discharge back to transitional living when medically improved. Vital Signs Vital Signs Date Time Temp Pulse Resp B/P (MAP) Pulse Ox O2 Delivery O2 Flow Rate FiO2 12/01/19 22:00 97.1 77 12 144/96 100 Nasal Cannula 2.0 Laboratory Data Labs 24H Laboratory Tests 2 12/01/19 22:18: Immature Granulocyte % (Auto) 0.6, Neutrophils (%) (Auto) 50.6, Lymphocytes (%) (Auto) 31.5, Monocytes (%) (Auto) 13.8H, Eosinophils (%) (Auto) 2.6, Basophils (%) (Auto) 0.9, Neutrophils # (Auto) 2.7, Lymphocytes # (Auto) 1.7, Monocytes # (Auto) 0.7, Eosinophils # (Auto) 0.1, Basophils # (Auto) 0.1, Nucleated Red Blood Cells % (auto) 0.0, Urine Color YELLOW, Urine Appearance CLEAR, Urine pH 6.0, Urine Specific [place] 1.014, Urine Protein NEGATIVE, Urine Glucose (UA) NEGATIVE, Urine Ketones NEGATIVE, Urine Blood NEGATIVE, Urine Nitrite NEGATIVE, Urine Bilirubin NEGATIVE, Urine Urobilinogen 0.2, Urine Leukocyte Esterase NEGATIVE, Urine WBC (Auto) 1, Urine RBC (Auto) 1, Urine Hyaline Casts (Auto) 0, Urine Bacteria (Auto) NEGATIVE, Urine Squamous Epithelial Cells 0, Urine Sperm (Auto) , Anion Gap 5L, Glomerular Filtration Rate > 60.0, Calcium Level 8.7L, Total Bilirubin 0.3, Direct Bilirubin 0.1, Aspartate Amino Transf (AST/SGOT) 13, Alanine Aminotransferase (ALT/SGPT) 14, Alkaline Phosphatase 73, Total Creatine Kinase 68, Creatine Kinase MB 1.6, Creatine Kinase MB Relative Index 2.35, Troponin I < 0.02, Total Protein 6.2L, Albumin 2.9L, Albumin/Globulin Ratio 0.9, Thyroid Stimulating Hormone (TSH) 2.200, Salicylates Level < 1.7L, Urine Opiates Screen NEGATIVE, Urine Methadone Screen NEGATIVE, Acetaminophen Level 4.8L, Urine Barbiturates Screen NEGATIVE, Urine Phencyclidine Screen NEGATIVE, Urine Amphetamines Screen NEGATIVE, Urine Benzodiazepines Screen NEGATIVE, Urine Cocaine Metabolite Screen NEGATIVE, Urine Cannabinoids Screen NEGATIVE, Ethyl Alcohol Level < 0.003 CBC/BMP Laboratory Tests 12/01/19 22:18 Home Medications Scheduled Benztropine Mesylate (Benztropine Mesylate) 1 Mg Tablet, 1 MG PO QHS Celecoxib (Celebrex) 200 Mg Capsule, 200 MG PO QPM TAKES AT 1700 Divalproex Sodium (Divalproex Sodium ER) 500 Mg Tab.er.24h, 2,000 MG PO QPM TAKES AT 1700 Fluphenazine HCl (Fluphenazine HCl) 10 Mg Tablet, 10 MG PO QID Furosemide (Furosemide) 20 Mg Tab, 20 MG PO BID MORNING, 1700 Haloperidol (Haloperidol) 10 Mg Tablet, 10 MG PO BID Meloxicam (Meloxicam) 7.5 Mg Tablet, 7.5 MG PO DAILY Quetiapine Fumarate (Quetiapine Fumarate) 200 Mg Tablet, 200 MG PO DAILY TAKES AT NOON Quetiapine Fumarate (Quetiapine Fumarate) 400 Mg Tablet, 400 MG PO QHS Spironolactone (Spironolactone) 25 Mg Tablet, 25 MG PO DAILY Zolpidem Tartrate (Zolpidem Tartrate) 10 Mg Tablet, 10 MG PO QHS Scheduled PRN Acetaminophen (Tylenol) 325 Mg Tablet, 325 MG PO Q12H PRN for PAIN Docusate Sodium (Docusate Sodium) 100 Mg Capsule, 100 MG PO BID PRN for CONSTIPATION Allergies Coded Allergies: No Known Allergies (Verified , 06/27/10) A-FIB/CHADSVASC A-FIB History Current/History of A-Fib/PAF?: No Current PO Anticoag Therapy: No Age/Risk Factor Scoring CHADSVASC: CHADSVASC Response (Comments) Value Age Risk Factor Age < 65 years old 0 Gender Risk Factor Male 0 Hx of CHF No 0 Hx of HTN Yes 1 Hx of Stroke/TIA/or VTE No 0 Hx of Diabetes No 0 Hx of Vascular Disease No 0 Total 1 Treatment Treatment ordered: Other Other anticoagulant ordered: Sherrell Walton MD Dec 01, 2019 23:34
[2019-12-02] MEDS ORDERED: ZOLP10TA2 PO (00:12)
[2019-12-02] MEDS ORDERED: BENZ-52 PO (00:12)
[2019-12-02] MEDS ORDERED: SPIR-10 PO (00:12)
[2019-12-02] MEDS ORDERED: DIVA500T9 PO (00:12)
[2019-12-02] MEDS ORDERED: QUET400T PO (00:12)
[2019-12-02] MEDS ORDERED: HALO10TA20 PO (00:12)
[2019-12-02] MEDS ORDERED: QUET200T2 PO (00:12)
[2019-12-02] MEDS ORDERED: FLUP10TA11 PO (00:12)
[2019-12-02] MEDS ORDERED: DOCU100C17 PO (00:12)
[2019-12-02] MEDS ORDERED: MELO7.5T35 PO (00:12)
[2019-12-02] MEDS ORDERED: ACET-907 PO (00:12)
[2019-12-02] MEDS ORDERED: CELE1CAP4 PO (00:12)
[2019-12-02 00:13] LABS: ABG BASE EXCESS 2.1 (-2.0-2.0); ABG O2 SATURATION 97.5 % (95.0-99.0); ABG PARTIAL PRESSURE CO2 43.4 mmHg (35.0-45.0); ABG PARTIAL PRESSURE O2 111.1 mmHg (75.0-100.0); ABG STANDARD HCO3 26.3 MEQ/L (22.0-26.0); ABG TOTAL CO2 28.3 MEQ/L (23.0-31.0); ABG pH (ARTERIAL) 7.412 UNITS (7.350-7.450)
[2019-12-02 00:21] LABS: VALPROIC ACID (DEPAKOTE) 141.1 UG/ML (50.0-100.0)
--- NOTE | 2019-12-02 01:39 | REPVR ---
PROCEDURE INFORMATION: Exam: MR Head Without Contrast Exam date and time: 12/02/2019 11:27 PM Age: 59 years old Clinical indication: Speech disturbance; Slurred speech; Additional info: CVA TECHNIQUE: Imaging protocol: MR of the head without contrast. COMPARISON: CT Head without contrast 12/01/2019 10:14 PM FINDINGS: Brain: There is no acute intracranial hemorrhage, cerebral edema, or midline shift. No restricted diffusion is present to suggest acute infarction. Ventricles: No hydrocephalus. Bones/joints: Unremarkable. Sinuses: Normal as visualized. No acute sinusitis. Mastoid air cells: Normal as visualized. No mastoid effusion. Orbits: Unremarkable. Soft tissues: Unremarkable. IMPRESSION: No acute findings. Electronically signed by: Jordan Harris On 12/02/2019 01:38:54 AM
--- NOTE | 2019-12-02 01:41 | REPVR ---
PROCEDURE INFORMATION: Exam: MR Angiogram Head Without Contrast, Arteries Exam date and time: 12/02/2019 11:27 PM Age: 59 years old Clinical indication: Speech disturbance; Slurred speech; Additional info: CVA TECHNIQUE: Imaging protocol: MR angiogram head without contrast. Exam focused on the arteries. COMPARISON: CT Head without contrast 12/01/2019 10:14 PM FINDINGS: Limitations: The study is mildly limited due to patient motion artifact. ANTERIOR CIRCULATION: Right internal carotid artery: Intracranial segment is patent with no significant stenosis. No aneurysm. Right middle cerebral artery: No occlusion or significant stenosis. No aneurysm. Right anterior cerebral artery: No occlusion or significant stenosis. No aneurysm. Left internal carotid artery: Intracranial segment is patent with no significant stenosis. No aneurysm. Left middle cerebral artery: No occlusion or significant stenosis. No aneurysm. Left anterior cerebral artery: No occlusion or significant stenosis. No aneurysm. POSTERIOR CIRCULATION: Right vertebral artery: No occlusion or significant stenosis. No aneurysm. Left vertebral artery: No occlusion or significant stenosis. No aneurysm. Basilar artery: No occlusion or significant stenosis. No aneurysm. Right posterior cerebral artery: No occlusion or significant stenosis. No aneurysm. Left posterior cerebral artery: No occlusion or significant stenosis. No aneurysm. IMPRESSION: No acute abnormality. Electronically signed by: Jordan Harris On 12/02/2019 01:41:26 AM
[2019-12-02] MEDS ORDERED: NS 1,000 ML IV SCH (02:00)
[2019-12-02 03:15] LABS: INR 0.95; PROTHROMBIN TIME 12.9 SECONDS (11.8-14.0)
[2019-12-02 03:16] LABS: PARTIAL THROMBOPLASTIN TIME 30.5 SECONDS (25.0-38.4)
[2019-12-02 03:30] VITALS: BP 129/59
[2019-12-02] MEDS: PANTOPRAZOLE 40MG VIAL (C9113 PER 1) IV SCH (05:27)
[2019-12-02] MEDS ORDERED: LevoFLOXacin IV 750 MG in IV 1 EA IV SCH (06:00)
[2019-12-02 06:35] LABS: HEMATOCRIT 34.4 % (42.0-52.0); HEMOGLOBIN 11.5 g/dl (13.5-17.5); MEAN CORPUSCULAR HEMOGLOBIN 29.9 pg (27.0-33.0); MEAN CORPUSCULAR HGB CONC 33.4 g/dl (32.0-36.5); MEAN CORPUSCULAR VOLUME 89.6 fl (80.0-96.0); PLATELET COUNT, AUTOMATED 245 10^3/uL (150-450); RED BLOOD COUNT 3.84 10^6/uL (4.30-6.10); WHITE BLOOD COUNT 4.8 10^3/uL (4.0-10.0)
[2019-12-02 07:02] LABS: ALBUMIN 2.5 GM/DL (3.2-5.2); ALT/SGPT 12 U/L (12-78); BILIRUBIN,TOTAL 0.3 MG/DL (0.2-1.0); BLOOD UREA NITROGEN 24 MG/DL (7-18); CALCIUM LEVEL 8.3 MG/DL (8.8-10.2); CARBON DIOXIDE LEVEL 27 MEQ/L (21-32); CHLORIDE LEVEL 102 MEQ/L (98-107); CREATININE FOR GFR 0.76 MG/DL (0.70-1.30); GLOMERULAR FILTRATION RATE > 60.0 (>49); GLUCOSE, FASTING 91 MG/DL (70-100); NT-PRO BNP 269 PG/ML (<125); POTASSIUM SERUM 4.1 MEQ/L (3.5-5.1); SODIUM LEVEL 136 MEQ/L (136-145); TOTAL PROTEIN 5.5 GM/DL (6.4-8.2); VALPROIC ACID (DEPAKOTE) 90.6 UG/ML (50.0-100.0)
[2019-12-02 08:00] VITALS: BP 148/81
[2019-12-02] MEDS ORDERED: DOCUSATE SODIUM 100 MG CAP PO PRN (08:15)
[2019-12-02] MEDS: FUROSEMIDE 20 MG TAB PO SCH ×2 (09:03→16:46)
[2019-12-02] MEDS: ENOXAPARIN 40MG/0.4ML SYRINGE (J1650 PER 10MG) SC SCH (09:03)
[2019-12-02] MEDS: SPIRONOLACTONE 25 MG TAB PO SCH (09:03)
[2019-12-02 12:00] VITALS: BP 110/54
--- NOTE | 2019-12-02 12:50 | IPNPDOC ---
Date Seen The patient was seen on 12/02/19. Progress Note SUBJECTIVE: patient was seen and examined at bedside. Doing well. No acute events overnight. Calm and cooperative. Appears to be alert, answering questions. Denies CP, fevers, chills, nvd. OBJECTIVE PHYSICAL EXAMINATION: VITAL SIGNS: Please see below. GENERAL APPEARANCE: NAD, comfortable, up in chair HEENT: PERRLA, moist oral mucosa, NC in place CARDIOVASCULAR: S1S2, RRR LUNGS: CTAB, no W/R/R ABDOMEN: soft, nontender, nondistended, BS + in 4 quad MUSCULOSKELETAL: No atrophy EXTREMITIES: +3 pitting edema in the b/l lower ext, mild erythema without warmth bilaterally. No cyanosis or clubbing. Pulses +2 in all extremities NEUROLOGICAL: No obvious focal deficits PSYCHIATRIC: calm, cooperative LABORATORY DATA, IMAGING STUDIES, MICROBIOLOGY: Please see below. DVT prophylaxis ordered?: Y, lovenox ASSESSMENT AND PLAN: 59 y/o M with PMH of paranoid schizophrenia, HTN, HLD, b/l lower ext edema, PVD admitted for acute toxic-metabolic encephalopathy likely 2/2 to polypharmacy, ? community acquired PNA vs. aspiration PNA. PROBLEMS: 1. Acute toxic-metabolic encephalopathy likely 2/2 to polypharmacy. -According to papers, patient received multiple medications today which could have caused his current lethargy, difficulty arousing and altered mental state. - UDS, UA, TSH, blood sugar, WBC unremarkable - hold zolpidem, haldol, valproic acid, fluphenazine - psychiatry consult for assistance with medications - Discussed with Dr. Gross. 2. Abnormal CXR, possible community acquired PNA vs. aspiration PNA (lower suspicion) -Increased somnolence after dinner, no documented aspiration event or vomiting -WBC wnl -Levaquin -Keep as aspiration risk, keep HOB elevated 4. Anemia -No signs/symptoms of acute bleeding -Baseline H/H is wnl after trending in comp., no prior history of anemia -Hgb 11.5. Check FOBT. F/u ferritin, TIBC, iron.occu 5. Lower extremity edema, chronic -Not suspicious for cellulitis at this time. Cause: CHF vs. lymphedema? -BNP 269 - venous dupplex to r/o DVT - obtain 2D echo 6. Paranoid schizophrenia - On multiple medications, some of which have been recently increased in past 5 days. - will resume depakote, PM seroquel, benztropine Will hold fluphenazine, haldol - discussed with Dr. Gross, will assess patient, adjust medications 7. Elevated valproic acid, not believed to be acute toxicity - VA level: 141 - repeat level wnl. - holding valproic acid for now 8. GI px -PPI IV 9. DVT px -Lovenox daily DISPOSITION: Admitted to acute inpatient status. PT/OT. Plan is discharge back to transitional living when medically improved. VS, I&O, 24H, Fishbone Vital Signs/I&O Vital Signs Date Time Temp Pulse Resp B/P (MAP) Pulse Ox O2 Delivery O2 Flow Rate FiO2 12/02/19 12:00 97.3 88 20 110/54 (72) 100 Room Air 12/01/19 22:00 2.0 I&O- Last 24 Hours up to 6 AM 12/02/19 05:59 Intake Total 405 ml Output Total 300 ml Balance 105 ml Laboratory Data 24H LABS Laboratory Tests 2 12/01/19 22:18: Immature Granulocyte % (Auto) 0.6, Neutrophils (%) (Auto) 50.6, Lymphocytes (%) (Auto) 31.5, Monocytes (%) (Auto) 13.8H, Eosinophils (%) (Auto) 2.6, Basophils (%) (Auto) 0.9, Neutrophils # (Auto) 2.7, Lymphocytes # (Auto) 1.7, Monocytes # (Auto) 0.7, Eosinophils # (Auto) 0.1, Basophils # (Auto) 0.1, Nucleated Red Blood Cells % (auto) 0.0, Urine Color YELLOW, Urine Appearance CLEAR, Urine pH 6.0, Urine Specific [place] 1.014, Urine Protein NEGATIVE, Urine Glucose (UA) NEGATIVE, Urine Ketones NEGATIVE, Urine Blood NEGATIVE, Urine Nitrite NEGATIVE, Urine Bilirubin NEGATIVE, Urine Urobilinogen 0.2, Urine Leukocyte Esterase NEGATIVE, Urine WBC (Auto) 1, Urine RBC (Auto) 1, Urine Hyaline Casts (Auto) 0, Urine Bacteria (Auto) NEGATIVE, Urine Squamous Epithelial Cells 0, Urine Sperm (Auto) , Anion Gap 5L, Glomerular Filtration Rate > 60.0, Calcium Level 8.7L, Total Bilirubin 0.3, Direct Bilirubin 0.1, Aspartate Amino Transf (AST/SGOT) 13, Alanine Aminotransferase (ALT/SGPT) 14, Alkaline Phosphatase 73, Total Creatine Kinase 68, Creatine Kinase MB 1.6, Creatine Kinase MB Relative Index 2.35, Troponin I < 0.02, Total Protein 6.2L, Albumin 2.9L, Albumin/Globulin Ratio 0.9, Thyroid Stimulating Hormone (TSH) 2.200, Salicylates Level < 1.7L, Urine Opiates Screen NEGATIVE, Urine Methadone Screen NEGATIVE, Acetaminophen Level 4.8L, Urine Barbiturates Screen NEGATIVE, Valproic Acid (Depakene) Level 141.1H, Urine Phencyclidine Screen NEGATIVE, Urine Amphetamines Screen NEGATIVE, Urine Benzodiazepines Screen NEGATIVE, Urine Cocaine Metabolite Screen NEGATIVE, Urine Cannabinoids Screen NEGATIVE, Ethyl Alcohol Level < 0.003 12/02/19 00:04: Blood Gas Bicarbonate Standard 26.3H, Arterial Blood pH 7.412, Arterial Blood Partial Pressure CO2 43.4, Arterial Blood Partial Pressure O2 111.1H, Arterial Blood Total CO2 28.3, Arterial Blood HCO3 27.0H, Arterial Blood Base Excess 2.1H, Arterial Blood Oxygen Saturation 97.5 12/02/19 01:34: Ammonia 29 12/02/19 02:52: Prothrombin Time 12.9, Prothromb Time International Ratio 0.95, Activated Partial Thromboplast Time 30.5 12/02/19 06:10: Nucleated Red Blood Cells % (auto) 0.0, Anion Gap 7L, Glomerular Filtration Rate > 60.0, Calcium Level 8.3L, Total Bilirubin 0.3, Aspartate Amino Transf (AST/SGOT) 11, Alanine Aminotransferase (ALT/SGPT) 12, Alkaline Phosphatase 58, IV-Sgt-W-Type Natriuretic Peptide 269H, Total Protein 5.5L, Albumin 2.5L, Alb umin/Globulin Ratio 0.8, Valproic Acid (Depakene) Level 90.6 CBC/BMP Laboratory Tests 12/01/19 22:18 12/02/19 06:10 Microbiology Microbiology 12/01/19 Blood Culture, Received Pending 12/01/19 Blood Culture, Received Pending ESSENCE JACKSON MD Dec 02, 2019 12:50
[2019-12-02 16:00] VITALS: BP 165/86
[2019-12-02] MEDS ORDERED: HALOPERIDOL 5MG/ML VIAL (J1630 PER 1) IM ONE (16:00)
[2019-12-02] MEDS: DIVALPROEX 500MG *ER* TAB PO SCH (16:46)
[2019-12-02] MEDS ORDERED: HALOPERIDOL 5MG/ML VIAL (J1630 PER 1) IV ONE (17:00)
[2019-12-02 20:00] VITALS: BP 130/60
[2019-12-02] MEDS ORDERED: cefTRIAXone SOD 2 GM in D5W MINI-BAG PLUS 50 ML IV SCH (20:00)
--- NOTE | 2019-12-02 20:23 | REPVR ---
PROCEDURE INFORMATION: Exam: US Duplex Lower Extremity Veins, Bilateral Exam date and time: 12/02/2019 7:53 PM Age: 59 years old Clinical indication: Edema, localized; Lower extremity, bilateral; Additional info: Bilateral lower extremity swelling TECHNIQUE: Imaging protocol: Real-time duplex ultrasound of the extremities with 2-D arana scale, color Doppler flow and spectral waveform analysis with image documentation. Complete exam focused on the bilateral lower extremity veins. COMPARISON: US Duplex, Ext,LOWER veins,unilat LEFT 07/26/2018 3:11 PM FINDINGS: Right deep veins: Unremarkable. The common femoral, femoral and popliteal veins are patent without thrombus. Normal Doppler waveforms. Normal compressibility and/or augmentation response. Right superficial veins: Saphenofemoral junction is patent without thrombus. Left deep veins: Unremarkable. The common femoral, femoral and popliteal veins are patent without thrombus. Normal Doppler waveforms. Normal compressibility and/or augmentation response. Left superficial veins: Saphenofemoral junction is patent without thrombus. Soft tissues: Unremarkable. IMPRESSION: No sonographic evidence of deep vein thrombosis. Electronically signed by: Yakov Mcdonald On 12/02/2019 20:23:20 PM
[2019-12-02] MEDS ORDERED: BENZTROPINE 1 MG TAB PO SCH (21:00)
[2019-12-02] MEDS ORDERED: QUEtiapine FUMARATE 200 MG TAB PO SCH (21:00)
[2019-12-02] MEDS ORDERED: zolPIDEM TARTRATE 5 MG TAB PO PRN (22:15)
[2019-12-02] MEDS: DOXYCYCLINE HYCLATE 100 MG in D5W MINI-BAG PLUS 100 ML IV SCH (22:20)
[2019-12-03] VITALS: BP 117/65
[2019-12-03 04:00] VITALS: BP 120/77
[2019-12-03 05:37] LABS: HEMATOCRIT 34.6 % (42.0-52.0); HEMOGLOBIN 11.5 g/dl (13.5-17.5); MEAN CORPUSCULAR HEMOGLOBIN 30.4 pg (27.0-33.0); MEAN CORPUSCULAR HGB CONC 33.2 g/dl (32.0-36.5); MEAN CORPUSCULAR VOLUME 91.5 fl (80.0-96.0); PLATELET COUNT, AUTOMATED 242 10^3/uL (150-450); RED BLOOD COUNT 3.78 10^6/uL (4.30-6.10); WHITE BLOOD COUNT 5.8 10^3/uL (4.0-10.0)
[2019-12-03] MEDS: PANTOPRAZOLE 40MG VIAL (C9113 PER 1) IV SCH (05:55)
[2019-12-03 06:11] LABS: ALBUMIN 2.6 GM/DL (3.2-5.2); ALT/SGPT 12 U/L (12-78); BILIRUBIN,TOTAL 0.2 MG/DL (0.2-1.0); BLOOD UREA NITROGEN 22 MG/DL (7-18); CALCIUM LEVEL 8.2 MG/DL (8.8-10.2); CARBON DIOXIDE LEVEL 30 MEQ/L (21-32); CHLORIDE LEVEL 102 MEQ/L (98-107); CREATININE FOR GFR 0.79 MG/DL (0.70-1.30); FERRITIN 56 NG/ML (26-388); GLOMERULAR FILTRATION RATE > 60.0 (>49); GLUCOSE, FASTING 83 MG/DL (70-100); IRON (FE) 90 UG/DL (65-175); PERCENT SATURATION 29.1 % (19.7-50.0); POTASSIUM SERUM 4.4 MEQ/L (3.5-5.1); SODIUM LEVEL 135 MEQ/L (136-145); TOTAL IRON BINDING CAPACITY 309 UG/DL (250-450); TOTAL PROTEIN 5.8 GM/DL (6.4-8.2); VALPROIC ACID (DEPAKOTE) 79.9 UG/ML (50.0-100.0)
[2019-12-03 07:37] VITALS: BP 126/62
[2019-12-03] MEDS: SPIRONOLACTONE 25 MG TAB PO SCH (08:09)
[2019-12-03] MEDS: FUROSEMIDE 20 MG TAB PO SCH ×2 (08:09→17:11)
[2019-12-03] MEDS: ENOXAPARIN 40MG/0.4ML SYRINGE (J1650 PER 10MG) SC SCH (08:10)
[2019-12-03] MEDS: DOXYCYCLINE HYCLATE 100 MG in D5W MINI-BAG PLUS 100 ML IV SCH (08:10)
[2019-12-03] MEDS ORDERED: QUEtiapine FUMARATE 100 MG TAB PO SCH (09:00)
[2019-12-03] MEDS ORDERED: AUGM875T28 PO (15:06)
[2019-12-03] MEDS ORDERED: FLUP5TA PO (15:06)
[2019-12-03] MEDS ORDERED: AMBI5TAB PO (15:06)
[2019-12-03] MEDS ORDERED: QUET100T2 PO (15:06)
[2019-12-03] MEDS ORDERED: DOXY-350 PO (15:09)
--- NOTE | 2019-12-03 15:33 | DS.PDOC ---
Discharge Summary General Date of Admission Dec 02, 2019 at 01:53 Date of Discharge 12/03/19 Attending Physician: ESSENCE JACKSON MD Discharge Summary PROCEDURES PERFORMED DURING STAY: [None]. ADMITTING DIAGNOSES: encephalopathy pneumonia hyponatremia anemia chronic edema schizophrenia elevated valproic acid level DISCHARGE DIAGNOSES: encephalopathy pneumonia hyponatremia anemia chronic edema schizophrenia elevated valproic acid level COMPLICATIONS/CHIEF COMPLAINT: Acute Encephalopathy. HISTORY OF PRESENT ILLNESS: Patient is a 59 y/o M with PMH of paranoid schizophrenia, HTN, HLD, b/l lower ext edema, PVD who presented from [facility] for increased lethargy, somnolence and altered mental status (AMS) beginning after dinner tonight. According to the [facility], patient had prepared his own dinner, ate. Shortly after dinner he was noted to be very lethargic to the point where he was very hard to arouse. Patient had received all his medications today with no new increases in medications for the past 4 days. Patient is on high dose seroquel (200 QAM and 400 mg QPM) BID, haldol 10 mg PO BID (increased from 5 mg PO BID 5 days ago), zolpidem 10 mg HS, benztropine 1 mg HS-all of which can cause increased somnolence. Other psych meds include valproic acid, fluphenazine QID. Patient had not previously complained of shortness of breath, n/v/d, fevers, chills, chest pain, dysuria, cough, had recent illness in the time prior to his AMS occurring. No documented LOC, tremoring, facial drooping, drooling, loss of bowel or bladder, tongue biting. There was no witnessing of patient ingesting anything more than his regularly given meds. EMS was called, patient was found somnolent but hemodynamically stable, able to protect airway. He was given 4mg narcan without response and transported to ER. In ER, VS were stable but patient was lethargic, would open his eyes and mumble words at times. GCS 10. He was given an additional 4 mg narcan, again without improvement. UDS, UA, ETOH, salicylate, ammonia, acetaminophen, blood sugar, TSH and all other labs unremarkable. CT head neg. MRI brain neg. ABG: pH 7.4/ pCO2 43.4/ pO2 111. CXR: increased markings demonstrated in the right perihilar region may represent an infiltrate, acute or chronic. Patient was admitted for acute toxic-metabolic encephalopathy likely 2/2 to polypharmacy, ? community acquired PNA vs. aspiration PNA. HOSPITAL COURSE: 1. Acute toxic-metabolic encephalopathy likely 2/2 to polypharmacy. -According to papers, patient received multiple medications today which could have caused his current lethargy, difficulty arousing and altered mental state. - UDS, UA, TSH, blood sugar, WBC unremarkable - psychiatry consult for assistance with medications - Discussed with Dr. Gross. - stop haldol on DC - reduce fluphenazine to 5 mg BID - reduce seroquel to 100 mg qam, continue 400 mg qhs - continue benztropine 1 mg qhs 2. Abnormal CXR, possible community acquired PNA vs. aspiration PNA (lower suspicion) -Increased somnolence after dinner, no documented aspiration event or vomiting -WBC wnl -levaquin switched to ceftriaxone and doxycycline to avoid risk of qtc prolongation - on DC switched to augment and doxy for 5 additional dayus -Keep as aspiration risk, keep HOB elevated 4. Anemia -No signs/symptoms of acute bleeding -Baseline H/H is wnl after trending in comp., no prior history of anemia -Hgb 11.5. 5. Lower extremity edema, chronic - Not suspicious for cellulitis at this time. Cause: CHF vs. lymphedema? - BNP 269 - venous dupplex to r/o DVT - negative for DVT - obtain 2D echo - reviewed with Dr. Sage - no abnormalities noted, normal global systolic and diastolic fn 6. Paranoid schizophrenia - suspect cause of metabolic encephalopathy - medication recommendations provided by psychiatry service Dr. Gross - stop haldol on DC - reduce fluphenazine to 5 mg BID - reduce seroquel to 100 mg qam, continue 400 mg qhs - continue benztropine 1 mg qhs 7. Elevated valproic acid, not believed to be acute toxicity - levels normalized, resumed on DC per psychiatry rec 8. GI px -PPI IV 9. DVT px -Lovenox daily DISCHARGE MEDICATIONS: Please see below. ALLERGIES: Please see below. PHYSICAL EXAMINATION ON DISCHARGE: VITAL SIGNS: Please see below. GENERAL APPEARANCE: NAD, comfortable, up in chair HEENT: PERRLA, moist oral mucosa, NC in place CARDIOVASCULAR: S1S2, RRR LUNGS: CTAB, no W/R/R ABDOMEN: soft, nontender, nondistended, BS + in 4 quad MUSCULOSKELETAL: No atrophy EXTREMITIES: +3 pitting edema in the b/l lower ext, mild erythema without warmth bilaterally. No cyanosis or clubbing. Pulses +2 in all extremities NEUROLOGICAL: No obvious focal deficits PSYCHIATRIC: calm, cooperative LABORATORY DATA: Please see below. IMAGING: CT brain IMPRESSION: 1. Mild parenchymal atrophy, stable. 2. Mild cerebellar atrophy, stable. 3. No acute intracranial findings. Bilateral venous dupplex: IMPRESSION: No sonographic evidence of deep vein thrombosis. MRA brain IMPRESSION: No acute abnormality MRI brain; no acute findings PROGNOSIS: good ACTIVITY: [As tolerated]. DIET: regular DISCHARGE PLAN: DC to transitional living. PCP and psychiatry f/u DISCHARGE INSTRUCTIONS: 1. follow up with PCP, psych 2. take meds as adjusted on DC. Do not take Haldol 3. If any seizures, chest pain, fall, fevers, or otherwise worsening of symptoms, please call 911 or return to the ED. DISCHARGE CONDITION: [Stable]. TIME SPENT ON DISCHARGE: Greater than [30] minutes. Vital Signs/I&Os Vital Signs Date Time Temp Pulse Resp B/P (MAP) Pulse Ox O2 Delivery O2 Flow Rate FiO2 12/03/19 07:37 97.0 91 18 126/62 (83) 96 Room Air 12/01/19 22:00 2.0 I&O- Last 24 Hours up to 6 AM 12/03/19 06:00 Intake Total 2710 ml Output Total 4575 ml Balance -1865 ml Laboratory Data Labs 24H Laboratory Tests 2 12/03/19 05:27: Nucleated Red Blood Cells % (auto) 0.0, Anion Gap 3L, Glomerular Filtration Rate > 60.0, Calcium Level 8.2L, Iron Level 90, Total Iron Binding Capacity 309, Transferrin % Saturation 29.1, Ferritin 56, Total Bilirubin 0.2, Aspartate Amino Transf (AST/SGOT) 15, Alanine Aminotransferase (ALT/SGPT) 12, Alkaline Phosphatase 54, Total Protein 5.8L, Albumin 2.6L, Albumin/Globulin Ratio 0.8, Valproic Acid (Depakene) Level 79.9 CBC/BMP Laboratory Tests 12/03/19 05:27 Microbiology Microbiology 12/01/19 Blood Culture - Preliminary, Resulted No growth after 24 hours . All specim... 12/01/19 Blood Culture - Preliminary, Resulted No growth after 24 hours . All specim... Discharge Medications Scheduled Amoxicillin/Potassium Clav (Augmentin 875-125 Tablet) 1 Each Tablet, 1 TAB PO BID Benztropine Mesylate (Benztropine Mesylate) 1 Mg Tablet, 1 MG PO QHS, (Reported) Divalproex Sodium (Divalproex Sodium ER) 500 Mg Tab.er.24h, 2,000 MG PO QPM, (Reported) TAKES AT 1700 Doxycycline Monohydrate (Doxycycline) 100 Mg Capsule, 100 MG PO BID Fluphenazine HCl (Fluphenazine HCl) 5 Mg Tablet, 5 MG PO BID Furosemide (Furosemide) 20 Mg Tab, 20 MG PO BID, (Reported) MORNING, 1700 Quetiapine Fumarate (Quetiapine Fumarate) 400 Mg Tablet, 400 MG PO QHS, (Reported) Quetiapine Fumarate (Quetiapine Fumarate) 100 Mg Tablet, 100 MG PO QAM Spironolactone (Spironolactone) 25 Mg Tablet, 25 MG PO DAILY, (Reported) Scheduled PRN Acetaminophen (Tylenol) 325 Mg Tablet, 325 MG PO Q12H PRN for PAIN, (Reported) Docusate Sodium (Docusate Sodium) 100 Mg Capsule, 100 MG PO BID PRN for CONSTIPATION, (Reported) Zolpidem Tartrate (Ambien) 5 Mg Tablet, 10 MG PO QPMP PRN for insomnia Allergies Coded Allergies: No Known Allergies (Verified , 06/27/10) ESSENCE JACKSON MD Dec 03, 2019 15:33
[2019-12-03] MEDS: DIVALPROEX 500MG *ER* TAB PO SCH (17:11)
--- NOTE | 2019-12-04 09:05 | MHCR ---
DATE: 12/02/2019 CHIEF COMPLAINT: Feels okay. SUBJECTIVE: He is 59 years old, has a history of schizoaffective disorder, possibly bipolar type has had several inpatient hospitalizations in psychiatry; the last one was about a year and a bit ago, July 2018. The discharge summary by Dr. Salmeron is reviewed. I have been asked to see him by the hospitalist and to make an assessment regarding the patient and the various psychotropics that he is on. The chart is reviewed, the patient is interviewed. He was brought in essentially from the transitional living services, as he was found to be increasingly lethargic, somnolent and was confused, particularly after dinner the other night and they found him hard to arouse. He had received all of his medicines and has been treated with various psychotropics. These include Seroquel at 200 mg in the morning, 400 mg in the afternoon, Haldol 10 mg twice a day, which was increased from 5 mg twice a day about 6 days or so days ago, Ambien 10 mg at night, benztropine 1 mg at night, Depakote 2000 mg at night, fluphenazine 10 mg 4 x a day. He has been seen by medicine. He seemed to be lethargic initially, was given Narcan. The various investigations including an MRI of the brain were found to be negative. Labs were generally thought to be unremarkable; it was thought that he may have had this change in mentation secondary to the combination of many medicines he is on, particularly the psychotropics. He does not remember much of the incident, but suggests that he has narcolepsy, but then suggests that he has a hard time staying asleep, uses Ambien regularly at 10 mg at night. Says has been doing well mostly overall, but did describe an incident at his outpatient clinic, but suggested that he did not want to discuss it. Says that happened a few weeks ago. Says feels better now, and says generally has a hard time relaxing, quite often feels anxious, says that tends to interfere with his sleep. PAST PSYCHIATRIC HISTORY: As indicated above. Has a history of schizoaffective disorder, various inpatient hospitalizations, last one was July 2018. At that time, he was discharged on Cogentin 1 mg at night, Depakote ER 1500 mg at night, Prolixin 10 mg four times a day, Seroquel 400 mg at night. PAST MEDICAL HISTORY: Has a history of hypertension, hyperlipidemia, bilateral lower extremity edema and peripheral vascular disease. SOCIAL HISTORY: Lives at the [facility] in [place], [place], has been there for a few years. ALLERGIES: No known allergies. MENTAL STATUS EXAMINATION: He is sitting up in bed. He is bearded. He is neat. He is hospital clothes. He is cooperative. No agitation, but speech is somewhat overly productive. No formal thought disorder as such, no psychomotor retardation, for the most part he is coherent with a fair range of affect, denies any suicidal thoughts or intents. Denies any homicidal ideas or intents. Denies auditory hallucinations at present. Does not appear to be internally preoccupied. No delusional ideations elicited. His cognition is grossly intact in that he is alert and oriented to time, place and person. Can spell the word house forwards and backwards, could recall 2 out of 3 objects after 5 minutes with prompting. There is no fluctuation of consciousness. Intellect average. Judgment good. Insight fair. ASSESSMENT: 1. Delirium, secondary to medications (neurocognitive disorder). 2. Schizoaffective disorder. He also indicates has had an increased in auditory and visual hallucinations over the last week or two, but is vague on this. It is possible the Haldol may have gone up from 5 mg twice a day to 10 mg a day secondary to those factors, recently. This was just few days before the changes that brought him to the hospital. Has been confused, has been overly sedated, lethargic, most recently after doubling of the Haldol he has been on in addition to multiple psychotropics including three antipsychotics at least. He is now alert, his sensorium is clear, speech is somewhat rapid, denies any suicidal thoughts or homicidal thoughts or intents. No delusional ideas elicited. Denies any auditory hallucinations, is able to maintain and shift attention adequately. He has been resumed on some of his psychotropics in hospital. He may benefit from streamlining the medication regimen, on the one hand to address his mood related and perceptual difficulties and on the other not overly sedating him. RECOMMENDATIONS: Continue benztropine 1 mg at night. Continue quetiapine (Seroquel) 400 mg at night. Restart the morning dose of the quetiapine, but at a lower dose than previously at 100 mg in the morning. Continue Depakote at the current dose 2000 mg in the early evening. Restart Ambien 10 mg at night, but would suggest giving it only as needed rather than scheduled. Resume fluphenazine, but at a lower dose 5 mg twice a day. Avoid any increase until he is seen in outpatient psychiatry, apparently he is seen at [facility]. Do not resume Haldol at this point, it should be avoided. This can be reassessed in the outpatient setting, would suggest not resuming it. The other recommendation is to assess his regularly in the outpatient setting and I would avoid the use of multiple antipsychotics. Refer back to his outpatient clinic for follow up. Thank you for the consult if any questions, please call. The assessment took 40 minutes. ANDREINA
--- NOTE | 2019-12-19 09:00 | ECGEPIP ---
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
== END 2019-12-03 17:28 | disposition home or self-care (01) | DRG 91 ==
LOC: M ED 21:40 → M ED INP 12-02 01:53 → ENRESERV 12-02 02:44 → M PCU 12-02 03:04
PROVIDERS: ADMIT Internal Medicine; ATTEND Family Medicine
DX: G92 Toxic encephalopathy (principal); J18.9 Pneumonia, unspecified organism; E87.1 Hypo-osmolality and hyponatremia; F20.0 Paranoid schizophrenia; I10 Essential (primary) hypertension; D64.9 Anemia, unspecified; I73.9 Peripheral vascular disease, unspecified; Z79.899 Other long term (current) drug therapy; E78.5 Hyperlipidemia, unspecified